=== PATIENT | male | born 1960 | race Caucasian/White ===

== ENCOUNTER 2020-03-07 15:59 | Emergency (ER) | payer OTHER, SELFPAY ==
[2020-03-07 16:46] VITALS: BP 170/96; PULSE 84; RESP 16; TEMP 36.6; O2SAT 98; BMI 32.1
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
== END 2020-03-07 17:55 | disposition home or self-care (01) ==
PROVIDERS: Emergency Provider Internal Medicine
DX: M54.2 Cervicalgia (principal); M25.512 Pain in left shoulder; M62.830 Muscle spasm of back; Z79.899 Other long term (current) drug therapy; F17.200 Nicotine dependence, unspecified, uncomplicated; Z71.6 Tobacco abuse counseling
CPT/HCPCS: 73030; 99283

== ENCOUNTER 2020-10-01 09:24 | Outpatient (REF) | payer OTHER, SELFPAY ==
--- NOTE | ~2020-10-01 | FL_ITS ---
EXAMINATION: FL BARIUM SWALLOW CLINICAL INFORMATION: Difficulty eating with question esophageal obstruction. COMPARISON: None TECHNIQUE: Barium swallow examination is performed using fluoroscopic evaluation in addition to multiple fluoroscopic spot views. The patient is imaged both upright and prone and using both thick and thin sulfate along with effervescent granules. Fluoroscopy time: 1.8 minutes DAP: 13.46 Gycm2 Images: 41 FINDINGS: Patient swallowed thin and thick barium as well as half-inch diameter barium tablet. There is no evidence of nasopharyngeal reflux or tracheal aspiration. No Zenker's diverticulum identified. There is diffuse esophageal hypomotility and dysmotility with tertiary contractions. The esophagus is distended with a weblike narrowing in its distal aspect at the gastroesophageal junction. There appears be a small hiatal hernia present. There is distention of the esophagus due to slow drainage across the narrowing. Half-inch diameter barium tablet would not pass through this region. FL/FL barium swallow IMPRESSION: Distal esophageal weblike stenosis through which a half-inch diameter barium tablet would not pass. Hypomotility with tertiary contractions.
--- NOTE | ~2020-10-01 | XR_ITS ---
EXAMINATION: XR CHEST CLINICAL INFORMATION: Tobacco use COMPARISON: None TECHNIQUE: 2 views of the chest were obtained. FINDINGS: No significant abnormality is noted involving the heart, lungs, mediastinum, bony thorax or soft tissues. XR/XR chest 2V IMPRESSION: Unremarkable examination.
--- NOTE | ~2020-10-01 | XR_ITS ---
EXAMINATION: XR SHOULDER, LEFT CLINICAL INFORMATION: Left shoulder pain. COMPARISON: 03/07/2020 left shoulder radiographs. TECHNIQUE: AP external rotation, Grashey, scapular Y, and axillary views of the left shoulder. FINDINGS: The bones and soft tissues are normal. No fracture. Glenohumeral and acromioclavicular alignment is anatomic with normal joint space. No abnormal soft tissue calcifications. XR/XR shoulder LT min 2V IMPRESSION: Unremarkable left shoulder.
--- NOTE | ~2020-10-01 | XR_ITS ---
EXAMINATION: XR LUMBOSACRAL SPINE CLINICAL INFORMATION: Low back pain. COMPARISON: None TECHNIQUE: Three views of the lumbosacral spine. FINDINGS: Mild multilevel marginal osteophyte formation is seen. There is normal lumbar lordosis and spinal alignment. Mild disc space narrowing is seen at L5-S1. The vertebral bodies are intact. There is minimal lumbar levoscoliosis with apex at L3-4. XR/XR lumbar spine 2-3V IMPRESSION: Mild multilevel degenerative changes and minimal lumbar levoscoliosis without acute abnormality.
[2020-10-01 11:33] LABS: MANUAL DIFF FLAG NO
[2020-10-01 11:50] LABS: Basophils Absolute Auto 0.1 X10*3/uL (0.0-0.2); Basophils Percent Auto 0.5 % (0-2); Eosinophils Absolute Auto 0.2 X10*3/uL (0.0-0.4); Eosinophils Percent Auto 1.8 % (0-4); Hematocrit 48.5 % (42-52); Hemoglobin 16.5 g/dl (14.0-18.0); Imm Gran Abs Auto 0.08 X10*3/uL (0.00-0.03); Imm Gran Pct Auto 0.8 % (0.0-0.4); Lymphocytes Absolute Auto 2.4 X10*3/uL (1.2-4.9); Lymphocytes Percent Auto 25.6 % (20-40); Mean Corpuscular Hemoglobin 29.9 pg (27.0-33.0); Mean Corpuscular Volume 87.9 fL (80-98); Mean Platelet Volume 9.9 fL (9.4-12.4); Monocytes Absolute Auto 0.7 X10*3/uL (0.1-1.2); Monocytes Percent Auto 7.3 % (2-11); Platelet Count 238 X10*3/uL (160-400); Red Blood Count 5.52 X10*6/uL (4.60-5.80); Red Cell Distribution Width 12.7 % (11.0-16.0); White Blood Count 9.4 X10*3/uL (4.8-10.8)
[2020-10-01 12:01] LABS: Estimated Average Glucose 103 mg/dL; Hemoglobin A1c % 5.2 %
[2020-10-01 12:23] LABS: Free T4 (Free Thyroxine) 0.84 ng/dL (0.71-1.85); Prostate Specific Antigen Scr 3.79 ng/mL (<0.05-4.0)
[2020-10-01 12:28] LABS: Folate 14.7 ng/mL (> or = 4.0); Vitamin B12 827 pg/mL (200-900)
[2020-10-01 12:35] LABS: Alanine Aminotransferase 49 U/L (0-40); Albumin Level 4.7 g/dL (3.5-5.0); Alkaline Phosphatase 92 U/L (39-117); Anion Gap 15 (12-20); Aspartate Amino Transferase 28 U/L (5-37); Bilirubin Total 0.6 mg/dL (0.0-1.0); Blood Urea Nitrogen 19 mg/dL (9-16); Calcium 9.6 mg/dL (8.4-10.2); Carbon Dioxide 28 mmol/L (22-29); Chloride 103 mmol/L (96-108); Cholesterol 315 mg/dL; Estimated Glomerular Filt Rate 57; Glucose Random 98 mg/dL (60-115); HDL Cholesterol 42 mg/dL; Potassium 4.7 mmol/L (3.3-5.1); Sodium 141 mmol/L (135-145); Total Protein 8.4 g/dL (6.5-8.0); Triglycerides 439 mg/dL
[2020-10-02 04:35] LABS: SARS COV2 IgG Positive (Negative)
== END 2020-10-01 09:25 | disposition home or self-care (01) ==
LOC: HO.XRAY 09:24
PROVIDERS: PCP Internal Medicine; Visit Provider Internal Medicine
DX: R13.10 Dysphagia, unspecified (principal); M54.5 Low back pain; R53.83 Other fatigue; M25.512 Pain in left shoulder; E78.00 Pure hypercholesterolemia, unspecified; Z72.0 Tobacco use; Z01.84 Encounter for antibody response examination; Z12.5 Encounter for screening for malignant neoplasm of prostate
CPT/HCPCS: 36415; 71046; 72100; 73030; 74220; 80053; 80061; 82607; 82746; 83036; 84153; 84439; 84443; 85025; 86769

== ENCOUNTER → 2020-10-03 10:27 | Outpatient (BNVA) | payer OTHER, SELFPAY | PROVIDERS: PCP Internal Medicine; Visit Provider Physician Assistant | DX: M75.42 Impingement syndrome of left shoulder (principal); M89.9 Disorder of bone, unspecified | CPT/HCPCS: 20610; 99202; J1040 ==

== ENCOUNTER 2020-10-16 07:45 | Outpatient (REF) | payer OTHER, SELFPAY ==
--- NOTE | ~2020-10-16 | US_ITS ---
EXAMINATION: US ABDOMEN LIMITED CLINICAL INFORMATION: Other specified abnormal findings of blood chemistry. COMPARISON: None TECHNIQUE: Real-time imaging of the right upper quadrant abdominal viscera. FINDINGS: PANCREAS: The head and the body the pancreas is homogeneous in echotexture. The tail of the pancreas is obscured by overlying gas. LIVER: The liver is normal in size. The liver contour is normal. There is diffuse increased liver echogenicity. No focal hepatic lesion. There is no intrahepatic biliary duct dilatation seen. GALLBLADDER: Normal. The gallbladder is physiologically distended without evidence of stones, sludge, polyps, wall thickening or pericholecystic fluid. COMMON BILE DUCT: Normal in caliber measuring 0.4 cm in diameter. RIGHT KIDNEY: Normal. No hydronephrosis. No renal calculi or focal parenchymal lesions. The kidney measures 11.9 cm in maximum dimension. FREE FLUID: None. US/US abdomen limited IMPRESSION: Diffuse hepatic echogenicity. No focal lesion seen. Visualized right kidney, CBD, gallbladder and the pancreas is unremarkable.
== END 2020-10-16 07:46 | disposition home or self-care (01) ==
LOC: HO.US 07:45
PROVIDERS: PCP Internal Medicine; Visit Provider Internal Medicine
DX: R79.89 Other specified abnormal findings of blood chemistry (principal)
CPT/HCPCS: 76705

== ENCOUNTER 2020-10-20 09:10 | Day surgery (SDC) | payer OTHER, SELFPAY ==
--- NOTE | 2020-10-16 09:56 | HO.ANESPROP2 ---
HPI - Anesthesia Eval Consult details Narrative: 60yo M for Upper Endoscopy with balloon dialation and Colonoscopy [facility] Active Problems Active Problems: All Active Problems (Updated 10/03/20 @ 10:57 by Sofía Cabrera PA-C) Impingement syndrome, shoulder, left (Acute) Scapular dysfunction (Acute) Shoulder pain (Acute) LFT elevation (Acute) Colon cancer screening (Acute) Peyronie disease (Acute) Dysphagia (Acute) Vision changes (Acute) Blood pressure elevated without history of HTN (Acute) Low back pain (Acute) Neuropathy of left foot (Acute) Tobacco abuse (Acute) Alcohol abuse (Acute) Obesity (BMI 30-39.9) (Acute) Easy fatigability (Acute) Shoulder pain, left (Acute) Past Medical History Medical History (Updated 10/16/20 @ 09:57 by Rosie Hernandes) Alcohol abuse Dysphagia Neuropathy of left foot No known health problems Obesity (BMI 30-39.9) Tobacco abuse Family History Family History Mother Myocardial infarct CVA (cerebral vascular accident) Social History Social History (Updated 10/03/20 @ 10:32 by TEETEE William) Alcohol intake: current Alcohol intake frequency: a few times a month Alcohol type: beer Patient Tobacco Use Status: Current someday Tobacco user Tobacco use type: Cigarette Years Smoked: while drinking - 10 -15 cigarettess e-Cigarette/Vaping Use: Never Used Second Hand Smoke Exposure: Yes Use of substances other than those prescribed or required for medical reasons: No Have you been hit, kicked, punched, or otherwise hurt by someone within the past year? If so, by whom?: No Are you DNR?: No Advance Directives: No Advance Directives Information Provided: Yes Current occupational status: employed Current occupation: [employer] Meds Allergies Allergy/AdvReac Type Severity Reaction Status Date / Time No Known Allergies Allergy Verified 10/03/20 10:30 Home Medications Medication Instructions Recorded Confirmed Last Taken Type No Known Home Meds 09/25/20 09/25/20 Unknown History Exam Exam Date and Time: October 16, 2020 0956 Pertinent Lab Results Pertinent Lab Results: Laboratory Tests 10/01/20 10/01/20 11:10 11:10 WBC 9.4 Hgb 16.5 Hct 48.5 Plt Count 238 Sodium 141 Potassium 4.7 Chloride 103 Carbon Dioxide 28 BUN 19 H Creatinine 1.30 Assessment and Plan Assessment Anesthesia Assessment: Chart Reviewed
[2020-10-20 11:06] VITALS: BMI 32.8
[2020-10-20 11:07] VITALS: BP 161/91; PULSE 73; RESP 18; TEMP 36.3; O2SAT 98
[2020-10-20] MEDS: Lactated Ringers 1,000 ML 100 ML IVCONT (11:26)
--- NOTE | 2020-10-20 11:35 | P.CONAN_ITS ---
[facility] Active Problems Active Problems: All Active Problems (Updated 10/16/20 @ 09:57 by Rosie ramos) Dysphagia (Acute) Impingement syndrome, shoulder, left (Acute) Scapular dysfunction (Acute) Shoulder pain (Acute) LFT elevation (Acute) Colon cancer screening (Acute) Peyronie disease (Acute) Vision changes (Acute) Low back pain (Acute) Easy fatigability (Acute) Shoulder pain, left (Acute) Past Medical History Medical History (Updated 10/16/20 @ 09:57 by Rosie Hernandes) Alcohol abuse Dysphagia Neuropathy of left foot No known health problems Obesity (BMI 30-39.9) Tobacco abuse Family History Family History Mother Myocardial infarct CVA (cerebral vascular accident) Family history of problems with anesthesia: No Surgical History History of Problems with Anesthesia: No Social History Social History (Updated 10/03/20 @ 10:32 by TEETEE William) Alcohol intake: current Alcohol intake frequency: a few times a month Alcohol type: beer Patient Tobacco Use Status: Current someday Tobacco user Tobacco use type: Cigarette Years Smoked: while drinking - 10 -15 cigarettess e-Cigarette/Vaping Use: Never Used Second Hand Smoke Exposure: Yes Use of substances other than those prescribed or required for medical reasons: No Have you been hit, kicked, punched, or otherwise hurt by someone within the past year? If so, by whom?: No Are you DNR?: No Advance Directives: No Advance Directives Information Provided: Yes Current occupational status: employed Current occupation: [employer] Meds Allergies Allergy/AdvReac Type Severity Reaction Status Date / Time No Known Allergies Allergy Verified 10/03/20 10:30 Active Medications: Current Medications Generic Name Dose Route Start Last Admin Trade Name Freq PRN Reason Stop Dose Admin Albuterol Sulfate 2.5 mg 10/20/20 10:17 Albuterol Sulfate (0.083%) 2.5 Mg/3 Ml Vial.Neb INHALE ONCE PRN Shortness of Breath/Wheezing Lactated Ringer's 1,000 mls @ 100 mls/hr 10/20/20 10:30 10/20/20 11:26 Lr IVCONT 100 mls/hr .Q10H COCO Administration Sodium Biphosphate/Sodium Phosphate 133 ml 10/20/20 10:18 Sodium Phosphate,[place]-Dibasic 133 Ml Enema AR ONCE PRN Poor Colonoscopy Prep Results Home Medications Medication Instructions Recorded Confirmed Last Taken Type No Known Home Meds 09/25/20 09/25/20 Unknown History Exam Exam Date and Time: October 20, 2020 1135 Height,Weight and Vital Signs: Height 5 ft 7 in Weight 95.254 kg Last Vital Signs Temp 97.3 F 10/20/20 11:07 Pulse 73 10/20/20 11:07 Resp 18 10/20/20 11:07 BP 161/91 H 10/20/20 11:07 Pulse Ox 98 10/20/20 11:07 Airway Mallampati Class: III TM Dist: >3cm Neck ROM: Full Loose/Missing/Broken Teeth: No Assessment and Plan Assessment Anesthesia Assessment: Anesthesia Plan Discussed and Chart Reviewed Final Anesthetic Review NPO: Yes ASA Class: II Final Preanesthetic Review: No Changes in Pt Med Stat, Meds/Allgs Chart Reviewed, Consent Obtained/Reviewed and Anes Risks/Benef Reviewed Patient Risk: Low Procedure Risk: Intermediate Anesthetic Plan Anesthetic Plan: MAC: and Agree w/ Assess. and Plan Disposition: Standard PACU
--- NOTE | 2020-10-20 13:31 | P.BOP_ITS ---
Brief Operative Note Date of Service: 10/20/20 Pre-op diagnosis: Dysphagia, Screening Post-op diagnosis: other (Esophageal stricture, Esophagitis, Hiatal hernia, Colon polyps) Procedure: EGD with biopsies and Balloon dilation; Colonoscopy to cecum with snare polypectomy, placement of Resolution clips on polypectomy sites near the ICV, distal transverse colon, and between 25-30cm x 2, and marking with Ink with the sclerotherapy needle by the distal TC polyp and between 25-30cm. Surgeon: Constantine Cervantes Anesthesia: MAC Was an [employer] Customer Experience Specialist used for this Procedure?: No Estimated blood loss (mL): 5.0 Pathology: other (A. EG Junction at 37cm B. Polyp near ICV C. Mid-transverse colon polyp D. Distal transverse colon polyp E. Polyps between 25-30cm) Condition: stable Disposition: PACU
[2020-10-20 13:36] VITALS: BP 142/95; PULSE 68; RESP 20; TEMP 36.3; O2SAT 97
[2020-10-20 13:51] VITALS: BP 131/64; PULSE 75; RESP 16; TEMP 36.3; O2SAT 98
--- NOTE | 2020-10-21 00:08 | OP_ITS ---
SURGEON: Constantine Cervantes MD PREOPERATIVE DIAGNOSIS: POSTOPERATIVE DIAGNOSIS: PROCEDURE PERFORMED: Esophagogastroduodenoscopy with balloon dilation of distal esophageal stricture and biopsies, and colonoscopy to the cecum with snare polypectomy, placement of resolution clips, and marking with submucosal ink.. Full consent has been obtained from him for both procedures, including risks of bleeding and perforation. ESTIMATED BLOOD LOSS: COMPLICATIONS: ANESTHESIA: Monitored anesthesia care. ASSISTANTS: SPECIMENS: PREOPERATIVE DIAGNOSES: Dysphagia, abnormal barium swallow, colorectal cancer screening, and occasional hematochezia. POSTOPERATIVE DIAGNOSES: Dysphagia, abnormal barium swallow, colorectal cancer screening, occasional hematochezia, erosive esophagitis, esophageal stricture, hiatal hernia, colon polyps, mild sigmoid diverticulosis, and internal hemorrhoids. DESCRIPTION OF PROCEDURE: The patient was placed in the left lateral decubitus position. The Olympus video gastroscope was passed in the posterior oropharynx and upper esophagus under direct vision. The scope was passed slowly to the distal esophagus. The gastroesophageal junction appeared at 37 cm. This area was notable for a mild stricture, some friability, edema, and changes consistent with erosive esophagitis. There was no definitive Ferrell's esophagus. There was no mass. I was able to easily pass this with the scope into the stomach. There was a small to moderate-sized hiatal hernia with normal mucosa. The scope was advanced to the pylorus and duodenum was cannulated to the descending portion. The duodenum including the bulb appeared normal without mass or ulceration. The scope was withdrawn back to the stomach. The gastric antrum and body appeared normal with good peristalsis. Scope was retroflexed visualizing the proximal stomach carefully, which appeared normal, without any sign of mass or ulceration. Scope was straightened and withdrawn back to the esophagus. Given the symptomatology, I did use a [employer] incremental balloon to dilate the area of the esophageal stricture from a 12 mm to a 15 mm balloon at the recommended pressure for between 30 and 60 seconds each. There was some heme noted post-dilation. Given the associated inflammation, I opted not use any larger balloon at that point.. I did obtain biopsies from the area of esophagitis at the EG Junction as well. Proximal to the EG junction, the esophageal mucosa appeared normal. The scope was withdrawn from the patient. He was turned around for the colonoscopy. The digital rectal exam revealed no abnormalities. The Olympus video pediatric colonoscope was entered into the rectum and advanced easily to the cecum. Once in the cecum, I did identify normal-appearing cecal pouch, appendiceal orifice, and a normal-appearing ileocecal valve. The entire cecum and ileocecal valve appeared normal. The scope was slowly withdrawn assessing all mucosal surfaces carefully. Preparation was excellent. There were a total of 5 polyps that were removed by hot snare polypectomy and recovered with a retrieval net and withdrawn from the patient, with subsequent advancement of the scope back to each of the polypectomy sites. There was an approximately 12 mm polyp in the very proximal ascending colon adjacent to the ileocecal valve. There was a 12 mm polyp in the mid-transverse colon. There was an approximately 1.5 cm polyp in the distal transverse colon. There were 2 larger polyps between 2 and 2.5 cm in size on approximately 2cm long stalks between 25 and 30 cm. These 2 latter polyps were quite friable and with some small erosions. After the polyp at the ileocecal valve was removed, I did place a single resolution clip on the polypectomy site with deployment and hemostasis. On the larger distal transverse colon polyp, I placed 2 resolution clips on the polypectomy site with good deployment and good hemostasis. I also inked submucosally the area adjacent to the polypectomy site as well. The 2 large polyps between 25 and 30 cm on the long stalks were initially treated with 2 resolution clips at the base of the stalks before doing the polypectomies.. Once the polypectomies were done, I then placed another clip on the polypectomy site of the more proximal polyp and 2 clips on the more distal polypectomy site with good hemostasis and good deployment. I also placed submucosal ink just proximal and just distal to the 2 polypectomy sites I did not visualize any other polyps, colitis, nor angiodysplasia. There were occasional diverticula noted in the sigmoid colon. In the rectum, scope was retroflexed visualizing small internal hemorrhoids, but no other pathology. The rectal mucosa appeared normal. The scope was straightened and withdrawn from the patient. He tolerated the procedures well and was returned to the recovery area in stable condition. IMPRESSION: 1. Erosive esophagitis and esophageal stricture, status post balloon dilation and biopsies. 2. Hiatal hernia. 3. Colon polyps. 4. Mild diverticulosis. 5. Small internal hemorrhoids. PLAN: The results of the pathology will be checked. Obviously with the larger colon polyps we will need to make sure there is no sign of any carcinoma and need for any type of surgical intervention. If there is no need for surgery, I would then recommend a repeat colonoscopy within 1 year. He was advised to stay off all aspirin and NSAIDs for least 2 weeks, preferably long-term given the upper endoscopy findings. He will start omeprazole 40 mg daily as well. I will plan to see him in the office in 1 month and then at that point, decide whether we need to repeat the upper endoscopy with further balloon dilation. This has all been discussed with the patient in detail. This has also been discussed with his daughter. MD CHRISTINA Ford/VELIA / [id number] MTDD
== END 2020-10-20 14:22 | disposition home or self-care (01) ==
PROVIDERS: PCP Internal Medicine; Visit Provider Internal Medicine
PROC: (CPT 45385; principal; 2020-10-20 10:40)
DX: Z12.11 Encounter for screening for malignant neoplasm of colon (principal); R93.3 Abnormal findings on diagnostic imaging of other parts of digestive tract; D12.0 Benign neoplasm of cecum; D12.3 Benign neoplasm of transverse colon; D12.5 Benign neoplasm of sigmoid colon; K57.30 Diverticulosis of large intestine without perforation or abscess without bleeding; K64.8 Other hemorrhoids; K22.2 Esophageal obstruction; K20.80 Other esophagitis without bleeding; K44.9 Diaphragmatic hernia without obstruction or gangrene; F17.210 Nicotine dependence, cigarettes, uncomplicated
CPT/HCPCS: 45385; 45381; 43249; 43239; 88305; C1726; J3010

== ENCOUNTER → 2020-11-13 09:30 | Outpatient (BNVA) | payer OTHER, SELFPAY | PROVIDERS: Visit Provider Physician Assistant | DX: M75.42 Impingement syndrome of left shoulder (principal) | CPT/HCPCS: 99212 ==

== ENCOUNTER 2020-11-26 09:27 | Day surgery (SDC) | payer OTHER, SELFPAY ==
[2020-11-19 13:12] VITALS: BMI 32.8
--- NOTE | 2020-11-25 09:45 | P.CONAN_ITS ---
Documented by User: Rosie Hernandes 11/25/20 09:47 HPI - Anesthesia Eval Consult details Narrative: 60yo M for Upper Endoscopy with Balloon Dilitation s/p EGD and [place] with TIVA 10/20/2020 +ETOH PMFSH Active Problems Active Problems: All Active Problems (Updated 10/16/20 @ 09:57 by Rosie Hernandes) Dysphagia (Acute) Impingement syndrome, shoulder, left (Acute) Scapular dysfunction (Acute) Shoulder pain (Acute) LFT elevation (Acute) Colon cancer screening (Acute) Peyronie disease (Acute) Vision changes (Acute) Low back pain (Acute) Easy fatigability (Acute) Shoulder pain, left (Acute) Past Medical History Medical History Alcohol abuse Colonoscopy planned Dysphagia Neuropathy of left foot No known health problems Obesity (BMI 30-39.9) Tobacco abuse Family History Family History Mother Myocardial infarct CVA (cerebral vascular accident) Family history of problems with anesthesia: No Surgical History History of Problems with Anesthesia: No Social History Social History Alcohol intake: current Alcohol intake frequency: a few times a month Alcohol type: beer Patient Tobacco Use Status: Current someday Tobacco user Tobacco use type: Cigarette Years Smoked: while drinking - 10 -15 cigarettess Smoked in Last 30 Days: Yes e-Cigarette/Vaping Use: Never Used Second Hand Smoke Exposure: Yes Use of substances other than those prescribed or required for medical reasons: No Are you DNR?: No Advance Directives: No Advance Directives Information Provided: Yes Current occupational status: employed Current occupation: [employer] Meds Allergies Allergy/AdvReac Type Severity Reaction Status Date / Time No Known Allergies Allergy Verified 11/26/20 10:15 Home Medications Medication Instructions Recorded Confirmed Last Taken Type No Known Home Meds 09/25/20 11/26/20 Unknown History Exam Exam Date and Time: November 25, 2020 0945 Height,Weight and Vital Signs: Height 5 ft 7 in Weight 95.25 kg Pertinent Lab Results Pertinent Lab Results: Laboratory Tests 10/01/20 10/01/20 11:10 11:10 WBC 9.4 Hgb 16.5 Hct 48.5 Plt Count 238 Sodium 141 Potassium 4.7 Chloride 103 Carbon Dioxide 28 BUN 19 H Creatinine 1.30 Assessment and Plan Assessment Anesthesia Assessment: Chart Reviewed Documented by User: Yue Nunez 11/26/20 12:28 HPI - Anesthesia Eval Consult details Narrative: 60 yo male patient for EGD with balloon dilatation PMFSH Past Medical History Medical History Alcohol abuse Colonoscopy planned Dysphagia Neuropathy of left foot No known health problems Obesity (BMI 30-39.9) Tobacco abuse Family History Family History Mother Myocardial infarct CVA (cerebral vascular accident) Family history of problems with anesthesia: No Surgical History History of Problems with Anesthesia: No Social History Social History Alcohol intake: current Alcohol intake frequency: a few times a month Alcohol type: beer Patient Tobacco Use Status: Current someday Tobacco user Tobacco use type: Cigarette Years Smoked: while drinking - 10 -15 cigarettess Smoked in Last 30 Days: Yes e-Cigarette/Vaping Use: Never Used Second Hand Smoke Exposure: Yes Use of substances other than those prescribed or required for medical reasons: No Are you DNR?: No Advance Directives: No Advance Directives Information Provided: Yes Current occupational status: employed Current occupation: [employer] Meds Allergies Allergy/AdvReac Type Severity Reaction Status Date / Time No Known Allergies Allergy Verified 11/26/20 10:15 Home Medications Medication Instructions Recorded Confirmed Last Taken Type No Known Home Meds 09/25/20 11/26/20 Unknown History Exam Height,Weight and Vital Signs: Vital Signs Temp Pulse Resp BP Pulse Ox 11/26/20 10:22 98.4 F 79 16 139/74 97 Airway Mallampati Class: III TM Dist: >3cm Neck ROM: Full Loose/Missing/Broken Teeth: No Heart: RRR Lungs: CTAB Assessment and Plan Final Anesthetic Review NPO: Yes Final Preanesthetic Review: No Changes in Pt Med Stat, Meds/Allgs Chart Reviewed, Consent Obtained/Reviewed and Anes Risks/Benef Reviewed Patient Risk: Low Procedure Risk: Low Assessment/Block/Sedation in SS: Assess/Block/Sedation-SS Anesthetic Plan Anesthetic Plan: MAC: Disposition: Standard PACU
[2020-11-26 10:21] VITALS: BMI 32.1
[2020-11-26 10:22] VITALS: BP 139/74; PULSE 79; RESP 16; TEMP 36.9; O2SAT 97
[2020-11-26] MEDS: Lactated Ringers 1,000 ML 100 ML IVCONT (10:41)
[2020-11-26 12:25] VITALS: BP 104/62; PULSE 84; RESP 14; TEMP 37.1; O2SAT 96
--- NOTE | 2020-11-26 12:26 | PM.OP ---
Brief Operative Note Date of Service: 11/26/20 Pre-op diagnosis: Dysphagia, Esophageal stricture Post-op diagnosis: other (Esophageal stricture, Hiatal hernia, Reflux esophagitis) Procedure: EGD with Balloon Dilation of EG Junction Surgeon: Constantine Cervantes Was an Manufacturing Engineer Paint used for this Procedure?: No Estimated blood loss (mL): 4.0 Pathology: none sent Condition: stable Disposition: PACU
[2020-11-26 12:40] VITALS: BP 110/71; PULSE 82; RESP 18; TEMP 37.1; O2SAT 98
--- NOTE | 2020-11-26 13:58 | OP_ITS ---
SURGEON: Constantine Cervantes MD INDICATIONS: The patient presents for evaluation of dysphagia and history of esophageal stricture. Full consent has been obtained from him for this, including risks of bleeding and perforation. PREOPERATIVE DIAGNOSIS: POSTOPERATIVE DIAGNOSIS: PROCEDURE PERFORMED: Esophagogastroduodenoscopy with balloon dilation of esophageal stricture. ESTIMATED BLOOD LOSS: COMPLICATIONS: ANESTHESIA: Monitored anesthesia care. ASSISTANTS: SPECIMENS: PREOPERATIVE DIAGNOSES: Dysphagia and history of esophageal stricture. POSTOPERATIVE DIAGNOSES: Dysphagia and history of esophageal stricture, hiatal hernia, reflux esophagitis. DESCRIPTION OF PROCEDURE: The patient was placed in the left lateral decubitus position. The Olympus video gastroscope was passed in the posterior oropharynx and upper esophagus under direct vision. The scope was passed slowly into the distal esophagus. The gastroesophageal junction appeared at 37 cm. This area was notable for some edema and spasm, as well as some mild evidence of a fibrotic stricture. The scope did pass this without much difficulty. There was a small to moderate-sized hiatal hernia with the diaphragmatic indentation seen at about 40 cm. The hiatal hernia mucosa appeared normal. The scope was advanced to the pylorus and duodenum was cannulated to the descending portion. The duodenum including the bulb appeared normal without mass or ulceration. The scope was withdrawn back into the stomach. The gastric antrum and body appeared normal with good peristalsis. The scope was retroflexed visualizing the proximal stomach carefully which appeared normal, without any sign of mass or ulceration. Scope was straightened out and withdrawn back into the esophagus. I used a [employer] incremental balloon to dilate the esophageal stricture from 15 mm to 16.5 mm to 18 mm at the recommended pressure for between 30 and 60 seconds each. Post dilation, there was some heme noted. I then used another [employer] incremental balloon to dilate the stricture from 19 mm to 20 mm at the recommended pressures for between 30 and 60 seconds each. Post dilation, the gastroesophageal junction definitely appeared more patent. Again, there was some heme and I do think the stricture appeared to be disrupted and the gastroesophageal junction appeared definitely more patent. There was no mass nor ulceration. The scope was withdrawn through the esophagus, which otherwise appeared normal. Scope was withdrawn from the patient. He tolerated the procedure well and was returned to the recovery area in stable condition. IMPRESSION: 1. Distal esophageal stricture, status post balloon dilation. 2. Hiatal hernia. 3. Reflux esophagitis. PLAN: The patient has been using omeprazole 40 mg daily. I shall increase this to 40 mg b.i.d. and then see him in January for a followup visit. He has been advised to call sooner if his dysphagia worsens. He was advised not to use any aspirin or NSAIDs long-term and I did advise him to try to stop smoking. If he has recurrent dysphagia in the near future, I would then want to obtain a barium swallow with a barium tablet for further assessment and consider esophageal motility studies. MD CHRISTINA Ford/VELIA / [id number]
== END 2020-11-26 13:00 | disposition home or self-care (01) ==
PROVIDERS: PCP Internal Medicine; Visit Provider Internal Medicine
PROC: (CPT 43249; principal; 2020-11-26 11:00)
DX: K22.2 Esophageal obstruction (principal); K44.9 Diaphragmatic hernia without obstruction or gangrene; K21.00 Gastro-esophageal reflux disease with esophagitis, without bleeding; Z79.899 Other long term (current) drug therapy; F17.210 Nicotine dependence, cigarettes, uncomplicated
CPT/HCPCS: 43249; C1726; J3010

== ENCOUNTER → 2021-01-02 08:47 | Outpatient (BNVA) | payer SELFPAY | PROVIDERS: PCP Internal Medicine; Visit Provider Physician Assistant Medical | DX: Z02.79 Encounter for issue of other medical certificate (principal) ==

== ENCOUNTER → 2021-02-17 15:12 | Outpatient (BNVA) | payer OTHER, SELFPAY | PROVIDERS: PCP Internal Medicine; Visit Provider Urology | DX: N48.6 Induration penis plastica (principal) | CPT/HCPCS: 99202 ==

== ENCOUNTER 2021-03-16 08:23 | Outpatient (REF) | payer OTHER, SELFPAY ==
[2021-03-16 09:39] LABS: Alanine Aminotransferase 34 U/L (0-40); Albumin Level 4.4 g/dL (3.5-5.0); Alkaline Phosphatase 91 U/L (39-117); Anion Gap 13 (12-20); Aspartate Amino Transferase 23 U/L (5-37); Bilirubin Direct 0.2 mg/dL (0.0-0.5); Bilirubin Total 0.8 mg/dL (0.0-1.0); Blood Urea Nitrogen 13 mg/dL (9-16); Carbon Dioxide 24 mmol/L (22-29); Chloride 105 mmol/L (96-108); Cholesterol 286 mg/dL; Estimated Glomerular Filt Rate > 60; Glucose Random 93 mg/dL (60-115); HDL Cholesterol 41 mg/dL; LDL Cholesterol Calculated 169 mg/dl; Potassium 4.2 mmol/L (3.3-5.1); Sodium 138 mmol/L (135-145); Total Protein 7.8 g/dL (6.5-8.0); Triglycerides 382 mg/dL
[2021-03-16 09:55] LABS: HBS Num1 1.36 mIU/mL (0-7.99); HBsAGNum1 0.19 S/CO (0.00-0.99); Hepatitis B Surface Antigen Negative (Negative); ~HepC Num1 0.18 S/CO (0.00-0.79); ~Hepatitis B Surface Antibody NONREACTIVE (Nonreactive); ~Hepatitis C Antibody Nonreactive (Nonreactive)
[2021-03-16 10:59] LABS: HBc Num1 0.09 S/CO (0.00-0.79); Hepatitis B Core Antibody Nonreactive (Nonreactive)
== END 2021-03-16 08:24 | disposition home or self-care (01) ==
LOC: HO.LAB 08:23
PROVIDERS: PCP Internal Medicine; Visit Provider Internal Medicine
DX: E78.00 Pure hypercholesterolemia, unspecified (principal); R79.89 Other specified abnormal findings of blood chemistry; R94.5 Abnormal results of liver function studies
CPT/HCPCS: 36415; 80053; 80061; 82248; 86704; 86706; 86803; 87340

== ENCOUNTER → 2021-08-25 08:19 | Outpatient (BNVA) | payer OTHER, SELFPAY | PROVIDERS: PCP Internal Medicine; Visit Provider Urology | DX: N40.1 Benign prostatic hyperplasia with lower urinary tract symptoms (principal); N13.8 Other obstructive and reflux uropathy; N48.6 Induration penis plastica; N48.89 Other specified disorders of penis; G89.29 Other chronic pain | CPT/HCPCS: 99212 ==

== ENCOUNTER 2021-12-02 10:28 | Emergency (ER) | payer OTHER, SELFPAY ==
--- NOTE | ~2021-12-02 | XR_ITS ---
EXAMINATION: XR FOOT, LEFT CLINICAL INFORMATION: Pain and swelling for 3 days. Redness. COMPARISON: None TECHNIQUE: AP, lateral, and oblique views of the left foot. FINDINGS: Normal bony mineralization. No acute or healing fracture, dislocation, destructive process, or periostitis. No arthropathy. No visible gas tracking in the soft tissues. No visible ankle capsular effusion. The retrocalcaneal recess is preserved. There are posterior and plantar calcaneal spurs. XR/XR foot LT min 3V IMPRESSION: -Posterior and plantar calcaneal spurs. -No fracture, dislocation, arthropathy, or destructive process.
[2021-12-02 11:26] VITALS: BMI 31.0
[2021-12-02 11:28] VITALS: BP 151/98; PULSE 102; RESP 14; TEMP 36.8; O2SAT 98
[2021-12-02 11:40] LABS: MANUAL DIFF FLAG NO
[2021-12-02 11:45] LABS: Basophils Percent Auto 0.4 % (0-2); Eosinophils Absolute Auto 0.3 X10*3/uL (0.0-0.4); Eosinophils Percent Auto 2.6 % (0-4); Hematocrit 48.5 % (42.0-52.0); Hemoglobin 16.7 g/dl (14.0-18.0); Imm Gran Abs Auto 0.11 X10*3/uL (0.00-0.03); Imm Gran Pct Auto 1.1 % (0.0-0.4); Lymphocytes Absolute Auto 2.1 X10*3/uL (1.2-4.9); Lymphocytes Percent Auto 19.9 % (20-40); Mean Corpuscular HGB Conc 34.4 g/dl (31.0-36.0); Mean Corpuscular Volume 87.2 fL (80.0-98.0); Mean Platelet Volume 9.5 fL (9.4-12.4); Monocytes Absolute Auto 0.6 X10*3/uL (0.1-1.2); Monocytes Percent Auto 5.7 % (2-11); Neutrophils Absolute Auto 7.3 x10*3/uL (2.0-8.3); Neutrophils Percent Auto 70.3 % (45-73); Platelet Count 206 X10*3/uL (160-400); Red Blood Count 5.56 X10*6/uL (4.60-5.80); Red Cell Distribution Width 12.5 % (11.0-16.0); White Blood Count 10.4 X10*3/uL (4.8-10.8)
--- NOTE | 2021-12-02 12:49 | ED_ITS ---
HPI - Extremity Injury (Lower) General Chief Complaint: Extremity Injury, Lower Stated Complaint: L foot swollen Time Seen by Provider: 12/02/21 12:13 Source: patient Mode of arrival: ambulatory History of Present Illness HPI Narrative: 61-year-old male with a past medical history of ETOH abuse, neuropathy, obesity, tobacco abuse, presenting to the ED complaining of left foot pain, swelling, and erythema since Tuesday. Admits spent the day at the beach on Tuesday and stepped on a rock in the water, denies puncture wound, bleeding, twisting/crush injury, fever, chills, drainage MD complaint: foot injury Related Data Previous Rx's Medication Instructions Recorded pentoxifylline 400 mg 400 mg PO BID 90 days #180 tabs 02/17/21 tablet,extended release vitamin E (dl, acetate) 450 mg 450 mg PO DAILY 90 days #90 caps 02/17/21 (1,000 unit) capsule clotrimazole 1 % topical cream 1 appl topical BID 4 weeks #45 03/04/21 grams naproxen 500 mg tablet (Naprosyn) 500 mg PO Q12H PRN pain #30 tabs 08/25/21 tadalafil 5 mg tablet 5 mg PO DAILY sexual activity 90 08/25/21 days #90 tabs cephalexin 500 mg capsule 500 mg PO QID 7 days #28 caps 12/02/21 doxycycline hyclate 100 mg tablet 100 mg PO BID 7 days #14 tabs 12/02/21 ketorolac 10 mg tablet 10 mg PO TID PRN pain 5 days #15 12/02/21 tabs Allergies Allergy/AdvReac Type Severity Reaction Status Date / Time No Known Allergies Allergy Verified 12/02/21 11:26 Review of Systems Review of Systems: Constitutional: No Fever, No Chills ENT/Mouth: No Ear Pain, No Nasal Congestion, No Sinus Pain, No Hoarseness, No sore throat, No Rhinorrhea, No Swallowing Difficulty Cardiovascular: No Chest Pain, No SOB Respiratory: No Cough, No Sputum, No Wheezing Gastrointestinal: No Nausea, No Vomiting, No Diarrhea, No Constipation, No Abdominal pain Genitourinary: No Dysuria, No Urinary Frequency, No Hematuria, No Flank Pain Musculoskeletal: + joint pain, No Myalgias, + Joint Swelling Skin: No Skin Lesions, No rash Neuro: No Weakness, No Numbness, No Paresthesias Yes all other systems are reviewed and are negative Constitutional: Constitutional: Reports as per [facility] Past Medical History Attestation statement: The following information was validated with the patient. Medical History Alcohol abuse Colonoscopy planned Dysphagia Neuropathy of left foot No known health problems Obesity (BMI 30-39.9) Tobacco abuse Family History Family History Mother Myocardial infarct CVA (cerebral vascular accident) Social History Social History Housing: Apartment Alcohol intake: current Alcohol intake frequency: a few times a month Alcohol type: beer Patient Tobacco Use Status: Former Tobacco user Tobacco use type: Cigarette Years Smoked: while drinking - 10 -15 cigarettess e-Cigarette/Vaping Use: Never Used Second Hand Smoke Exposure: Yes Advance Directives: No Advance Directives Information Provided: Yes service: No Current occupational status: unemployed Current occupation: [employer] Physical Exam Vital Signs: Vital Signs: Last Vital Signs Temp 98.2 F 12/02/21 11:28 Pulse 102 H 12/02/21 11:28 Resp 14 12/02/21 11:28 BP 151/98 H 12/02/21 11:28 Pulse Ox 98 12/02/21 11:28 O2 Del Method 12/02/21 11:28 BMI result Body Mass Index 31.0 Const: General: cooperative, healthy appearing and no acute distress Orientation/consciousness: patient oriented x3 Limitations: no limitations HEENT: Head: Yes normal to inspection and Yes atraumatic Ears: hearing grossly normal bilaterally General nose exam: Normal external nose present Face and sinus: Yes normal facial exam Eyes: General: appearance normal, both eyes and all related structures EOM: EOMs intact bilaterally Neck: Neck: Yes normal visual inspection and Yes no meningeal signs Resp: Effort & Inspection: normal respiratory effort and no respiratory distress Cardio: Rate: regular rate Heart sounds: S1 normal heart sound present and S2 normal heart sound present Peripheral pulses: dorsalis pedis present Skin: Other: Please refer to images above. Left foot with noted swelling, erythema, and warmth greatest to lateral aspect, slight streaking noted up ankle. Tender to palpation. Neurovascular intact. Full range of motion intact ankle and toes. No fluctuance/induration Neuro: General: patient oriented x3, tone normal and no meningeal signs Gait exam (Neuro): Normal gait present Extrem: General: Yes normal to inspection Course Course Course Narrative: XR foot LT min 3V IMPRESSION: -Posterior and plantar calcaneal spurs. -No fracture, dislocation, arthropathy, or destructive process. -1258--no leukocytosis. Labs otherwise reassuring -lactic acid negative Results discussed with patient including worrisome signs and symptoms and strict return precautions, and when to return to the emergency department. They verbalized understanding and feel safe for discharge at this time. MDM - Extremity Injury (Lower) MDM Narrative Medical decision making narrative: 61-year-old male with a past medical history of ETOH abuse, neuropathy, obesity, tobacco abuse, presenting to the ED complaining of left foot pain, swelling, and erythema since Tuesday. On exam initially mildly tachycardic likely from pain, physical exam as above please refer to images. Concern for cellulitis. No evidence of puncture wound, no fluctuance/induration or evidence of abscess. Low suspicion for septic joint/arthritis Plan: X-rays ordered in triage, labs, lactic/blood cultures, few antibiotics. Low suspicion for severe sepsis Medical Records Attestation: I reviewed the patient's medical records. Lab Data Attestation: I reviewed the patient's lab results. Result diagrams: 12/02/21 11:36 12/02/21 11:36 Labs: Lab Results 12/02/21 12/02/21 12/02/21 Range/Units 11:36 11:36 13:00 WBC 10.4 (4.8-10.8) X10*3/uL RBC 5.56 (4.60-5.80) X10*6/uL Hgb 16.7 (14.0-18.0) g/dl Hct 48.5 (42.0-52.0) % MCV 87.2 (80.0-98.0) fL MCH 30.0 (27.0-33.0) pg MCHC 34.4 (31.0-36.0) g/dl RDW 12.5 (11.0-16.0) % Plt Count 206 (160-400) X10*3/uL MPV 9.5 (9.4-12.4) fL Immature Gran % (Auto) 1.1 H (0.0-0.4) % Neut % (Auto) 70.3 (45-73) % Lymph % (Auto) 19.9 L (20-40) % [place] % (Auto) 5.7 (2-11) % Eos % (Auto) 2.6 (0-4) % Baso % (Auto) 0.4 (0-2) % Lymph # (Auto) 2.1 (1.2-4.9) X10*3/uL [place] # (Auto) 0.6 (0.1-1.2) X10*3/uL Eos # (Auto) 0.3 (0.0-0.4) X10*3/uL Baso # (Auto) 0.0 (0.0-0.2) X10*3/uL Abs Immat Gran (auto) 0.11 H (0.00-0.03) X10*3/uL Absolute Neuts (auto) 7.3 (2.0-8.3) x10*3/uL Absolute Nucleated RBC 0.000 (0.0-0.012) X10*3/uL Nucleated RBC % (auto) 0.0 (0.0-0.2) /100WBC Sodium 141 (135-145) mmol/L Potassium 4.1 (3.3-5.1) mmol/L Chloride 102 (96-108) mmol/L Carbon Dioxide 29 (22-29) mmol/L Anion Gap 14 (12-20) BUN 17 H (9-16) mg/dL Creatinine 1.33 (0.5-1.4) mg/dL Estim Creat Clear Calc 68.1 Estimated GFR 55 Random Glucose 128 H D (60-115) mg/dL Lactic Acid 1.4 (0.5-2.0) mmol/L Calcium 9.8 D (8.4-10.2) mg/dL Discharge Plan Discharge Clinical Impression: Cellulitis Patient Disposition: Home, Self-Care Instructions: Cellulitis (ED) Additional Instructions: Your blood work was reassuring. Her x-rays unremarkable. You have an infection of her skin, doxycycline and Keflex for antibiotics be take as prescribed. Elevate her foot. Take Tylenol and Toradol for pain, Toradol as an anti-inflammatory/pain medication, take with food. Please have close follow-up with her doctor. If symptoms persist or worsen, redness is passing line created in the emergency department or you have fever return to the ED Prescriptions: New ketorolac 10 mg tablet 10 mg PO TID PRN (Reason: pain) 5 Days Qty: 15 0RF cephalexin 500 mg capsule 500 mg PO QID 7 Days Qty: 28 0RF doxycycline hyclate 100 mg tablet 100 mg PO BID 7 Days Qty: 14 0RF No Action clotrimazole 1 % cream 1 appl topical BID 28 Days Qty: 45 0RF vitamin E (dl, acetate) 450 mg (1,000 unit) capsule 450 mg PO DAILY 90 Days Qty: 90 1RF pentoxifylline 400 mg tablet extended release 400 mg PO BID 90 Days Qty: 180 1RF Rx Instructions: administer with meals tadalafil 5 mg tablet 5 mg PO DAILY 90 Days Qty: 90 1RF naproxen [Naprosyn] 500 mg tablet 500 mg PO Q12H PRN (Reason: pain) Qty: 30 0RF Referrals: Po,Kaci Gordillo MD [Primary Care Provider] - 3 days
[2021-12-02 13:28] LABS: Lactic Acid 1.4 mmol/L (0.5-2.0)
[2021-12-02 13:47] LABS: Anion Gap 14 (12-20); Blood Urea Nitrogen 17 mg/dL (9-16); Calcium 9.8 mg/dL (8.4-10.2); Carbon Dioxide 29 mmol/L (22-29); Chloride 102 mmol/L (96-108); Creatinine Clr Calc Pharmacy 68.1; Estimated Glomerular Filt Rate 55; Glucose Random 128 mg/dL (60-115); Potassium 4.1 mmol/L (3.3-5.1); Sodium 141 mmol/L (135-145)
[2021-12-02] MEDS: Ketorolac Tromethamine 30 MG/ML VIAL IM (15:02)
== END 2021-12-02 15:11 | disposition home or self-care (01) ==
PROVIDERS: Physician Assistant; Emergency Provider Emergency Medicine Emergency Medical Services; PCP Internal Medicine
DX: L03.116 Cellulitis of left lower limb (principal); R60.0 Localized edema; Z79.899 Other long term (current) drug therapy; Z87.891 Personal history of nicotine dependence
CPT/HCPCS: 36415; 73630; 80048; 83605; 85025; 87040; 96372; 99284; J1885

== ENCOUNTER 2021-12-17 07:29 | Outpatient (REF) | payer OTHER, SELFPAY ==
[2021-12-17 07:43] LABS: MANUAL DIFF FLAG NO
[2021-12-17 07:53] LABS: Basophils Absolute Auto 0.1 X10*3/uL (0.0-0.2); Basophils Percent Auto 0.5 % (0-2); Eosinophils Absolute Auto 0.4 X10*3/uL (0.0-0.4); Eosinophils Percent Auto 4.1 % (0-4); Hemoglobin 17.1 g/dl (14.0-18.0); Imm Gran Abs Auto 0.12 X10*3/uL (0.00-0.03); Imm Gran Pct Auto 1.3 % (0.0-0.4); Lymphocytes Percent Auto 32.3 % (20-40); Mean Corpuscular HGB Conc 34.2 g/dl (31.0-36.0); Mean Corpuscular Hemoglobin 29.7 pg (27.0-33.0); Mean Corpuscular Volume 86.8 fL (80.0-98.0); Mean Platelet Volume 9.6 fL (9.4-12.4); Monocytes Absolute Auto 0.6 X10*3/uL (0.1-1.2); Monocytes Percent Auto 6.8 % (2-11); Neutrophils Absolute Auto 5.1 x10*3/uL (2.0-8.3); Platelet Count 229 X10*3/uL (160-400); Red Blood Count 5.76 X10*6/uL (4.60-5.80); Red Cell Distribution Width 12.8 % (11.0-16.0); White Blood Count 9.3 X10*3/uL (4.8-10.8)
[2021-12-17 08:01] LABS: Estimated Average Glucose 105 mg/dL; Hemoglobin A1c % 5.3 %
[2021-12-17 08:28] LABS: Alanine Aminotransferase 55 U/L (0-40); Albumin Level 4.5 g/dL (3.5-5.0); Alkaline Phosphatase 102 U/L (39-117); Anion Gap 15 (12-20); Aspartate Amino Transferase 36 U/L (5-37); Bilirubin Total 0.5 mg/dL (0.0-1.0); Blood Urea Nitrogen 19 mg/dL (9-16); C Reactive Protein 0.37 mg/dL (< or = 0.50); Calcium 9.6 mg/dL (8.4-10.2); Carbon Dioxide 28 mmol/L (22-29); Chloride 104 mmol/L (96-108); Cholesterol 337 mg/dL; Estimated Glomerular Filt Rate 59; Glucose Random 106 mg/dL (60-115); HDL Cholesterol 39 mg/dL; Potassium 4.9 mmol/L (3.3-5.1); Sodium 142 mmol/L (135-145); Total Protein 8.1 g/dL (6.5-8.0); Triglycerides 577 mg/dL; Uric Acid 8.3 mg/dL (3.4-7.0)
[2021-12-17 08:31] LABS: Erythrocyte Sedimentation Rate 7 MM/HR (0-15)
[2021-12-17 08:50] LABS: Free T4 (Free Thyroxine) 0.83 ng/dL (0.71-1.85); Thyroid Stimulating Hormone 3.19 uIU/mL (0.32-4.0)
[2021-12-17 09:11] LABS: Folate 13.1 ng/mL (> or = 4.0); Vitamin B12 783 pg/mL (200-900)
== END 2021-12-17 07:30 | disposition home or self-care (01) ==
LOC: HO.LAB 07:29
PROVIDERS: PCP Internal Medicine; Visit Provider Internal Medicine
DX: E78.00 Pure hypercholesterolemia, unspecified (principal); M79.89 Other specified soft tissue disorders; L03.116 Cellulitis of left lower limb
CPT/HCPCS: 36415; 80053; 80061; 82607; 82746; 83036; 84439; 84443; 84550; 85025; 85652; 86140

== ENCOUNTER 2022-01-27 07:54 | Emergency (ER) | payer OTHER, SELFPAY ==
[2022-01-27 08:03] VITALS: BP 171/96; PULSE 82; RESP 16; TEMP 36.3; O2SAT 98; BMI 32.8
--- NOTE | 2022-01-27 10:34 | ED.EXTPRO ---
HPI - Extremity Problem General Chief complaint: Extremity Problem Stated complaint: L foot swollen Time Seen by Provider: 01/27/22 10:19 Source: patient Mode of arrival: ambulatory History of Present Illness HPI Narrative: 61-year-old male with a past medical history of ETOH abuse, neuropathy, obesity, tobacco abuse, presenting to the ED complaining of left foot pain, swelling, and erythema x5 days. Admits to similar symptoms in the past. Denies any injury, trauma, fall, crush injury, numbness/tingling, fever, history of gout MD Complaint: extremity pain and extremity swelling Onset (ago): day(s) Related Data Previous Rx's Medication Instructions Recorded vitamin E (dl, acetate) 450 mg 450 mg PO DAILY 90 days #90 caps 02/17/21 (1,000 unit) capsule clotrimazole 1 % topical cream 1 appl topical BID 4 weeks #45 03/04/21 grams tadalafil 5 mg tablet 5 mg PO DAILY sexual activity 90 08/25/21 days #90 tabs cephalexin 500 mg capsule 500 mg PO QID 7 days #28 caps 01/27/22 doxycycline hyclate 100 mg tablet 100 mg PO BID 7 days #14 tabs 01/27/22 ketorolac 10 mg tablet 10 mg PO TID PRN pain 5 days #15 01/27/22 tabs prednisone 20 mg tablet 40 mg PO DAILY 5 days #10 tabs 01/27/22 Allergies Allergy/AdvReac Type Severity Reaction Status Date / Time No Known Allergies Allergy Verified 12/11/21 10:08 Review of Systems Review of Systems: Constitutional: No Fever, No Chills ENT/Mouth: No Ear Pain, No Nasal Congestion, No sore throat, No Rhinorrhea, No Swallowing Difficulty Cardiovascular: No Chest Pain, No SOB Respiratory: No Cough, No Sputum Gastrointestinal: No Nausea, No Vomiting, No Diarrhea, No Constipation, No Abdominal pain Genitourinary: No Dysuria, No Urinary Frequency, No Hematuria, No Flank Pain Musculoskeletal: + joint pain, No Myalgias, + Joint Swelling Skin: No Skin Lesions, No rash Neuro: No Weakness, No Numbness, No Paresthesias Yes all other systems are reviewed and are negative Constitutional: Constitutional: Reports as per [facility] Past Medical History Attestation statement: The following information was validated with the patient. Medical History Alcohol abuse Colonoscopy planned Dysphagia Neuropathy of left foot No known health problems Obesity (BMI 30-39.9) Tobacco abuse Surgical History History of colonoscopy History of endoscopy History of shoulder surgery Family History Family History Mother Myocardial infarct CVA (cerebral vascular accident) Social History Social History Housing: Apartment Alcohol intake: current Alcohol intake frequency: does not drink Alcohol type: beer Patient Tobacco Use Status: Former Tobacco user Tobacco use type: Cigarette Years Smoked: while drinking - 10 -15 cigarettess e-Cigarette/Vaping Use: Never Used Second Hand Smoke Exposure: Yes Advance Directives: No Advance Directives Information Provided: Yes service: No Current occupational status: unemployed Cognitive needs: No Hearing needs: No Vision needs: No Physical Exam Vital Signs: Vital Signs: Last Vital Signs Temp 97.4 F 01/27/22 08:03 Pulse 82 01/27/22 08:03 Resp 16 01/27/22 08:03 BP 171/96 H 01/27/22 08:03 Pulse Ox 98 01/27/22 08:03 O2 Del Method 01/27/22 08:03 BMI result Body Mass Index 32.8 Const: General: cooperative, healthy appearing and no acute distress Orientation/consciousness: patient oriented x3 Limitations: no limitations HEENT: Head: Yes normal to inspection and Yes atraumatic Ears: hearing grossly normal bilaterally General nose exam: Normal external nose present Face and sinus: Yes normal facial exam Eyes: General: appearance normal, both eyes and all related structures EOM: EOMs intact bilaterally Neck: Neck: Yes normal visual inspection and Yes no meningeal signs Resp: Effort & Inspection: normal respiratory effort and no respiratory distress Cardio: Rate: regular rate Heart sounds: S1 normal heart sound present and S2 normal heart sound present Peripheral pulses: dorsalis pedis present Skin: Rashes: no rashes Wounds: no wounds Neuro: General: patient oriented x3, tone normal and no meningeal signs Gait exam (Neuro): Normal gait present Extrem: Other: Left foot with noted swelling, erythema, and warmth > lateral aspect. Tender to palpation. Pulses intact. No fluctuance/induration or streaking. Neurovascularly intact. Arm and ankle slightly limited secondary to pain. MDM - Extremity (Nontraumatic) MDM Narrative Medical decision making narrative: 61-year-old male with a past medical history of ETOH abuse, neuropathy, obesity, tobacco abuse, presenting to the ED complaining of left foot pain, swelling, and erythema x5 days. On exam vital signs stable, NAD, nontoxic appearing, physical exam as above. Concern for cellulitis vs ? Gout. Low suspicion for septic joint/arthritis Plan: P.o. antibiotics, p.o. prednisone Medical Records Attestation: I reviewed the patient's medical records. Lab Data Attestation: I reviewed the patient's lab results. Discharge Plan Discharge Clinical Impression: Cellulitis Patient Disposition: Home, Self-Care Instructions: Cellulitis (ED), Gout (ED) Additional Instructions: Keflex and doxycycline are antibiotics please take as prescribed. Avoid the sun while on doxycycline as makes you sensitive. Ketorolac as an anti-inflammatory/pain medication, take with food Prednisone is a steroid which will help if this is gout. Please have close follow-up with her doctor, and orthopedics as needed. If symptoms persist or worsen, redness spreads, area becomes more swollen, you have fever, you are unable to move her ankle/foot please return to the emergency department Prescriptions: New prednisone 20 mg tablet 40 mg PO DAILY 5 Days Qty: 10 0RF ketorolac 10 mg tablet 10 mg PO TID PRN (Reason: pain) 5 Days Qty: 15 0RF cephalexin 500 mg capsule 500 mg PO QID 7 Days Qty: 28 0RF doxycycline hyclate 100 mg tablet 100 mg PO BID 7 Days Qty: 14 0RF No Action clotrimazole 1 % cream 1 appl topical BID 28 Days Qty: 45 0RF vitamin E (dl, acetate) 450 mg (1,000 unit) capsule 450 mg PO DAILY 90 Days Qty: 90 1RF tadalafil 5 mg tablet 5 mg PO DAILY 90 Days Qty: 90 1RF Referrals: Po,Kaci Gordillo MD [Primary Care Provider] -
[2022-01-27] MEDS: Ketorolac Tromethamine 30 MG/ML VIAL IM (11:07)
== END 2022-01-27 11:23 | disposition home or self-care (01) ==
PROVIDERS: Emergency Provider Emergency Medicine; PCP Internal Medicine
DX: L03.116 Cellulitis of left lower limb (principal); M79.672 Pain in left foot; G62.9 Polyneuropathy, unspecified; E78.00 Pure hypercholesterolemia, unspecified; E66.9 Obesity, unspecified; Z68.32 Body mass index [BMI] 32.0-32.9, adult; Z87.891 Personal history of nicotine dependence
CPT/HCPCS: 96372; 99283; 99284; J1885

== ENCOUNTER 2022-02-19 08:42 | Outpatient (REF) | payer OTHER, SELFPAY | END 2022-02-19 08:43 | disposition home or self-care (01) | LOC: HO.LAB 08:42 | PROVIDERS: PCP Internal Medicine; Visit Provider Urology | DX: N40.1 Benign prostatic hyperplasia with lower urinary tract symptoms (principal); N13.8 Other obstructive and reflux uropathy; Z12.5 Encounter for screening for malignant neoplasm of prostate | CPT/HCPCS: 36415; 84153 ==

== ENCOUNTER 2022-02-26 08:42 | Outpatient (REF) | payer OTHER, SELFPAY ==
[2022-02-26 16:55] LABS: Urine Cytology See Pathology rpt
== END 2022-02-26 08:43 | disposition home or self-care (01) ==
LOC: HO.LAB 08:42
PROVIDERS: Visit Provider Urology
DX: R31.29 Other microscopic hematuria (principal); N52.9 Male erectile dysfunction, unspecified; N40.1 Benign prostatic hyperplasia with lower urinary tract symptoms; N13.8 Other obstructive and reflux uropathy
CPT/HCPCS: 51798; 88112; 99212

== ENCOUNTER 2022-06-02 08:43 | Outpatient (REF) | payer OTHER, SELFPAY ==
[2022-06-03 09:48] LABS: Free Prostate Spec Ag 1.1 ng/mL; Percent Free Prostate Spec Ag 31 % (calc) (>25); Prostate Specific Ag Total 3.6 ng/mL (< OR = 4.0)
== END 2022-06-02 08:44 | disposition home or self-care (01) ==
LOC: HO.LAB 08:43
PROVIDERS: PCP Internal Medicine; Visit Provider Urology
DX: Z12.5 Encounter for screening for malignant neoplasm of prostate (principal); N13.8 Other obstructive and reflux uropathy; N40.1 Benign prostatic hyperplasia with lower urinary tract symptoms
CPT/HCPCS: 36415; 84153; 84154

== ENCOUNTER → 2022-06-25 11:41 | Outpatient (BNVA) | payer OTHER, SELFPAY | PROVIDERS: PCP Internal Medicine; Visit Provider Urology | DX: Z13.89 Encounter for screening for other disorder (principal) ==

== ENCOUNTER 2022-06-28 06:08 | Day surgery (SDC) | payer OTHER, SELFPAY ==
[2022-06-28 06:48] VITALS: BMI 33.6
[2022-06-28 06:50] VITALS: BP 130/79; PULSE 92; RESP 18; TEMP 36.6; O2SAT 96
[2022-06-28] MEDS: Lactated Ringers 1,000 ML 50 ML IVCONT (06:51)
[2022-06-28 08:42] VITALS: BP 107/64; PULSE 80; RESP 16; TEMP 36.8; O2SAT 95
--- NOTE | 2022-06-28 08:48 | PM.OP ---
Brief Operative Note Date of Service: 06/28/22 Pre-op diagnosis: Dysphagia, Screening Post-op diagnosis: other (Erosive esophagitis/Stricture, Colon polyps) Procedure: EGD with biopsies and Balloon dilation with a 15 to 16.5 mm balloon, and Colonoscopy to the cecum and TI with hot snare polypectomy x 3, and biopsies Surgeon: Constantine Cervantes Anesthesia: MAC Was an Strategic Sourcing Manager used for this Procedure?: No Estimated blood loss (mL): 2.0 Pathology: other (A. EG Junction at 36cm B. Cecal polyp C. Ascending colon polyp D. Transverse colon site of previous polypectomy E. Polyp at 40cm F. Site of previous polypectomy at 20cm) Condition: stable Disposition: PACU
[2022-06-28 08:57] VITALS: BP 121/82; PULSE 86; RESP 16; TEMP 36.8; O2SAT 98
--- NOTE | 2022-06-28 13:47 | HO.ANESPROP2 ---
HPI - Anesthesia Eval Consult details Narrative: screening [facility] Active Problems Active Problems: All Active Problems (Updated 06/24/22 @ 13:46 by Yokasta Gonzalez RN) Shoulder pain, left (Acute) Easy fatigability (Acute) Low back pain (Acute) Vision changes (Acute) Peyronie disease (Acute) Colon cancer screening (Acute) LFT elevation (Acute) Shoulder pain (Acute) Scapular dysfunction (Acute) Impingement syndrome, shoulder, left (Acute) S/P dilatation of esophageal stricture (Acute) Hypercholesterolemia (Acute) Fatty liver (Acute) Obesity (BMI 30.0-34.9) (Acute) Tinea corporis (Acute) BPH w urinary obs/LUTS (Acute) Penile pain, chronic (Acute) Cellulitis of left foot (Acute) Tubular adenoma of colon (Acute) Swelling of left foot (Acute) Erectile dysfunction (Acute) Dysphagia (Acute) Past Medical History Medical History Alcohol abuse Colonoscopy planned Dysphagia GERD (gastroesophageal reflux disease) Hx of hiatal hernia Neuropathy of left foot No known health problems Obesity (BMI 30-39.9) Tobacco abuse Family History Family History Mother Myocardial infarct CVA (cerebral vascular accident) Family history of problems with anesthesia: No Surgical History Surgical History History of colonoscopy History of endoscopy History of shoulder surgery History of Problems with Anesthesia: No Social History Social History Housing: Apartment Alcohol intake: current Alcohol intake frequency: does not drink Alcohol type: beer Patient Tobacco Use Status: Former Tobacco user Tobacco use type: Cigarette Years Smoked: while drinking - 10 -15 cigarettess e-Cigarette/Vaping Use: Never Used Second Hand Smoke Exposure: Yes Are you DNR?: No Advance Directives: No Advance Directives Information Provided: Yes Nutrition Risks: No Nutritional Risk service: No Current occupational status: unemployed Cognitive needs: No Hearing needs: No Vision needs: No Meds Allergies Allergy/AdvReac Type Severity Reaction Status Date / Time No Known Allergies Allergy Verified 06/28/22 07:03 Home Medications Medication Instructions Recorded Confirmed Last Taken Type gabapentin 300 mg capsule 300 mg PO TID 06/25/22 06/28/22 Unknown History Exam Exam Date and Time: June 28, 2022 1347 Height,Weight and Vital Signs: Height 5 ft 7 in Weight 97.522 kg Last Vital Signs Temp 98.2 F 06/28/22 08:57 Pulse 86 06/28/22 08:57 Resp 16 06/28/22 08:57 BP 121/82 06/28/22 08:57 Pulse Ox 98 06/28/22 08:57 O2 Del Method 06/28/22 08:57 Airway Mallampati Class: II TM Dist: >3cm Neck ROM: Full Heart: rr Lungs: cta Assessment and Plan Final Anesthetic Review Family History of Problems with Anesthesia: No History of Problems with Anesthesia: No NPO: Yes ASA Class: II Final Preanesthetic Review: No Changes in Pt Med Stat Patient Risk: Low Procedure Risk: Low Anesthetic Plan Anesthetic Plan: MAC: Disposition: Standard PACU
--- NOTE | 2022-06-29 20:45 | OP_ITS ---
SURGEON: Constantine Cervantes MD INDICATIONS: The patient presents for evaluation of a history of a previous esophageal stricture, erosive esophagitis, dysphagia, personal history of colon polyps, and colorectal cancer screening. Full consent has been obtained from him for this, including risks of bleeding and perforation. PREOPERATIVE DIAGNOSIS: POSTOPERATIVE DIAGNOSIS: PROCEDURE PERFORMED: Esophagogastroduodenoscopy with balloon dilation and biopsies, and colonoscopy to the cecum and terminal ileum with hot snare polypectomy and biopsies. ESTIMATED BLOOD LOSS: COMPLICATIONS: ANESTHESIA: Monitored anesthesia care. ASSISTANTS: SPECIMENS: POSTOPERATIVE DIAGNOSES: History of esophageal stricture and esophagitis, dysphagia, history of colon polyps, colorectal cancer screening, erosive esophagitis and mild esophageal stricture, hiatal hernia, colon polyps, diverticulosis, and internal hemorrhoids. DESCRIPTION OF PROCEDURE: The patient was placed in the left lateral decubitus position. The Olympus video gastroscope was passed in the posterior oropharynx and upper esophagus under direct vision. The scope was passed slowly to the distal esophagus. The gastroesophageal junction appeared at 36 cm. This area was notable for erosive esophagitis with some overlying exudate, but no mass nor any gross evidence of Ferrell's mucosa. There did appear to be a mild stricture, but the scope did easily pass this into a small to moderate-sized hiatal hernia. The scope was advanced to the pylorus, and the duodenum was cannulated to the descending portion. The duodenum including the bulb appeared normal with mass or ulceration. The scope was withdrawn back in the stomach. The gastric antrum and body appeared normal with good peristalsis. The scope was retroflexed visualizing the proximal stomach carefully, which appeared normal, without any sign of mass or ulceration. The scope was straightened and withdrawn back in the esophagus. Given his symptomatology, I did use a [employer] incremental balloon to dilate the gastroesophageal junction from 15 mm to 16.5 mm at the recommended pressures for between 30 and 60 seconds each. The area was somewhat friable with some heme noted post dilation. No further dilation was performed. I did obtain biopsies at the EG junction at 36 cm. Proximal to this, the esophageal mucosa appeared normal. The scope was withdrawn from the patient. He was turned around for the colonoscopy. The digital rectal exam revealed no abnormalities. The Olympus video pediatric colonoscope was entered into the rectum and advanced easily into the cecum. Once in the cecum, I did identify cecal pouch with appendiceal orifice and a normal-appearing ileocecal valve. The terminal ileum was cannulated and appeared normal. The scope was withdrawn back in the colon. The entire cecum and ileocecal valve were well visualized. In the cecum was an approximately 8 mm polyp which was removed by hot snare polypectomy and recovered by suction. The polypectomy site appeared clean, without any sign of residual polyp nor any bleeding. The scope was then slowly withdrawn assessing all mucosal surfaces carefully. Preparation was excellent. In the ascending colon an approximately 8 mm polyp was removed by hot snare polypectomy and recovered by suction. The polypectomy site appeared clean, without any sign of residual polyp nor any bleeding. In the transverse colon, between areas of previously placed submucosal ink, there was an area of some scarring and probably just some hyperplastic tissue. Biopsies were obtained. A 40 cm was an approximately 8 to 10 mm polyp, was removed by hot snare polypectomy and recovered by suction. The polypectomy site appeared clean, without any sign of residual polyp nor bleeding. At 20 cm, there was evidence of previously placed submucosal ink cortez again and some scarring with some hyperplastic-appearing tissue. Biopsies were obtained. There was no sign of any definitive residual polyp tissue. I did not visualize any other polyps, colitis, nor angiodysplasias. There was mild amount of sigmoid diverticulosis. In the rectum, the scope was retroflexed, visualizing small internal hemorrhoids but no other pathology. The rectal mucosa appeared normal. The scope was straightened and withdrawn from the patient. He tolerated the procedures well and was returned to the recovery area in stable condition. IMPRESSION: 1. Colon polyps. 2. Diverticulosis. 3. Internal hemorrhoids. 4. Erosive esophagitis. 5. Esophageal stricture. 6. Hiatal hernia. PLAN: The results of the pathology will be checked. I would recommend a repeat colonoscopy in 3 years for further surveillance. He was advised to avoid aspirin and NSAIDs for at least 1 week. He reports he has been using his omeprazole 40 mg daily, but I wii increase this to b.i.d. given today's findings and will plan for a repeat upper endoscopy in the next 2 to 3 months for further assessment to be sure there has been healing of the esophagitis and that no further dilation is required. MD CHRISTINA Ford/VELIA / [id number] [facility]
== END 2022-06-28 09:36 | disposition home or self-care (01) ==
PROVIDERS: PCP Internal Medicine; Visit Provider Internal Medicine
PROC: (CPT 45385; principal; 2022-06-28 07:30)
PROC: 0DJD8ZZ Inspection of Lower Intestinal Tract, Via Natural or Artificial Opening Endoscopic (ICD-10-PCS; CPT 45378; 2022-06-28 07:30)
DX: Z12.11 Encounter for screening for malignant neoplasm of colon (principal); Z86.010 Personal history of colon polyps; D12.0 Benign neoplasm of cecum; D12.2 Benign neoplasm of ascending colon; D12.5 Benign neoplasm of sigmoid colon; R13.10 Dysphagia, unspecified; K57.30 Diverticulosis of large intestine without perforation or abscess without bleeding; K64.8 Other hemorrhoids; K22.10 Ulcer of esophagus without bleeding; K22.2 Esophageal obstruction; K44.9 Diaphragmatic hernia without obstruction or gangrene; K76.0 Fatty (change of) liver, not elsewhere classified; E78.00 Pure hypercholesterolemia, unspecified; F10.10 Alcohol abuse, uncomplicated; Z79.899 Other long term (current) drug therapy; Z87.891 Personal history of nicotine dependence
CPT/HCPCS: 45385; 45380; 43249; 43239; 88305; C1726

== ENCOUNTER 2022-08-18 13:56 | Emergency (ER) | payer OTHER, SELFPAY ==
[2022-08-18 14:05] VITALS: BP 138/104; PULSE 115; RESP 18; TEMP 37.3; O2SAT 97; BMI 31.9
--- NOTE | 2022-08-18 14:06 | ED.SKABFB ---
HPI - Skin/Abscess/Foreign Bdy General Chief complaint: General Medical <Francisca Hackett NP - Last Filed: 08/18/22 14:17> Stated complaint: L foot pain <Francisca Hackett NP - Last Filed: 08/18/22 14:17> Time Seen by Provider: 08/18/22 14:28 <Francisca Hackett NP - Last Filed: 08/18/22 14:17> Source: patient <Carl Sierra MD - Last Filed: 08/18/22 15:09> Mode of arrival: ambulatory <Carl Sierra MD - Last Filed: 08/18/22 15:09> Limitations: no limitations <Carl Sierra MD - Last Filed: 08/18/22 15:09> History of Present Illness HPI narrative: 8-year-old male who presents emergency department for evaluation of redness, swelling and pain of his left foot. Patient states that his left 5th toe became numb and tingly 3 days prior. He states that yesterday his foot then became red and swollen and the symptoms got worse today. He states that the left foot is painful, he describes the pain is a sharp, burning pain which is 10/10. He states that he is also having pain on the bottom of his foot. The pain does radiate up his left medial aspect of his calf. The patient states this is his 5th episode of this type of pain, redness swelling. Patient was last seen in December of 2021 and diagnosed with cellulitis. At that time he was treated with Toradol, doxycycline and Keflex. The patient denied fever, chills, fatigue, weakness. <Carl Sierra MD - Last Filed: 08/18/22 15:09> Related Data Home medications: Home Medications Medication Instructions Recorded Confirmed gabapentin 300 mg capsule 300 mg PO TID 06/25/22 06/28/22 Previous Rx's Medication Instructions Recorded vitamin E (dl, acetate) 450 mg 450 mg PO DAILY 90 days #90 caps 02/17/21 (1,000 unit) capsule cephalexin 500 mg capsule 500 mg PO QID 7 days #28 caps 08/18/22 doxycycline hyclate 100 mg tablet 100 mg PO Q12H 7 days #14 tabs 08/18/22 ketorolac 10 mg tablet 10 mg PO Q6H PRN pain 5 days #20 08/18/22 tabs <Francisca Hackett NP - Last Filed: 08/18/22 14:17> Allergies/Adverse reactions: Allergies Allergy/AdvReac Type Severity Reaction Status Date / Time No Known Allergies Allergy Verified 08/18/22 14:10 <Francisca Hackett NP - Last Filed: 08/18/22 14:17> Review of Systems Review of Systems: Yes all other systems are reviewed and are negative <Carl Sierra MD - Last Filed: 08/18/22 15:09> [facility] Past Medical History PMFSH Narrative: Social history: He states that does smoke cigarettes, he occasionally drinks alcohol, denies drug use. <Carl Sierra MD - Last Filed: 08/18/22 15:09> Medical History: Medical History Alcohol abuse Colonoscopy planned Dysphagia GERD (gastroesophageal reflux disease) Hx of hiatal hernia Neuropathy of left foot No known health problems Obesity (BMI 30-39.9) Tobacco abuse <Francisca Hackett NP - Last Filed: 08/18/22 14:17> Surgical History: Surgical History History of colonoscopy History of endoscopy History of shoulder surgery <Francisca Hackett NP - Last Filed: 08/18/22 14:17> Family History Family History: Family History Mother Myocardial infarct CVA (cerebral vascular accident) <Francisca Hackett NP - Last Filed: 08/18/22 14:17> Social History Social History: Social History Housing: Apartment Alcohol intake: current Alcohol intake frequency: does not drink Alcohol type: beer Patient Tobacco Use Status: Former Tobacco user Tobacco use type: Cigarette Years Smoked: while drinking - 10 -15 cigarettess e-Cigarette/Vaping Use: Never Used Second Hand Smoke Exposure: Yes Advance Directives: No service: No Current occupational status: unemployed Cognitive needs: No Hearing needs: No Vision needs: No <Francisca Hackett NP - Last Filed: 08/18/22 14:17> Physical Exam Vital Signs: Vital Signs: Last Vital Signs Temp 99.2 F 08/18/22 14:05 Pulse 115 H 08/18/22 14:05 Resp 18 08/18/22 14:05 BP 138/104 H 08/18/22 14:05 Pulse Ox 97 08/18/22 14:05 O2 Del Method Room Air 08/18/22 14:05 BMI result Body Mass Index 31.9 <Francisca Hackett NP - Last Filed: 08/18/22 14:17> Vital Signs: Last Vital Signs Temp 99.2 F 08/18/22 14:05 Pulse 115 H 08/18/22 14:05 Resp 18 08/18/22 14:05 BP 138/104 H 08/18/22 14:05 Pulse Ox 97 08/18/22 14:05 O2 Del Method Room Air 08/18/22 14:05 BMI result Body Mass Index 31.9 Vital signs reviewed, the patient is hypertensive with a blood pressure of 130/104 but this is most likely secondary to his pain. <Carl Sierra MD - Last Filed: 08/18/22 15:09> General: Awake, alert, male patient, very pleasant cooperative, no distress. Extremities: The patient's right foot has an area of erythema over the forefoot which is very warm to the touch, does elenita with pressure. The area is tender to palpation. He has no tenderness palpation over the MTP joints. The patient has no lymphangitis but he does have tenderness palpation over the area of lymphatic drainage of the left medial calf area. Patient's extremities neurovascular intact. <Carl Sierra MD - Last Filed: 08/18/22 15:09> Course Course Course Narrative: This is a rapid medical exam. Deferred additional HPI, ROS, PE to primary provider. 61-year-old male with a past medical history of ETOH abuse, neuropathy, obesity, tobacco abuse here with left foot redness/swelling since Tuesday. No injury. NO fever. Has had this before-treated with antibiotics in the past with improvement. Will obtain labs. VSS Charge nurse notified by triage nurse <Francisca Hackett NP - Last Filed: 08/18/22 14:17> Medical Decision Making Medical Decision Making MDM Narrative: 62-year-old male who presents emergency department for evaluation of erythema and pain to his left forefoot x3 days. Patient has had similar presentations in the past and has been treated for cellulitis. The patient is having significant pain in the area of erythema as well as pain along the medial aspect of the left calf along the area lymphatic drainage but there is no lymphangitis noted at this time. The patient was treated with Toradol 60 mg IM for his pain . He was given doxycycline 100 mg orally and Keflex 500 mg orally. Patient was discharged home with prescriptions for doxycycline 100 mg every 12 hours times 7 days and Keflex 500 mg 4 times a day for 7 days. Is also given prescription for Toradol 10 mg every 6 hours as needed. He was given printed and verbal instructions and discharged home. <Carl Sierra MD - Last Filed: 08/18/22 15:09> Differential Diagnosis Differential diagnosis includes was not limited to staff cellulitis, strep cellulitis, gout, pseudogout <Carl Sierra MD - Last Filed: 08/18/22 15:09> Tests considered The following testing was considered but not selected: I did consider doing laboratory evaluation on this patient however given the fact that this is his 5th episode with this presentation and the fact that his blood work has been normal over the past 2 episodes I did not think that repeating blood work would change the diagnosis or treatment at this point. <Carl Sierra MD - Last Filed: 08/18/22 15:09> Discharge Plan Discharge Clinical Impression: Cellulitis of foot, left <Francisca Hackett NP - Last Filed: 08/18/22 14:17> Patient Disposition: Home, Self-Care <Francisca Hackett NP - Last Filed: 08/18/22 14:17> Instructions: Cellulitis (ED) <Francisca Hackett NP - Last Filed: 08/18/22 14:17> Additional Instructions: Take doxycycline 100 mg, 1 pill every 12 hours for 7 days Take Keflex (cephalexin) 500 mg pills, 1 pill 3 times a day for 7 days. Take Toradol (Ketoralac) 10 mg pills, 1 pill every 6 hours as needed for pain. Keep your foot elevated to help reduce the swelling. Use a heating pad on low for 10-15 minute to increase the blood flow to the area of your skin and help the healing process Follow-up with your doctor in 2 days. Please return to the emergency department if your symptoms get worse or if you develop any symptoms that are concerning to you. Please see the work note <Francisca Hackett NP - Last Filed: 08/18/22 14:17> Prescriptions: New ketorolac 10 mg tablet 10 mg PO Q6H PRN (Reason: pain) 5 Days Qty: 20 0RF cephalexin 500 mg capsule 500 mg PO QID 7 Days Qty: 28 0RF doxycycline hyclate 100 mg tablet 100 mg PO Q12H 7 Days Qty: 14 0RF No Action vitamin E (dl, acetate) 450 mg (1,000 unit) capsule 450 mg PO DAILY 90 Days Qty: 90 1RF gabapentin 300 mg capsule 300 mg PO TID <Francisca Hackett NP - Last Filed: 08/18/22 14:17> Stand Alone Forms: Work/School Release <Francisca Hackett NP - Last Filed: 08/18/22 14:17>
--- OUTSIDE RECORDS SUMMARY | 2022-08-18 14:43 | XMS_ITS ---
Author Name Constantine Cervantes Address [address] [place] [address] Organization [facility] Address [address] [place] [address] Care Team Providers Care Special Agent Name Role Phone Constantine Cervantes Unavailable [phone] PROBLEMS Type Condition ICD9-CM Code [id number] Code Onset Dates Condition Status SNOMED Code Problem Esophageal dysphagia R13.10 Active 20623414 Problem Esophageal stricture K22.2 Active 43097635 Problem Dysphagia R13.10 Active Problem Esophageal ring K22.2 Active Problem Abnormal barium swallow R93.3 Active 751822076 Problem Diverticulosis of colon K57.30 Active Problem Encounter for screening for malignant neoplasm of colon Z12.11 Active 026646004 Problem Esophageal obstruction K22.2 Active Problem Diverticulosis of sigmoid colon K57.30 Active 366129047 Problem History of adenomatous polyp of colon Z86.010 Active 921956384 Problem Erosive esophagitis K22.10 Active 4071 9004 ALLERGIES No Known Allergies ENCOUNTERS Encounter Location Date Diagnosis [facility] [address] [place] [phone] Jun, [facility] [address] [place] [phone] Jun, Esophageal stricture K22.2 and Erosive esophagitis K22.10 [facility] Outpatient [address], [place] [phone] Jun, Colon polyp K63.5 ; Diverticulosis of colon K57.30 ; Internal hemorrhoids K64.8 ; Colonic mass K63.89 ; Esophageal ring K22.2 ; Other esophagitis without bleeding K20.80 and Hiatal hernia K44.9 [facility] [address] [place] [phone] 08 Apr, 2022 Esophageal dysphagia R13.10 ; Encounter for screening for malignant neoplasm of colon Z12.11 ; History of adenomatous polyp of colon Z86.010 ; Esophageal stricture K22.2 and Erosive esophagitis K22.10 [facility] [address] [place] [phone] Mar, [facility] [address] [place] [address] Nov, [facility] [address] [place] [id number] Oct, [facility] Outpatient [address] [place] [phone] Oct, Esophageal stricture K22.2 ; Hiatal hernia K44.9 and Gastro-esophageal reflux disease with esophagitis, without bleeding K21.00 [facility] [address] [place] [phone] Oct, Esophageal stricture K22.2 ; History of adenomatous polyp of colon Z86.010 and Dysphagia R13.10 [facility] Outpatient [address] [place] [id number] Sep, Colon polyps K63.5 ; Diverticulosis of sigmoid colon K57.30 ; Internal hemorrhoid K64.8 ; Hematochezia K92.1 ; Esophageal stricture K22.2 ; Gastro-esophageal reflux disease with esophagitis, without bleeding K21.00 ; Hiatal hernia K44.9 ; Dysphagia R13.10 and Abnormal barium swallow R93.3 [facility] [address] [place] [phone] 15 Sep, 2020 Esophageal dysphagia R13.10 ; Abnormal barium swallow R93.3 and Encounter for screening for malignant neoplasm of colon Z12.11 IMMUNIZATIONS No Known Immunizations SOCIAL HISTORY Qualifiers Date Former Smoker REASON FOR REFERRAL FUNCTIONAL STATUS PLAN OF CARE Activity Details VITAL SIGNS Weight 210 lbs 2022-04-08 Weight 205 lbs 2020-11-11 Weight 206 lbs 2020-10-14 Height 67 in 2022-04-08 Height 67 in 2020-11-11 Height 67 in 2020-10-14 BMI 32.89 kg/m2 2022-04-08 BMI 32.10 kg/m2 2020-11-11 BMI 32.26 kg/m2 2020-10-14 Temperature 96.9 degrees Fahrenheit Temperature 97.1 degrees Fahrenheit Temperature 97.5 degrees Fahrenheit Blood pressure systolic 000 mm Hg Blood pressure diastolic 000 mm Hg 2022-04 MEDICATIONS Medication Instructions Dosage Frequency Start Date End Date Du ration Status Omeprazole 40 MG Orally Twice a day 1 12h 15 Jun, 2022 30 day(s) Active Omeprazole 20 MG Orally Every morning and every evening 2 01 Jun, 2022 30 day(s) Active PROCEDURES Procedure Date Ordered Result Body Site ESOPH ENDOSCOPY, DILATION October 20, 2020 PATIENT NOT ELIG D/T ACTIVE DX HTN November 11, 2020 COLORECTAL CA SCREEN DOC REV Apr 08, 2022 COLONOSCOPY AND BIOPSY Jun 28, 2022 BP SCR PRFRM RCMDD DEFIND SCR INTVL October 14, 2020 COLORECTAL CA SCREEN DOC REV October 14, 2020 Pt scrn tbco and id as user November 11, 2020 COLORECTAL CA SCREEN DOC REV November 11, 2020 LESION REMOVAL COLONOSCOPY October 20, 2020 DOC MEDS VERIFIED W/PT OR RE October 14, 2020 LESION REMOVAL COLONOSCOPY Jun 28, 2022 UPPER GI ENDOSCOPY, BIOPSY October 20, 2020 ESOPH ENDOSCOPY, DILATION November 26, 2020 DOC MEDS VERIFIED W/PT OR RE November 11, 2020 ESOPH ENDOSCOPY, DILATION Jun 28, 2022 BP SCR NOT PRFRM REC REASON NOS Apr 08, 2022 PT TOBACCO SCREEN RCVD TLK October 14, 2020 TOBACCO NON-USER Apr 08, 2022 UPPER GI ENDOSCOPY, BIOPSY Jun 28, 2022 DOC MEDS VERIFIED W/PT OR RE Apr 08, 2022 RESULTS Name Result Date Reference Range Pathology 2020-10-20 REASON FOR VISIT with dialation/esophageal stricture/erosive esophagitis, UPDATE/ update need documentation efrain please/waiting on appeals. Rx for 40mg BID sent to [facility], esophageal stricture, esophageal dysphagia, screening,hx polyps, Patient presents today for a esophagus stricture, Pt no show, Patient presents today for esophageal stricture, PLEASE SCHEDULE OFFICE VISIT, omeprazole not covered twice a day , dysphagia, esophageal dysphagia, patient presents today for esophagieal stricture,, colon polyps, dysphagia,screening, abn barium swallow, Patient presents today for DYSPHAGIA/COLON SCREENING Insurance Providers Health Insurance Type Health Plan Insurance Address Health Plan Insurance Phone Health Plan Insurance Name Health Plan Coverage Dates Member ID Patient Relationship to Subscriber Patient Address Patient Phone Patient Name Patient Date of Subscriber ID Subscriber Name Subscriber Date of Group No [place] OF [place] [employer] [address] [facility] [id number] [place] [employer] self BIENVEN[employer] DO LEATHA SHEIKH [id number] [facility] [address] [address] [facility] [id number] [facility] self [employer] DO LEATHA SHEIKH [id number]
[2022-08-18 15:43] VITALS: BP 164/74; PULSE 107; RESP 16; TEMP 37.7; O2SAT 98
[2022-08-18] MEDS: Doxycycline Monohydrate 100 MG CAPSULE PO (15:48)
[2022-08-18] MEDS: Ketorolac Tromethamine 60 MG/2 ML VIAL IM (15:48)
[2022-08-18] MEDS: cephALEXin 500 MG CAPSULE PO (15:48)
== END 2022-08-18 15:59 | disposition home or self-care (01) ==
PROVIDERS: Emergency Provider Emergency Medicine Emergency Medical Services; PCP Internal Medicine
DX: L03.116 Cellulitis of left lower limb (principal); Z87.891 Personal history of nicotine dependence; Z79.899 Other long term (current) drug therapy
CPT/HCPCS: 96372; 99284; J1885

== ENCOUNTER 2022-09-13 06:03 | Day surgery (SDC) | payer OTHER, SELFPAY ==
[2022-09-13 06:58] VITALS: BMI 32.9
[2022-09-13 07:00] VITALS: BP 170/88; PULSE 65; RESP 16; TEMP 36.4; O2SAT 98
[2022-09-13] MEDS: Lactated Ringers 1,000 ML 50 ML IVCONT (07:14)
--- NOTE | 2022-09-13 07:52 | HO.ANESPROP2 ---
[facility] Active Problems Active Problems: All Active Problems (Updated 08/19/22 @ 00:14 by Background Daemon) Shoulder pain, left (Acute) Easy fatigability (Acute) Low back pain (Acute) Vision changes (Acute) Peyronie disease (Acute) Colon cancer screening (Acute) LFT elevation (Acute) Shoulder pain (Acute) Scapular dysfunction (Acute) Impingement syndrome, shoulder, left (Acute) S/P dilatation of esophageal stricture (Acute) Hypercholesterolemia (Acute) Fatty liver (Acute) Obesity (BMI 30.0-34.9) (Acute) Tinea corporis (Acute) BPH w urinary obs/LUTS (Acute) Penile pain, chronic (Acute) Cellulitis of left foot (Acute) Tubular adenoma of colon (Acute) Swelling of left foot (Acute) Erectile dysfunction (Acute) Dysphagia (Acute) Past Medical History Medical History (Updated 08/19/22 @ 00:14 by Background Daemon) Alcohol abuse Colonoscopy planned Dysphagia GERD (gastroesophageal reflux disease) Hx of hiatal hernia Neuropathy of left foot No known health problems Obesity (BMI 30-39.9) Tobacco abuse Family History Family History Mother Myocardial infarct CVA (cerebral vascular accident) Family history of problems with anesthesia: No Surgical History Surgical History (Updated 09/10/22 @ 07:18 by Yokasta Gonzalez RN) History of colonoscopy History of endoscopy History of shoulder surgery History of Problems with Anesthesia: No Social History Social History Housing: Apartment Alcohol intake: current Alcohol intake frequency: a few times a week Alcohol type: beer Patient Tobacco Use Status: Former Tobacco user Tobacco use type: Cigarette Years Smoked: while drinking - 10 -15 cigarettess e-Cigarette/Vaping Use: Never Used Second Hand Smoke Exposure: Yes Use of substances other than those prescribed or required for medical reasons: No Are you DNR?: No Advance Directives: No Advance Directives Information Provided: No Recently lost weight without trying: No Nutrition Risks: No Nutritional Risk service: No Current occupational status: unemployed Cognitive needs: No Hearing needs: No Vision needs: No Meds Allergies Allergy/AdvReac Type Severity Reaction Status Date / Time No Known Allergies Allergy Verified 08/18/22 14:10 Active Medications: Current Medications Lactated Ringer's (Lr) 1,000 mls @ 50 mls/hr IVCONT .Q20H COCO Last Admin: 09/13/22 07:14 Dose: 50 mls/hr Home Medications Medication Instructions Recorded Confirmed Last Taken Type omeprazole 40 mg capsule,delayed 40 mg PO BID 09/10/22 09/10/22 Unknown History release Exam Exam Date and Time: September 13, 2022 0752 Height,Weight and Vital Signs: Height 5 ft 7 in Weight 95.254 kg Last Vital Signs Temp 97.5 F 09/13/22 07:00 Pulse 65 09/13/22 07:00 Resp 16 09/13/22 07:00 BP 170/88 H 09/13/22 07:00 Pulse Ox 98 09/13/22 07:00 O2 Del Method Room Air 09/13/22 07:00 Airway Mallampati Class: II TM Dist: >3cm Neck ROM: Full Loose/Missing/Broken Teeth: No Heart: rr Lungs: cta Assessment and Plan Assessment Anesthesia Assessment: Anesthesia Plan Discussed and Chart Reviewed Final Anesthetic Review Family History of Problems with Anesthesia: No History of Problems with Anesthesia: No NPO: Yes ASA Class: II Final Preanesthetic Review: No Changes in Pt Med Stat, Meds/Allgs Chart Reviewed, Consent Obtained/Reviewed and Anes Risks/Benef Reviewed Patient Risk: Low Procedure Risk: Low Anesthetic Plan Anesthetic Plan: MAC: Disposition: Standard PACU
[2022-09-13 08:05] VITALS: BP 106/70; PULSE 75; RESP 16; TEMP 36.6; O2SAT 97
--- NOTE | 2022-09-13 08:11 | P.BOP_ITS ---
Brief Operative Note Date of Service: 09/13/22 Pre-op diagnosis: Dysphagia Post-op diagnosis: other (Esophageal stricture) Procedure: EGD with Balloon Dilation 16.5mm to 18mm, and biopsies Surgeon: Constantine Cervantes Anesthesia: MAC Was an Carton Machine Operator used for this Procedure?: No Estimated blood loss (mL): 2.0 Pathology: other (A. EG Junction at 38cm) Condition: stable Disposition: PACU
[2022-09-13 08:20] VITALS: BP 122/77; PULSE 67; RESP 16; O2SAT 95
[2022-09-13 08:35] VITALS: BP 129/87; PULSE 81; RESP 18; TEMP 36.6; O2SAT 97
--- NOTE | 2022-09-13 08:45 | OP_ITS ---
DATE OF SERVICE: 09/13/2022 SURGEON: Constantine Cervantes MD INDICATIONS: The patient presents for evaluation of known history of esophageal stricture, gastroesophageal reflux, and dysphagia. Full consent has been obtained from him for this, including risks of bleeding and perforation. PREOPERATIVE DIAGNOSIS: POSTOPERATIVE DIAGNOSIS: PROCEDURE PERFORMED: Esophagogastroduodenoscopy with balloon dilation and biopsies. ESTIMATED BLOOD LOSS: COMPLICATIONS: ANESTHESIA: Monitored anesthesia care. ASSISTANTS: SPECIMENS: PREOPERATIVE DIAGNOSES: Dysphagia, gastroesophageal reflux, and history of esophageal stricture. POSTOPERATIVE DIAGNOSES: Dysphagia, gastroesophageal reflux, history of esophageal stricture, mild esophageal stricture, hiatal hernia. DESCRIPTION OF PROCEDURE: The patient was placed in the left lateral decubitus position. The Olympus video gastroscope was passed in the posterior oropharynx and upper esophagus under direct vision. The scope was passed slowly to the distal esophagus. The gastroesophageal junction appeared at 38 cm. There was evidence of some mild erythema, but no erosions or ulceration. There was no gross evidence of Ferrell's esophagus. There was evidence of what appeared to be a mild fibrotic stricture, but this was not obstructing and allowed easy passage of the scope into the stomach. There was a small hiatal hernia. The scope was advanced to the pylorus and the duodenum was cannulated to the descending portion. The duodenum including the bulb appeared normal without mass or ulceration. The scope was withdrawn back into the stomach. The gastric antrum and body appeared normal with good peristalsis. The scope was retroflexed visualizing the proximal stomach carefully, which appeared normal, without any sign of mass or ulceration. The scope was straightened and withdrawn back into the esophagus. I did use a [employer] incremental balloon to dilate the gastroesophageal junction from 16.5 mm to 18 mm at the recommended pressure for between 30 and 60 seconds each. Post dilation, there was clear disruption and some heme at the EG junction. I did obtain biopsies at the EG junction as well. Proximal to 38 cm, the esophageal mucosa appeared normal. The scope was withdrawn from the patient. He tolerated the procedure well and was returned to the recovery area in stable condition. IMPRESSION: 1. Esophageal stricture, status post balloon dilation. 2. Hiatal hernia with gastroesophageal reflux. PLAN: The patient has been advised to continue his omeprazole b.i.d. on a long-term basis. He was advised not to use any aspirin or NSAIDs. If he is doing well, he could see me in 2025 for his next colonoscopy, but was advised to call sooner if he has any worsening dysphagia. MD CHRISTINA Ford/VELIA / [phone] MTDMerlene
== END 2022-09-13 09:15 | disposition home or self-care (01) ==
PROVIDERS: PCP Internal Medicine; Visit Provider Internal Medicine
PROC: (CPT 43249; principal; 2022-09-13 07:30)
DX: K22.2 Esophageal obstruction (principal); K22.10 Ulcer of esophagus without bleeding; K21.9 Gastro-esophageal reflux disease without esophagitis; R13.10 Dysphagia, unspecified; K44.9 Diaphragmatic hernia without obstruction or gangrene; Z79.899 Other long term (current) drug therapy; Z87.891 Personal history of nicotine dependence
CPT/HCPCS: 43249; 43239; 88305; C1726

== ENCOUNTER 2022-10-02 22:12 | Emergency (ER) | payer OTHER, SELFPAY ==
--- NOTE | ~2022-10-02 | XR_ITS ---
EXAMINATION: XR FOOT, LEFT CLINICAL INFORMATION: Foot pain. COMPARISON: Radiograph of the left foot 12/02/2021. TECHNIQUE: AP, lateral, and oblique views of the left foot. FINDINGS: No acute fractures or malalignment. Mild hallux valgus deformity with subtle joint space narrowing of the first metatarsal phalangeal joint. Redemonstration of dorsal calcaneal spurs. No significant soft tissue abnormality. XR/XR foot LT min 3V IMPRESSION: 1. No acute fractures or malalignment. 2. 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 3. Small dorsal calcaneal spur.
[2022-10-02 22:20] VITALS: BP 164/94; PULSE 90; RESP 16; TEMP 36.4; O2SAT 98; BMI 32.6
--- NOTE | 2022-10-02 23:02 | PC.NURSE ---
xray at bedside
--- OUTSIDE RECORDS SUMMARY | 2022-10-02 23:11 | XMS_ITS ---
Author Name Constantine Cervantes Address [address] [place] [address] Organization [facility] Address [address] [place] [address] Care Team Providers Care Parachute Line Tier Name Role Phone Constantine Cervantes Unavailable [phone] PROBLEMS Type Condition ICD9-CM Code YDR43-FQ Code Onset Dates Condition Status SNOMED Code Problem Esophageal stricture K22.2 Active 80441284 Problem Dysphagia R13.10 Active Problem Esophageal obstruction K22.2 Active Problem Encounter for screening for malignant neoplasm of colon Z12.11 Active 212209407 Problem Diverticulosis of colon K57.30 Active Problem Esophageal dysphagia R13.10 Active 88127615 Problem Esophageal reflux K21.9 Active 541698 004 Problem Abnormal barium swallow R93.3 Active 142395586 Problem Diverticulosis of sigmoid colon K57.30 Active 827959459 Problem History of adenomatous polyp of colon Z86.010 Active 987278577 Problem Erosive esophagitis K22.10 Active 4071 9004 Problem Esophageal ring K22.2 Active ALLERGIES No Known Allergies ENCOUNTERS Encounter Location Date Diagnosis [facility] Outpatient [address], [place] [id number] August, Esophageal stricture K22.2 ; Esophageal reflux K21.9 and Hiatal hernia K44.9 [facility] [address] [place] [phone] Jun, [facility] [address] [place] [address] Jun, Esophageal stricture K22.2 and Erosive esophagitis K22.10 [facility] Outpatient [address] [place] [id number] Jun, Colon polyp K63.5 ; Diverticulosis of colon K57.30 ; Internal hemorrhoids K64.8 ; Colonic mass K63.89 ; Esophageal ring K22.2 ; Other esophagitis without bleeding K20.80 and Hiatal hernia K44.9 [facility] [address] [place] [phone] 08 Apr, 2022 Esophageal dysphagia R13.10 ; Encounter for screening for malignant neoplasm of colon Z12.11 ; History of adenomatous polyp of colon Z86.010 ; Esophageal stricture K22.2 and Erosive esophagitis K22.10 [facility] [address] [place] [phone] Mar, [facility] [address] [place] [phone] Nov, [facility] [address] [place] [phone] Oct, [facility] Outpatient [address] [place] [id number] Oct, Esophageal stricture K22.2 ; Hiatal hernia K44.9 and Gastro-esophageal reflux disease with esophagitis, without bleeding K21.00 [facility] [address] [place] [phone] Oct, Esophageal stricture K22.2 ; History of adenomatous polyp of colon Z86.010 and Dysphagia R13.10 [facility] Outpatient [address] [place] [id number] Sep, Colon polyps K63.5 ; Diverticulosis of sigmoid colon K57.30 ; Internal hemorrhoid K64.8 ; Hematochezia K92.1 ; Esophageal stricture K22.2 ; Gastro-esophageal reflux disease with esophagitis, without bleeding K21.00 ; Hiatal hernia K44.9 ; Dysphagia R13.10 and Abnormal barium swallow R93.3 [facility] [address] [place] [id number] 15 Sep, 2020 Esophageal dysphagia R13.10 ; [...] MG Orally Twice a day 1 12h Jun, 30 day(s) Active Omeprazole 20 MG Orally Every morning and every evening 2 Jun, 30 day(s) Active PROCEDURES Procedure Date Ordered Result Body Site ESOPH ENDOSCOPY, DILATION November 26, 2020 LESION REMOVAL COLONOSCOPY Jun 28, 2022 UPPER GI ENDOSCOPY, BIOPSY September 13, 2022 TOBACCO NON-USER Apr 08, 2022 COLONOSCOPY AND BIOPSY Jun 28, 2022 ESOPH ENDOSCOPY, DILATION October 20, 2020 UPPER GI ENDOSCOPY, BIOPSY Jun 28, 2022 COLORECTAL CA SCREEN DOC REV Apr 08, 2022 Pt scrn tbco and id as user November 11, 2020 ESOPH ENDOSCOPY, DILATION September 13, 2022 UPPER GI ENDOSCOPY, BIOPSY October 20, 2020 DOC MEDS VERIFIED W/PT OR RE November 11, 2020 BP SCR PRFRM RCMDD DEFIND SCR INTVL October 14, 2020 COLORECTAL CA SCREEN DOC REV October 14, 2020 BP SCR NOT PRFRM REC REASON NOS Apr 08, 2022 LESION REMOVAL COLONOSCOPY October 20, 2020 COLORECTAL CA SCREEN DOC REV November 11, 2020 PATIENT NOT ELIG D/T ACTIVE DX HTN November 11, 2020 PT TOBACCO SCREEN RCVD TLK October 14, 2020 ESOPH ENDOSCOPY, DILATION Jun 28, 2022 DOC MEDS VERIFIED W/PT OR RE Apr 08, 2022 DOC MEDS VERIFIED W/PT OR RE October 14, 2020 RESULTS Name Result Date Reference Range Pathology 2022-06-28 Pathology 2020-10-20 REASON FOR VISIT with dialation/esophageal [...] Subscriber Name Subscriber Date of Group No [facility] [address] [address] [facility] [id number] [employer] self BIENVENI DO LEATHA A KORI [id number] [employer] OF [employer] [address] [facility] [phone] [employer] self BIENVENI DO SEPLUANNEVED A KORI [id number]
[2022-10-02 23:38] VITALS: BP 144/82; PULSE 80; RESP 16; TEMP 36.9; O2SAT 98
--- NOTE | 2022-10-02 23:53 | ED.LOWEXIN ---
HPI - Extremity Injury (Lower) General Chief Complaint: Extremity Injury, Lower Stated Complaint: L foot pain, no injury Time Seen by Provider: 10/02/22 23:01 Source: patient Mode of arrival: ambulatory Limitations: no limitations History of Present Illness HPI Narrative: 62-year-old male presents with left foot pain. Is nontraumatic. Symptoms are moderate. The pain does not radiate. Worse with ambulation. He has had this 3-4 times previously. At 1 point was cellulitis. He has seen Podiatry in other providers as well. Unfortunately etiology is not been clearly loose stated. He notes soft tissue swelling. Prior treatment included Tylenol without assistance. Related Data Home Medications Medication Instructions Recorded Confirmed omeprazole 40 mg capsule,delayed 40 mg PO BID 09/10/22 09/16/22 release Previous Rx's Medication Instructions Recorded vitamin E (dl, acetate) 450 mg 450 mg PO DAILY 90 days #90 caps 02/17/21 (1,000 unit) capsule meloxicam 15 mg tablet 15 mg PO DAILY #14 tabs 10/02/22 Allergies Allergy/AdvReac Type Severity Reaction Status Date / Time No Known Allergies Allergy Verified 10/02/22 22:20 Review of Systems Review of Systems: CONSTITUTIONAL: Denies weight loss, fever and chills. HEENT: Denies changes in vision and hearing. RESPIRATORY: Denies SOB and cough. CV: Denies palpitations no CP. GI: Denies abdominal pain, nausea, vomiting and diarrhea. : Denies dysuria and urinary frequency. MSK: Foot pain and swelling. SKIN: Denies rash and pruritus. NEUROLOGICAL: Denies headache and syncope. PSYCHIATRIC: Denies recent changes in mood. Denies anxiety and depression. All other ROS are negative unless in HPI PMFSH Past Medical History Medical History Alcohol abuse Colonoscopy planned Dysphagia GERD (gastroesophageal reflux disease) Hx of hiatal hernia Neuropathy of left foot No known health problems Obesity (BMI 30-39.9) Tobacco abuse Surgical History History of colonoscopy History of endoscopy History of shoulder surgery Family History Family History Mother Myocardial infarct CVA (cerebral vascular accident) Social History Social History Housing: Apartment Alcohol intake: current Alcohol intake frequency: a few times a week Alcohol type: beer Patient Tobacco Use Status: Former Tobacco user Tobacco use type: Cigarette Years Smoked: while drinking - 10 -15 cigarettess e-Cigarette/Vaping Use: Never Used Second Hand Smoke Exposure: Yes Advance Directives: No Advance Directives Information Provided: No service: No Current occupational status: unemployed Cognitive needs: No Hearing needs: No Vision needs: No Physical Exam Vital Signs: Vital Signs: Last Vital Signs Temp 98.4 F 10/02/22 23:38 Pulse 80 10/02/22 23:38 Resp 16 10/02/22 23:38 BP 144/82 H 10/02/22 23:38 Pulse Ox 98 10/02/22 23:38 O2 Del Method Room Air 10/02/22 23:38 BMI result Body Mass Index 32.6 GEN: Well developed, no acute distress, alert, oriented HEENT: Normocephalic, atraumatic, normal external ears, nose appears normal Eyes: Normal to appearance Neck: Supple, no lymphadenopathy Respiratory: Talks in complete sentences, no respiratory distress Extremities: No clubbing cyanosis, left dorsal foot swelling, neurovascular intact, 2+ dorsal pedis, posterior tibialis, no deformity Neurologic: No focal neurologic deficits, cranial nerves 2-12 intact, gait normal Skin: No rash Course Course Course Narrative: 62-year-old male presents with nontraumatic left foot pain. X-ray was negative for fracture. I doubt cellulitis. Patient most likely has some sort of inflammatory process such as gout, pseudogout or some other underlying condition. Patient will be started on anti-inflammatory pain medications and Tylenol. I recommended follow-up with primary care provider. He has had this in the past and it turned out to be cellulitis. However, there are no cellulitic changes at this time. Medical Decision Making Medical Decision Making MDM Narrative: Patient presents with nontraumatic left foot pain. X-ray was ordered prior to my evaluation was negative for fracture. Appears to be inflammatory in nature. Will start the patient on meloxicam on a daily basis and Tylenol as needed. 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 Differential Diagnosis Differential Diagnoses: The differential diagnosis associated with the presentation includes (Foot pain, sprain, strain, gout, pseudogout, inflammatory arthritis) Independent Interpretation I performed an independent interpretation of an: Plain X-Ray (No acute fracture left foot) Prescription Management I considered prescription management with: Pain Medication and Antibiotic Discharge Plan Discharge Clinical Impression: Swelling of left foot Patient Disposition: Home, Self-Care Instructions: Arthralgia (ED), Swollen Joint (ED) Additional Instructions: Take Meloxicam for the swelling daily for 10-14 days Take tylenol 1000 mg every 6 hours for additional pain relief. Prescriptions: New meloxicam 15 mg tablet 15 mg PO DAILY Qty: 14 0RF No Action omeprazole 40 mg capsule,delayed release(DR/EC) 40 mg PO BID vitamin E (dl, acetate) 450 mg (1,000 unit) capsule 450 mg PO DAILY 90 Days Qty: 90 1RF Referrals: Po,Kaci Gordillo MD [Primary Care Provider] - 5 days
[2022-10-02] MEDS: Acetaminophen 325 MG TABLET 975 MG PO (23:55)
[2022-10-02] MEDS: Ketorolac Tromethamine 30 MG/ML VIAL IM (23:56)
== END 2022-10-03 00:15 | disposition home or self-care (01) ==
PROVIDERS: Emergency Provider Emergency Medicine; PCP Internal Medicine
DX: M79.672 Pain in left foot (principal); Z87.891 Personal history of nicotine dependence; Z79.899 Other long term (current) drug therapy
CPT/HCPCS: 73630; 96372; 99284; J1885

== ENCOUNTER 2022-11-01 08:35 | Emergency (ER) | payer OTHER, SELFPAY ==
[2022-11-01 08:45] VITALS: BP 151/81; PULSE 86; RESP 18; TEMP 36.9; O2SAT 97; BMI 31.9
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
--- NOTE | 2022-11-01 11:54 | PC.NURSE ---
Visual acuity test completed as ordered. See worklist for results.
== END 2022-11-01 14:38 | disposition home or self-care (01) ==
PROVIDERS: Emergency Provider Emergency Medicine Emergency Medical Services; PCP Internal Medicine
DX: T53.5X1A Toxic effect of chlorofluorocarbons, accidental (unintentional), initial encounter (principal); T26.62XA Corrosion of cornea and conjunctival sac, left eye, initial encounter; T26.61XA Corrosion of cornea and conjunctival sac, right eye, initial encounter; Y93.89 Activity, other specified; Y92.9 Unspecified place or not applicable; Y99.9 Unspecified external cause status; Z20.822 Contact with and (suspected) exposure to COVID-19; Z20.828 Contact with and (suspected) exposure to other viral communicable diseases
CPT/HCPCS: 0241U; 71046; 87651; 99282; 99283

== ENCOUNTER 2022-11-06 07:17 | Emergency (ER) | payer OTHER, SELFPAY ==
[2022-11-06 07:29] VITALS: BP 164/88; PULSE 95; RESP 18; TEMP 36.1; O2SAT 98; BMI 32.9
--- NOTE | 2022-11-06 07:40 | ED_ITS ---
HPI - Skin/Abscess/Foreign Bdy General Chief complaint: Skin/Abscess/Foreign Body Stated complaint: l foot pain Time Seen by Provider: 11/06/22 07:38 Source: patient and RN notes reviewed Mode of arrival: ambulatory Limitations: no limitations History of Present Illness HPI narrative: This is a 62-year-old male, with no known past medical history, presenting to the emergency department for evaluation of left foot pain since 3:00 a.m. this morning. Patient reports that the pain woke him up out of sleep. Reports pain is sharp, and very tender to palpation, pain worsens with weight bearing. Patient has been seen here for in the past for pain in his left foot, and was diagnosed with cellulitis. Patient reports that he is concerned that this is an early cellulitis. Denies any trauma, injury. 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 Denies known history of gout. No other complaints or concerns at this time. Onset (ago): hour(s) Tetanus up to date: unsure Severity: moderate Quality: burning Pain Consistency: constant Relieving factors: none Exacerbating factors: palpation and movement Context: none Associated symptoms: denies other symptoms Treatments prior to arrival: none Related Data Home Medications Medication Instructions Recorded Confirmed omeprazole 40 mg capsule,delayed 40 mg PO BID 09/10/22 09/16/22 release Previous Rx's Medication Instructions Recorded vitamin E (dl, acetate) 450 mg 450 mg PO DAILY 90 days #90 caps 02/17/21 (1,000 unit) capsule meloxicam 15 mg tablet 15 mg PO DAILY #14 tabs 10/02/22 erythromycin 5 mg/gram (0.5 %) eye 0.5 inch ophthalmic (eye) TID 7 11/01/22 ointment days #3.5 grams naproxen 500 mg tablet 500 mg PO BID 7 days #14 tabs 11/06/22 prednisone 20 mg tablet See Rx Instructions .Route 11/06/22 .COMPLEX #22 tabs Allergies Allergy/AdvReac Type Severity Reaction Status Date / Time No Known Allergies Allergy Verified 10/02/22 22:20 Review of Systems Review of Systems: Constitutional: No Weight loss, No Fever, No Chills, No Night Sweats, No Fatigue, No Malaise ENT/Mouth: No Hearing loss, No Ear Pain, No Nasal Congestion, No Sinus Pain, No Hoarseness, No sore throat, No Rhinorrhea, No Swallowing Difficulty Eyes: No Eye Pain, No Swelling, No Redness, No Foreign Body, No Discharge, No Vision Changes Cardiovascular: No Chest Pain, No SOB, No Dyspnea on Exertion, No Orthopnea, No Edema, No Palpitations Respiratory: No Cough, No Sputum, No Wheezing, No Smoke Exposure, No Dyspnea Gastrointestinal: No Nausea, No Vomiting, No Diarrhea, No Constipation, No Abdominal pain, No Hematochezia, No Melena Genitourinary: No irregular bleeding, No Dysuria, No Urinary Frequency, No Hematuria, No Urinary Incontinence/retention, No Urgency, No Flank Pain, No Urinary Flow Changes, No Hesitancy Musculoskeletal: No joint pain, No Myalgias, No Joint Swelling Skin: No Skin Lesions, No rash Neuro: No Weakness, No Numbness, No Paresthesias, No Loss of Consciousness, No Dizziness, No Headache Psych: No Anxiety/Panic, No Depression, No SI/HI/AH/VH, No Social Issues, Heme/Lymph: No Bruising, No Bleeding,No Lymphadenopathy Endocrine: No Polyuria, No Polydipsia, No Temperature Intolerance Yes all other systems are reviewed and are negative Constitutional: Constitutional: Reports as per [facility] Past Medical History Medical History Alcohol abuse Colonoscopy planned Dysphagia GERD (gastroesophageal reflux disease) Hx of hiatal hernia Neuropathy of left foot No known health problems Obesity (BMI 30-39.9) Tobacco abuse Surgical History History of colonoscopy History of endoscopy History of shoulder surgery Family History Family History Mother Myocardial infarct CVA (cerebral vascular accident) Social History Social History Housing: Apartment Alcohol intake: current Alcohol intake frequency: does not drink Alcohol type: beer Patient Tobacco Use Status: Former Tobacco user Tobacco use type: Cigarette Years Smoked: while drinking - 10 -15 cigarettess Smoked in Last 30 Days: No e-Cigarette/Vaping Use: Never Used Second Hand Smoke Exposure: Yes Use of substances other than those prescribed or required for medical reasons: No Advance Directives: No Advance Directives Information Provided: Yes service: No Current occupational status: unemployed Cognitive needs: No Hearing needs: No Vision needs: No Physical Exam Vital Signs: Vital Signs: Last Vital Signs Temp 97 F 11/06/22 07:29 Pulse 95 11/06/22 07:29 Resp 18 11/06/22 07:29 BP 164/88 H 11/06/22 07:29 Pulse Ox 98 11/06/22 07:29 O2 Del Method Room Air 11/06/22 07:29 BMI result Body Mass Index 32.9 Const: General: cooperative, comfortable and no acute distress Orientation/consciousness: patient oriented x3 Limitations: no limitations HEENT: Head: Yes normal to inspection, Yes normocephalic and Yes atraumatic Ears: hearing grossly normal bilaterally General nose exam: Normal external nose present Face and sinus: Yes normal facial exam Mouth: Normal oral and palatal mucosa present, oropharynx normal and moist mucous membranes Throat: Yes posterior oropharynx normal Eyes: General: appearance normal, both eyes and all related structures Eyelids: Yes eyelids normal Conjunctivae: conjunctivae normal Sclerae: sclerae normal Pupils: Equal, round and reactive pupils present EOM: EOMs intact bilaterally Neck: Neck: Yes normal visual inspection, Yes full ROM and Yes no lymphadenopathy Lymphatic: no lymphadenopathy noted Chest: Chest palpation & inspection: normal inspection of the chest Resp: Effort & Inspection: normal respiratory effort and able to speak in complete sentences Auscultation: clear to auscultation bilaterally, no crackles, no rales, no rhonchi and no wheezes Cardio: Rate: regular rate Rhythm: regular rhythm Heart sounds: S1 normal heart sound present and S2 normal heart sound present GI: Inspection: Yes normal to inspection Skin: General skin exam: no rashes or lesions noted Trauma: no lacerations or abrasions Wounds: no wounds Neuro: General: patient oriented x3 and moves all extremities Cranial nerves: Yes Equal, round and reactive pupils present Extrem: Other: Left dorsum of the foot overlying the 3rd 4th and 5th metatarsals, there is exquisite tenderness to palpation, even with light palpation, and edema noted. No overlying skin changes, no erythema. DP pulses 2+. Pain with dorsi and plantar flexion. No malleoli tenderness. Full range of motion of the ankle. General: Yes normal to inspection Right upper extremity: normal to inspection Left upper extremity: normal to inspection Right lower extremity: normal to inspection Left lower extremity: normal to inspection Course Reevaluation(s) Reevaluation #1: X-ray with retrocalcaneal and calcaneal heel heel enthesophyte and mild hallux valgus deformity with degenerative changes. Labs with no leukocytosis, ESR 17, uric acid 8.5, CRP 1.03. Patient's symptoms and workup consistent with gout. Will treat with course of steroids with taper and anti-inflammatories. Educated on low purine diet, advised your physician.Advised to watch for any increasing redness, swelling, fevers, etc. With any new or worsening symptoms occur occurs to follow-up emergency department for re-evaluation. Patient understands agrees with plan. Patient stable for discharge. Time: 08:58 Medical Decision Making Medical Decision Making [facility] Narrative: 62-year-old male presenting to the emergency department for evaluation of atraumatic left foot pain since 3:00 a.m. this morning. Patient states that he has a history of similar symptoms in the past and was told that it was cellulitis. On examination, left foot is non erythematous but has exquisite tenderness overlying the 3rd 4th and 5th metatarsals, no erythema. Mild edema noted. Given past medical history of cellulitis, and a known history of gout, will obtain basic labs, inflammatory markers and uric acid levels for further evaluation. Vital signs stable, range of motion of the ankle and foot is intact however pain with plantar flexion and dorsiflexion. Differential Diagnosis Differential Diagnoses: The differential diagnosis associated with the presentation includes Gouty arthritis, cellulitis, fracture, strain, sprain Lab Data [facility] Lab Attestation statement: I reviewed the patient's lab results. See above for comments. 11/06/22 07:57 11/06/22 07:57 Labs: Lab Results 11/06/22 11/06/22 11/06/22 Range/Units 07:57 07:57 07:57 WBC 8.8 (4.8-10.8) X10*3/uL RBC 5.27 (4.60-5.80) X10*6/uL Hgb 15.9 (14.0-18.0) g/dl Hct 46.4 (42.0-52.0) % MCV 88.0 (80.0-98.0) fL MCH 30.2 (27.0-33.0) pg MCHC 34.3 (31.0-36.0) g/dl RDW 12.4 (11.0-16.0) % Plt Count 245 (160-400) X10*3/uL MPV 9.3 L (9.4-12.4) fL Immature Gran % (Auto) 1.7 H (0.0-0.4) % Neut % (Auto) 66.7 (45-73) % Lymph % (Auto) 20.7 (20-40) % Mathews % (Auto) 6.4 (2-11) % Eos % (Auto) 4.0 (0-4) % Baso % (Auto) 0.5 (0-2) % Lymph # (Auto) 1.8 (1.2-4.9) X10*3/uL Mathews # (Auto) 0.6 (0.1-1.2) X10*3/uL Eos # (Auto) 0.4 (0.0-0.4) X10*3/uL Baso # (Auto) 0.0 (0.0-0.2) X10*3/uL Abs Immat Gran (auto) 0.15 H (0.00-0.03) X10*3/uL Absolute Neuts (auto) 5.9 (2.0-8.3) x10*3/uL Absolute Nucleated RBC 0.000 (0.0-0.012) X10*3/uL Nucleated RBC % (auto) 0.0 (0.0-0.2) /100WBC ESR 17 H (0-15) MM/HR Sodium 140 (135-145) mmol/L Potassium 4.2 (3.3-5.1) mmol/L Chloride 107 (96-108) mmol/L Carbon Dioxide 22 (22-29) mmol/L Anion Gap 15 (12-20) BUN 15 (9-16) mg/dL Creatinine 1.06 (0.5-1.4) mg/dL Estim Creat Clear Calc 81.5 Estimated GFR > 60 Random Glucose 105 (60-115) mg/dL Uric Acid 8.5 H (3.4-7.0) mg/dL Calcium 10.4 H D (8.4-10.2) mg/dL C-Reactive Protein 1.03 H (< or = 0.50) mg/dL Independent Interpretation I performed an independent interpretation of an: Plain X-Ray Interpretation: Reviewed the x-ray seeing degenerative changes, agree with radiology report. Radiology Impression Discussion of test interpretation with radiology: I have reviewed the radiologist's reading. Radiologist Impression: EXAMINATION: XR FOOT, LEFT CLINICAL INFORMATION: Foot pain and swelling.? COMPARISON: Left foot 10/02/2022? TECHNIQUE: AP, lateral, and oblique views of the left foot. FINDINGS: There is a small calcaneal heel and retrocalcaneal enthesophytes. Mild hallux valgus deformity first MTP joint? XR/XR foot LT min 3V IMPRESSION: Retrocalcaneal and calcaneal heel enthesophyte. ? Mild hallux valgus deformity, DJD. ? No major change since 10/02/2022 exam Dictated By: Jorge Garcia MD External Record Review External record reviewed: Inpatient record, Office record, Outpatient record, Prior outpatient labs, Prior outpatient radiology, Primary care record and Outside ED record Review of previous ER visits Prescription Management I considered prescription management with: Pain Medication Discharge Plan Discharge Clinical Impression: Gout attack Patient Disposition: Home, Self-Care Instructions: Low Purine Diet (ED), Gout (ED) Additional Instructions: Please take prescribed medication as directed. Finish the full course. Watch for any new or worsening symptoms including but not limited to fevers, chills, worsening redness, pain to return to the emergency department for re- evaluation. Follow-up with your primary care physician regarding this visit. See attached dietary suggestions to reduce recurrent symptoms. Prednisone tapering schedule is as follows: 40mg x 5 days (Days 1-5), then 30mg x 2 days (days 6-8), then 20mg x 2 days (days 9-11), then 10mg x 2 days (days 12-14) Prescriptions: New prednisone 20 mg tablet See Rx Instructions .ROUTE .COMPLEX Qty: 22 0RF Rx Instructions: 40mg x 5 days (Days 1-5), then 30mg x 2 days (days 6-8), then 20mg x 2 days (days 9-11), then 10mg x 2 days (days 12-14) naproxen 500 mg tablet 500 mg PO BID 7 Days Qty: 14 0RF No Action omeprazole 40 mg capsule,delayed release(DR/EC) 40 mg PO BID erythromycin 5 mg/gram (0.5 %) ointment 0.5 inch ophthalmic (eye) TID 7 Days Qty: 3.5 0RF meloxicam 15 mg tablet 15 mg PO DAILY Qty: 14 0RF vitamin E (dl, acetate) 450 mg (1,000 unit) capsule 450 mg PO DAILY 90 Days Qty: 90 1RF
[2022-11-06 08:25] LABS: Anion Gap 15 (12-20); Blood Urea Nitrogen 15 mg/dL (9-16); C Reactive Protein 1.03 mg/dL (< or = 0.50); Calcium 10.4 mg/dL (8.4-10.2); Carbon Dioxide 22 mmol/L (22-29); Chloride 107 mmol/L (96-108); Creatinine Clr Calc Pharmacy 81.5; Estimated Glomerular Filt Rate > 60; Glucose Random 105 mg/dL (60-115); Potassium 4.2 mmol/L (3.3-5.1); Sodium 140 mmol/L (135-145); Uric Acid 8.5 mg/dL (3.4-7.0)
[2022-11-06 09:29] VITALS: BP 144/83; PULSE 80; RESP 16; TEMP 36.8; O2SAT 96
== END 2022-11-06 09:31 | disposition home or self-care (01) ==
PROVIDERS: Physician Assistant Medical; Emergency Provider Emergency Medicine; PCP Internal Medicine
DX: M10.9 Gout, unspecified (principal); M79.672 Pain in left foot; E78.00 Pure hypercholesterolemia, unspecified; F17.200 Nicotine dependence, unspecified, uncomplicated; Z79.899 Other long term (current) drug therapy
CPT/HCPCS: 36415; 73630; 80048; 84550; 85025; 85652; 86140; 99283; 99284

== ENCOUNTER → 2022-12-08 11:14 | Outpatient (BNVA) | payer SELFPAY | PROVIDERS: PCP Internal Medicine; Visit Provider Physician Assistant | DX: Z02.79 Encounter for issue of other medical certificate (principal) ==

== ENCOUNTER 2022-12-22 06:46 | Outpatient (REF) | payer OTHER, SELFPAY ==
[2022-12-22 08:10] LABS: Prostate Specific Antigen 5.09 ng/mL (<0.05-4.0)
== END 2022-12-22 06:47 | disposition home or self-care (01) ==
LOC: HO.LAB 06:46
PROVIDERS: PCP Internal Medicine; Visit Provider Urology
DX: Z12.5 Encounter for screening for malignant neoplasm of prostate (principal); N13.8 Other obstructive and reflux uropathy; N40.1 Benign prostatic hyperplasia with lower urinary tract symptoms
CPT/HCPCS: 36415; 84153

== ENCOUNTER 2022-12-24 11:38 | Outpatient (AMB) | payer OTHER, SELFPAY ==
--- NOTE | 2022-12-24 11:44 | A.OFFVIS_ITS ---
Intake Intake Visit Reasons: 6M/PSA(set) Intake Note: Patient presents today for a follow-up on PSA Results: Meds- Finasteride Allergies to Antibiotic- No Known Allergies Blood Thinner- None PVR- 5.09 ng/mL 12/22/2022 [place] to void, PVR- 0ml. Technician Assistant Required: No Accompanied by: Self / Same As Patient Allergies No Known Allergies Allergy (Verified 12/24/22 11:47) Medication List - Last Reconciled 12/24/22 by Stevo Gloria MD finasteride 5 mg PO DAILY levofloxacin 500 mg PO daily 3 days meloxicam 15 mg PO DAILY naproxen 500 mg PO BID 7 days omeprazole 40 mg PO BID prednisone 40mg x 5 days (Days 1-5), then 30mg x 2 days (days 6-8), then 20mg x 2 days (days 9-11), then 10mg x 2 days (days 12-14) vitamin E (dl, acetate) 450 mg PO DAILY 90 days HPI HPI Comments History of Present Illness Details Hank is a pleasant male. He is a patient of Dr. Null. He seen for the following urologic conditions - Peyronie's disease - lower urinary tract symptoms Urination continues to be improved Nocturia x1 PSA has risen in past 6 months despite finasteride Plan a prostate biopsy Lower urinary tract symptoms Progressive weak strength Current therapy finasteride PSA 02/20 5.2, 06/24 4.2/3.6 F31%, 12/22 5.1 JUMA 3+ prostate Peyronie's disease Primary complaint is - penile curvature - right-sided The problem has been present - since 2019 after subclinical penile fracture On exam he has palpable area right distal portion At this time he experiences - partial erections which are not adequate for penetrative intercourse, [place] has - is possible but painful Associated symptoms include penile pain No penile discharge No Prior management includes - continue with oral medications [facility] Medical History Alcohol abuse Colonoscopy planned Dysphagia GERD (gastroesophageal reflux disease) Hx of hiatal hernia Neuropathy of left foot No known health problems Obesity (BMI 30-39.9) Tobacco abuse Surgical History History of colonoscopy History of endoscopy History of shoulder surgery Family History Mother Myocardial infarct CVA (cerebral vascular accident) Social History Housing: Apartment Alcohol intake: current Alcohol intake frequency: does not drink Alcohol type: beer Patient Tobacco Use Status: Former Tobacco user Tobacco use type: Cigarette Years Smoked: while drinking - 10 -15 cigarettess e-Cigarette/Vaping Use: Never Used Second Hand Smoke Exposure: Yes service: No Current occupational status: unemployed Cognitive needs: No Hearing needs: No Vision needs: No Review of Systems Const Denies chills and Denies fever(s) Card Reports no additional complaints and Denies syncope Resp Denies cough GI Denies abdominal pain and Denies heartburn Reports as per HPI and Denies change in libido Neuro Denies syncope Psych Denies change in libido Endo Denies change in libido Physical Exam Const General: cooperative, healthy appearing, comfortable and no acute distress Orientation/consciousness: patient oriented x3 HEENT Face and sinus: Yes normal facial exam Mouth: moist mucous membranes Neck Neck: Yes normal visual inspection, Yes full ROM and Yes trachea midline Chest Chest palpation & inspection: normal inspection of the chest Resp Effort & Inspection: normal respiratory effort, able to speak in complete sentences and no respiratory distress GI Inspection: Yes normal to inspection Back/Spine/Pelvis Cervical Spine: normal cervical lordosis Thoracic/Lumbar Spine: thoracic and lumbar spine normal to inspection Skin General skin exam: no rashes or lesions noted Neuro General: patient oriented x3, gait normal, tone normal and moves all extremities Extrem General: Yes normal to inspection and Yes capillary refill normal Office Procedures Post Void Residual Post Residual Void Post Void Residual (PVR): 0 [id number]-[id number] Void Residual by ultrasound Assessment & Plan Assessment & Plan (1) BPH w urinary obs/LUTS: Code(s): N40.1 - Benign prostatic hyperplasia with lower urinary tract symptoms; N13.8 - Other obstructive and reflux uropathy (2) Erectile dysfunction: Code(s): N52.9 - Male erectile dysfunction, unspecified (3) Elevated PSA: Code(s): R97.20 - Elevated prostate specific antigen [PSA] Plan Risks and benefits regarding trans rectal ultrasound with prostate biopsy were discussed. Options of continued surveillance, no treatment and biopsy were off ered. The risks include but are not limited to, urinary tract infection, sepsis, difficulty urinating, bleeding into the rectum or bladder that requires intervention and transfusion,and failure to diagnose prostate cancer. The patient understands the options and the risks involved. They wish to proceed. Printed information was provided to ensure he remains off anticoagulation for the appropriate length of time. He may require cardiology or PCP clearance. An antibiotic will be administered prior to, and following the procedure Orders: Orders AMB Post Void Residual by ultrasound Today N39.8 - Other specified disorders of urinary system Medications: New levofloxacin take 1 tablet day before procedure, 1 tablet day of procedure and 1 tablet day after procedure 500 mg PO daily 3 tabs 0RF 3 days R97.20 - Elevated prostate specific antigen [PSA] Patient Instructions: Imaging studies, laboratory and physical exam results were discussed and reviewed in detail. No major barriers to patient understanding were identified. An opportunity to ask questions regarding the treatment plan was provided. All questions were answered. The patient expressed understanding and agreement with the above treatment plan. The patient is aware they should contact our office by phone for worsening of their current condition or the appearance of new urologic symptoms. Compliance is encouraged with any medications and followup testing that is ordered. It is a privilege to participate in the urologic care of your patient. If you have any questions or concerns regarding treatment for the above conditions, or other urologic issues, please do not hesitate to contact me. The office telephone contact is [phone]. This note is constructed using voice recognition software. While every effort has been made to ensure accuracy global compensation manager errors may have been included. Yours sincerely, Dr Stevo Gloria MD, NAT[facility] - Urology Providers of Expert, Compassionate Care for the Genitourinary System Coding Level of Care Code Est Pt Level 4 (74281) Diagnoses BPH w urinary obs/LUTS N40.1; N13.8 Erectile dysfunction N52.9 Elevated PSA R97.20 CPT Codes Post Residual Void - PVR CPT Code: 96802-Qmip Void Residual by ultrasound ([id number])
== END 2022-12-24 12:03 | disposition home or self-care (01) ==
PROVIDERS: PCP Internal Medicine; Visit Provider Urology
DX: N40.1 Benign prostatic hyperplasia with lower urinary tract symptoms (principal); N13.8 Other obstructive and reflux uropathy; N52.9 Male erectile dysfunction, unspecified; R97.20 Elevated prostate specific antigen [PSA]
CPT/HCPCS: 99214

== ENCOUNTER → 2022-12-24 11:38 | Outpatient (BNVA) | payer OTHER, SELFPAY | PROVIDERS: Visit Provider Urology | DX: N48.6 Induration penis plastica (principal); N40.1 Benign prostatic hyperplasia with lower urinary tract symptoms; N13.8 Other obstructive and reflux uropathy; N52.9 Male erectile dysfunction, unspecified; R97.20 Elevated prostate specific antigen [PSA] | CPT/HCPCS: 51798; 99212 ==

== ENCOUNTER 2023-01-04 09:35 | Outpatient (AMB) | payer OTHER, SELFPAY ==
[2023-01-04 09:50] VITALS: BP 130/68; PULSE 80; O2SAT 98; BMI 33.7
--- NOTE | 2023-01-04 09:50 | A.OFFPC_ITS ---
Vital Signs 01/04/23 09:50 Height 5 ft 7 in Weight 215 lb BMI 33.7 BP 130/68 Blood Pressure Location Lt brachial Position Sitting Pulse 80 Pulse Source Pulse Oximeter Pulse Oximetry (%) 98 Oxygen Delivery Method Room Air Intake Visit Reasons: low back pain Allergies No Known Allergies Allergy (Verified 01/04/23 09:51) Medication List - Last Reconciled 01/04/23 by Kaci Null MD diclofenac sodium 1% (Voltaren Arthritis Pain) 4 grams topical QID levofloxacin 500 mg PO daily 3 days omeprazole 40 mg PO BID vitamin E (dl, acetate) 450 mg PO DAILY 90 days Tobacco use date assessed: 09/16/22 Dental Screening Dental Screen Date: 01/04/23 Did you have a dental visit in the last 12 months?: Yes Did you have a dental problem in the last 6 months where you did not have access to dental care?: No Was dental information given to patient?: Patient has dentist HPI low back pain HPI Details 62-year-old obese male with a history of hypercholesterolemia BPH last seen in November 2021 for cellulitis of the left foot. Patient is here for follow-up patient is up-to-date with colonoscopy patient was also found to have peptic ulcer disease.. Review of the notes November 2022 seen by urology having a history of Peyronie disease and lower urinary tract symptoms PSA noted to be elevated planned transrectal ultrasound with prostate biopsy. October 2022 treated in the hospital for gout attack. Patient also follows up with [facility] September 2022 for lumbar spondylosis patient has been recommended to have and lumbar intralaminar injection L5-S1. August 2022 had EGD with dilatation also. TURP to be done- no schedule. Patient was told he has gout problem but pain on the foot is on all the metatarsals as well as underneath the foot this is plantar fasciitis and is brought about by the weight. There has been some x- rays done showing degenerative joint disease and so anti-inflammatory prescription sent in patient declined seeing wet process assistant head miller. Patient also complains of the left shoulder pain x-ray was done negative results patient declined physical therapy as well as orthopedics. Discussed about the work that he is doing that is causing the pain and advised to get exercise that for that shoulder. As for the lower back patient follows up with the [facility] spine [facility] ports had me fill up handicap placard. PFSH Medical History Alcohol abuse Colonoscopy planned Dysphagia GERD (gastroesophageal reflux disease) Hx of hiatal hernia Neuropathy of left foot No known health problems Obesity (BMI 30-39.9) Tobacco abuse Surgical History History of colonoscopy History of endoscopy History of shoulder surgery Family History (Updated 01/04/23 @ 09:52 by Anaya Naqvi CMA) Mother Myocardial infarct CVA (cerebral vascular accident) Social History Housing: Apartment Alcohol intake: current Alcohol intake frequency: does not drink Alcohol type: beer Patient Tobacco Use Status: Former Tobacco user Tobacco use type: Cigarette Years Smoked: while drinking - 10 -15 cigarettess e-Cigarette/Vaping Use: Never Used Second Hand Smoke Exposure: Yes service: No Current occupational status: unemployed Cognitive needs: No Hearing needs: No Vision needs: No Questionnaire PHQ-9 Over the last 2 weeks, how often have you been bothered by any of the following problems? 1. Little interest or pleasure in doing things: not at all 2. Feeling down, depressed, or hopeless: not at all 3. Trouble falling or staying asleep, or sleeping too much: not at all 4. Feeling tired or having little energy: not at all 5. Poor appetite or overeating: not at all 6. Feeling bad about yourself - or that you are a failure or have let yourself or your family down: not at all 7. Trouble concentrating on things, such as reading the newspaper or watching television: not at all 8. Moving or speaking so slowly that other people could have noticed. Or the opposite - being so fidgety or restless that you have been moving around a lot more than usual: not at all 9. Thoughts that you would be better off or of hurting yourself in some way: not at all Total score: 0 Depression Screening Interpretation: Negative 94022 - PHQ-9 Billing: Yes Source: Developed by Drs. Constantine Mello, Meredith Sheikh, Goyo Mendes and colleagues, with an educational pedro from [employer]. Thrive Questionnaire Date Thrive assessed: 01/04/23 I am a: Patient What is your living situation today?: I have a steady place to live Within the past 12 months, did the food you bought not last and you didn't have the money to get more?: Never true Within the past 12 months, did you worry whether your food would run out before you got money to buy more?: Never true Do you have trouble paying for medicines?: No Do you have trouble getting transportation to medical appointments?: No Do you have trouble paying your heating and electricity bill?: No Do you have trouble taking care of your child, family member or friend?: No Do you have trouble with day-to-day activities such as bathing, preparing meals, shopping, managing finances, etc.?: No Are you currently unemployed and looking for a job?: No Are you interested in more education?: No Currently or been in a relationship where the following occur: no concerns reported AUDIT C Alcohol Use Questionnaire (AUDIT-C) 1. How often do you have a drink containing alcohol?: Never 3. How often do you have six or more drinks on one occasion?: Never Total Score: 0 Score Reviewed/Action Taken: No BARRINGTON-7 AMB Questionnaire BARRINGTON-7 Date BARRINGTON - 7 assessed: 09/16/22 Source: Developed by Drs. Constantine Mello, Meredith Sheikh, Goyo Mendes and colleagues, with an educational pedro from [employer]. Physical exam (Primary Care) Vital Signs: Last Vital Signs Pulse 80 01/04/23 09:50 BP 130/68 01/04/23 09:50 Pulse Ox 98 01/04/23 09:50 Oxygen Delivery Method Room Air 01/04/23 09:50 BMI result Body Mass Index 33.7 Tobacco/Smoking Status: Tobacco use Status Tobacco use date assessed 09/16/22 01/04/23 09:55 Patient Tobacco Use Status Former Tobacco user 01/04/23 09:55 Tobacco use type Cigarette 01/04/23 09:55 e-Cigarette/Vaping Use Never Used 01/04/23 09:55 PHQ-9: PHQ-9 Score PHQ-9: Total score 0 01/04/23 09:55 Depression Screening Interpretation: Negative Thrive Assessment: Date of Thrive Assessment Date Thrive assessed 01/04/23 01/04/23 09:55 Currently or been in a relationship where the following occur: no concerns reported Const General: alert; No acute distress Eyes Conjunctivae: conjunctivae normal Resp Auscultation: clear to auscultation bilaterally Cardio Rate: regular rate Rhythm: regular rhythm GI Inspection: Yes normal to inspection Extrem General: Yes normal to inspection and No edema Assessment and Plan Assessment & Plan (1) Elevated PSA: Code(s): R97.20 - Elevated prostate specific antigen [PSA] Plan: Patient is being followed up by Urology planned on TURP (2) Tubular adenoma of colon: Comment: June 2022 Code(s): D12.6 - Benign neoplasm of colon, unspecified Plan: Patient is being followed up by Gastroenterology repeat in 3 years (3) S/P dilatation of esophageal stricture: Comment: August 2022 Dr. Cervantes Code(s): Z98.890 - Other specified postprocedural states; Z87.19 - Personal history of other diseases of the digestive system Plan: Patient is being followed up by Gastroenterology. On omeprazole 40 mg twice a day (4) Hypercholesterolemia: Code(s): E78.00 - Pure hypercholesterolemia, unspecified Plan: Avoid fried foods, chicken skin, eggs, butter margarine, pastries and meat. Be it pork or beef they have a lot of cholesterol LDL goal of less than 130 and triglyceride of less than 150 patient is advised to get blood work done again (5) Obesity (BMI 30.0-34.9): Code(s): E66.9 - Obesity, unspecified Plan: Diet and exercise (6) Plantar fasciitis of left foot: Code(s): M72.2 - Plantar fascial fibromatosis Plan: voltaren gel sent decline wet process assistant head miller (7) Shoulder pain, left: Code(s): M25.512 - Pain in left shoulder Plan: decline PT and referral to ortho Orders: Orders Comprehensive Met. Panel Today E78.00 - Pure hypercholesterolemia, unspecified Complete Blood Count Auto Diff Today E78.00 - Pure hypercholesterolemia, unspecified Free T4 (Free Thyroxine) Today E78.00 - Pure hypercholesterolemia, unspecified Thyroid Stimulating Hormone Today E78.00 - Pure hypercholesterolemia, unspecifie d Lipid Panel Today E78.00 - Pure hypercholesterolemia, unspecified Vitamin B12 and Folate Today E78.00 - Pure hypercholesterolemia, unspecified Prostate Specific Antigen Scr Today E78.00 - Pure hypercholesterolemia, unspecified Hemoglobin A1c Today E78.00 - Pure hypercholesterolemia, unspecified Medications: New diclofenac sodium 1% (Voltaren Arthritis Pain) apply to single knee, ankle, foot; for foot includes sole/toes/top of foot 4 grams topical QID 100 grams 3RF M72.2 - Plantar fascial fibromatosis Discontinued meloxicam Discontinued Reason: Doctor's Order 15 mg PO DAILY 14 tabs 0RF naproxen Discontinued Reason: Doctor's Order 500 mg PO BID 7 days 14 tabs 0RF Coding Level of Care Code Est Pt Level 4 (12551) Diagnoses Elevated PSA R97.20 Tubular adenoma of colon D12.6 S/P dilatation of esophageal stricture Z98.890; Z87.19 Hypercholesterolemia E78.00 Obesity (BMI 30.0-34.9) E66.9 Plantar fasciitis of left foot M72.2 Shoulder pain, left M25.512
== END 2023-01-04 10:54 | disposition home or self-care (01) ==
PROVIDERS: PCP Internal Medicine; Visit Provider Internal Medicine
DX: R97.20 Elevated prostate specific antigen [PSA] (principal); Z98.890 Other specified postprocedural states; Z87.19 Personal history of other diseases of the digestive system; D12.6 Benign neoplasm of colon, unspecified; E78.00 Pure hypercholesterolemia, unspecified; E66.9 Obesity, unspecified; M72.2 Plantar fascial fibromatosis; M25.512 Pain in left shoulder
CPT/HCPCS: 99214

== ENCOUNTER 2023-02-03 06:04 | Outpatient (REF) | payer OTHER, SELFPAY ==
[2023-02-03 07:45] VITALS: BMI 37.9
[2023-02-03 07:47] VITALS: BP 166/93; PULSE 74; RESP 16; TEMP 36.1; O2SAT 99
--- NOTE | 2023-02-03 08:31 | P.OP_ITS ---
Operative Note Operative Note Date of Service: 02/03/23 Narrative: Preoperative diagnosis: Elevated PSA Postoperative diagnosis: Elevated PSA Procedure: 1. transrectal ultrasound measurement of prostate 2. transrectal ultrasound-guided pudendal nerve block 3. transrectal ultrasound-guided prostate biopsy 12 core Surgeon: Dr. Stevo Gloria Anesthetic: Local Indications for procedure: Elevated PSA 5.1 Procedure: After informed consent was verified, the patient was brought into the procedure area and lay left-hand side down on the table. Patient identity confirmed. Perioperative antibiotics confirmed. Safety pause time out performed. JUMA performed to dilate rectal sphincter Iodine 10cc with Gel was placed per rectum Ultrasound probe was placed per rectum The prostate was measured in 3 dimensions Total volume equals 90 gm No cystic structures were noted yes calcifications were noted at the surgical margin The prostate was otherwise heterogenous in nature An ultrasound-guided pudendal nerve block was performed using 10 cc of 1% lidocaine. 8 cc was placed at the base and 2 cc of the apex. A 12 core biopsy was performed with 6 cores each side. Two cores were taken at the apex, mid and base. Cores were spaced between lateral and medial. He tolerated the procedure well. Was able to ambulate to bathroom after 5 m inutes. Printed instructions regarding antibiotic use and common side effects such as low-grade temperature, potential infection and bleeding were given Pathology: 12 core prostate biopsy.
[2023-02-03 08:47] VITALS: BP 173/93; PULSE 79; RESP 16; O2SAT 98
== END 2023-02-03 06:05 | disposition home or self-care (01) ==
LOC: HO.MS 06:04
PROVIDERS: PCP Internal Medicine; Visit Provider Urology
PROC: (CPT 55700; principal; 2023-02-03 08:00)
DX: C61 Malignant neoplasm of prostate (principal); R97.20 Elevated prostate specific antigen [PSA]
CPT/HCPCS: 55700; 76942; 88305; 88344

== ENCOUNTER → 2023-02-03 06:04 | Outpatient (BNV) | payer OTHER, SELFPAY | PROVIDERS: PCP Internal Medicine; Visit Provider Urology | DX: R97.20 Elevated prostate specific antigen [PSA] (principal) | CPT/HCPCS: 55700; 76942 ==

== ENCOUNTER 2023-02-18 12:06 | Outpatient (AMB) | payer OTHER, SELFPAY ==
--- NOTE | 2023-02-18 12:11 | A.OFFVIS_ITS ---
Intake Intake Visit Reasons: Biopsy results Intake Note: Patient is Present for Telephone Follow Up For Biopsy results Urology Med: None Antibiotic Allergy: None Blood Thinner: None Pharamcy: [facility] Allergies No Known Allergies Allergy (Verified 01/04/23 09:51) Medication List - Last Reconciled 02/18/23 by Stevo Gloria MD diclofenac sodium 1% (Voltaren Arthritis Pain) 4 grams topical QID levofloxacin 500 mg PO daily 3 days omeprazole 40 mg PO BID vitamin E (dl, acetate) 450 mg PO DAILY 90 days HPI HPI Comments History of Present Illness Details Hank is a pleasant male. He is a patient of Dr. Null. He seen for the following urologic conditions - Peyronie's disease - lower urinary tract symptoms - Prostate Cancer Telemedicine Evaluation 15 min Consultation [employer] Sujata Video attempted Prostate Cancer - Grade Group 1, Low Volume PSA 5.1 on finasteride 90gm at TRUS Single core 5% left base Initial therapy surveillance - plan repeat PSA 4m with prostate MRI Lower urinary tract symptoms Progressive weak strength Current therapy finasteride PSA 02/20 5.2, 06/24 4.2/3.6 F31%, 12/22 5.1 JUMA 3+ prostate Peyronie's disease Primary complaint is - penile curvature - right-sided The problem has been present - since 2019 after subclinical penile fracture On exam he has palpable area right distal portion At this time he experiences - partial erections which are not adequate for penetrative intercourse, [place] has - is possible but painful Associated symptoms include penile pain No penile discharge No Prior management includes - continue with oral medications PFSH Medical History Hx of hiatal hernia GERD (gastroesophageal reflux disease) Colonoscopy planned Dysphagia Neuropathy of left foot Tobacco abuse Alcohol abuse Obesity (BMI 30-39.9) No known health problems Surgical History History of endoscopy History of colonoscopy History of shoulder surgery Family History Mother Myocardial infarct CVA (cerebral vascular accident) Social History Housing: Apartment Alcohol intake: current Alcohol intake frequency: does not drink Alcohol type: beer Patient Tobacco Use Status: Former Tobacco user Tobacco use type: Cigarette Years Smoked: while drinking - 10 -15 cigarettess e-Cigarette/Vaping Use: Never Used Second Hand Smoke Exposure: Yes service: No Current occupational status: unemployed Cognitive needs: No Hearing needs: No Vision needs: No Review of Systems Const Denies chills and Denies fever(s) Card Reports no additional complaints and Denies syncope Resp Denies cough GI Denies abdominal pain and Denies heartburn Reports as per HPI and Denies change in libido Neuro Denies syncope Psych Denies change in libido Endo Denies change in libido Physical Exam Const General: cooperative, healthy appearing, comfortable and no acute distress Orientation/consciousness: patient oriented x3 HEENT Face and sinus: Yes normal facial exam Mouth: moist mucous membranes Neck Neck: Yes normal visual inspection, Yes full ROM and Yes trachea midline Chest Chest palpation & inspection: normal inspection of the chest Resp Effort & Inspection: normal respiratory effort, able to speak in complete sentences and no respiratory distress GI Inspection: Yes normal to inspection Back/Spine/Pelvis Cervical Spine: normal cervical lordosis Thoracic/Lumbar Spine: thoracic and lumbar spine normal to inspection Skin General skin exam: no rashes or lesions noted Neuro General: patient oriented x3, gait normal, tone normal and moves all extremities Extrem General: Yes normal to inspection and Yes capillary refill normal Assessment & Plan Assessment & Plan (1) Prostate cancer: Comment: 01/[address] Gloria Code(s): C61 - Malignant neoplasm of prostate Plan Four month follow-up prostate MRI with PSA Orders: Orders PSA,Total (Free>4and<10) 4 Months C61 - Malignant neoplasm of prostate Creatinine 4 Months C61 - Malignant neoplasm of prostate MR pelvis wo/w con 4 Months C61 - Malignant neoplasm of prostate Blood Urea Nitrogen 4 Months C61 - Malignant neoplasm of prostate Medications: New finasteride 5 mg PO DAILY 90 days 90 tabs 1RF C61 - Malignant neoplasm of prostate, N13.8 - Other obstructive and reflux uropathy, N40.1 - Benign prostatic hyperplasia with lower urinary tract symptoms, R33.9 - Retention of urine, unspecified Patient Instructions: Imaging studies, laboratory and physical exam results were discussed and reviewed in detail. No major barriers to patient understanding were identified. An opportunity to ask questions regarding the treatment plan was provided. All questions were answered. The patient expressed understanding and agreement with the above treatment plan. The patient is aware they should contact our office by phone for worsening of their current condition or the appearance of new urologic symptoms. Compliance is encouraged with any medications and followup testing that is ordered. It is a privilege to participate in the urologic care of your patient. If you have any questions or concerns regarding treatment for the above conditions, or other urologic issues, please do not hesitate to contact me. The office telephone contact is [phone]. This note is constructed using voice recognition software. While every effort has been made to ensure accuracy water pumping station engineer errors may have been included. Yours sincerely, Dr Stevo Gloria MD, NATALIIA [facility] - Urology Providers of Expert, Compassionate Care for the Genitourinary System Telehealth Telehealth Location of provider rendering services: practice address Location of patient: address on file Patient Identification confirmed using: Name, : Yes Telehealth method: voice only Patient verbally consented to treatment: Yes Patient verbally consented to billing insurance company: Yes Patient informed of any privacy concerns related to visit: Yes Coding Level of Care Code Tele Est Pt Level 4 (16196) Diagnoses Prostate cancer C61
--- OUTSIDE RECORDS SUMMARY | 2023-02-18 12:11 | XMS_ITS | Patient Health Record ---
Author Name Unknown Organization [facility] Address [address] [place] [address] Care Team Providers Care Nicu Rn Name Role Phone Kaci Null MD Primary Care Provider Constantine Torres [phone] ALLERGIES No Known Allergies RESULTS Component Value Reference Range Notes Pathology Reviewed date:09/12/2022 12:19:41 AM Interpretation: Performing Lab:[facility], [address] [place] [phone] Notes/Report: Pathology (Not yet reviewed by provider) Interpretation: Performing Lab:[facility], [address] [place] [phone] Notes/Report: REASON FOR REFERRAL No Information MEDICATIONS Medication SIG (Take, Route, Fr equency, Duration) Notes Start Date End Date Status Omeprazole 40 MG TAKE 1 CAPSULE BY [facility] TWICE A DAY for 90 Active Omeprazole 20 MG 2 Orally Every morni ng and every evening for 30 day(s) 06/30/2022 Active IMMUNIZATIONS Vaccine Route Administration Date Status Comme nts Influenza Unknown 10/14/2020 Refused SOCIAL HISTORY Tobacco Use: Social History Observation Description Date Details (start date - stop date) Former Smoker NA - NA Sex Assigned At : Social History Observation Description Sex Assigned At Unknown Tobacco Use/Smoking Question Answer Notes Patient is a former smoker How long has it been since you last smoked? 1-5 years Alcohol Screen Question Answer Notes Did you have a drink contain ing alcohol in the past year? Yes How often did you have a dri nk containing alcohol in the past year? 2 to 3 times a week (3 points) How many drinks did you have on a typical day when you were drinking in the past year? 3 or 4 drinks (1 point) How often did you have 6 or more drinks on one occasion in the past year? Monthly (2 points) Points 6 Interpretation Positive PROBLEMS Problem Type ICD Code Onset Dates Problem Status W/U Status Risk SNOMED Code Notes Problem Esophageal dysphagia (R13.10) Active confirmed 82732053 Problem Abnormal barium swallow (R93.3) Active confirmed 833216872 Problem Encounter for screening for malignant neoplasm of colon (Z12.11) Active confirmed 639053815 Problem Diverticulosis of sigmoid colon (K57.30) Active confirmed Diverticulosis of sigmoid colon (773923381) Problem Esophageal obstruction (K22.2) Active confirmed Stricture of esophagus (72655000) Problem Dysphagia (R13.10) Active confirmed Dysphagia (00543483) Problem Esophageal stricture (K22.2) Active confirmed Esophageal stricture (70662766) Problem History of adenomatous polyp of colon (Z86.010) Active confirmed 499480409 Problem Erosive esophagitis (K22.10) Active confirmed Erosive esophagitis (98333834) Problem Diverticulosis of colon (K57.30) Active confirmed Diverticulosi s of colon (280860526) Problem Esophageal ring (K22.2) Active confirmed Esophageal ring (46150492) Problem Esophageal reflux (K21.9) Active confirmed Esophageal refl ux (126658861) Encounters Encounter Location Date Provider Diagnosis [facility] Outpatient [address] [place] [id number] 09/13/2022 Constantine Cervantes Esophageal stricture K22.2 ; Esophageal reflux K21.9 and Hiatal hernia K44.9 [facility] Outpatient [address] [place] [id number] 06/28/2022 Constantine Cervantes Colon polyp K63.5 ; Diverticulosis of colon K57.30 ; Internal hemorrhoids K64.8 ; Colonic mass K63.89 ; Esophageal ring K22.2 ; Other esophagitis without bleeding K20.80 and Hiatal hernia K44.9 [facility] [address] [place] [address] 04/08/2022 Constantine Cervantes Esophageal dysphagia R13.10 ; Encounter for screening for malignant neoplasm of colon Z12.11 ; History of adenomatous polyp of colon Z86.010 ; Esophageal stricture K22.2 and Erosive esophagitis K22.10 [facility] [address] [place] [address] 06/30/2022 Constantine Cervantes Esophageal stricture K22.2 and Erosive esophagitis K22.10 [facility] [address] [place] [address] 07/14/2022 Constantine Cervantes ASSESSMENTS Encounter Date Diagnosis Assessment Notes Treatment Notes Treatment Clinical Notes 09/13/2022 Esophageal reflux (ICD-10 - K21.9) 09/13/2022 Esophageal stricture (ICD-10 - K22.2) 06/28/2022 Colon polyp (ICD-10 - K63.5) 06/28/2022 Diverticulosis of colon (ICD-10 - K57.30) 04/08/2022 Encounter for screening for malignant neoplasm of colon (ICD-10 - Z12.11) 04/08/2022 Esophageal dysphagia (ICD-10 - R13.10) 06/30/2022 Esophageal stricture (ICD-10 - K22.2) 06/30/2022 Erosive esophagitis (ICD-10 - K22.10) 09/13/2022 Hiatal hernia (ICD-1 0 - K44.9) 06/28/2022 Internal hemorrhoids (ICD-10 - K64.8) 04/08/2022 History of adenomatous polyp of colon (ICD-10 - Z86.010) 06/28/2022 Colonic mass (ICD-10 - K63.89) 04/08/2022 Esophageal stricture (ICD-10 - K22.2) Start taking the 40mg omeprazole every day. Call me if you need refills. 06/28/2022 Esophageal ring (ICD-10 - K22.2) 04/08/2022 Erosive esophagitis (ICD-10 - K22.10) 06/28/2022 Other esophagitis without bleeding (ICD-10 - K20.80) 06/28/2022 Hiatal hernia (ICD-1 0 - K44.9) PLAN OF TREATMENT Pending Test Test Name Order Date Pathology 09/13/2022 Future Test Test Name Order Date UPPER GI ENDOSCOPY BALLOOON DILATION OF ESOPH 10/14/2020 COLONOSCOPY 10/14/2020 UPPER GI ENDOSCOPY BALLOOON DILATION OF ESOPH 11/11/2020 UPPER GI ENDOSCOPY BALLOOON DILATION OF ESOPH 04/08/2022 COLONOSCOPY 04/08/2022 UPPER GI ENDOSCOPY BALLOOON DILATION OF ESOPH 07/04/2022 Insurance Providers Payer Name Payer Address Payer Phone Subscriber Number Group Number Insured Name Patient Relationship to Insured Coverage Start Date Coverage End Date [facility] [employer] [facility] [address] [address] [place], [place] [id number] [phone] [id number] ABIDA VELAZCO Self - patient is the insured [place] [address] [place] [address] [phone] [id number] ABIDA VELAZCO Self - patient is the insured MEDICAL (GENERAL) HISTORY Medical History History ICD Code Denies [place],DM,CVA,Lung disease,renal dise ase Cortisone injection in the left shoulder 09/2020 GERD and esophageal strictur e-upper endoscopy in September of 2020 revealed erosive esophagitis, mild esophageal stricture, and a small to moderate-sized hiatal hernia--biopsies were negative for Ferrell's esophagus--the stricture was dilated up to a 15 mm balloon at that time Screening colonoscopy in Sep--5 polyps removed, including 2 > 2cm tubulovillous adenomas from the sigmoid colon Repeat EGD in 10/2020 reveale d his small to moderate size hiatal hernia, improved esophagitis, and mild nonobstructing distal esophageal stricture which was dilated up to a 20 mm balloon Surgical History Surgery Date(Month/Year) left shoulder
== END 2023-02-18 12:31 | disposition home or self-care (01) ==
LOC: HO.HUSH 12:06
PROVIDERS: PCP Internal Medicine; Visit Provider Urology
DX: C61 Malignant neoplasm of prostate (principal)
CPT/HCPCS: 99214

== ENCOUNTER → 2023-02-18 12:06 | Outpatient (BNVA) | payer OTHER, SELFPAY | PROVIDERS: PCP Internal Medicine; Visit Provider Urology ==

== ENCOUNTER 2023-05-04 09:30 | Day surgery (SDC) | payer OTHER, SELFPAY ==
--- OUTSIDE RECORDS SUMMARY | 2023-05-04 09:34 | XMS_ITS | Patient Health Record ---
Author Name Unknown Organization [facility] Address [address] [place] [address] Care Team Providers Care Flatwork Assembler Name Role Phone Kaci Null MD Primary Care Provider Constantine Torres [phone] ALLERGIES No Known Allergies RESULTS Component Value Reference Range Notes Pathology Reviewed date:09/12/2022 12:19:41 AM Interpretation: Performing Lab:[facility], [address] [place] [phone] Notes/Report: Pathology Reviewed date:05/03/2023 05:59:53 PM Interpretation: Performing Lab:[facility], [address] [place] [phone] Notes/Report: REASON FOR REFERRAL No Information MEDICATIONS Medication SIG (Take, Route, Fr equency, Duration) Notes Start Date End Date Status Omeprazole 20 MG 2 Orally Every morni [...] Answer Notes Did you have a drink containing alcohol in the p ast year? No Points 0 Interpretation Negative PROBLEMS Problem Type ICD Code Onset Dates Problem Status W/U Status Risk SNOMED Code Notes Problem Esophageal dysphagia (R13.10) Active confirmed 22116017 Problem Abnormal barium swallow (R93.3) Active confirmed 959487174 Problem Encounter for screening for malignant neoplasm of colon (Z12.11) Active confirmed 813820933 Problem Diverticulosis of sigmoid colon (K57.30) Active confirmed Diverticulosis of sigmoid colon (776988717) Problem Esophageal obstruction (K22.2) Active confirmed Stricture of esophagus (14205169) Problem Dysphagia (R13.10) Active confirmed Dysphagia (47846714) Problem Esophageal stricture (K22.2) Active confirmed Esophageal stricture (25932687) Problem History of adenomatous polyp of colon (Z86.010) Active confirmed 928008299 Problem Erosive esophagitis (K22.10) Active confirmed Erosive esophagitis (40916055) Problem Diverticulosis of colon (K57.30) Active confirmed Diverticulosi s of colon (511059271) Problem Esophageal ring (K22.2) Active confirmed Esophageal ring (37607380) Problem Esophageal reflux (K21.9) Active confirmed Esophageal refl ux (660057808) Encounters Encounter Location Date Provider Diagnosis [facility] [address] [place] [id number] 09/13/2022 Constantine Cervantes Esophageal stricture K22.2 ; Esophageal reflux K21.9 and Hiatal hernia K44.9 [facility] [address] [place] [id number] 05/04/2023 Constantine Cervantes [facility] [address] [place] [id number] 06/28/2022 Constantine Cervantes Colon polyp K63.5 ; Diverticulosis of colon K57.30 ; Internal hemorrhoids K64.8 ; Colonic mass K63.89 ; Esophageal ring K22.2 ; Other esophagitis without bleeding K20.80 and Hiatal hernia K44.9 [facility] [address] [place] [phone] 05/03/2023 Constantine Cervantes Esophageal dysphagia R13.10 and Esophageal stricture K22.2 [facility] [address] [place] [phone] 06/30/2022 Constantine Cervantes Esophageal stricture K22.2 and Erosive esophagitis K22.10 [facility] [address] [place] [phone] 07/14/2022 Constantine Cervantes [facility] [address] [place] [address] 05/03/2023 Constantine Cervantes ASSESSMENTS Encounter Date Diagnosis Assessment Notes Treatment Notes Treatment Clinical Notes 09/13/2022 Esophageal reflux (ICD-10 - K21.9) 09/13/2022 Esophageal stricture (ICD-10 - K22.2) 06/28/2022 Colon polyp (ICD-10 - K63.5) 06/28/2022 Diverticulosis of colon (ICD-10 - K57.30) 05/03/2023 Esophageal stricture (ICD-10 - K22.2) 05/03/2023 Esophageal dysphagia (ICD-10 - R13.10) 06/30/2022 Esophageal stricture (ICD-10 - K22.2) 06/30/2022 Erosive esophagitis (ICD-10 - K22.10) 09/13/2022 Hiatal hernia (ICD-1 0 - K44.9) 06/28/2022 Internal hemorrhoids (ICD-10 - K64.8) 06/28/2022 Colonic mass (ICD-10 - K63.89) 06/28/2022 Esophageal ring (ICD-10 - K22.2) 06/28/2022 Other esophagitis without bleeding (ICD-10 - K20.80) 06/28/2022 Hiatal hernia (ICD-1 0 - K44.9) PLAN OF TREATMENT Future Test Test Name Order Date UPPER GI ENDOSCOPY BALLOOON DILATION OF ESOPH 10/14/2020 COLONOSCOPY 10/14/2020 UPPER GI ENDOSCOPY BALLOOON DILATION OF ESOPH 11/11/2020 UPPER GI ENDOSCOPY BALLOOON DILATION OF ESOPH 04/08/2022 COLONOSCOPY 04/08/2022 UPPER GI ENDOSCOPY BALLOOON DILATION OF ESOPH 07/04/2022 UPPER GI ENDOSCOPY BALLOOON DILATION OF ESOPH 05/03/2023 Next Appt Details Provider Name:Constantine Cervantes , 05/04/2023 10:30:00 AM, [address] [facility] , [place], [place], [phone], Insurance Providers Payer Name Payer Address Payer Phone Subscriber Number Group Number Insured Name Patient Relationship to Insured Coverage Start Date Coverage End Date [employer] [facility] [address] [address] [place], [place] [id number] [phone] [id number] ABIDA VELAZCO Self - patient is the insured [employer] [address] [place] [phone] [id number] ABIDA VELAZCO Self - patient is the insured MEDICAL (GENERAL) HISTORY Medical History History ICD Code Denies [place],DM,CVA,Lung disease,renal dise ase Cortisone injection in the [...] dilated up to a 20 mm balloon EGD in June of 2022 reve aled erosive esophagitis and a recurrent mild stricture which was dilated from a 15mm to a 16.5mm balloon. Biopsies from the esophagus in the area of inflammation revealed some atypical changes but no carcinoma nor definitive Ferrell's esophagus. At that time he was on 40 mg of omeprazole daily and I increased it to twice a day. Repeat EGD in 08/2022 revealed healing of the esophagitis and a nonobstructing mild fibrotic stricture-biopsies were negative for any atypia and negative for Ferrell's esophagus-dilated up to an 18mm balloon with good effect Colonoscopy in June and removal of 3 tubular adenomas. The areas of the submucosal ink markings where the large polyps had been removed previously were free of any adenomatous tissue. Surgical History Surgery Date(Month/Year) Left shoulder
[2023-05-04 09:49] VITALS: BMI 34.0
[2023-05-04 09:53] VITALS: BP 149/86; PULSE 80; RESP 16; TEMP 36.7; O2SAT 95
--- NOTE | 2023-05-04 10:36 | HO.ANESPROP2 ---
HPI - Anesthesia Eval Consult details Narrative: 62 yo male patient for EGD and balloon dilatation PMFSH Active Problems Active Problems: All Active Problems (Updated 05/04/23 @ 10:30 by Yue Nunez MD) Prostate cancer (Acute) Plantar fasciitis of left foot (Acute) Elevated PSA (Acute) Erectile dysfunction (Acute) Swelling of left foot (Acute) Tubular adenoma of colon (Acute) Cellulitis of left foot (Acute) Penile pain, chronic (Acute) BPH w urinary obs/LUTS (Acute) Tinea corporis (Acute) Obesity (BMI 30.0-34.9) (Acute). Denies KEELY Fatty liver (Acute) Hypercholesterolemia (Acute) S/P dilatation of esophageal stricture (Acute) Impingement syndrome, shoulder, left (Acute) Scapular dysfunction (Acute) Shoulder pain (Acute) LFT elevation (Acute) Colon cancer screening (Acute) Peyronie disease (Acute) Vision changes (Acute) Low back pain (Acute) Easy fatigability (Acute) Shoulder pain, left (Acute) Dysphagia (Acute) Past Medical History Medical History Hx of hiatal hernia GERD (gastroesophageal reflux disease) Colonoscopy planned Dysphagia Neuropathy of left foot Tobacco abuse Alcohol abuse Obesity (BMI 30-39.9) No known health problems Family History Family History Mother Myocardial infarct CVA (cerebral vascular accident) Family history of problems with anesthesia: No Surgical History Surgical History History of prostate surgery History of endoscopy History of colonoscopy History of shoulder surgery History of Problems with Anesthesia: No Social History Social History Housing: Apartment Alcohol intake: current Alcohol intake frequency: former alcohol drinker Alcohol type: beer Comment: improving with flatus passing Patient Tobacco Use Status: Former Tobacco user Quit Date: 2021 Tobacco use type: Cigarette Years Smoked: 20 e-Cigarette/Vaping Use: Never Used Second Hand Smoke Exposure: Yes service: No Current occupational status: unemployed Cognitive needs: No Hearing needs: No Vision needs: No Meds Allergies Allergy/AdvReac Type Severity Reaction Status Date / Time No Known Allergies Allergy Verified 05/04/23 09:49 Home Medications Medication Instructions Recorded Confirmed Last Taken Type omeprazole 40 mg capsule,delayed 40 mg PO BID 09/10/22 05/04/23 05/04/23 History release Exam Height,Weight and Vital Signs: Height 5 ft 7 in Weight 98.52 kg Last Vital Signs Temp 98.1 F 05/04/23 09:53 Pulse 80 05/04/23 09:53 Resp 16 05/04/23 09:53 BP 149/86 H 05/04/23 09:53 Pulse Ox 95 05/04/23 09:53 O2 Del Method Room Air 05/04/23 09:53 Airway Mallampati Class: III TM Dist: >3cm Neck ROM: Full Loose/Missing/Broken Teeth: No (Denies broken, loose, missing teeth) Heart: RRR Lungs: CTAB Assessment and Plan Assessment Anesthesia Assessment: Anesthesia Plan Discussed and Chart Reviewed Final Anesthetic Review Family History of Problems with Anesthesia: No History of Problems with Anesthesia: No NPO: Yes ASA Class: II Final Preanesthetic Review: No Changes in Pt Med Stat, Meds/Allgs Chart Reviewed, Consent Obtained/Reviewed and Anes Risks/Benef Reviewed Patient Risk: Intermediate Procedure Risk: Low Assessment/Block/Sedation in SS: Assess/Block/Sedation-SS Anesthetic Plan Anesthetic Plan: TIVA Disposition: Standard PACU
[2023-05-04 11:25] VITALS: BP 101/59; PULSE 90; RESP 13; TEMP 36.8; O2SAT 99
--- NOTE | 2023-05-04 11:29 | PM.OP ---
Brief Operative Note Date of Service: 05/04/23 Pre-op diagnosis: Dysphagia Post-op diagnosis: other (Esophageal stricture, GERD, hiatal hernia) Procedure: EGD with a Balloon dilation from 18 to 19mm Surgeon: Constantine Cervantes MD Anesthesia: MAC Was an Inspector Screen Printing used for this Procedure?: No Estimated blood loss (mL): 2.0 Pathology: none sent Condition: stable Disposition: PACU
[2023-05-04 11:40] VITALS: BP 112/71; PULSE 95; RESP 16; O2SAT 94
[2023-05-04 11:55] VITALS: BP 118/84; PULSE 92; RESP 16; TEMP 37.2; O2SAT 97
--- NOTE | 2023-05-04 12:01 | OP_ITS ---
DATE OF SERVICE: 05/04/2023 SURGEON: Constantine Cervantes MD INDICATIONS: The patient presents for evaluation of dysphagia and a known esophageal stricture. Full consent has been obtained from him for this, including risks of bleeding and perforation. PREOPERATIVE DIAGNOSIS: POSTOPERATIVE DIAGNOSIS: PROCEDURE PERFORMED: ESTIMATED BLOOD LOSS: COMPLICATIONS: ANESTHESIA: Monitored anesthesia care. ASSISTANTS: SPECIMENS: PREOPERATIVE DIAGNOSES: Dysphagia and history of esophageal stricture. POSTOPERATIVE DIAGNOSES: 1. Dysphagia and history of esophageal stricture. 2. Hiatal hernia. 3. Gastroesophageal reflux. PROCEDURES PERFORMED: Esophagogastroduodenoscopy with balloon dilation of gastroesophageal junction. DESCRIPTION OF PROCEDURE: Patient was placed in left lateral decubitus position. The Olympus video gastroscope was passed in the posterior oropharynx and upper esophagus under direct vision. The scope was passed slowly to the distal esophagus. The gastroesophageal junction appeared at 40 cm with insufflation of air. This did open and allowed easy passage of the scope into the stomach. There was a small to moderate-sized hiatal hernia with normal mucosa. The scope was advanced to pylorus and the duodenum was cannulated to the descending portion. The duodenum including the bulb appeared normal without mass or ulceration. The scope was withdrawn back in the stomach. The gastric antrum and body appeared normal with good peristalsis. The scope was retroflexed visualizing the proximal stomach carefully which appeared normal without any sign of mass or ulceration. The scope was straightened and withdrawn back to the esophagus. With insufflation of air, the gastroesophageal junction did open without any definitive significant stricture noted, but there was evidence of some fibrosis and scarring with some minimal evidence of residual stricture. There was no active esophagitis nor any mass. The tissue was somewhat friable. I did use a [employer] incremental balloon to dilate the gastroesophageal junction from 18 mm to 19 mm at the recommended pressure for between 30 and 60 seconds each. There was heme noted postdilation. Postdilation it was easy to move the scope into and out of the stomach. Proximal to the EG junction, the esophageal mucosa appeared normal. The esophagus itself did appear somewhat tortuous. The scope was withdrawn from the patient. He tolerated the procedure well and was returned to recovery area in stable condition. IMPRESSION: 1. History of esophageal stricture, status post balloon dilation. 2. Hiatal hernia. PLAN: The patient has been on omeprazole 40 mg b.i.d., which he reports that he has been using regularly. Given the findings and his continued intermittent dysphagia, I am going to also add famotidine 40 mg b.i.d. to hopefully maximally shut down any acid reflux and esophageal spasm. I will plan to see him in several months for a followup visit. He was advised to avoid all aspirin and NSAIDs long-term. If the symptoms of dysphagia recur fairly soon and become problematic, I would then recommend esophageal motility studies and a followup barium swallow with a barium tablet for further evaluation. He will be seen in several months, but I did advise him to call sooner as needed. This has been discussed with his daughter. MD CHRISTINA Ford/VELIA / [phone] MTDMerlene
== END 2023-05-04 12:17 | disposition home or self-care (01) ==
PROVIDERS: PCP Internal Medicine; Visit Provider Internal Medicine
PROC: (CPT 43249; principal; 2023-05-04 10:30)
DX: K22.2 Esophageal obstruction (principal); R13.10 Dysphagia, unspecified; K21.9 Gastro-esophageal reflux disease without esophagitis; K44.9 Diaphragmatic hernia without obstruction or gangrene; Z79.899 Other long term (current) drug therapy; Z87.891 Personal history of nicotine dependence
CPT/HCPCS: 43249; C1726; J1596; J2704; J3010

== ENCOUNTER 2023-05-17 11:51 | Outpatient (AMB) | payer OTHER, SELFPAY ==
[2023-05-17 11:55] VITALS: BP 148/90; PULSE 83; O2SAT 97; BMI 33.5
--- NOTE | 2023-05-17 11:55 | MHC.PC.OV ---
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 Allergies No Known Allergies Allergy (Verified 05/17/23 12:30) Medication List - Last Reconciled 05/17/23 by Kaci Null MD diclofenac sodium 1% (Voltaren Arthritis Pain) 4 grams topical QID finasteride 5 mg PO DAILY 90 days omeprazole 40 mg PO BID Tobacco use date assessed: 05/17/23 Dental Screening Dental Screen Date: 05/17/23 Did you have a dental visit in the last 12 months?: Yes Did you have a dental problem in the last 6 months where you did not have access to dental care?: No Was dental information given to patient?: Patient has dentist HPI pe HPI Details 62-year-old obese male with a history of hypercholesterolemia elevated PSA followed by Urology tubular adenoma of the colon followed by Gastroenterology last seen in December 2022. Patient is here for physical exam. Colonoscopy last done in June 2022. Review of the notes had MR of the prostate 05/10/2023 no MRI evidence of clinically significant prostate cancer no adenopathy or seminal vesicle invasion prostate volume of 70 cc.. Patient did have a transrectal ultrasound measurement of the prostate with biopsy 12 core showing 2 spots of atypical small acinar proliferation but otherwise all BPH Patient also had dysphagia seen by gastro and May 2023 advised upper endoscopy with balloon dilatation. This was done in 05/04/2023 patient also had hiatal hernia and was given omeprazole 40 mg twice a day.. complains of bilateral shoulder and low back pain - seen ortho before had surgery but still with pain and for the low back did have injection from [facility] about back pain as well as shoulder pain. X-ray of the shoulder left was good as for the back though minimal degenerative disc and osteoarthritis of the foot also. Muscle relaxants sent in. [facility] Medical History (Updated 05/17/23 @ 12:44 by Kaci Null MD) Swelling of left foot Cellulitis of left foot Penile pain, chronic Shoulder pain LFT elevation Colon cancer screening Vision changes Shoulder pain, left Hx of hiatal hernia GERD (gastroesophageal reflux disease) Colonoscopy planned Dysphagia Neuropathy of left foot Tobacco abuse Alcohol abuse Obesity (BMI 30-39.9) No known health problems Surgical History History of prostate surgery History of endoscopy History of colonoscopy History of shoulder surgery Family History Mother Myocardial infarct CVA (cerebral vascular accident) Social History (Updated 05/17/23 @ 12:46 by Kaci Null MD) Housing: Apartment Alcohol intake: current Alcohol intake frequency: former alcohol drinker Alcohol type: beer Comment: improving with flatus passing stopped 2022 Patient Tobacco Use Status: Former Tobacco user Quit Date: 2021 Tobacco use type: Cigarette Years Smoked: 20stopped 2022 e-Cigarette/Vaping Use: Never Used Second Hand Smoke Exposure: Yes service: No Current occupational status: unemployed Cognitive needs: No Hearing needs: No Vision needs: No Questionnaire PHQ-9 Over the last 2 weeks, how often have you been bothered by any of the following problems? 1. Little interest or pleasure in doing things: not at all 2. Feeling down, depressed, or hopeless: not at all 3. Trouble falling or staying asleep, or sleeping too much: not at all 4. Feeling tired or having little energy: not at all 5. Poor appetite or overeating: not at all 6. Feeling bad about yourself - or that you are a failure or have let yourself or your family down: not at all 7. Trouble concentrating on things, such as reading the newspaper or watching television: not at all 8. Moving or speaking so slowly that other people could have noticed. Or the opposite - being so fidgety or restless that you have been moving around a lot more than usual: not at all 9. Thoughts that you would be better off or of hurting yourself in some way: not at all Total score: 0 Depression Screening Interpretation: Negative Depression Screening Done: Yes [id number] - PHQ-9 Billing: Yes Source: Developed by Drs. Constantine Mello, Meredith Sheikh, Goyo Mendes and colleagues, with an educational pedro from [employer]. Thrive Questionnaire Date Thrive assessed: 05/17/23 AUDIT C Alcohol Use Questionnaire (AUDIT-C) 1. How often do you have a drink containing alcohol?: Never 3. How often do you have six or more drinks on one occasion?: Never Total Score: 0 Score Reviewed/Action Taken: No BARRINGTON-7 AMB Questionnaire BARRINGTON-7 Date BARRINGTON - 7 assessed: 05/17/23 Feeling nervous, anxious, or on edge: 0 = Not at all Not being able to stop or control worryin = Not at all Worrying too much about different things: 0 = Not at all Trouble relaxin = Not at all Being so restless that it is hard to sit still: 0 = Not at all Becoming easily annoyed or irritable: 0 = Not at all Feeling afraid as if something awful might happen: 0 = Not at all Total BARRINGTON-7 score (0-4 normal; 5-9 mild; 10-14 moderate; 15-21 severe): 0 Source: Developed by Drs. Constantine Mello, Meredith Sheikh, Goyo Mendes and colleagues, with an educational pedro from [employer]. Review of Systems Const Denies poor appetite and Denies weakness Eyes Denies no additional complaints ENT Reports Normal hearing present, Denies dizziness, Denies nasal congestion, Denies tinnitus and Denies sore throat Card Denies chest pain, Denies syncope, Denies rapid heart rate and Denies dyspnea Resp Denies cough and Denies dyspnea GI Denies change in stool character, Reports constipation, Denies diarrhea, Denies nausea and Denies vomiting Denies dysuria and Denies urinary frequency Neuro Reports Normal hearing present, Denies confusion, Denies dizziness, Denies syncope and Denies weakness Psych Denies confusion Physical exam (Primary Care) Vital Signs: Last Vital Signs Pulse 83 05/17/23 11:55 BP 148/90 H 05/17/23 11:55 Pulse Ox 97 05/17/23 11:55 Oxygen Delivery Method Room Air 05/17/23 11:55 BMI result Body Mass Index 33.5 Tobacco/Smoking Status: Tobacco use Status Tobacco use date assessed 05/17/23 05/17/23 11:57 Patient Tobacco Use Status Former Tobacco user 05/17/23 11:57 Tobacco use type Cigarette 05/17/23 11:57 e-Cigarette/Vaping Use Never Used 05/17/23 11:57 PHQ-9: PHQ-9 Score PHQ-9: Total score 0 05/17/23 12:37 Depression Screening Interpretation: Negative Thrive Assessment: Date of Thrive Assessment Date Thrive assessed 05/17/23 05/17/23 11:57 Const General: No confusion Orientation/consciousness: No confusion HENMT Head: Yes normocephalic Ears: external ears normal and TM's normal bilaterally Face and sinus: Yes normal facial exam Mouth: moist mucous membranes Throat: Yes tonsils normal Eyes Conjunctivae: conjunctivae normal Pupils: Equal, round and reactive pupils present and Pupil accommodation reflex normal Direct Ophthalmoscopy: normal light reflex Neck Neck: No lymphadenopathy Thyroid: Thyroid normal Chest Chest palpation & inspection: normal inspection of the chest Resp Effort & Inspection: normal respiratory effort and no audible wheezes Auscultation: clear to auscultation bilaterally, no crackles, no wheezes and lung sounds not diminished Cardio Rate: regular rate Rhythm: regular rhythm Peripheral pulses: radial pulses present and dorsalis pedis present GI Palpation (GI): no masses Auscultation: normal bowel sounds and normoactive bowel sounds Rectal Exam - Male: Yes deferred Skin General skin exam: no rashes or lesions noted Rashes: no rashes Neuro General: No confusion Cranial nerves: Yes Equal, round and reactive pupils present and Yes Normal hearing present Cognition (Neuro): normal cognition Gait exam (Neuro): Normal gait present Motor exam (neuro): 5/5 motor strength present throughout Deep tendon reflexes (DTR's): Right brachioradialis reflex intensity grade: 2+, Left brachioradialis reflex intensity grade: 2+, Right patellar reflex intensity grade: 2+ and Left patellar reflex intensity grade: 2+ Extrem General: No edema Assessment and Plan Assessment & Plan (1) Annual physical exam: Code(s): Z00.00 - Encounter for general adult medical examination without abnormal findings (2) S/P dilatation of esophageal stricture: Comment: August [address] Dr. Cervantes Code(s): Z98.890 - Other specified postprocedural states; Z87.19 - Personal history of other diseases of the digestive system Plan: Patient continue to follow-up with Gastroenterology (3) BPH w urinary obs/LUTS: Comment: Prostate biopsy January 2023 with MRI done May 2023 Code(s): N40.1 - Benign prostatic hyperplasia with lower urinary tract symptoms; N13.8 - Other obstructive and reflux uropathy Plan: Patient followed up by Urology (4) Obesity (BMI 30.0-34.9): Code(s): E66.9 - Obesity, unspecified Plan: Diet and exercise (5) Hypercholesterolemia: Code(s): E78.00 - Pure hypercholesterolemia, unspecified Plan: Avoid fried foods, chicken skin, eggs, butter margarine, pastries and meat. Be it pork or beef they have a lot of cholesterol LDL goal of less than 130 and triglyceride of less than 150. Request for repeat blood work (6) Blood pressure elevated without history of HTN: Code(s): R03.0 - Elevated blood-pressure reading, without diagnosis of hypertension Plan: monitor BP and record and ff up Medications: New cyclobenzaprine 10 mg PO TID PRN 60 tabs 1RF muscle spasm M54.5 - Low back pain Coding Level of Care Code Est Pt Prev Care 40-64y(84568) Diagnoses Annual physical exam Z00.00 S/P dilatation of esophageal stricture Z98.890; Z87.19 BPH w urinary obs/LUTS N40.1; N13.8 Obesity (BMI 30.0-34.9) E66.9 Hypercholesterolemia E78.00 Blood pressure elevated without history of HTN R03.0
== END 2023-05-17 13:21 | disposition home or self-care (01) ==
PROVIDERS: PCP Internal Medicine; Visit Provider Internal Medicine
DX: Z00.00 Encounter for general adult medical examination without abnormal findings (principal); E66.9 Obesity, unspecified; Z68.33 Body mass index [BMI] 33.0-33.9, adult; Z23 Encounter for immunization; N13.8 Other obstructive and reflux uropathy; Z98.890 Other specified postprocedural states; Z87.19 Personal history of other diseases of the digestive system; N40.1 Benign prostatic hyperplasia with lower urinary tract symptoms; E78.00 Pure hypercholesterolemia, unspecified; R03.0 Elevated blood-pressure reading, without diagnosis of hypertension
CPT/HCPCS: 90471; 90715; 99396

== ENCOUNTER 2023-05-26 06:30 | Outpatient (REF) | payer OTHER, SELFPAY ==
[2023-05-26 06:41] LABS: MANUAL DIFF FLAG NO
[2023-05-26 08:00] LABS: Estimated Average Glucose 103 mg/dL; Hemoglobin A1c % 5.2 % (<6.0)
[2023-05-26 08:02] LABS: Basophils Absolute Auto 0.1 X10*3/uL (0.0-0.2); Basophils Percent Auto 0.5 % (0-2); Eosinophils Absolute Auto 0.3 X10*3/uL (0.0-0.4); Eosinophils Percent Auto 3.5 % (0-4); Hematocrit 49.5 % (42.0-52.0); Hemoglobin 16.5 g/dl (14.0-18.0); Imm Gran Abs Auto 0.11 X10*3/uL (0.00-0.03); Imm Gran Pct Auto 1.2 % (0.0-0.4); Lymphocytes Absolute Auto 2.6 X10*3/uL (1.2-4.9); Lymphocytes Percent Auto 28.6 % (20-40); Mean Corpuscular HGB Conc 33.3 g/dl (31.0-36.0); Mean Corpuscular Hemoglobin 29.7 pg (27.0-33.0); Mean Platelet Volume 10.1 fL (9.4-12.4); Monocytes Absolute Auto 0.8 X10*3/uL (0.1-1.2); Monocytes Percent Auto 8.9 % (2-11); Neutrophils Absolute Auto 5.3 x10*3/uL (2.0-8.3); Neutrophils Percent Auto 57.3 % (45-73); Platelet Count 222 X10*3/uL (160-400); Red Blood Count 5.56 X10*6/uL (4.60-5.80); Red Cell Distribution Width 12.6 % (11.0-16.0); White Blood Count 9.2 X10*3/uL (4.8-10.8)
[2023-05-26 08:29] LABS: Alanine Aminotransferase 74 U/L (0-40); Albumin Level 4.1 g/dL (3.5-5.0); Alkaline Phosphatase 108 U/L (39-117); Anion Gap 13 (12-20); Aspartate Amino Transferase 57 U/L (5-37); Bilirubin Total 0.4 mg/dL (0.0-1.0); Blood Urea Nitrogen 20 mg/dL (9-16); Calcium 9.5 mg/dL (8.4-10.2); Carbon Dioxide 26 mmol/L (22-29); Chloride 105 mmol/L (96-108); Cholesterol 304 mg/dL (<200); Estimated Glomerular Filt Rate 58; Glucose Random 122 mg/dL (60-115); HDL Cholesterol 34 mg/dL (>40); Sodium 140 mmol/L (135-145); Triglycerides 710 mg/dL (<150)
[2023-05-26 08:47] LABS: Free T4 (Free Thyroxine) 0.77 ng/dL (0.71-1.85)
[2023-05-26 08:59] LABS: Folate 8.9 ng/mL (> or = 4.0); Prostate Specific Antigen Scr 2.83 ng/mL (<0.05-4.0); Vitamin B12 741 pg/mL (200-900)
== END 2023-05-26 06:31 | disposition home or self-care (01) ==
LOC: HO.LAB 06:30
PROVIDERS: PCP Internal Medicine; Visit Provider Internal Medicine
DX: E78.00 Pure hypercholesterolemia, unspecified (principal)
CPT/HCPCS: 36415; 80053; 80061; 82607; 82746; 83036; 84153; 84439; 84443; 85025

== ENCOUNTER 2023-05-30 14:03 | Outpatient (AMB) | payer OTHER, SELFPAY ==
--- NOTE | 2023-05-30 14:11 | A.OFFPC_ITS ---
Vital Signs 05/30/23 14:12 Height 5 ft 7 in Weight 216 lb BMI 33.8 BP 142/88 H Blood Pressure Location Lt brachial Position Sitting Pulse 84 Pulse Source Pulse Oximeter Pulse Oximetry (%) 96 Oxygen Delivery Method Room Air Intake Visit Reasons: Discuss Lab Results Dehairer Required: No Allergies No Known Allergies Allergy (Verified 05/30/23 14:12) Tobacco use date assessed: 05/30/23 Dental Screening Dental Screen Date: 05/30/23 HPI Discuss Lab Results HPI Details 62-year-old obese male with BPH hypercho lesterolemia and an elevated blood pressure seen last May 17 for physical exam. Patient is here for follow-up. complains of having low back pain with numbness and pins and needles on the L feet patient had this problem for long period of time and has seen [facility] already before. With this problem patient complains. REPLACED BY [facility] Medical History (Updated 05/30/23 @ 14:36 by Kaci Null MD) Swelling of left foot Cellulitis of left foot Penile pain, chronic Shoulder pain LFT elevation Colon cancer screening Vision changes Shoulder pain, left Hx of hiatal hernia GERD (gastroesophageal reflux disease) Colonoscopy planned Dysphagia Neuropathy of left foot Tobacco abuse Alcohol abuse Obesity (BMI 30-39.9) No known health problems Surgical History History of prostate surgery History of endoscopy History of colonoscopy History of shoulder surgery Family History Mother Myocardial infarct CVA (cerebral vascular accident) Social History (Updated 05/17/23 @ 12:46 by Kaci Null MD) Housing: Apartment Alcohol intake: current Alcohol intake frequency: former alcohol drinker Alcohol type: beer Comment: improving with flatus passing stopped 2022 Patient Tobacco Use Status: Former Tobacco user Quit Date: 2021 Tobacco use type: Cigarette Years Smoked: 20stopped 2022 e-Cigarette/Vaping Use: Never Used Second Hand Smoke Exposure: Yes service: No Current occupational status: unemployed Cognitive needs: No Hearing needs: No Vision needs: No Questionnaire Thrive Questionnaire Date Thrive assessed: 05/30/23 AUDIT C Alcohol Use Questionnaire (AUDIT-C) 1. How often do you have a drink containing alcohol?: Never 3. How often do you have six or more drinks on one occasion?: Never Total Score: 0 Score Reviewed/Action Taken: No BARRINGTON-7 AMB Questionnaire BARRINGTON-7 Date BARRINGTON - 7 assessed: 05/17/23 Source: Developed by Drs. Constantine Mello, Meredith Sheikh, Goyo Mendes and colleagues, with an educational pedro from [employer]. Physical exam (Primary Care) Vital Signs: Last Vital Signs Pulse 84 05/30/23 14:12 BP 142/88 H 05/30/23 14:12 Pulse Ox 96 05/30/23 14:12 Oxygen Delivery Method Room Air 05/30/23 14:12 BMI result Body Mass Index 33.8 Tobacco/Smoking Status: Tobacco use Status Tobacco use date assessed 05/30/23 05/30/23 14:16 Patient Tobacco Use Status Former Tobacco user 05/30/23 14:16 Tobacco use type Cigarette 05/30/23 14:16 e-Cigarette/Vaping Use Never Used 05/30/23 14:16 Thrive Assessment: Date of Thrive Assessment Date Thrive assessed 05/30/23 05/30/23 14:16 Const General: alert; No acute distress Eyes Conjunctivae: conjunctivae normal Resp Auscultation: clear to auscultation bilaterally Cardio Rate: regular rate Rhythm: regular rhythm GI Inspection: Yes normal to inspection Extrem General: Yes normal to inspection and No edema Assessment and Plan Assessment & Plan (1) Hypercholesterolemia: Code(s): E78.00 - Pure hypercholesterolemia, unspecified Plan: Avoid fried foods, chicken skin, eggs, butter margarine, pastries and meat. Be it pork or beef they have a lot of cholesterol LDL goal of less than 130 and triglyceride of less than 150. Concern about the elevated triglyceride that pancreatitis is a risk. (2) Obesity (BMI 30.0-34.9): Code(s): E66.9 - Obesity, unspecified Plan: Diet and exercise (3) Blood pressure elevated without history of HTN: Code(s): R03.0 - Elevated blood-pressure reading, without diagnosis of hypertension Plan: Discussion about blood pressure being elevated and the risk of complications from this (4) Lumbar radiculopathy: Code(s): M54.16 - Radiculopathy, lumbar region Orders: Orders Lipid Panel 3 Months E78.00 - Pure hypercholesterolemia, unspecified Comprehensive Met. Panel 3 Months E78.00 - Pure hypercholesterolemia, unspecified MR lumbar spine wo con Today M54.16 - Radiculopathy, lumbar region Medications: New fenofibrate 160 mg PO DAILY 30 tabs 3RF E78.00 - Pure hypercholesterolemia, unspecified Coding Level of Care Code Est Pt Level 4 (04453) Diagnoses Hypercholesterolemia E78.00 Obesity (BMI 30.0-34.9) E66.9 Blood pressure elevated without history of HTN R03.0 Lumbar radiculopathy M54.16
[2023-05-30 14:12] VITALS: BP 142/88; PULSE 84; O2SAT 96; BMI 33.8
== END 2023-05-30 15:04 | disposition home or self-care (01) ==
PROVIDERS: PCP Internal Medicine; Visit Provider Internal Medicine
DX: E78.00 Pure hypercholesterolemia, unspecified (principal); E66.9 Obesity, unspecified; Z68.33 Body mass index [BMI] 33.0-33.9, adult; R03.0 Elevated blood-pressure reading, without diagnosis of hypertension; M54.16 Radiculopathy, lumbar region
CPT/HCPCS: 99214

== ENCOUNTER 2023-06-23 09:38 | Outpatient (AMB) | payer OTHER, SELFPAY ==
--- NOTE | 2023-06-23 10:31 | A.OFFVIS_ITS ---
Intake Intake Visit Reasons: 4m/PSA/MRI(set) Intake Note: Patient presents today for a follow-up Meds- Finasteride Allergies to Antibiotic- No Known Allergies Blood Thinner- None Tank Carpenter Required: No Accompanied by: Self / Same As Patient Allergies No Known Allergies Allergy (Verified 06/23/23 10:35) HPI HPI Comments History of Present Illness Details Hank is a pleasant male. He is a patient of Dr. Null. He seen for the following urologic conditions - Peyronie's disease - lower urinary tract symptoms - Prostate Cancer PSA continued to fall Imaging no suspicious areas 05/25 2.8 on finasteride 4 month follow-up PSA Continue finasteride Long discussion regarding weight management. Has extremely high triglycerides and cholesterol. Diet related. Prostate Cancer - Grade Group 1, Low Volume PSA 5.1 on finasteride 90gm at TRUS Single core 5% left base Imaging 05/25 prostate MRI, 70 g, no suspicious area Lower urinary tract symptoms Progressive weak strength Current therapy finasteride PSA 02/20 5.2, 06/24 4.2/3.6 F31%, 12/22 5.1 JUMA 3+ prostate Peyronie's disease Primary complaint is - penile curvature - right-sided The problem has been present - since 2019 after subclinical penile fracture On exam he has palpable area right distal portion At this time he experiences - partial erections which are not adequate for penetrative intercourse, [place] has - is possible but painful Associated symptoms include penile pain No penile discharge No Prior management includes - continue with oral medications PFSH Medical History Swelling of left foot Cellulitis of left foot Penile pain, chronic Shoulder pain LFT elevation Colon cancer screening Vision changes Shoulder pain, left Hx of hiatal hernia GERD (gastroesophageal reflux disease) Colonoscopy planned Dysphagia Neuropathy of left foot Tobacco abuse Alcohol abuse Obesity (BMI 30-39.9) No known health problems Surgical History History of prostate surgery History of endoscopy History of colonoscopy History of shoulder surgery Family History Mother Myocardial infarct CVA (cerebral vascular accident) Social History Housing: Apartment Alcohol intake: current Alcohol intake frequency: former alcohol drinker Alcohol type: beer Comment: improving with flatus passing stopped 2022 Patient Tobacco Use Status: Former Tobacco user Quit Date: 2021 Tobacco use type: Cigarette Years Smoked: 20stopped 2022 e-Cigarette/Vaping Use: Never Used Second Hand Smoke Exposure: Yes service: No Current occupational status: unemployed Cognitive needs: No Hearing needs: No Vision needs: No Review of Systems Const Denies chills and Denies fever(s) Card Reports no additional complaints and Denies syncope Resp Denies cough GI Denies abdominal pain and Denies heartburn Reports as per HPI and Denies change in libido Neuro Denies syncope Psych Denies change in libido Endo Denies change in libido Physical Exam Const General: cooperative, healthy appearing, comfortable and no acute distress Orientation/consciousness: patient oriented x3 HEENT Face and sinus: Yes normal facial exam Mouth: moist mucous membranes Neck Neck: Yes normal visual inspection, Yes full ROM and Yes trachea midline Chest Chest palpation & inspection: normal inspection of the chest Resp Effort & Inspection: normal respiratory effort, able to speak in complete sentences and no respiratory distress GI Inspection: Yes normal to inspection Back/Spine/Pelvis Cervical Spine: normal cervical lordosis Thoracic/Lumbar Spine: thoracic and lumbar spine normal to inspection Skin General skin exam: no rashes or lesions noted Neuro General: patient oriented x3, gait normal, tone normal and moves all extremities Extrem General: Yes normal to inspection and Yes capillary refill normal Assessment & Plan Assessment & Plan (1) Prostate cancer: Comment: 01/[address] Gloria Code(s): C61 - Malignant neoplasm of prostate Plan Four month follow-up PSA Orders: Orders Prostate Specific Antigen 4 Months C61 - Malignant neoplasm of prostate Medications: Refilled finasteride 5 mg PO DAILY 90 tabs 1RF 90 days C61 - Malignant neoplasm of prostate, N13.8 - Other obstructive and reflux uropathy, N40.1 - Benign prostatic hyperplasia with lower urinary tract symptoms, R33.9 - Retention of urine, unspecified Patient Instructions: Imaging studies, laboratory and physical exam results were discussed and reviewed in detail. No major barriers to patient understanding were identified. An opportunity to ask questions regarding the treatment plan was provided. All questions were answered. The patient expressed understanding and agreement with the above treatment plan. The patient is aware they should contact our office by phone for worsening of their current condition or the appearance of new urologic symptoms. Compliance is encouraged with any medications and followup testing that is ordered. It is a privilege to participate in the urologic care of your patient. If you have any questions or concerns regarding treatment for the above conditions, or other urologic issues, please do not hesitate to contact me. The office telephone contact is [phone]. This note is constructed using voice recognition software. While every effort has been made to ensure accuracy reptile keeper errors may have been included. Yours sincerely, Dr Stevo Gloria MD, [facility] - Urology Providers of Expert, Compassionate Care for the Genitourinary System Coding Level of Care Code Est Pt Level 4 (32854) Diagnoses Prostate cancer C61
== END 2023-06-23 11:01 | disposition home or self-care (01) ==
PROVIDERS: PCP Internal Medicine; Visit Provider Urology
DX: C61 Malignant neoplasm of prostate (principal)
CPT/HCPCS: 99213

== ENCOUNTER → 2023-06-23 09:38 | Outpatient (BNVA) | payer OTHER, SELFPAY | PROVIDERS: PCP Internal Medicine; Visit Provider Urology | DX: C61 Malignant neoplasm of prostate (principal) | CPT/HCPCS: 99212 ==

== ENCOUNTER 2023-09-20 07:26 | Outpatient (REF) | payer OTHER, SELFPAY ==
--- NOTE | ~2023-09-20 | FL_ITS ---
EXAMINATION: XR FLUOROSCOPY UPPER GI WITH AIR CLINICAL INFORMATION: Dysphagia COMPARISON: None TECHNIQUE: Fluoroscopic air contrast upper GI examination was performed utilizing standard techniques with thin and thick barium and effervescent granules. Numerous spot images were obtained. FINDINGS: Lateral cine images of the oropharynx and hypopharynx demonstrate normal swallow mechanism with normal epiglottic inversion and soft palate elevation. No tracheal penetration, glottic or subglottic aspiration identified. No nasopharyngeal reflux present. Hypopharyngeal structures appear normal without evidence of mass or diverticulum. Mild cricopharyngeal achalasia present. Dual and single contrast images of the esophagus demonstrate normal caliber, contour, and mucosal pattern. No evidence of stricture, mass, or ulcerations identified. Esophageal peristalsis is mildly disorganized. There is mild narrowing of the GE junction above the hiatal hernia. The patient swallowed the barium pill without any difficulty. There was temporary stasis of the tablet at level of the GE junction, however, the tablet passed freely into the stomach without difficulty. A small type I hiatal hernia is present. No significant gastroesophageal reflux was seen during the course of the examination and on reflux views. Dual contrast and single contrast images of the stomach demonstrated a normal contour. There are a few small foci of contrast pooling in the fundus and body the stomach. No masses are seen. Contrast freely passed into the gastric antrum and duodenal bulb without delay. Single and air-contrast images of the duodenal bulb demonstrate no abnormality. The duodenal sweep has a normal appearance, course, and mucosal fold appearance. The imaged proximal jejunum has a normal fold pattern and caliber. FLUOROSCOPY TIME: 4 minutes 4 seconds Number of Spot Images: 4 Number of Cine: 15 DOSE AREA PRODUCT: 3315 uGy-m2 (microgray-meter squared) FL/FL barium swallow IMPRESSION: 1. Mild cricopharyngeal achalasia. 2. Mildly disorganized esophageal peristalsis. 3. Mild narrowing of the GE junction above the hiatal hernia. There was temporary stasis of the barium tablet at the level of the GE junction, however, tablet passed freely into the stomach. 4. Small type I hiatal hernia. 5. Multiple small foci of contrast pooling in the fundus and body the stomach that may represent small superficial aphthous ulcers, and erosive gastritis. Recommend correlation with EGD. This procedure was performed by Luis Carlos Lindsey PA-C, and supervised by Dr. Johnson
== END 2023-09-20 07:27 | disposition home or self-care (01) ==
LOC: HO.XRAY 07:26
PROVIDERS: PCP Internal Medicine; Visit Provider Internal Medicine
DX: K22.2 Esophageal obstruction (principal); R13.10 Dysphagia, unspecified; K21.9 Gastro-esophageal reflux disease without esophagitis
CPT/HCPCS: 74220

== ENCOUNTER → 2023-09-20 07:35 | Outpatient (BNV) | payer OTHER, SELFPAY | PROVIDERS: PCP Internal Medicine; Visit Provider Physician Assistant Surgical | DX: R13.10 Dysphagia, unspecified (principal) | CPT/HCPCS: 74246 ==

== ENCOUNTER 2023-10-15 06:48 | Outpatient (REF) | payer OTHER, SELFPAY ==
[2023-10-15 08:38] LABS: Prostate Specific Antigen 2.58 ng/mL (<0.05-4.0)
== END 2023-10-15 06:49 | disposition home or self-care (01) ==
LOC: HO.LAB 06:48
PROVIDERS: PCP Internal Medicine; Visit Provider Urology
DX: C61 Malignant neoplasm of prostate (principal)
CPT/HCPCS: 36415; 84153

== ENCOUNTER 2023-10-21 08:55 | Outpatient (AMB) | payer OTHER, SELFPAY ==
--- NOTE | 2023-10-21 08:56 | MHC.OFFVIS ---
Intake Visit Reasons: 4M PSA(set) Intake Note: Pt presents to the office today as a telehealth appt for a 4 month PSA. Blood thinners-none Urology meds- Finasteride Allergies No Known Allergies Allergy (Verified 10/21/23 08:56) HPI Comments Details: Hank is a pleasant male. He is a patient of Dr. Null. He seen for the following urologic conditions - Peyronie's disease - lower urinary tract symptoms - Prostate Cancer Telemedicine Evaluation 15 min Consultation Doximity Sujata Video attempted PSA continued to fall Imaging no suspicious areas 05/25 2.8 on finasteride, 10/23 2.6 Cut finasteride back to Tuesday, Tuesday, Tuesday Push out to six-month follow-up Long discussion regarding weight management. Has extremely high triglycerides and cholesterol. Diet related. Prostate Cancer - Grade Group 1, Low Volume PSA 5.1 on finasteride 90gm at TRUS Single core 5% left base Imaging 05/25 prostate MRI, 70 g, no suspicious area Lower urinary tract symptoms Progressive weak strength Current therapy finasteride PSA 02/20 5.2, 06/24 4.2/3.6 F31%, 12/22 5.1 JUMA 3+ prostate Peyronie's disease Primary complaint is - penile curvature - right-sided The problem has been present - since 2019 after subclinical penile fracture On exam he has palpable area right distal portion At this time he experiences - partial erections which are not adequate for penetrative intercourse, Piffard has - is possible but painful Associated symptoms include penile pain No penile discharge No Prior management includes - continue with oral medications PFSH Medical History Swelling of left foot Cellulitis of left foot Penile pain, chronic Shoulder pain LFT elevation Colon cancer screening Vision changes Shoulder pain, left Hx of hiatal hernia GERD (gastroesophageal reflux disease) Colonoscopy planned Dysphagia Neuropathy of left foot Tobacco abuse Alcohol abuse Obesity (BMI 30-39.9) No known health problems Surgical History History of prostate surgery History of endoscopy History of colonoscopy History of shoulder surgery Family History Mother Myocardial infarct CVA (cerebral vascular accident) Social History (Reviewed 10/21/23 @ 08:56 by HARMONY Burgos Housing: Apartment Alcohol intake: current Alcohol intake frequency: former alcohol drinker Alcohol type: beer Comment: improving with flatus passing stopped 2022 Patient Tobacco Use Status: Former Tobacco user Tobacco use type: Cigarette Years Smoked: 20stopped 2022 e-Cigarette/Vaping Use: Never Used Second Hand Smoke Exposure: Yes service: No Current occupational status: unemployed Cognitive needs: No Hearing needs: No Vision needs: No Review of Systems Const All systems reviewed & are unremarkable except as noted in HPI and below Reports no additional complaints Resp Reports no additional complaints GI Reports no additional complaints Reports as per HPI Musc Reports no additional complaints Physical Exam Telemedicine evaluation Appropriate responses Regular breathing rate and rhythm HEENT Head: Yes normal to inspection Ears: hearing grossly normal bilaterally Eyes General: appearance normal, both eyes and all related structures Neck Neck: Yes normal visual inspection Chest Chest palpation & inspection: normal inspection of the chest Resp Effort & Inspection: normal respiratory effort and able to speak in complete sentences Telehealth Telehealth Telehealth Platform: DoYouRemember Location of provider rendering services: practice address Location of patient: address on file Patient Identification confirmed using: Name, : Yes Telehealth method: video Patient verbally consented to treatment: Yes Patient verbally consented to billing insurance company: Yes Patient informed of any privacy concerns related to visit: Yes Minutes spent on Phone/Video with Pt.: 15 Assessment & Plan Assessment & Plan (1) Prostate cancer: Comment: 01/[address] Gloria Code(s): C61 - Malignant neoplasm of prostate Category: Medical Plan Six-month follow-up PSA office Orders: Orders Prostate Specific Antigen 6 Months C61 - Malignant neoplasm of prostate Medications: Refilled finasteride 5 mg PO DAILY 90 days 90 tabs 1RF C61 - Malignant neoplasm of prostate, N13.8 - Other obstructive and reflux uropathy, N40.1 - Benign prostatic hyperplasia with lower urinary tract symptoms, R33.9 - Retention of urine, unspecified Patient Instructions: Imaging studies, laboratory and physical exam results were discussed and reviewed in detail. No major barriers to patient understanding were identified. An opportunity to ask questions regarding the treatment plan was provided. All questions were answered. The patient expressed understanding and agreement with the above treatment plan. The patient is aware they should contact our office by phone for worsening of their current condition or the appearance of new urologic symptoms. Compliance is encouraged with any medications and followup testing that is ordered. It is a privilege to participate in the urologic care of your patient. If you have any questions or concerns regarding treatment for the above conditions, or other urologic issues, please do not hesitate to contact me. The office telephone contact is [phone]. This note is constructed using voice recognition software. While every effort has been made to ensure accuracy candy separator enrobing errors may have been included. Yours sincerely, Dr Stevo Gloria MD, [facility] - Urology Providers of Expert, Compassionate Care for the Genitourinary System Coding Level of Care Code Tele Est Pt Level 3 (26622) Diagnoses Prostate cancer C61
--- OUTSIDE RECORDS SUMMARY | 2023-10-27 06:31 | XMS_ITS | Patient Health Record ---
Author Organization [facility] Address [address] [place] [address] Care Team Providers Care Track Patrol Name Role Phone Kaci Null MD Primary Care Provider Constantine Torres Unavailable [phone] ALLERGIES No Known Allergies RESULTS Component Value Reference Range Notes FL barium swallow (Not yet r eviewed by provider) Interpretation: Performing Lab: Notes/Report: [address] [address] Fluoroscopy Report Signed Patient: Hank Jacobs MR#: [id number] : 1960 Acct:[id number] Age/Sex: 63 / M ADM Date: 09/20/23 Loc: [facility] Attending Dr: Constantine Cervantes MD Ordering Physician: Constantine Cervantes Date of Service: 09/20/23 Procedure(s): FL barium swallow Accession Number(s): [id number] cc: Kaci Null MD; Constantine Cervantes EXAMINATION: XR FLUOROSCOPY UPPER GI WITH AIR CLINICAL INFORMATION: Dysphagia COMPARISON: None TECHNIQUE: Fluoroscopic air contrast upper GI examination was performed utilizing standard techniques with thin and thick barium and effervescent granules. Numerous spot images were obtained. FINDINGS: Lateral cine images of the oropharynx and hypopharynx demonstrate normal swallow mechanism with normal epiglottic inversion and soft palate elevation. No tracheal penetration, glottic or subglottic aspiration identified. No nasopharyngeal reflux present. Hypopharyngeal structures appear normal without evidence of mass or diverticulum. Mild cricopharyngeal achalasia present. Dual and single contrast images of the esophagus demonstrate normal caliber, contour, and mucosal pattern. No evidence of stricture, mass, or ulcerations identified. Esophageal peristalsis is mildly disorganized. There is mild narrowing of the GE junction above the hiatal hernia. The patient swallowed the barium pill without any difficulty. There was temporary stasis of the tablet at level of the GE junction, however, the tablet passed freely into the stomach without difficulty. A small type I hiatal hernia is present. No significant gastroesophageal reflux was seen during the course of the examination and on reflux views. Dual contrast and single contrast images of the stomach demonstrated a normal contour. There are a few small foci of contrast pooling in the fundus and body the stomach. No masses are seen. Contrast freely passed into the gastric antrum and duodenal bulb without delay. Single and air-contrast images of the duodenal bulb demonstrate no abnormality. The duodenal sweep has a normal appearance, course, and mucosal fold appearance. The imaged proximal jejunum has a normal fold pattern and caliber. FLUOROSCOPY TIME: 4 minutes 4 seconds Number of Spot Images: 4 Number of Cine: 15 DOSE AREA PRODUCT: 3315 uGy-m2 (microgray-meter squared) FL/FL barium swallow IMPRESSION: 1. Mild cricopharyngeal achalasia. 2. Mildly disorganized esophageal peristalsis. 3. Mild narrowing of the GE junction above the hiatal hernia. There was temporary stasis of the barium tablet at the level of the GE junction, however, tablet passed freely into the stomach. 4. Small type I hiatal hernia. 5. Multiple small foci of contrast pooling in the fundus and body the stomach that may represent small superficial aphthous ulcers, and erosive gastritis. Recommend correlation with EGD. This procedure was performed by Luis Carlos Lindsey PA-C, and supervised by Dr. Johnson Dictated By: Luis Carlos Lindsey Signed By: <Electronically signed by Luis Carlos Lindsey in OV> 10/03/23 9176 <Electronically signed by Chidi Johnson MD in OV> 10/03/23 175 DD/ 0822 TD/TT: Podiatry Assistant: REASON FOR REFERRAL No Information MEDICATIONS Medication SIG (Take, Route, Frequency, Duration) Notes Start Date End Date Status Omeprazole 20 MG 2 Orally Every morni ng and every evening for 30 day(s) 06/30/2022 Active Fenofibrate 160 MG Oral for 90 Active Cyclobenzaprine HCl 10 MG Oral for 20 Active Famotidine 40 MG 1 Orally Twice a day with your Omeprazole twice a day for 30 day(s) 05/04/2023 Active IMMUNIZATIONS Vaccine Route Administration Date Status [...] Notes Problem Esophageal dysphagia (R13.10) Active confirmed 93332005 Problem Abnormal barium swallow (R93.3) Active confirmed 544261814 Problem Encounter for screening for malignant neoplasm of colon (Z12.11) Active confirmed 121313909 Problem Diverticulosis of sigmoid colon (K57.30) Active confirmed Diverticulosis of sigmoid colon (413467845) Problem Esophageal obstruction (K22.2) Active confirmed Stricture of esophagus (46631521) Problem Dysphagia (R13.10) Active confirmed Dysphagia (08434088) Problem Esophageal stricture (K22.2) Active confirmed Esophageal stricture (93570415) Problem History of adenomatous polyp of colon (Z86.010) Active confirmed 525411337 Problem Erosive esophagitis (K22.10) Active confirmed Erosive esophagitis (80293765) Problem Diverticulosis of colon (K57.30) Active confirmed Diverticulosi s of colon (947826865) Problem Esophageal ring (K22.2) Active confirmed Esophageal ring (29090567) Problem Esophageal reflux (K21.9) Active confirmed Esophageal refl ux (558972018) Problem Chronic GERD (K21.9) Active confirmed Gastroesophagea l reflux disease (263799760) VITAL SIGNS Temperature 97.1 degrees Fahrenheit 05/03/2023 Blood pressure diastolic 00 mm Hg 09/15/2023 Height 67 in 09/15/2023 Blood pressure systolic 00 mm Hg 09/15/2023 Weight 202 lbs 09/15/2023 BMI 31.63 kg/m2 09/15/2023 Encounters Encounter Location Date Provider Diagnosis [facility] [place] Outpatient [address] [place] [id number] 05/04/2023 Constantine Cervantes Esophageal stricture K22.2 ; Dysphagia R13.10 and Hiatal hernia K44.9 [facility] [address] [place] [phone] 05/03/2023 Constantine Cervantes Esophageal dysphagia R13.10 and Esophageal stricture K22.2 [facility] [address] [place] [phone] 09/15/2023 Constantine Cervantes Esophageal stricture K22.2 ; Dysphagia R13.10 and Chronic GERD K21.9 [facility] [address] [place] [phone] 05/03/2023 Constantine Cervantes [facility] [address] [place] [phone] 05/04/2023 Constantine Cervantes [facility] [address] [place] [phone] 05/09/2023 Constantine Cervantes [facility] [address] [place] [phone] 09/26/2023 Constantine Cervantes ASSESSMENTS Encounter Date Diagnosis Assessment Notes Treatment Notes Treatment Clinical Notes 05/04/2023 Dysphagia (ICD-10 - R13.10) 05/04/2023 Esophageal stricture (ICD-10 - K22.2) 05/03/2023 Esophageal stricture (ICD-10 - K22.2) 05/03/2023 Esophageal dysphagia (ICD-10 - R13.10) 09/15/2023 Dysphagia (ICD-10 - R13.10) 09/15/2023 Esophageal stricture (ICD-10 - K22.2) 05/04/2023 Hiatal hernia (ICD-10 - K44.9) 09/15/2023 Chronic GERD (ICD-10 - K21.9) PLAN OF TREATMENT Pending Test Test Name Order Date XR BARIUM SWALLOW-ESOPHAGUS 09/15/2023 FL barium swallow 09/20/2023 Future Test Test Name Order Date UPPER GI ENDOSCOPY BALLOOON DILATION OF ESOPH 10/14/2020 COLONOSCOPY 10/14/2020 UPPER GI ENDOSCOPY BALLOOON DILATION OF ESOPH 11/11/2020 UPPER GI ENDOSCOPY BALL[place]ON DILATION OF ESOPH 04/08/2022 COLONOSCOPY 04/08/2022 UPPER GI ENDOSCOPY BALLOOON DILATION OF ESOPH 07/04/2022 UPPER GI ENDOSCOPY BALLOOON DILATION OF ESOPH 05/03/2023 Next Appt Details Provider Name:Constantine Cervantes , 01/19/2024 10:00:00 AM, [address], [address], [place], [address], Insurance Providers Payer Name Payer Address Payer Phone Subscriber Number Group Number Insured Name Patient Relationship to Insured Coverage Start Date Coverage End Date [employer] [facility] [address] [address] [place], [place] [phone] [id number] HANK JACOBS Self - patient is the insured [place] [address] [place] [address] [phone] [id number] HANK JACOBS Self - patient is the insured MEDICAL (GENERAL) HISTORY Medical History History ICD Code Denies NM,DM,CVA,Lung disease,renal dise ase Cortisone injection in the [...] previously were free of any adenomatous tissue. EGD in May of 2023 revea led a patent gastroesophageal junction and his known hiatal hernia, but without any definitive juncture noted. The lower esophagus was somewhat fibrotic and scarred consistent with his previous history of significant esophagitis and stricture. I did use a 19 mm balloon to dilate the gastroesophageal junction at that time. I added famotidine 40 g b.i.d. to his regimen of omeprazole 40 mg b.i.d. at that time Surgical History Surgery Date(Month/Year) Left shoulder
== END 2023-10-21 10:17 | disposition home or self-care (01) ==
LOC: HO.HUSH 08:55
PROVIDERS: PCP Internal Medicine; Visit Provider Urology
DX: C61 Malignant neoplasm of prostate (principal)
CPT/HCPCS: 99213

== ENCOUNTER → 2023-10-21 08:55 | Outpatient (BNVA) | payer OTHER, SELFPAY | PROVIDERS: PCP Internal Medicine; Visit Provider Urology ==

== ENCOUNTER 2023-12-19 16:36 | Outpatient (AMB) | payer OTHER, SELFPAY ==
[2023-12-19 17:22] VITALS: BP 130/80; PULSE 65; O2SAT 97; BMI 31.7
--- NOTE | 2023-12-19 17:22 | A.OFFPC_ITS ---
Vital Signs 12/19/23 17:22 Height 5 ft 7 in Weight 202 lb 8 oz BMI 31.7 BP 130/80 Blood Pressure Location Lt brachial Position Sitting Pulse 65 Pulse Source Pulse Oximeter Pulse Oximetry (%) 97 Oxygen Delivery Method Room Air Intake Visit Reasons: low back pain, cholesterol Technical Support Technician Required: No Accompanied by: Self / Same As Patient Allergies No Known Allergies Allergy (Verified 12/19/23 17:23) Tobacco use date assessed: 12/19/23 Dental Screening Dental Screen Date: 12/19/23 Did you have a dental visit in the last 12 months?: Yes Did you have a dental problem in the last 6 months where you did not have access to dental care?: No Was dental information given to patient?: Patient has dentist HPI low back pain, cholesterol HPI Details 63-year-old obese male with hypercholest erolemia lumbar radiculopathy last seen in May having blood pressure elevation. Patient's colonoscopy is up-to-date June 2022. Review of the notes has been follow-up with urology having prostate cancer(TRUS) placed on finasteride and has advised recently to take 3 times a week. Patient also has pain on is disease.. Patient also had barium swallow done 09/19/2023 showing mild cricopharyngeal achalasia disorganized esophageal peristalsis. Narrowing of the GE junction above hiatal hernia with temporary stasis of the barium tablet small type 1 hiatal hernia contrast before pooling in the fundus and body with superficial ulcers and erosive gastritis. 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 radiofrequency procedure not approved by insurance. [facility] Medical History Swelling of left foot Cellulitis of left foot Penile pain, chronic Shoulder pain LFT elevation Colon cancer screening Vision changes Shoulder pain, left Hx of hiatal hernia GERD (gastroesophageal reflux disease) Colonoscopy planned Dysphagia Neuropathy of left foot Tobacco abuse Alcohol abuse Obesity (BMI 30-39.9) No known health problems Surgical History History of prostate surgery History of endoscopy History of colonoscopy History of shoulder surgery Family History Mother Myocardial infarct CVA (cerebral vascular accident) Social History Housing: Apartment Alcohol intake: current Alcohol intake frequency: former alcohol drinker Alcohol type: beer Comment: improving with flatus passing stopped 2022 Patient Tobacco Use Status: Former Tobacco user Tobacco use type: Cigarette Years Smoked: 20stopped 2022 e-Cigarette/Vaping Use: Never Used Second Hand Smoke Exposure: Yes service: No Current occupational status: unemployed Cognitive needs: No Hearing needs: No Vision needs: No Questionnaire PHQ-9 Over the last 2 weeks, how often have you been bothered by any of the following problems? 1. Little interest or pleasure in doing things: not at all 2. Feeling down, depressed, or hopeless: not at all 3. Trouble falling or staying asleep, or sleeping too much: not at all 4. Feeling tired or having little energy: not at all 5. Poor appetite or overeating: not at all 6. Feeling bad about yourself - or that you are a failure or have let yourself or your family down: not at all 7. Trouble concentrating on things, such as reading the newspaper or watching television: not at all 8. Moving or speaking so slowly that other people could have noticed. Or the opposite - being so fidgety or restless that you have been moving around a lot more than usual: not at all 9. Thoughts that you would be better off or of hurting yourself in some way: not at all Total score: 0 Depression Screening Interpretation: Negative Depression Screening Done: Yes 86295 - PHQ-9 Billing: Yes Source: Developed by Drs. Constantine Mello, Meredith Sheikh, Goyo Mendes and colleagues, with an educational pedro from [employer]. Thrive Questionnaire Date Thrive assessed: 12/19/23 I am a: Patient What is your living situation today?: I have a steady place to live Within the past 12 months, did the food you bought not last and you didn't have the money to get more?: Never true Within the past 12 months, did you worry whether your food would run out before you got money to buy more?: Never true Do you have trouble paying for medicines?: No Do you have trouble getting transportation to medical appointments?: No Do you have trouble paying your heating and electricity bill?: No Do you have trouble taking care of your child, family member or friend?: No Do you have trouble with day-to-day activities such as bathing, preparing meals, shopping, managing finances, etc.?: No Are you currently unemployed and looking for a job?: No Are you interested in more education?: No Please select the resources that you would like help with: None Currently or been in a relationship where the following occur: No concerns reported THRIVE Score: 0 AUDIT C Alcohol Use Questionnaire (AUDIT-C) 1. How often do you have a drink containing alcohol?: Never 3. How often do you have six or more drinks on one occasion?: Never Total Score: 0 Score Reviewed/Action Taken: No BARRINGTON-7 AMB Questionnaire BARRINGTON-7 Date BARRINGTON - 7 assessed: 12/19/23 Feeling nervous, anxious, or on edge: 0 = Not at all Not being able to stop or control worryin = Not at all Worrying too much about different things: 0 = Not at all Trouble relaxin = Not at all Being so restless that it is hard to sit still: 0 = Not at all Becoming easily annoyed or irritable: 0 = Not at all Feeling afraid as if something awful might happen: 0 = Not at all Total BARRINGTON-7 score (0-4 normal; 5-9 mild; 10-14 moderate; 15-21 severe): 0 Source: Developed by Drs. Constantine Mello, Meredith Sheikh, Goyo Mendes and colleagues, with an educational pedro from [employer]. Physical exam (Primary Care) Vital Signs: Last Vital Signs Pulse 65 12/19/23 17:22 BP 130/80 12/19/23 17:22 Pulse Ox 97 12/19/23 17:22 Oxygen Delivery Method Room Air 12/19/23 17:22 BMI result Body Mass Index 31.7 Tobacco/Smoking Status: Tobacco use Status Tobacco use date assessed 12/19/23 12/19/23 17:27 Patient Tobacco Use Status Former Tobacco user 12/19/23 17:27 Tobacco use type Cigarette 12/19/23 17:27 e-Cigarette/Vaping Use Never Used 12/19/23 17:27 PHQ-9: PHQ-9 Score PHQ-9: Total score 0 12/19/23 18:11 Depression Screening Interpretation: Negative Thrive Assessment: Date of Thrive Assessment Date Thrive assessed 12/19/23 12/19/23 17:27 Currently or been in a relationship where the following occur: No concerns reported Const General: alert; No acute distress Eyes Conjunctivae: conjunctivae normal Resp Auscultation: clear to auscultation bilaterally Cardio Rate: regular rate Rhythm: regular rhythm GI Inspection: Yes normal to inspection Extrem General: Yes normal to inspection and No edema Assessment and Plan Assessment & Plan (1) Prostate cancer: Comment: 01/[address] Gloria Code(s): C61 - Malignant neoplasm of prostate Plan: Patient being followed up by Urology continuing to monitor PSA (2) Lumbar radiculopathy: Code(s): M54.16 - Radiculopathy, lumbar region Plan: Patient has seen [facility] and planned radiofrequency on the back lumbar (3) S/P dilatation of esophageal stricture: Comment: August [address]22 Dr. Cervantes Code(s): Z98.890 - Other specified postprocedural states; Z87.19 - Personal history of other diseases of the digestive system Plan: Continue to follow-up with Gastroenterology (4) Fatty liver: Code(s): K76.0 - Fatty (change of) liver, not elsewhere classified Plan: Low-fat diet and exercise (5) Hypercholesterolemia: Code(s): E78.00 - Pure hypercholesterolemia, unspecified Plan: Avoid fried foods, chicken skin, eggs, butter margarine, pastries and meat. Be it pork or beef they have a lot of cholesterol (6) Impaired fasting blood sugar: Code(s): R73.01 - Impaired fasting glucose Plan: Decrease the amount of carbohydrate intake, pasta, bread, rice and potatoes are all sugar and that is aside from all the sweet stuff, remember that fruits are good but they are Sweet also. Orders: Orders Hemoglobin A1c Today R73.01 - Impaired fasting glucose Coding Level of Care Code Est Pt Level 4 (26408) Diagnoses Prostate cancer C61 Lumbar radiculopathy M54.16 S/P dilatation of esophageal stricture Z98.890; Z87.19 Fatty liver K76.0 Hypercholesterolemia E78.00 Impaired fasting blood sugar R73.01
--- OUTSIDE RECORDS SUMMARY | 2023-12-21 07:53 | XMS_ITS ---
Author Organization [facility] Address [address] [place] [address] Care Team Providers Care Dairy Nutrition Consultant Name Role Phone Kaci Null MD Primary Care Provider Constantine Torres [phone] REASON FOR VISIT Please schedule f/u in 3-4 months Encounters Encounter Location Date Provider Diagnosis [facility] [address] [place] [address] 05/09/2023 Constantine Cervantes PLAN OF TREATMENT Next Appt Details Provider Name:Constantine Cervantes , 01/19/2024 10:00:00 AM, [address], [address], [place], [address],
--- OUTSIDE RECORDS SUMMARY | 2023-12-21 07:53 | XMS_ITS ---
Author Organization [facility] Address [address] [place] [address] Care Team Providers Care Lpn Name Role Phone Kaci Null MD Primary Care Provider Constantine Torres [phone] REASON FOR VISIT Need Barium swallow report Encounters Encounter Location Date Provider Diagnosis [facility] [address] [place] [address] 09/26/2023 Constantine Cervantes PLAN OF TREATMENT Next Appt Details Provider Name:Constantine Cervantes , 01/19/2024 10:00:00 AM, [address], [address], [place], [address],
--- OUTSIDE RECORDS SUMMARY | 2023-12-21 07:53 | XMS_ITS ---
Author Organization [facility] Address [address] [place] [address] Care Team Providers Care C T Tech Name Role Phone Kaci Null MD Primary Care Provider Constantine Torres [phone] ALLERGIES No Known Allergies REASON FOR VISIT Patient presents today for dysphagia, esophageal stricture MEDICATIONS Medication SIG (Take, Route, Frequency, Duration) Notes Start Date End Date Status Omeprazole 20 MG 2 Orally Every morni ng and every evening for 30 day(s) 06/30/2022 Active Fenofibrate 160 MG Oral for 90 Active Cyclobenzaprine HCl 10 MG Oral for 20 Active Famotidine 40 MG 1 Orally Twice a day with your Omeprazole twice a day for 30 day(s) 05/04/2023 Active SOCIAL HISTORY Tobacco Use: Social History Observation [...] W/U Status Risk SNOMED Code Notes Problem Chronic GERD (K21.9) Active confirmed Gastroesophagea l reflux disease (093728479) VITAL SIGNS BMI 31.63 kg/m2 09/15/2023 Blood pressure systolic 00 mm Hg 09/15/19 24 Blood pressure diastolic 00 mm Hg 024 Height 67 in 09/15/2023 Weight 202 lbs 09/15/2023 Encounters Encounter Location Date Provider Diagnosis [facility] [address] [place] [address] 09/15/2023 Constantine Cervantes Esophageal stricture K22.2 ; Dysphagia R13.10 and Chronic GERD K21.9 ASSESSMENTS Encounter Date Diagnosis Assessment Notes Treatment Notes Treatment Clinical Notes 09/15/2023 Esophageal stricture (ICD-10 - K22.2) 09/15/2023 Dysphagia (ICD-10 - R13.10) 09/15/2023 Chronic GERD (ICD-10 - K21.9) PLAN OF TREATMENT Pending Test Test Name Order Date XR BARIUM SWALLOW-ESOPHAGUS 09/15/2023 Next Appt Details Follow Up: Fall 2023, Reason : Provider Name:Constantine Cervantes , 01/19/2024 10:00:00 AM, [address], [address], [place], [address], Progress Notes * Examination Category Sub-Category Detail Notes General Examination GENERAL APPEARANCE: pleasant , well nourished, well developed, in no acute distress HEAD: EYES: sclera non-icteric EARS: NOSE: THROAT: NECK/THYROID: no cervical lymphade nopathy, neck supple HEART: S1, S2 normal CHEST: LUNGS: clear to auscultatio n bilaterally ABDOMEN: normal bowel sounds, no guarding or rigidity, no guarding or rigidity, no masses palpable, soft, nontender, nondistended NEUROLOGIC: alert and oriented SKIN: nonjaundiced, no spi rita angiomata EXTREMITIES: no edema PERIPHERAL PULSES: BACK: BREASTS: MUSCULOSKELETAL: MALE GENITOURINARY: LYMPH NODES: RECTAL EXAM: FEMALE GENITOURINARY: ORAL CAVITY: mucosa moist
--- OUTSIDE RECORDS SUMMARY | 2023-12-21 07:53 | XMS_ITS | Patient Health Record ---
Author Organization [facility] Address [address] [place] [address] Care Team Providers Care Grade Teacher Name Role Phone Kaci Null MD Primary Care Provider Constantine Torres Unavailable [phone] ALLERGIES No Known Allergies RESULTS Component Value Reference Range Notes FL barium swallow (Not yet r eviewed by provider) Interpretation: Performing Lab: Notes/Report: [address] [address] Fluoroscopy Report Signed Patient: Hank Jacobs MR#: [id number] : 1960 Acct:[id number] Age/Sex: 63 / M ADM Date: 09/20/23 Loc: [facility] Attending Dr: Constantine Cervantes MD Ordering Physician: Constantine Cervantes Date of Service: 09/20/23 Procedure(s): FL barium swallow Accession Number(s): [id number] cc: Kaci Null MD; Constantine Cervantes EXAMINATION: [...] by Luis Carlos Lindsey in OV> 10/03/23 0878 <Electronically signed by Chidi Johnson MD in OV> 10/03/23 175 DD/ 0822 TD/TT: Bias Binding Folder: REASON FOR REFERRAL No Information MEDICATIONS Medication [...] Notes Problem Esophageal dysphagia (R13.10) Active confirmed 92301850 Problem Abnormal barium swallow (R93.3) Active confirmed 167578875 Problem Encounter for screening for malignant neoplasm of colon (Z12.11) Active confirmed 641555593 Problem Diverticulosis of sigmoid colon (K57.30) Active confirmed Diverticulosis of sigmoid colon (536976109) Problem Esophageal obstruction (K22.2) Active confirmed Stricture of esophagus (17627929) Problem Dysphagia (R13.10) Active confirmed Dysphagia (13279328) Problem Esophageal stricture (K22.2) Active confirmed Esophageal stricture (14312616) Problem History of adenomatous polyp of colon (Z86.010) Active confirmed 293933680 Problem Erosive esophagitis (K22.10) Active confirmed Erosive esophagitis (67352687) Problem Diverticulosis of colon (K57.30) Active confirmed Diverticulosi s of colon (449864527) Problem Esophageal ring (K22.2) Active confirmed Esophageal ring (32626037) Problem Esophageal reflux (K21.9) Active confirmed Esophageal refl ux (286519089) Problem Chronic GERD (K21.9) Active confirmed Gastroesophagea l reflux disease (449315259) VITAL SIGNS Temperature 97.1 degrees Fahrenheit 05/03/2023 Blood pressure diastolic 00 mm Hg 09/15/2023 Height 67 in 09/15/2023 Blood pressure systolic 00 mm Hg 09/15/2023 Weight 202 lbs 09/15/2023 BMI 31.63 kg/m2 09/15/2023 Encounters Encounter Location Date Provider Diagnosis [facility] Outpatient [address] [place] [id number] 05/04/2023 Constantine Cervantes Esophageal stricture K22.2 ; Dysphagia R13.10 and Hiatal hernia K44.9 [facility] [address] [place] [address] 05/03/2023 Constantine Cervantes Esophageal dysphagia R13.10 and Esophageal stricture K22.2 [facility] [address] [place] [address] 09/15/2023 Constantine Cervantes Esophageal stricture K22.2 ; Dysphagia R13.10 and Chronic GERD K21.9 [facility] [address] [place] [address] 05/03/2023 Constantine Cervantes [facility] [address] [place] [address] 05/04/2023 Constantine Cervantes [facility] [address] [place] [address] 05/09/2023 Constantine Cervantes [facility] [address] [place] [address] 09/26/2023 Constantine Cervantes ASSESSMENTS Encounter Date Diagnosis [...] Name:Constantine Cervantes , 01/19/2024 10:00:00 AM, [address], [address], [place], [address], Insurance Providers Payer Name Payer Address Payer Phone Subscriber Number Group Number Insured Name Patient Relationship to Insured Coverage Start Date Coverage End Date [employer] [facility] [address] [address] [place], [place] [id number] [phone] [id number] HANK JACOBS Self - patient is the insured [place] [address] [place] [address] [phone] [id number] HANK JACOBS Self - patient is the insured MEDICAL (GENERAL) HISTORY Medical History History ICD Code Denies AR,DM,CVA,Lung disease,renal dise ase Cortisone injection in the [...]
== END 2023-12-19 18:20 | disposition home or self-care (01) ==
LOC: HO.HMGH 16:36
PROVIDERS: PCP Internal Medicine; Visit Provider Internal Medicine
DX: C61 Malignant neoplasm of prostate (principal); M54.16 Radiculopathy, lumbar region; Z98.890 Other specified postprocedural states; Z87.19 Personal history of other diseases of the digestive system; K76.0 Fatty (change of) liver, not elsewhere classified; E78.00 Pure hypercholesterolemia, unspecified; R73.01 Impaired fasting glucose
CPT/HCPCS: 99214

== ENCOUNTER 2023-12-20 06:47 | Outpatient (REF) | payer OTHER, SELFPAY ==
[2023-12-20 07:38] LABS: Alanine Aminotransferase 30 U/L (0-40); Albumin Level 4.1 g/dL (3.5-5.0); Alkaline Phosphatase 93 U/L (39-117); Anion Gap 13 (12-20); Aspartate Amino Transferase 24 U/L (5-37); Bilirubin Total 0.6 mg/dL (0.0-1.0); Blood Urea Nitrogen 15 mg/dL (9-16); Calcium 9.2 mg/dL (8.4-10.2); Carbon Dioxide 27 mmol/L (22-29); Chloride 105 mmol/L (96-108); Cholesterol 267 mg/dL (<200); Estimated Glomerular Filt Rate > 60; Glucose Random 106 mg/dL (60-115); HDL Cholesterol 37 mg/dL (>40); Sodium 141 mmol/L (135-145); Total Protein 7.6 g/dL (6.5-8.0); Triglycerides 424 mg/dL (<150)
[2023-12-20 07:39] LABS: Estimated Average Glucose 97 mg/dL
[2023-12-20 08:02] LABS: PSA,Total (Free>4and<10) 4.75 ng/mL (0.00-4.00)
[2023-12-22 11:03] LABS: Free Prostate Spec Ag 0.7 ng/mL; Percent Free Prostate Spec Ag 15 % (calc) (>25); Prostate Specific Ag Total 4.6 ng/mL (< OR = 4.0)
== END 2023-12-20 06:48 | disposition home or self-care (01) ==
LOC: HO.LAB 06:47
PROVIDERS: Urology; PCP Internal Medicine; Visit Provider Internal Medicine
DX: Z12.5 Encounter for screening for malignant neoplasm of prostate (principal); E78.00 Pure hypercholesterolemia, unspecified; R73.01 Impaired fasting glucose; C61 Malignant neoplasm of prostate
CPT/HCPCS: 36415; 80053; 80061; 83036; 84153; 84154

== ENCOUNTER 2024-04-18 06:06 | Outpatient (REF) | payer OTHER, SELFPAY ==
[2024-04-18 07:39] LABS: Blood Urea Nitrogen 21 mg/dL (9-16); Estimated Glomerular Filt Rate > 60
[2024-04-18 07:51] LABS: Prostate Specific Antigen 4.27 ng/mL (<0.05-4.0)
== END 2024-04-18 06:07 | disposition home or self-care (01) ==
LOC: HO.LAB 06:06
PROVIDERS: PCP Internal Medicine; Visit Provider Urology
DX: C61 Malignant neoplasm of prostate (principal)
CPT/HCPCS: 36415; 82565; 84153; 84520

== ENCOUNTER → 2024-04-20 13:18 | Outpatient (BNVA) | payer OTHER, SELFPAY | PROVIDERS: PCP Internal Medicine; Visit Provider Urology | DX: N40.1 Benign prostatic hyperplasia with lower urinary tract symptoms (principal); N13.8 Other obstructive and reflux uropathy | CPT/HCPCS: 81003; 99212 ==

== ENCOUNTER 2024-04-20 13:19 | Outpatient (AMB) | payer OTHER, SELFPAY ==
--- NOTE | 2024-04-20 13:22 | A.OFFVIS_ITS ---
Intake Visit Reasons: 6m follow up Intake Note: Patient is present for 6M F/U Urology Medication:FINASTERIDE Antibiotic Allergy:NONE Blood Thinner:NONE Brim Pouncer Required: No Allergies No Known Allergies Allergy (Verified 04/20/24 13:23) HPI Comments Details: Hank is a pleasant male. He is a patient of Dr. Null. He seen for the following urologic conditions - Peyronie's disease - lower urinary tract symptoms - Prostate Cancer Slight PSA rise after cutting back Imaging no suspicious areas 05/25 2.8 on finasteride, 10/23 2.6, 12/23 4.3 15% Finasteride slight PSA rise after cutting back to Tuesday, Tuesday, Tuesday Continue Q six-month surveillance Prostate Cancer - Grade Group 1, Low Volume PSA 5.1 on finasteride 90gm at TRUS Single core 5% left base Imaging 05/25 prostate MRI, 70 g, no suspicious area Lower urinary tract symptoms Progressive weak strength Current therapy finasteride PSA 02/20 5.2, 06/24 4.2/3.6 F31%, 12/22 5.1 JUMA 3+ prostate Peyronie's disease Primary complaint is - penile curvature - right-sided The problem has been present - since 2019 after subclinical penile fracture On exam he has palpable area right distal portion At this time he experiences - partial erections which are not adequate for penetrative intercourse, [place] has - is possible but painful Associated symptoms include penile pain No penile discharge No Prior management includes - continue with oral medications PFSH Medical History Swelling of left foot Cellulitis of left foot Penile pain, chronic Shoulder pain LFT elevation Colon cancer screening Vision changes Shoulder pain, left Hx of hiatal hernia GERD (gastroesophageal reflux disease) Colonoscopy planned Dysphagia Neuropathy of left foot Tobacco abuse Alcohol abuse Obesity (BMI 30-39.9) No known health problems Surgical History History of prostate surgery History of endoscopy History of colonoscopy History of shoulder surgery Family History Mother Myocardial infarct CVA (cerebral vascular accident) Social History Housing: Apartment Alcohol intake: current Alcohol intake frequency: former alcohol drinker Alcohol type: beer Comment: improving with flatus passing stopped 2022 Patient Tobacco Use Status: Former Tobacco user Tobacco use type: Cigarette Years Smoked: 20stopped 2022 e-Cigarette/Vaping Use: Never Used Second Hand Smoke Exposure: Yes service: No Current occupational status: unemployed Cognitive needs: No Hearing needs: No Vision needs: No Review of Systems Const Denies chills and Denies fever(s) Card Reports no additional complaints and Denies syncope Resp Denies cough GI Denies abdominal pain and Denies heartburn Reports as per HPI and Denies change in libido Neuro Denies syncope Psych Denies change in libido Endo Denies change in libido Physical Exam Const General: cooperative, healthy appearing, comfortable and no acute distress Orientation/consciousness: patient oriented x3 HEENT Face and sinus: Yes normal facial exam Mouth: moist mucous membranes Neck Neck: Yes normal visual inspection, Yes full ROM and Yes trachea midline Chest Chest palpation & inspection: normal inspection of the chest Resp Effort & Inspection: normal respiratory effort, able to speak in complete sentences and no respiratory distress GI Inspection: Yes normal to inspection Back/Spine/Pelvis Cervical Spine: normal cervical lordosis Thoracic/Lumbar Spine: thoracic and lumbar spine normal to inspection Skin General skin exam: no rashes or lesions noted Neuro General: patient oriented x3, gait normal, tone normal and moves all extremities Extrem General: Yes normal to inspection and Yes capillary refill normal Results AMB Urinalysis, Automated UA Leukoctes 0 Mikhail/uL Last Edit by JEEVAN Eubanks on 04/20/24 13:34 UA Nitrite Negative Last Edit by JEEVAN Eubanks on 04/20/24 13:34 UA Urobilinogen 1 mg/dL Last Edit by JEEVAN Eubanks on 04/20/24 13:34 UA Protein 30 mg/dL Last Edit by JEEVAN Eubanks on 04/20/24 13:34 UA pH 6.0 Last Edit by JEEVAN Eubanks on 04/20/24 13:34 UA Blood 80 Marino/uL Last Edit by JEEVAN Eubanks on 04/20/24 13:34 UA Specific [place] 1.025 Last Edit by JEEVAN Eubanks on 04/20/24 13: 34 UA Ketone Negative Last Edit by JEEVAN Eubanks on 04/20/24 13:34 UA Bilirubin 0 mg/dL Last Edit by JEEVAN Eubanks on 04/20/24 13:34 UA Glucose 0 mg/dL Last Edit by JEEVAN Eubanks on 04/20/24 13:34 Results Reviewed Results Reviewed: Laboratory Last Values Urine pH (Auto) 6.0 04/20/24 13:34 Specific [place] (Auto) 1.025 04/20/24 13:34 Urine Protein (Auto) 30 mg/dL 04/20/24 13:34 Glucose (UA)(Auto) 0 mg/dL 04/20/24 13:34 Urine Ketones (Auto) Negative 04/20/24 13:34 Urine Blood (Auto) 80 Marino/uL 04/20/24 13:34 Urine Nitrite (Auto) Negative 04/20/24 13:34 Urine Bilirubin (Auto) 0 mg/dL 04/20/24 13:34 Urine Urobilinogen (Auto) 1 mg/dL 04/20/24 13:34 Leukocyte Esterase (Auto) 0 Mikhail/uL 04/20/24 13:34 Assessment & Plan Assessment & Plan (1) BPH w urinary obs/LUTS: Comment: Prostate biopsy January 2023 with MRI done May 2023 Code(s): N40.1 - Benign prostatic hyperplasia with lower urinary tract symptoms; N13.8 - Other obstructive and reflux uropathy Category: Medical Plan Six-month follow-up PSA tele Orders: Orders AMB Urinalysis Automated Today Z13.9 - Encounter for screening, unspecified Prostate Specific Antigen 6 Months C61 - Malignant neoplasm of prostate Patient Instructions: Imaging studies, laboratory and physical exam results were discussed and reviewed in detail. No major barriers to patient understanding were identified. An opportunity to ask questions regarding the treatment plan was provided. All questions were answered. The patient expressed understanding and agreement with the above treatment plan. The patient is aware they should contact our office by phone for worsening of their current condition or the appearance of new urologic symptoms. Compliance is encouraged with any medications and followup testing that is ordered. It is a privilege to participate in the urologic care of your patient. If you have any questions or concerns regarding treatment for the above conditions, or other urologic issues, please do not hesitate to contact me. The office telephone contact is [phone]. This note is constructed using voice recognition software. While every effort has been made to ensure accuracy radiation control specialist errors may have been included. Yours sincerely, Dr Stevo Gloria MD, [facility]rology Providers of Expert, Compassionate Care for the Genitourinary System Coding Level of Care Code Est Pt Level 3 (25902) Diagnoses BPH w urinary obs/LUTS N40.1; N13.8
== END 2024-04-20 14:01 | disposition home or self-care (01) ==
PROVIDERS: PCP Internal Medicine; Visit Provider Urology
DX: N40.1 Benign prostatic hyperplasia with lower urinary tract symptoms (principal); N13.8 Other obstructive and reflux uropathy; Z13.9 Encounter for screening, unspecified
CPT/HCPCS: 99213

== ENCOUNTER 2024-04-23 10:37 | Outpatient (AMB) | payer OTHER, SELFPAY ==
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
[2024-04-23 10:41] VITALS: BP 132/72; PULSE 82; O2SAT 98; BMI 32.6
== END 2024-04-23 11:21 | disposition home or self-care (01) ==
PROVIDERS: PCP Internal Medicine; Visit Provider Internal Medicine
DX: Z00.00 Encounter for general adult medical examination without abnormal findings (principal); C61 Malignant neoplasm of prostate; E66.811 Obesity, class 1; Z68.32 Body mass index [BMI] 32.0-32.9, adult; R73.01 Impaired fasting glucose; D12.6 Benign neoplasm of colon, unspecified; E78.00 Pure hypercholesterolemia, unspecified; M25.512 Pain in left shoulder; G47.10 Hypersomnia, unspecified; R06.02 Shortness of breath

== ENCOUNTER → 2024-04-23 10:37 | Outpatient (BNVA) | payer OTHER, SELFPAY | PROVIDERS: PCP Internal Medicine; Visit Provider Internal Medicine | DX: Z00.00 Encounter for general adult medical examination without abnormal findings (principal); C61 Malignant neoplasm of prostate; R73.01 Impaired fasting glucose; D12.6 Benign neoplasm of colon, unspecified; E66.9 Obesity, unspecified; E78.00 Pure hypercholesterolemia, unspecified; M25.512 Pain in left shoulder; G47.10 Hypersomnia, unspecified; R06.02 Shortness of breath | CPT/HCPCS: 96127; 99396 ==

== ENCOUNTER 2024-04-27 10:26 | Emergency (ER) | payer OTHER, SELFPAY ==
[2024-04-27 10:45] VITALS: BP 171/99; PULSE 86; RESP 18; TEMP 36.1; O2SAT 97; BMI 36.9
--- NOTE | 2024-04-27 12:08 | ED.GENADULT ---
HPI - General Adult General Chief complaint: General Medical Stated complaint: Gen med Source: patient Mode of arrival: ambulatory Limitations: no limitations History of Present Illness ED Provider: Alfreda Guadarrama PA-C HPI narrative: Patient is a 63 year old assigned male at with a history of BPH and prostate cancer presenting to the emergency department today with something hanging out of his anus. Patient states after he got a prostate exam by his PCP he began to feel a ball out of his anus that is painful. Patient denies any dizziness, lightheadedness, abdominal pain, nausea, vomiting, fever, chills, blurry vision, double vision, loss of vision, chest pain, difficulty breathing, shortness of breath, back pain, night sweats, pain with urination, increased urinary frequency, increased urinary urgency, blood in his urine or stool, syncope or a near syncopal episode, recent trauma or falls, bowel incontinence, bladder incontinence, or any other complaints at this time. Relieving factors: none Exacerbating factors: none Associated symptoms: denies other symptoms Treatments prior to arrival: none Related Data Home Medications ?Medication ?Instructions ?Recorded ?Confirmed omeprazole 40 mg capsule,delayed 40 mg PO BID 09/10/22 04/23/24 release Previous Rx's ?Medication ?Instructions ?Recorded diclofenac sodium 1 % topical gel 4 g topical QID #100 grams 01/04/23 (Voltaren Arthritis Pain) fenofibrate 160 mg tablet 160 mg PO DAILY #90 tabs 08/26/23 finasteride 5 mg tablet 5 mg PO DAILY 90 days #90 tabs 10/21/23 cyclobenzaprine 10 mg tablet 10 mg PO TID PRN muscle spasm #60 03/19/24 tabs Allergies Allergy/AdvReac Type Severity Reaction Status Date / Time No Known Allergies Allergy Verified 04/27/24 10:48 Review of Systems Constitutional: Constitutional: Reports no additional constitutional complaints, Denies chills, Denies fever(s) and Denies night sweats Eyes: Eyes: Reports no additional eye complaints, Denies blurry vision, Denies change in vision, Denies diplopia, Denies eye discharge, Denies loss of vision and Denies eye pain ENT: Denies dizziness Cardiovascular: Cardiovascular: Reports no additional cardiovascular complaints, Denies chest pain, Denies lightheadedness, Denies Loss of Consciousness and Denies dyspnea Respiratory: Respiratory: Reports no additional respiratory complaints and Denies dyspnea Gastrointestinal: Gastrointestinal: Reports no additional gastrointestinal complaints, Denies abdominal pain, Denies melena, Denies hematochezia, Denies change in bowel habits and Denies change in stool character Comments: lump felt in anus Genitourinary: Genitourinary: Reports no additional male genitourinary complaints, Denies hematuria, Denies oliguria, Denies difficulty urinating, Denies dysuria, Denies urinary frequency, Denies urinary hesitancy, Denies urinary incontinence and Denies urinary urgency Musculoskeletal: Musculoskeletal: Reports no additional musculoskeletal complaints, Denies numbness and Denies tingling Neurologic: Denies dizziness, Denies loss of vision, Denies numbness and Denies tingling Psychiatric: Psychiatric: Reports no additional psychiatric complaints Endocrine: Endocrine: Reports no additional endocrine complaints Hematologic/Lymphatic: Hematologic/Lymphatic: Reports no additional hematologic/lymphatic complaints Allergic/Immunologic: Allergic/Immunologic: Reports no additional allergic/immunologic complaints PMFSH Past Medical History Attestation statement: The following information was validated with the patient. Source: old records reviewed and nursing notes reviewed Medical History Shoulder pain, left Swelling of left foot Cellulitis of left foot Penile pain, chronic Shoulder pain LFT elevation Colon cancer screening Vision changes Hx of hiatal hernia GERD (gastroesophageal reflux disease) Colonoscopy planned Dysphagia Neuropathy of left foot Tobacco abuse Alcohol abuse Obesity (BMI 30-39.9) No known health problems Surgical History History of prostate surgery History of endoscopy History of colonoscopy History of shoulder surgery Family History Family History Mother Myocardial infarct CVA (cerebral vascular accident) Social History Social History Housing: Apartment Alcohol intake: current Alcohol intake frequency: former alcohol drinker Alcohol type: beer Comment: improving with flatus passing stopped 2022 Patient Tobacco Use Status: Former Tobacco user Tobacco use type: Cigarette Years Smoked: 20stopped 2022 e-Cigarette/Vaping Use: Never Used Second Hand Smoke Exposure: Yes Advance Directives: No Advance Directives Information Provided: No service: No Current occupational status: unemployed Cognitive needs: No Hearing needs: No Vision needs: No Physical Exam ED Vital Signs: Vital Signs - 24 hr 04/27/24 10:45 Temperature 97.0 F Pulse Rate 86 Respiratory Rate 18 Blood Pressure 171/99 H Pulse Oximetry 97 Oxygen Delivery Method Room Air BMI result Body Mass Index 36.9 Const General: cooperative, no acute distress, alert and awake Nutritional Appearance: well nourished Orientation/consciousness: patient oriented x3 Limitations: no limitations HENMT Head: Yes normal to inspection and Yes atraumatic Ears: hearing grossly normal bilaterally and external ears normal General nose exam: Normal external nose present, no nasal discharge noted and no epistaxis Face and sinus: Yes normal facial exam, No abrasion and No laceration Mouth: Normal oral and palatal mucosa present, no drooling and no muffled voice Eyes General: appearance normal, both eyes and all related structures Periorbital: periorbital findings normal Eyelids: Yes eyelids normal Conjunctivae: conjunctivae normal Pupils: Equal, round and reactive pupils present EOM: EOMs intact bilaterally Neck Neck: Yes normal visual inspection, Yes full ROM and Yes no lymphadenopathy Chest Chest palpation & inspection: normal inspection of the chest Resp Effort & Inspection: normal respiratory effort and able to speak in complete sentences GI Inspection: Yes normal to inspection Neuro General: patient oriented x3 and moves all extremities Cranial nerves: Yes Equal, round and reactive pupils present Cognition (Neuro): normal cognition Extrem General: Yes normal to inspection, Yes full ROM and Yes capillary refill normal Psych Appearance: grossly normal Mental Status: mental status grossly normal Affect: normal affect Attitude: cooperative Thought process: Normal thought process present Thought content: Normal thought content present Insight: Good insight present (Psych) Course Course Course Narrative: RME performed by Alfreda Guadarrama PA-C. Patient is a 63 year old assigned male at presenting to the emergency department with something hanging out of his anus. Patient states after he got a prostate exam by his PCP he began to feel a ball out of his anus that is painful. Patient denies any history of hemorrhoids. Detailed physical exam and review of systems are deferred to the principal research economist. Patient placed back in the waiting room pending room availability. Medical Decision Making Medical Decision Making MDM Narrative: Patient is a 63 year old assigned male at with a history of BPH and prostate cancer presenting to the emergency department today with something hanging out of his anus. Patient's limited physical exam performed in triage was unremarkable. I was unable to perform a rectal examination in triage. Patient left the department without completing treatment. Patient left the department before myself or any of the other emergency department clinicians could explain to or review with the patient; physical exam findings, test results, need or lack there of for additional testing, need or lack there of for a procedure to be performed, need or lack there of for hospital admission / transfer, need or lack there of for prescription medication, treatment options, or a treatment plan. Differential Diagnosis Differential Diagnoses: The differential diagnosis associated with the presentation includes Hemorrhoids Rectal prolpase Admission/Observation Consideration of admission/observation: Escalation of care including admission/observation considered Patient would have been admitted to the hospital had he completed his work up and it had any findings where hospital admission was appropriate, his clinical presentation warranted hospital admission, had myself or any other emergency department store door greeter had the ability to discuss need or lack there of for hospital admission, and the patient hadn't left the department without completing treatment. Discharge Plan Discharge Clinical Impression: Pain, anal Patient Disposition: Left W/O Completing Treatment Prescriptions: No Action fenofibrate 160 mg tablet 160 mg PO DAILY Qty: 90 1RF cyclobenzaprine 10 mg tablet 10 mg PO TID PRN (Reason: muscle spasm) Qty: 60 1RF omeprazole 40 mg capsule,delayed release(DR/EC) 40 mg PO BID diclofenac sodium [Voltaren Arthritis Pain] 1 % gel 4 g topical QID Qty: 100 3RF Rx Instructions: apply to single knee, ankle, foot; for foot includes sole/toes/top of foot finasteride 5 mg tablet 5 mg PO DAILY 90 Days Qty: 90 1RF Discharge Date/Time: 04/27/24 16:42
== END 2024-04-27 16:42 | disposition left against medical advice (07) ==
PROVIDERS: Emergency Provider Emergency Medicine; PCP Internal Medicine
DX: K62.89 Other specified diseases of anus and rectum (principal)
CPT/HCPCS: 99281

== ENCOUNTER → 2024-05-10 10:17 | Outpatient (REF) | payer OTHER, SELFPAY ==
--- NOTE | 2024-05-10 10:22 | CA_ITS ---
Acquisition Time: 2024-05-10 10:42:35 Total Exercise Time: 00:05:13 Test Indications: Medications: Protocol: RAFFI Max HR: 150 BPM 94% of Pred: 159 BPM Max BP: 152/86 mmHG Max Work Load: 7.0 METS Exercise Stress Test with exercise 5 mins 13 of Raffi Protocol, achieving 91% MPHR, with reports of 4/10 left sided chest pain that started in recovery and slowly improving, and also reports moderate SOB, with isolated PVC, with normotensive response to exercise. With T wave inversions in V5 and V6 with exercise (T wave inversions inferiorly at baseline). In recovery, breathing returned to baseline. Recommend further testing with Exercise Nuclear Stress Test. Test reviewed with Dr. Aleman. Referred By: Kaci Null Electronically Signed By: Robert Spencer
== END ==
LOC: HO.CARD 10:17
PROVIDERS: PCP Internal Medicine; Visit Provider Internal Medicine
DX: R06.02 Shortness of breath (principal)
CPT/HCPCS: 93017

== ENCOUNTER → 2024-05-10 10:22 | Outpatient (BNV) | payer OTHER, SELFPAY | PROVIDERS: PCP Internal Medicine | DX: R07.2 Precordial pain (principal); R06.02 Shortness of breath; I49.3 Ventricular premature depolarization | CPT/HCPCS: 93016; 93018 ==

== ENCOUNTER 2024-05-30 06:57 | Outpatient (REF) | payer OTHER, SELFPAY ==
--- NOTE | ~2024-05-30 | XR_ITS ---
CLINICAL HISTORY: M25.512 - Pain in left shoulder Left shoulder four views Comparison: 10/01/2020 Findings: No acute fracture or dislocation identified. No acute focal bony abnormality. No radiopaque foreign body noted. Impression: No acute bony abnormality This document has been electronically signed by: Sandoval Weir MD on 05/30/2024 19:16:05
--- NOTE | ~2024-05-30 | XR_ITS ---
CLINICAL HISTORY: R06.02 - Shortness of breath 2 view chest x-ray Comparison: 11/01/2022 Findings: Lungs are clear without acute infiltrates. No pneumothorax. Heart size normal. No acute bony abnormalities. Impression: No acute processes This document has been electronically signed by: Sandoval Weir MD on 05/30/2024 19:16:41
[2024-05-30 08:08] LABS: Estimated Average Glucose 103 mg/dL; Hemoglobin A1C 143.2777 umol/L; Hemoglobin A1c % 5.2 % (<6.0); Total Hemoglobin (HGBA1C) 4341.2156 umol/L
[2024-05-30 08:24] LABS: Alanine Aminotransferase 52 U/L (0-40); Albumin Level 4.4 g/dL (3.5-5.0); Anion Gap 12 (12-20); Aspartate Amino Transferase 40 U/L (5-37); Bilirubin Total 0.5 mg/dL (0.0-1.0); Blood Urea Nitrogen 19 mg/dL (9-16); Calcium 9.3 mg/dL (8.4-10.2); Carbon Dioxide 27 mmol/L (22-29); Chloride 106 mmol/L (96-108); Cholesterol 302 mg/dL (<200); Estimated Glomerular Filt Rate > 60; Glucose Random 101 mg/dL (60-115); HDL Cholesterol 39 mg/dL (>40); Sodium 141 mmol/L (135-145); Total Protein 8.7 g/dL (6.5-8.0); Triglycerides 427 mg/dL (<150)
[2024-05-30 11:06] LABS: Alkaline Phosphatase 88 U/L (39-117)
== END 2024-05-30 06:58 | disposition home or self-care (01) ==
LOC: HO.XRAY 06:57
PROVIDERS: PCP Internal Medicine; Visit Provider Internal Medicine
DX: M25.512 Pain in left shoulder (principal); R06.02 Shortness of breath; R73.01 Impaired fasting glucose; E78.00 Pure hypercholesterolemia, unspecified
CPT/HCPCS: 36415; 71046; 73030; 80053; 80061; 83036

== ENCOUNTER → 2024-05-30 07:10 | Outpatient (BNV) | payer OTHER, SELFPAY | PROVIDERS: PCP Internal Medicine; Visit Provider Radiology Diagnostic Radiology | DX: R06.02 Shortness of breath (principal); M25.512 Pain in left shoulder | CPT/HCPCS: 71046; 73030 ==

== ENCOUNTER → 2024-05-31 08:47 | Outpatient (REF) | payer OTHER, SELFPAY ==
--- OUTSIDE RECORDS SUMMARY | 2024-05-31 11:36 | XMS_ITS | Patient Health Record ---
Author Organization [facility] Address [address] [place] [address] Care Team Providers Care Wheat Buyer Name Role Phone Kaci Null MD Primary Care Provider Constantine Torres [facility] [phone] ALLERGIES No Known Allergies RESULTS Component Value Reference Range Notes [place] barium swallow Reviewed date:01/08/2024 09:06:05 PM Interpretation: Performing Lab: Notes/Report: [address] [address] Fluoroscopy Report Signed Patient: Hank Jacobs MR#: [id number] : 1960 Acct:[id number] Age/Sex: 63 / M ADM Date: 09/20/23 Loc: [facility] Attending Dr: Constantine Cervantes MD Ordering Physician: Constantine Cervantes Date of Service: 09/20/23 Procedure(s): FL barium swallow Accession Number(s): [id number] cc: Kaci Null MD; Constantine Cervantes EXAMINATION: [...] by Luis Carlos Lindsey in OV> 10/03/23 1060 <Electronically signed by Chidi Johnson MD in OV> 10/03/23 776 DD/ 1 TD/TT: Pump Installation And Servicer: REASON FOR REFERRAL No Information MEDICATIONS Medication SIG (Take, Route, Frequency, Duration) Notes Start Date End Date Status Omeprazole 20 MG 2 Orally Every morni ng and every evening for 30 day(s) 06/30/2022 Unknown Omeprazole 40 MG TAKE 1 CAPSULE BY [facility] TWICE A DAY for 90 Unknown Cyclobenzaprine HCl 10 MG Oral for 20 Unknown Fenofibrate 160 MG Oral for 90 Unknown Famotidine 40 MG 1 Orally Twice a day with your Omeprazole twice a day for 30 days Unknown IMMUNIZATIONS Vaccine Route Administration Date Status Comme [...] Notes Problem Esophageal dysphagia (R13.10) Active confirmed 17779590 Problem Abnormal barium swallow (R93.3) Active confirmed 391641632 Problem Encounter for screening for malignant neoplasm of colon (Z12.11) Active confirmed 049947254 Problem Diverticulosis of sigmoid colon (K57.30) Active confirmed Diverticulosis of sigmoid colon (929438508) Problem Esophageal obstruction (K22.2) Active confirmed Stricture of esophagus (14809661) Problem Dysphagia (R13.10) Active confirmed Dysphagia (90276921) Problem Esophageal stricture (K22.2) Active confirmed Esophageal stricture (26655763) Problem History of adenomatous polyp of colon (Z86.010) Active confirmed 910743335 Problem Erosive esophagitis (K22.10) Active confirmed Erosive esophagitis (64882727) Problem Diverticulosis of colon (K57.30) Active confirmed Diverticulosi s of colon (380979257) Problem Esophageal ring (K22.2) Active confirmed Esophageal ring (29409117) Problem Esophageal reflux (K21.9) Active confirmed Esophageal refl ux (517025788) Problem Chronic GERD (K21.9) Active confirmed Gastroesophagea l reflux disease (461752549) VITAL SIGNS Blood pressure diastolic 00 mm Hg 01/19/2024 Height 67 in 01/19/2024 Blood pressure systolic 00 mm Hg 01/19/2024 Weight 201 lbs 01/19/2024 BMI 31.48 kg/m2 01/19/2024 Encounters Encounter Location Date Provider Diagnosis [facility] [place] [address] [place], [place] [phone] 05/23/2024 Constantine Helen [facility] [address] [place] [address] 09/15/2023 Constantine Cervantes Esophageal stricture K22.2 ; Dysphagia R13.10 and Chronic GERD K21.9 [facility] [address] [place] [address] 01/19/2024 Constantine Cervantes Esophageal dysphagia R13.10 ; Esophageal stricture K22.2 ; Abnormal barium swallow R93.3 ; Encounter for screening for malignant neoplasm of colon Z12.11 and History of adenomatous polyp of colon Z86.010 [facility] [address] [place] [address] 09/26/2023 Constantine Cervantes [facility] [address] [place] [address] 04/09/2024 Constantine Cervantes [facility] [address] [place] [address] 05/22/2024 Constantine Cervantes ASSESSMENTS Encounter Date Diagnosis Assessment Notes Treatment Notes Treatment Clinical Notes 09/15/2023 Dysphagia (ICD-10 - R13.10) 09/15/2023 Esophageal stricture (ICD-10 - K22.2) 01/19/2024 Esophageal stricture (ICD-10 - K22.2) 01/19/2024 Esophageal dysphagia (ICD-10 - R13.10) 09/15/2023 Chronic GERD (ICD-10 - K21.9) 01/19/2024 Abnormal barium swallow (ICD-10 - R93.3) 01/19/2024 Encounter for screening for malignant neoplasm of colon (ICD-10 - Z12.11) Repeat colonoscopy in 202501/19/2024 History of adenomatous polyp of colon (ICD-10 - Z86.010) PLAN OF TREATMENT Pending Test Test Name Order Date XR BARIUM SWALLOW-ESOPHAGUS 09/15/2023 Future Test Test Name Order Date UPPER GI ENDOSCOPY BALLOOON DILATION OF ESOPH 10/14/2020 COLONOSCOPY 10/14/2020 UPPER GI ENDOSCOPY [place] DILATION OF ESOPH 11/11/2020 UPPER GI ENDOSCOPY [place] DILATION OF ESOPH 04/08/2022 COLONOSCOPY 04/08/2022 UPPER GI ENDOSCOPY [place] DILATION OF ESOPH 07/04/2022 UPPER GI ENDOSCOPY [place] DILATION OF ESOPH 05/03/2023 UPPER GI ENDOSCOPY [place] DILATION OF ESOPH 01/19/2024 Insurance Providers Payer Name Payer Address Payer Phone Subscriber Number Group Number Insured Name Patient Relationship to Insured Coverage Start Date Coverage End Date [employer] [facility] [address] [address] [place], [place] [id number] [phone] [id number] SAILAJA SHEIKH HANK Self - patient is the insured [place] [address] [place] [address] [phone] [id number] HANK JACOBS Self - patient is the insured MEDICAL (GENERAL) HISTORY Medical History History ICD Code Denies ME,DM,CVA,Lung disease,renal dise ase Cortisone injection in the [...] 18mm balloon with good effect Colonoscopy in February of 2 023 and removal of 3 tubular adenomas. The [...]
--- OUTSIDE RECORDS SUMMARY | 2024-05-31 11:36 | XMS_ITS ---
Author Organization [facility] Address [address] [place] [address] Care Team Providers Care Pie Filler Name Role Phone Kaci Null MD Primary Care Provider Constantine Torres [phone] REASON FOR VISIT cancelled patient's procedure Encounters Encounter Location Date Provider Diagnosis [facility] [address] [place] [address] 05/22/2024 Constantine Cervantes PLAN OF TREATMENT No Information
--- OUTSIDE RECORDS SUMMARY | 2024-05-31 11:36 | XMS_ITS ---
Author Organization [facility] Address [address] [place] [address] Care Team Providers Care Clin Tech Name Role Phone Kaci Null MD Primary Care Provider Constantine Torres [phone] MEDICATIONS Medication SIG (Take, Route, Frequency, Duration) Notes Start Date End Date Status Omeprazole 20 MG 2 Orally Every morni ng and every evening for 30 day(s) 06/30/2022 Unknown Omeprazole 40 MG TAKE 1 CAPSULE BY [facility] TWICE A DAY for 90 Unknown Cyclobenzaprine HCl 10 MG Oral for 20 Unknown Fenofibrate 160 MG Oral for 90 Unknown Famotidine 40 MG 1 Orally Twice a day with your Omeprazole twice a day for 30 days Unknown Encounters Encounter Location Date Provider Diagnosis [facility] [address] [place] [address] 04/09/2024 Constantine Cervantes PLAN OF TREATMENT No Information
--- OUTSIDE RECORDS SUMMARY | 2024-05-31 11:36 | XMS_ITS ---
Author Organization [facility] Address [address] [place] [address] Care Team Providers Care Sugar Controller Name Role Phone Kaci Null MD Primary Care Provider Constantine Torres [phone] REASON FOR VISIT esophageal stricture, dysphagia, abn barium swallow Encounters Encounter Location Date Provider Diagnosis [facility] [place] [address] [place], [place] [phone] 05/23/2024 Constantine Cervantes PLAN OF TREATMENT No Information
== END ==
LOC: HO.SL 08:47
PROVIDERS: PCP Internal Medicine; Visit Provider Internal Medicine
DX: G47.10 Hypersomnia, unspecified (principal)
CPT/HCPCS: 95806

== ENCOUNTER 2024-06-21 08:49 | Outpatient (RCR) | payer OTHER, SELFPAY ==
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
--- NOTE | 2024-06-21 10:57 | MHC.PT.DC ---
[facility] [place] Office [place] Office [place] Office [address] Falguni Mujica [address] [phone] F: [phone] F: [phone] F: [phone] F: [phone] Physical Therapy Discharge Report Diagnosis: LBP with lumbar radiculopathy Date of Surgery: Date of Evaluation: 05/30/24 Date of Discharge: Treatments to Date: 8 Cancellations to Date: 0 No Shows to Date: 0 Discharge Status: Discharge Summary: Hank has been an active participant in his therapy in the clinic although he is I with a basic program and has completed his course he unfortunately he persists with decreased tolerance for standing and walking as well as performing heavier HH chores. He is encouraged to continue his program at home to his tolerance and recommended to f/u with his providers for next steps. Of note: He is motivated for a denied lumbar procedure d/t lack of therapy which may have affected his outcome. Electronically signed by: Please sign and return to therapist. Thank you for your referral.
--- NOTE | 2024-06-21 11:00 | MHC.PT.DC ---
[facility] [place] Office [place] Office [place] Office [address] Falguni Mujica 140 [facility] [phone] F: [phone] F: [phone] F: [phone] F: [phone] Physical Therapy Discharge Report Diagnosis: LBP with lumbar radiculopathy Date of Surgery: Date of Evaluation: 05/30/24 Date of Discharge: 06/21/24 Treatments to Date: 8 Cancellations to Date: 0 No Shows to Date: 0 Discharge Status: Independent with HEP Recommend MD Follow-up Discharge Summary: Hank has been an active participant in his therapy in the clinic although he is I with a basic program and has completed his course he unfortunately he persists with decreased tolerance for standing and walking as well as performing heavier HH chores. He is encouraged to continue his program at home to his tolerance and recommended to f/u with his providers for next steps. Of note: He is motivated for a denied lumbar procedure d/t lack of therapy which may have affected his outcome. Electronically signed by: Yovany Moreno PT. Please sign and return to therapist. Thank you for your referral.
== END 2024-06-21 10:58 | disposition home or self-care (01) ==
LOC: HO.PT 08:49
PROVIDERS: PCP Internal Medicine; Visit Provider Internal Medicine
DX: M54.16 Radiculopathy, lumbar region (principal)
CPT/HCPCS: 97110; 97161

== ENCOUNTER 2024-08-02 09:43 | Outpatient (AMB) | payer OTHER, SELFPAY ==
[2024-08-02 09:47] VITALS: BP 136/70; PULSE 71; O2SAT 98; BMI 32.3
--- NOTE | 2024-08-02 09:47 | MHC.PC.OV ---
Vital Signs 08/02/24 09:47 Height 5 ft 7 in Weight 206 lb BMI 32.3 BP 136/70 Blood Pressure Location Lt brachial Position Sitting Pulse 71 Pulse Source Pulse Oximeter Pulse Oximetry (%) 98 Oxygen Delivery Method Room Air Intake Visit Reasons: sob on Exertion Allergies No Known Allergies Allergy (Verified 08/02/24 09:47) Medication List - Last Reconciled 08/02/24 by Kaci Null MD [AUTO PAP 6-20 cm H20 humidified AIR Sleep study done 05/31/2024 results showing obstructive sleep apnea moderately severe AHI of 16 borderline total hypoxemia consider starting CPAP auto PAP mode pressure setting 6-20 cm] cyclobenzaprine 10 mg PO TID PRN famotidine 40 mg PO BID fenofibrate 160 mg PO DAILY omeprazole 40 mg PO BID Tobacco use date assessed: 08/02/24 Dental Screening Dental Screen Date: 08/02/24 Did you have a dental visit in the last 12 months?: Yes Did you have a dental problem in the last 6 months where you did not have access to dental care?: No Was dental information given to patient?: Patient has dentist [facility] Medical History Shoulder pain, left Swelling of left foot Cellulitis of left foot Penile pain, chronic Shoulder pain LFT elevation Colon cancer screening Vision changes Hx of hiatal hernia GERD (gastroesophageal reflux disease) Colonoscopy planned Dysphagia Neuropathy of left foot Tobacco abuse Alcohol abuse Obesity (BMI 30-39.9) No known health problems Surgical History History of prostate surgery History of endoscopy History of colonoscopy History of shoulder surgery Family History Mother Myocardial infarct CVA (cerebral vascular accident) Social History Housing: Apartment Alcohol intake: current Alcohol intake frequency: former alcohol drinker Alcohol type: beer Comment: improving with flatus passing stopped 2022 Patient Tobacco Use Status: Former Tobacco user Tobacco use type: Cigarette Years Smoked: 20stopped 2022 e-Cigarette/Vaping Use: Never Used Second Hand Smoke Exposure: Yes service: No Current occupational status: unemployed Cognitive needs: No Hearing needs: No Vision needs: No Questionnaire PHQ-9 Over the last 2 weeks, how often have you been bothered by any of the following problems? 1. Little interest or pleasure in doing things: not at all 2. Feeling down, depressed, or hopeless: not at all 3. Trouble falling or staying asleep, or sleeping too much: not at all 4. Feeling tired or having little energy: not at all 5. Poor appetite or overeating: not at all 6. Feeling bad about yourself - or that you are a failure or have let yourself or your family down: not at all 7. Trouble concentrating on things, such as reading the newspaper or watching television: not at all 8. Moving or speaking so slowly that other people could have noticed. Or the opposite - being so fidgety or restless that you have been moving around a lot more than usual: not at all 9. Thoughts that you would be better off or of hurting yourself in some way: not at all Total score: 0 Depression Screening Interpretation: Negative Depression Screening Done: Yes 97773 - PHQ-9 Billing: Yes Source: Developed by Drs. Constantine Mello, Meredith Sheikh, Goyo Mendes and colleagues, with an educational pedro from [employer]. Thrive Questionnaire Date Thrive assessed: 08/02/24 I am a: Patient What is your living situation today?: I have a steady place to live Within the past 12 months, did the food you bought not last and you didn't have the money to get more?: Never true Within the past 12 months, did you worry whether your food would run out before you got money to buy more?: Never true Do you have trouble paying for medicines?: No Do you have trouble getting transportation to medical appointments?: No Do you have trouble paying your heating and electricity bill?: No Do you have trouble taking care of your child, family member or friend?: No Do you have trouble with day-to-day activities such as bathing, preparing meals, shopping, managing finances, etc.?: No Are you currently unemployed and looking for a job?: No Are you interested in more education?: No Please select the resources that you would like help with: None Currently or been in a relationship where the following occur: No concerns reported THRIVE Score: 0 AUDIT C Alcohol Use Questionnaire (AUDIT-C) 1. How often do you have a drink containing alcohol?: Never 3. How often do you have six or more drinks on one occasion?: Never Total Score: 0 Score Reviewed/Action Taken: No BARRINGTON-7 AMB Questionnaire BARRINGTON-7 Date BARRINGTON - 7 assessed: 08/02/24 Feeling nervous, anxious, or on edge: 0 = Not at all Not being able to stop or control worryin = Not at all Worrying too much about different things: 0 = Not at all Trouble relaxin = Not at all Being so restless that it is hard to sit still: 0 = Not at all Becoming easily annoyed or irritable: 0 = Not at all Feeling afraid as if something awful might happen: 0 = Not at all Total BARRINGTON-7 score (0-4 normal; 5-9 mild; 10-14 moderate; 15-21 severe): 0 Source: Developed by Drs. Constantine Mello, Meredith Sheikh, Goyo Mendes and colleagues, with an educational pedro from [employer]. Physical exam (Primary Care) Vital Signs: Last Vital Signs Pulse 71 08/02/24 09:47 BP 136/70 08/02/24 09:47 Pulse Ox 98 08/02/24 09:47 Oxygen Delivery Method Room Air 08/02/24 09:47 BMI result Body Mass Index 32.3 Tobacco/Smoking Status: Tobacco use Status Tobacco use date assessed 08/02/24 08/02/24 09:48 Patient Tobacco Use Status Former Tobacco user 08/02/24 09:48 Tobacco use type Cigarette 08/02/24 09:48 e-Cigarette/Vaping Use Never Used 08/02/24 09:48 PHQ-9: PHQ-9 Score PHQ-9: Total score 0 08/02/24 10:29 Depression Screening Interpretation: Negative Thrive Assessment: Date of Thrive Assessment Date Thrive assessed 08/02/24 08/02/24 09:48 Currently or been in a relationship where the following occur: No concerns reported Const General: alert; No acute distress Eyes Conjunctivae: conjunctivae normal Resp Auscultation: clear to auscultation bilaterally Cardio Rate: regular rate Rhythm: regular rhythm GI Inspection: Yes normal to inspection Extrem General: Yes normal to inspection and No edema Coding Level of Care Code Est Pt Level 4 (41260) Complex EM visit Add On G2211 Diagnoses KEELY (obstructive sleep apnea) G47.33 SOB (shortness of breath) on exertion R06.02 Impaired fasting blood sugar R73.01 Prostate cancer C61 BPH w urinary obs/LUTS N40.1; N13.8 Obesity (BMI 30.0-34.9) E66.9 Hypercholesterolemia E78.00 Fatty liver K76.0 Shoulder pain, left M25.512 Additional Codes PHQ-9 - 05095 - PHQ-9 Billing: Yes ([id number]) Assessment & Plan Assessment & Plan (1) KEELY (obstructive sleep apnea): Comment: Sleep study done 05/31/2024 results showing obstructive sleep apnea moderately severe AHI of 16 borderline total hypoxemia consider starting CPAP auto PAP mode pressure setting 6-20 cm Code(s): G47.33 - Obstructive sleep apnea (adult) (pediatric) Category: Medical Plan: Discussed about treatment of sleep apnea with CPAP (2) SOB (shortness of breath) on exertion: Code(s): R06.02 - Shortness of breath Category: Medical Plan: Patient was advised to get nuclear stress test (3) Impaired fasting blood sugar: Code(s): R73.01 - Impaired fasting glucose Category: Medical Plan: Decrease the amount of carbohydrate intake, pasta, bread, rice and potatoes are all sugar and that is aside from all the sweet stuff, remember that fruits are good but they are Sweet also. (4) Prostate cancer: Comment: 01/[address] Gloria Code(s): C61 - Malignant neoplasm of prostate Category: Medical Plan: Patient follows up with urology (5) BPH w urinary obs/LUTS: Comment: Prostate biopsy January 2023 with MRI done May 2023 Code(s): N40.1 - Benign prostatic hyperplasia with lower urinary tract symptoms; N13.8 - Other obstructive and reflux uropathy Category: Medical Plan: Patient follows up with urology (6) Obesity (BMI 30.0-34.9): Code(s): E66.9 - Obesity, unspecified Category: Medical Plan: Diet and exercise (7) Hypercholesterolemia: Code(s): E78.00 - Pure hypercholesterolemia, unspecified Category: Medical Plan: Avoid fried foods, chicken skin, eggs, butter margarine, pastries and meat. Be it pork or beef they have a lot of cholesterol LDL goal of less than 130 and triglyceride of less than 150 patient on fenofibrate (8) Fatty liver: Code(s): K76.0 - Fatty (change of) liver, not elsewhere classified Category: Medical Plan: Low-fat diet and exercise (9) Shoulder pain, left: Code(s): M25.512 - Pain in left shoulder Category: Medical Plan History of Present Illness The patient is a 64-year-old male presenting with concerns regarding sleep apnea and hyperlipidemia management. He underwent a sleep study revealing obstructive sleep apnea with 16 apneic episodes per hour related to obesity due to airway obstruction. Compliance with CPAP therapy has not commenced due to device non-receipt. He has hyperlipidemia with past triglyceride levels recorded at 710 mg/dL in May 2023, currently lowered to 427 mg/dL with fenofibrate. The patient is on a no-fat diet and is monitoring LDL and triglyceride levels. Impaired glucose tolerance is evident with fasting glucose at 101 mg/dL, managed through dietary guidance focusing on reduced carbohydrate intake. Additionally, a diagnosis of fatty liver is present, attributed to unhealthy lifestyle choices. There is a history of prostate cancer, with recent PSA levels at 4.27 ng/mL, maintaining a follow-up schedule with urology. Musculoskeletal complaints are centered on shoulder pain, extending to upper extremities, and exhibiting symptoms during rest, and a burning sensation associated with restless legs suspected to exacerbate during apneic episodes. Health Maintenance - Evaluation and management of obstructive sleep apnea requiring CPAP therapy. - Monitoring for hyperlipidemia with focus on non-fat dietary intake. - Impaired glucose tolerance managed through dietary modifications, emphasizing carbohydrate reduction. - Fatty liver addressed through lifestyle modifications and increased plant-based dietary intake. - Regular PSA monitoring and continued urology follow-up for prostate health. - Recommendations for weight reduction to alleviate sleep apnea and improve overall health. Social History - The patient struggles with maintaining a healthy diet, specifically reducing carbohydrate and fat intake. - There is documented weight gain, impacting overall health management. - The patient shows intermittent adherence to prescribed therapies and lifestyle modifications. Review of Systems - Musculoskeletal: Reports shoulder pain with numbness and burning sensation in the upper extremities, exacerbated in certain positions (specifically on lying sideways or during sleep). - Neurological: Reports symptoms suggestive of restless leg syndrome. - Respiratory: Denies daytime somnolence but experiences disturbed sleep due to apneic episodes. Physical Exam - Cardiovascular- Heart rate regular during visit. - Musculoskeletal- Restricted shoulder mobility with numbness reported during certain activities. Results - Labs: Triglycerides at 710 mg/dL in May 2023, improved to 427 mg/dL with fenofibrate. - Test: Sleep study indicating 16 apneic events per hour. - Diagnostics: PSA level recorded at 4.27 ng/mL in April. Plan The patient will begin CPAP therapy for sleep apnea management. Hyperlipidemia requires continued fenofibrate therapy and dietary modifications to lower triglycerides and achieve target LDL levels. Impaired glucose tolerance shall be managed through carbohydrate monitoring with emphasis on lifestyle counseling. Prostate health remains under vigilant monitoring with continued urology follow-up. The patient is referred to orthopedics for a detailed evaluation of persistent shoulder pain. Weight management is essential, necessitating a concerted focus on diet and exercise to reduce obesity's impact on sleep apnea and cardiovascular risk. Patient was informed and verbally consented to the use of an ambient scribe for clinic note documentation during this visit. Discussion Notes I discussed with the patient the critical need for CPAP initiation to manage sleep apnea and its implications for heart health, emphasizing weight loss as a contributing factor. The discussion informed that hyperlipidemia control would progress with diet modifications and ongoing fenofibrate therapy. The benefit of lifestyle shifts for managing impaired glucose tolerance and fatty liver was underscored. Additionally, I advised that the current state of prostate cancer requires continued urology oversight. The patient was counseled on orthopedic follow-up for unresolved shoulder pain and informed about the potential correlation with sleep apnea-related musculoskeletal discomfort. Vigilant adherence to dietary strategies for weight and metabolic syndrome management was highlighted as central to patient outcomes, advocating sustained patient engagement. Patient Instructions - Begin CPAP therapy as soon as you receive the device and use it consistently during sleep. - Continue taking fenofibrate as prescribed for cholesterol management. - Follow dietary recommendations, minimize fat and carbohydrate intake, and strive for a healthy, balanced diet. - Engage in regular physical activity aimed at promoting weight reduction. - Continue follow-up with urology for prostate health. - Follow up with the orthopedics referral to evaluate your persistent shoulder pain. - Report any worsening of your symptoms or new issues. - Be proactive in following up if you do not hear from us regarding the CPAP by the provided timeframe. Orders: Orders Hemoglobin A1c Today R73.01 - Impaired fasting glucose Free T4 (Free Thyroxine) Today R73.01 - Impaired fasting glucose Thyroid Stimulating Hormone Today R73.01 - Impaired fasting glucose Lipid Panel Today E78.00 - Pure hypercholesterolemia, unspecified, R73.01 - Impaired fasting glucose PSA,Total (Free>4and<10) Today R73.01 - Impaired fasting glucose Comprehensive Met. Panel Today R73.01 - Impaired fasting glucose Complete Blood Count Auto Diff Today R73.01 - Impaired fasting glucose Referrals Orthopedics Referral M25.512 - Pain in left shoulder
--- OUTSIDE RECORDS SUMMARY | 2024-08-02 10:12 | XMS_ITS ---
Author Organization [facility] Address [address] [place] [address] Care Team Providers Care Hand Lacer Name Role Phone Kaci Null MD Primary Care Provider Constantine Torres [phone] REASON FOR VISIT esophageal stricture, dysphagia, abn barium swallow Encounters Encounter Location Date Provider Diagnosis [facility] Outpatient [address] [place], [place] [id number] 05/23/2024 Constantine Cervantes Plan Of Treatment No Information Progress Notes * SANDY VELAZCO DODOB:1960 (64 yo M)Acc No.[id number]:05/23/2024 EGD/MAC Patient:?ABIDA VELAZCO Provider:?Constantine Cervantes MD :1960???Age:63 Y???Sex:Male Maxim e:05/23/2024 Address:[address] [place], [place] [id number] Pcp:Kaci Null MD Subjective: * Chief Complaints: * ???1. Esophageal stricture, dysphagia, abn barium swallow. * Medical History:? Objective: * Vitals:? Assessment: Plan: * Treatment: * * The named appointment provid er may or may not be the originator of this progress note, and it is not deemed complete until electronically signed by the appointment provider. Sign off status: Pending * Provider:?Constantine Cervantes MD Date:? 025 Generated for Ortega fletcher/Laura/Kiana on:?08/02/2024 10:12 AM EDT
--- OUTSIDE RECORDS SUMMARY | 2024-08-02 10:13 | XMS_ITS ---
Author Organization [facility] Address [address] [place] [id number] Care Team Providers Care Welder Experimental Name Role Phone Kaci Null MD Primary Care Provider Constantine Torres [phone] Medications Medication SIG (Take, Route, Frequency, Duration) Notes Start Date End Date Status Omeprazole 20 MG 2 Orally Every morni ng and every evening for 30 day(s) 06/30/2022 Unknown Omeprazole 40 MG TAKE 1 CAPSULE BY [facility] TWICE A DAY for 90 Unknown Cyclobenzaprine HCl 10 MG Oral for 20 Unknown Fenofibrate 160 MG Oral for 90 Unknown Famotidine 40 MG 1 Orally Twice a day with your Omeprazole twice a day for 30 days Unknown Encounters Encounter Location Date Provider Diagnosis [facility] [address] [place] [id number] 04/09/2024 Constantine Cervantes Plan Of Treatment No Information Progress Notes * SANDY VELAZCO DODOB:1960 (63 yo M)Acc No.[id number]:04/09/2024 Patient:?MENARDABIDA REYNOSO :1960???Age:63 Y???Sex:Male Address:[address] [place] [address], [address] Subjective: * Chief Complaints: * ??? * Medical History:? * Surgical History:? * Hospitalization/Major Diagno stic Procedure:? * Medications:?UnknownOmeprazo le 20 MG Capsule Delayed Release 2 Orally Every morning and every eveningCyclobenzaprine HCl 10 MG Tablet Oral Fenofibrate 160 MG Tablet Oral Famotidine 40 MG Tablet 1 Orally Twice a day with your Omeprazole twice a dayOmeprazole 40 MG Capsule Delayed Release TAKE 1 CAPSULE BY MOUTH TWICE A DAY Medication List reviewed and reconciled with the patientUnknown Omeprazole 20 MG Capsule Delayed Release 2 Orally Every morning and every eveningUnknown Cyclobenzaprine HCl 10 MG Tablet Oral Unknown Fenofibrate 160 MG Tablet Oral Unknown Famotidine 40 MG Tablet 1 Orally Twice a day with your Omeprazole twice a dayUnknown Omeprazole 40 MG Capsule Delayed Release TAKE 1 CAPSULE BY MOUTH TWICE A DAY Medication List reviewed and reconciled with the patient Objective: Assessment: Plan: * Treatment: * Procedure Codes:? * true * Date:? Generated for Ortega fletcher/Laura/Kiana on:?08/02/2024 10:13 AM EDT
--- OUTSIDE RECORDS SUMMARY | 2024-08-02 10:13 | XMS_ITS | Patient Health Record ---
Author Organization [facility] Address [address] [place] [phone] Care Team Providers Care Tool Designer Apprentice Name Role Phone Kaci Null MD Primary Care Provider Constantine Torres [facility] [phone] Allergies No Known Allergies Results Component Value Reference Range Notes FL barium swallow Reviewed date:01/08/2024 09:06:05 PM Interpretation: Performing Lab: Notes/Report: [address] [address] Fluoroscopy Report Signed Patient: Hank Jacobs MR#: [id number] : 1960 Acct:[id number] Age/Sex: 63 / M ADM Date: 09/20/23 Loc: [facility] Attending Dr: Constantine Cervantes MD Ordering Physician: Constantine Cervantes Date of Service: 09/20/23 Procedure(s): FL barium swallow Accession Number(s): [id number] cc: Kaci Null MD; Constantine Cervantes EXAMINATION: [...] by Dr. Johnson Dictated By: Luis Carlos Lindsye Signed By: <Electronically signed by Luis Carlos Lindsey in OV> 10/03/23 5944 <Electronically signed by Chidi Johnson MD in OV> 10/03/23 1828 DD/ 1 TD/TT: Insights Analyst: [address] [address] Fluoroscopy Report Signed Patient: Hank Jacobs MR#: [id number] : 1960 Acct:[id number] Age/Sex: 63 / M ADM Date: 09/20/23 Loc: [facility] Attending Dr: Constantine Cervantes MD Ordering Physician: Constantine Cervantes Date of Service: 09/20/23 Procedure(s): FL barium swallow Accession Number(s): [id number] cc: Kaci Null MD ; Constantine Cervantes EXAMINATION: XR FLUOROSCOPY UPPER GI WITH AIR CLINICAL INFORMATION: Dysphagia COMPARISON: None TECHNIQUE: Fluoroscopic air con trast upper GI examination was performed utilizing standard techniques with thin and thick barium and effervescent granules. Numerous s pot images were obtained. FINDINGS: Lateral cine images of the oropharynx and hypopharynx demonstrate normal swallow mecha nism with normal epiglottic inversion and soft palate elevation. No tracheal penetration, glottic or subglottic aspiration identifie d. No nasopharyngeal reflux present. Hypopharyngeal structures appear no rmal without evidence of mass or diverticulum. Mild cricopharyngeal lorraine lasia present. Dual and single cont rast images of the esophagus demonstrate normal caliber, contour, an d mucosal pattern. No evidence of stricture, mass, or ulcerations ident ified. Esophageal peristalsis is mildly disorganized. There is mild narrowing of the GE junction above the hiatal hernia. The p atient swallowed the barium pill without any difficulty. There wa s temporary stasis of the tablet at level of the GE junction, however, t he tablet passed freely into the stomach without difficulty. A small type I hiata l hernia is present. No significant gastroesophageal ref lux was seen during the course of the examination and on reflux views. Dual contrast and si ngle contrast images of the stomach demonstrated a normal contour. Ther e are a few small foci of contrast pooling in the fundus and body the stomach. No masses are seen. Contrast freely passed into the gastric ant rum and duodenal bulb without delay. Single and air-contr ast images of the duodenal bulb demonstrate no abnormality. The duo denal sweep has a normal appearance, course, and mucosal fold appeara nce. The imaged proximal jejunum has a normal fold pattern and caliber. FLUOROSCOPY TIME: 4 minutes 4 seconds Number of Spot Images: 4 Number of Cine: 15 DOSE AREA PRODUCT: 3315 uGy-m2 (microgr ay-meter squared) F L/FL barium swallow IMPRESSION: 1. Mild cricopharyng eal achalasia. 2. Mildly disorganiz ed esophageal peristalsis. 3. Mild narrowing of the GE junction above the hiatal hernia. There was temporary stasis of the barium tablet at the level of the GE junction, however, tablet pass ed freely into the stomach. 4. Small type I hiatal hernia. 5. Multiple small fo ci of contrast pooling in the fundus and body the stomach that may rep resent small superficial aphthous ulcers, and erosive gastritis. R ecommend correlation with EGD. This procedure was p erformed by Luis Carlos Lindsey PA-C, and supervised by Dr. Johnson Dictated By: Luis Carlos Lindsey Signed By: <Electron ically signed by Luis Carlos Lindsey in OV> 10/03/23 1749 <Electronically sign ed by Chidi Johnson MD in OV> 10/03/23 1753 DD/ 0822 TD/TT: Insights Analyst: Reason For Referral No Information Medications Medication SIG (Take, Route, Frequency, Duration) Notes Start Date End Date Status Omeprazole 20 MG 2 Orally Every morni ng and every evening for 30 day(s) 06/30/2022 Unknown Omeprazole 40 MG TAKE 1 CAPSULE BY [facility] TWICE A DAY for 90 Unknown Cyclobenzaprine HCl 10 MG Oral for 20 Unknown Fenofibrate 160 MG Oral for 90 Unknown Famotidine 40 MG 1 Orally Twice a day with your Omeprazole twice a day for 30 days Unknown Immunizations Vaccine Route Administration Date Status Comme nts Influenza Unknown 10/14/2020 Refused Social History Tobacco Use: Social History Observation Description Date Details (start date - stop date) Former Smoker NA - NA Tobacco Use/Smoking Question Answer Notes Patient is a former smoker How long has it been since you last smoked? 1-5 years Alcohol Screen Question Answer Notes Did you have a drink containing alcohol in the p ast year? No Points 0 Interpretation Negative Section Notes: Occasional smoker; occasiona l alcohol Occasional smoker; occasiona l alcohol Nonsmoker since 2020; occasi onal alcohol Nonsmoker since 2020; occasi onal alcohol Nonsmoker since 2020; occasi onal alcohol Nonsmoker since 2020; Problems Problem Type SNOMED Code ICD Code Onset Dates Problem Status W/U Status Risk Notes Problem Esophageal reflux (407863305) Esophageal reflux (K21.9) Active confirmed Problem 257617413 Encounter for screening for malignant neoplasm of colon (Z12.11) Active confirmed Problem 170305589 History of adenomatous polyp of colon (Z86.010) Active confirmed Problem Stricture of esophagus (25715279) Esophageal obstruction (K22.2) Active confirmed Problem Dysphagia (00393341) Dysphagia (R13.10) Active confirmed Problem Esophageal stricture (37973864) Esophageal stricture (K22.2) Active confirmed Problem Erosive esophagitis (83015873) Erosive esophagitis (K22.10) Active confirmed Problem Esophageal ring (86226295) Esophageal ring (K22.2) Active confirmed Problem 913074307 Abnormal barium swallow (R93.3) Active confirmed Problem Diverticulosis of sigmoid colon (653186441) Diverticulosis of sigmoid colon (K57.30) Active confirmed Problem 75945361 Esophageal dysphagia (R13.10) Active confirmed Problem Diverticulosis of colon (489843926) Diverticulosis of colon (K57.30) Active confirmed Problem Gastroesophageal reflux disease (533433436) Chronic GERD (K21.9) Active confirmed Vital Signs Blood pressure diastolic 00 mm Hg 01/19/2024 Height 67 in 01/19/2024 Blood pressure systolic 00 mm Hg 01/19/2024 Weight 201 lbs 01/19/2024 BMI 31.48 kg/m2 01/19/2024 Encounters Encounter Location Date Provider Diagnosis [facility] [address] [place] [phone] 09/15/2023 Constantine Cervantes Esophageal stricture K22.2 ; Dysphagia R13.10 and Chronic GERD K21.9 [facility] [address] [place] [phone] 01/19/2024 Constantine Cervantes Esophageal dysphagia R13.10 ; Esophageal stricture K22.2 ; Abnormal barium swallow R93.3 ; Encounter for screening for malignant neoplasm of colon Z12.11 and History of adenomatous polyp of colon Z86.010 [facility] [address] [place] [phone] 09/26/2023 Constantine Cervantes [facility] [address] [place] [phone] 04/09/2024 Constantine Cervantes [facility] [address] [place] [phone] 05/22/2024 Constantine Helen Assessments Encounter Date Diagnosis (ICD Code) Assessment Notes Treatment Notes Treatment Clinical Notes Section Notes 09/15/2023 Dysphagia (ICD-10 - R13.10) Overall, Hank appears quite well. We did review the findings of his endoscopy from May. Both the endoscopy and his clinical history remain clinically improved compared to his original presentation back in 2020. I recommended that he continue his current medical regimen of both the omeprazole and famotidine at 40 mg b.i.d.. I am going to repeat a barium swallow with a barium tablet just to be sure there is no sign of obstruction at this point, as compared to his original barium swallow in 2020. Assuming that appears without any sign of obstruction or narrowing of the esophagus, I would plan to see him in the fall for followup visit. We also reviewed and he will be due for a followup colonoscopy in 2025 given his previous history of significant colon polyps and his last colonoscopy being in 2022. I did advise him to call me prior to the fall appointment if any problems or questions I can be of assistance with. He was comfortable with this plan. Thank you again for allowing me to participate in Hank's care. I shall continue to keep you advised of his progress. 09/15/2023 Esophageal stricture (ICD-10 - K22.2) Overall, Hank appears quite well. We did review the findings of his endoscopy from May. Both the endoscopy and his clinical history remain clinically improved compared to his original presentation back in 2020. I recommended that he continue his current medical regimen of both the omeprazole and famotidine at 40 mg b.i.d.. I am going to repeat a barium swallow with a barium tablet just to be sure there is no sign of obstruction at this point, as compared to his original barium swallow in 2020. Assuming that appears without any sign of obstruction or narrowing of the esophagus, I would plan to see him in the fall for followup visit. We also reviewed and he will be due for a followup colonoscopy in 2025 given his previous history of significant colon polyps and his last colonoscopy being in 2022. I did advise him to call me prior to the fall appointment if any problems or questions I can be of assistance with. He was comfortable with this plan. Thank you again for allowing me to participate in Hank's care. I shall continue to keep you advised of his progress. 01/19/2024 Esophageal stricture (ICD-10 - K22.2) Overall, Hank appears quite well. He seems to be eating comfortably but still has the sensation of food sticking in the lower esophagus requiring water to wash it down. His symptoms of heartburn and reflux seem to be stable on his current medical regimen. The barium swallow he had in August is certainly reassuring although the barium tablet did hang up transiently at the gastroesophageal junction. At this point I advised him to continue his current medical regimen. He will undergo a followup endoscopy to reassess the gastroesophageal junction and make sure no further dilation is required. He does describe that the previous dilation in May did help his swallowing at the time. I did advise him to continue to be careful and thorough with his chewing and swallowing. Full consent was obtained for the procedure, including risks of bleeding and perforation. The procedure will be done with monitored anesthesia care. As in the past, we did review the potential surgical options for repair of the hiatal hernia. Depending upon the endoscopic findings and his clinical course we can always evaluate him for that, although he would require some esophageal motility studies beforehand. We did review that he will be due for a followup colonoscopy in 2025 as well. Hank was comfortable with this plan. Thank you again for allowing me to participate in Hank's care. I shall continue to keep you advised of his progress. 01/19/2024 Esophageal dysphagia (ICD-10 - R13.10) Overall, Hank appears quite well. He seems to be eating comfortably but still has the sensation of food sticking in the lower esophagus requiring water to wash it down. His symptoms of heartburn and reflux seem to be stable on his current medical regimen. The barium swallow he had in August is certainly reassuring although the barium tablet did hang up transiently at the gastroesophageal junction. At this point I advised him to continue his current medical regimen. He will undergo a followup endoscopy to reassess the gastroesophageal junction and make sure no further dilation is required. He does describe that the previous dilation in May did help his swallowing at the time. I did advise him to continue to be careful and thorough with his chewing and swallowing. Full consent was obtained for the procedure, including risks of bleeding and perforation. The procedure will be done with monitored anesthesia care. As in the past, we did review the potential surgical options for repair of the hiatal hernia. Depending upon the endoscopic findings and his clinical course we can always evaluate him for that, although he would require some esophageal motility studies beforehand. We did review that he will be due for a followup colonoscopy in 2025 as well. Hank was comfortable with this plan. Thank you again for allowing me to participate in Hank's care. I shall continue to keep you advised of his progress. 09/15/2023 Chronic GERD (ICD-10 - K21.9) Overall, Hank appears quite well. We did review the findings of his endoscopy from May. Both the endoscopy and his clinical history remain clinically improved compared to his original presentation back in 2020. I recommended that he continue his current medical regimen of both the omeprazole and famotidine at 40 mg b.i.d.. I am going to repeat a barium swallow with a barium tablet just to be sure there is no sign of obstruction at this point, as compared to his original barium swallow in 2020. Assuming that appears without any sign of obstruction or narrowing of the esophagus, I would plan to see him in the fall for followup visit. We also reviewed and he will be due for a followup colonoscopy in 2025 given his previous history of significant colon polyps and his last colonoscopy being in 2022. I did advise him to call me prior to the fall appointment if any problems or questions I can be of assistance with. He was comfortable with this plan. Thank you again for allowing me to participate in Hank's care. I shall continue to keep you advised of his progress. 01/19/2024 Abnormal barium swallow (ICD-10 - R93.3) Overall, Hank appears quite well. He seems to be eating comfortably but still has the sensation of food sticking in the lower esophagus requiring water to wash it down. His symptoms of heartburn and reflux seem to be stable on his current medical regimen. The barium swallow he had in August is certainly reassuring although the barium tablet did hang up transiently at the gastroesophageal junction. At this point I advised him to continue his current medical regimen. He will undergo a followup endoscopy to reassess the gastroesophageal junction and make sure no further dilation is required. He does describe that the previous dilation in May did help his swallowing at the time. I did advise him to continue to be careful and thorough with his chewing and swallowing. Full consent was obtained for the procedure, including risks of bleeding and perforation. The procedure will be done with monitored anesthesia care. As in the past, we did review the potential surgical options for repair of the hiatal hernia. Depending upon the endoscopic findings and his clinical course we can always evaluate him for that, although he would require some esophageal motility studies beforehand. We did review that he will be due for a followup colonoscopy in 2025 as well. Hank was comfortable with this plan. Thank you again for allowing me to participate in Hank's care. I shall continue to keep you advised of his progress. 01/19/2024 Encounter for screening for malignant neoplasm of colon (ICD-10 - Z12.11) Repeat colonoscopy in 2025 Overall, Hank appears quite well. He seems to be eating comfortably but still has the sensation of food sticking in the lower esophagus requiring water to wash it down. His symptoms of heartburn and reflux seem to be stable on his current medical regimen. The barium swallow he had in August is certainly reassuring although the barium tablet did hang up transiently at the gastroesophageal junction. At this point I advised him to continue his current medical regimen. He will undergo a followup endoscopy to reassess the gastroesophageal junction and make sure no further dilation is required. He does describe that the previous dilation in May did help his swallowing at the time. I did advise him to continue to be careful and thorough with his chewing and swallowing. Full consent was obtained for the procedure, including risks of bleeding and perforation. The procedure will be done with monitored anesthesia care. As in the past, we did review the potential surgical options for repair of the hiatal hernia. Depending upon the endoscopic findings and his clinical course we can always evaluate him for that, although he would require some esophageal motility studies beforehand. We did review that he will be due for a followup colonoscopy in 2025 as well. Hank was comfortable with this plan. Thank you again for allowing me to participate in Hank's care. I shall continue to keep you advised of his progress. 01/19/2024 History of adenomatous polyp of colon (ICD-10 - Z86.010) Overall, Hank appears quite well. He seems to be eating comfortably but still has the sensation of food sticking in the lower esophagus requiring water to wash it down. His symptoms of heartburn and reflux seem to be stable on his current medical regimen. The barium swallow he had in August is certainly reassuring although the barium tablet did hang up transiently at the gastroesophageal junction. At this point I advised him to continue his current medical regimen. He will undergo a followup endoscopy to reassess the gastroesophageal junction and make sure no further dilation is required. He does describe that the previous dilation in May did help his swallowing at the time. I did advise him to continue to be careful and thorough with his chewing and swallowing. Full consent was obtained for the procedure, including risks of bleeding and perforation. The procedure will be done with monitored anesthesia care. As in the past, we did review the potential surgical options for repair of the hiatal hernia. Depending upon the endoscopic findings and his clinical course we can always evaluate him for that, although he would require some esophageal motility studies beforehand. We did review that he will be due for a followup colonoscopy in 2025 as well. Hank was comfortable with this plan. Thank you again for allowing me to participate in Hank's care. I shall continue to keep you advised of his progress. Plan Of Treatment Pending Test Test Name Order Date XR [...] Insured Coverage Start Date Coverage End Date [employer] Plan [address] [address] [place], [place] [id number] HANK JACOBS Self - patient is the insured [place] [address] [place] [address] [id number] HANK JACOBS Self - patient is the insured Medical (General) History Medical History History ICD Code Denies OH,DM,CVA,Lung disease,renal dise ase Cortisone injection in the [...]
--- OUTSIDE RECORDS SUMMARY | 2024-08-02 10:13 | XMS_ITS ---
Author Organization [facility] Address [address] [place] [phone] Care Team Providers Care Cook Cashier Food Prep Name Role Phone Kaci Nlul MD Primary Care Provider Constantine Torres [phone] REASON FOR VISIT cancelled patient's procedure Encounters Encounter Location Date Provider Diagnosis [facility] [address] [place] [phone] 05/22/2024 Constantine Cervantes Plan Of Treatment No Information Progress Notes * SANDY VELAZCO DODOB:1960 (63 yo M)Acc No.[id number]:05/22/2024 Patient:?MENARD ABIDA SHEIKH :1960???Age:63 Y???Sex:Male Address:[address] [place] [address], [address] * true * Date:? Generated for Berthai chance/Laura/eTransmitting on:?08/02/2024 10:13 AM EDT
== END 2024-08-02 11:17 | disposition home or self-care (01) ==
LOC: HO.HMCH 09:44
PROVIDERS: PCP Internal Medicine; Visit Provider Internal Medicine
DX: G47.33 Obstructive sleep apnea (adult) (pediatric) (principal); C61 Malignant neoplasm of prostate; E66.9 Obesity, unspecified; Z68.32 Body mass index [BMI] 32.0-32.9, adult; R06.02 Shortness of breath; R73.01 Impaired fasting glucose; N40.1 Benign prostatic hyperplasia with lower urinary tract symptoms; N13.8 Other obstructive and reflux uropathy; E78.00 Pure hypercholesterolemia, unspecified; K76.0 Fatty (change of) liver, not elsewhere classified; M25.512 Pain in left shoulder

== ENCOUNTER → 2024-08-02 09:43 | Outpatient (BNVA) | payer OTHER, SELFPAY | PROVIDERS: PCP Internal Medicine; Visit Provider Internal Medicine | DX: G47.33 Obstructive sleep apnea (adult) (pediatric) (principal); R06.02 Shortness of breath; R73.01 Impaired fasting glucose; C61 Malignant neoplasm of prostate; N40.1 Benign prostatic hyperplasia with lower urinary tract symptoms; N13.8 Other obstructive and reflux uropathy; E66.9 Obesity, unspecified; E78.00 Pure hypercholesterolemia, unspecified; K76.0 Fatty (change of) liver, not elsewhere classified; M25.512 Pain in left shoulder; Z68.32 Body mass index [BMI] 32.0-32.9, adult; Z99.89 Dependence on other enabling machines and devices | CPT/HCPCS: 96127; 99212 ==

== ENCOUNTER 2024-08-13 06:03 | Outpatient (REF) | payer OTHER, SELFPAY ==
--- OUTSIDE RECORDS SUMMARY | 2024-08-13 06:06 | XMS_ITS | Patient Health Record ---
Author Organization [facility] Address [address] [place] [address] Care Team Providers Care Sole Sewer Hand Name Role Phone Kaci Null MD Primary Care Provider Constantine Torres [facility] [phone] Allergies No Known Allergies Results Component Value Reference Range Notes FL barium swallow Reviewed date:01/08/2024 09:06:05 PM Interpretation: Performing Lab: Notes/Report: [address] [address] Fluoroscopy Report Signed Patient: Hank Jacobs MR#: [id number] : 1960 Acct:[id number] Age/Sex: 63 / M ADM Date: 09/20/23 Loc: [facility] Attending Dr: Constantine Cervantes MD Ordering Physician: Constantine Cervantes Date of Service: 09/20/23 Procedure(s): FL barium swallow Accession Number(s): [id number] cc: Kaci Null MD; Constantine Cervantes EXAMINATION: [...] by Luis Carlos Lindsey in OV> 10/03/23 5239 <Electronically signed by Chidi Johnson MD in OV> 10/03/23 8170 DD/ 1 TD/TT: Supervisor Electronics Inspection: [address] [address] Fluoroscopy Report Signed Patient: Hank Jacobs MR#: [id number] : 1960 Acct:[id number] Age/Sex: 63 / M ADM Date: 09/20/23 Loc: HO.XRAY Attending Dr: Constantine Cervantes MD Ordering Physician: Constantine Cervantes Date of Service: 09/20/23 Procedure(s): FL barium swallow Accession Number(s): [id number] cc: Kaci Null MD ; Constantine Cervantes [...] in OV> 10/03/23 1753 DD/ 0822 TD/TT: Supervisor Electronics Inspection: Reason For Referral No Information Medications Medication SIG (Take, Route, Frequency, Duration) Notes Start Date End Date Status Omeprazole 20 MG 2 Orally Every morni ng and every evening for 30 day(s) 06/30/2022 Unknown Omeprazole 40 MG TAKE 1 CAPSULE BY [facility] TWICE A DAY for 90 Unknown Cyclobenzaprine [...] W/U Status Risk Notes Problem Esophageal reflux (407052052) Esophageal reflux (K21.9) Active confirmed Problem 475004399 Encounter for screening for malignant neoplasm of colon (Z12.11) Active confirmed Problem 611625438 History of adenomatous polyp of colon (Z86.010) Active confirmed Problem Stricture of esophagus (63903586) Esophageal obstruction (K22.2) Active confirmed Problem Dysphagia (84381864) Dysphagia (R13.10) Active confirmed Problem Esophageal stricture (15965084) Esophageal stricture (K22.2) Active confirmed Problem Erosive esophagitis (23225004) Erosive esophagitis (K22.10) Active confirmed Problem Esophageal ring (61345839) Esophageal ring (K22.2) Active confirmed Problem 515983770 Abnormal barium swallow (R93.3) Active confirmed Problem Diverticulosis of sigmoid colon (629718212) Diverticulosis of sigmoid colon (K57.30) Active confirmed Problem 44494581 Esophageal dysphagia (R13.10) Active confirmed Problem Diverticulosis of colon (108355612) Diverticulosis of colon (K57.30) Active confirmed Problem Gastroesophageal reflux disease (351734759) Chronic GERD (K21.9) Active confirmed Vital Signs Blood pressure diastolic 00 mm Hg 01/19/2024 Height 67 in 01/19/2024 Blood pressure systolic 00 mm Hg 01/19/2024 Weight 201 lbs 01/19/2024 BMI 31.48 kg/m2 01/19/2024 Encounters Encounter Location Date Provider Diagnosis [facility] [address] [place] [phone] 09/15/2023 Constantine Cervantes Esophageal stricture K22.2 ; Dysphagia R13.10 and Chronic GERD K21.9 [facility] [address] [place] [address] 01/19/2024 Constantine Cervantes Esophageal dysphagia R13.10 ; Esophageal stricture K22.2 ; Abnormal barium swallow R93.3 ; Encounter for screening for malignant neoplasm of colon Z12.11 and History of adenomatous polyp of colon Z86.010 [facility] [address] [place] [address] 09/26/2023 Constantine Cervantes [facility] [address] [place] [address] 04/09/2024 Constantine Cervantes [facility] [address] [place] [address] 05/22/2024 Constantine Helen Assessments Encounter Date Diagnosis [...] Insured Coverage Start Date Coverage End Date [employer] Plan [address] [address] [place], [place] [id number] HANK JACOBS Self - patient is the insured [place] [address] [place] [address] [id number] HANK JACOBS Self - patient is the insured Medical (General) History Medical History History ICD Code Denies VA,DM,CVA,Lung disease,renal dise ase Cortisone injection in the [...]
--- OUTSIDE RECORDS SUMMARY | 2024-08-13 06:06 | XMS_ITS ---
Author Organization [facility] Address [address] [place] [address] Care Team Providers Care Production Quality Manager Name Role Phone Kaci Null MD Primary Care Provider Constantine Torres [phone] Medications Medication SIG (Take, Route, Frequency, Duration) Notes Start Date End Date Status Omeprazole 20 MG 2 Orally Every morni ng and every evening for 30 day(s) 06/30/2022 Unknown Omeprazole 40 MG TAKE 1 CAPSULE BY [facility] TWICE A DAY for 90 Unknown Cyclobenzaprine HCl 10 MG Oral for 20 Unknown Fenofibrate 160 MG Oral for 90 Unknown Famotidine 40 MG 1 Orally Twice a day with your Omeprazole twice a day for 30 days Unknown Encounters Encounter Location Date Provider Diagnosis [facility] [address] [place] [address] 04/09/2024 Constantine Cervantes Plan Of Treatment No Information Progress Notes * SANDY VELAZCO DODOB:1960 (63 yo M)Acc No.[id number]:04/09/2024 Patient:?MENARDABIDA REYNOSO :1960???Age:63 Y???Sex:Male Address:[address] [place] [address], [address] Subjective: * Chief Complaints: * ??? * [...] true * Date:? Generated for Ortega fletcher/Laura/Kiana on:?08/13/2024 06:06 AM EDT
--- OUTSIDE RECORDS SUMMARY | 2024-08-13 06:06 | XMS_ITS ---
Author Organization [facility] Address [address] [place] [address] Care Team Providers Care Insole Tack Puller Hand Name Role Phone Kaci Null MD Primary Care Provider Constantine Torres [phone] REASON FOR VISIT cancelled patient's procedure Encounters Encounter Location Date Provider Diagnosis [facility] [address] [place] [address] 05/22/2024 Constantine Cervantes Plan Of Treatment No Information Progress Notes * SANDY VELAZCO DODOB:1960 (63 yo M)Acc No.[id number]:05/22/2024 Patient:?MENARD ABIDA SHEIKH :1960???Age:63 Y???Sex:Male Address:[address] [place] [address], [address] * true * Date:? Generated for Berthai chance/Laura/eTransmitting on:?08/13/2024 06:06 AM EDT
[2024-08-13 06:17] LABS: MANUAL DIFF FLAG NO
[2024-08-13 07:19] LABS: Basophils Percent Auto 0.5 % (0-2); Eosinophils Absolute Auto 0.4 X10*3/uL (0.0-0.4); Eosinophils Percent Auto 4.4 % (0-4); Hematocrit 47.7 % (42.0-52.0); Hemoglobin 16.4 g/dl (14.0-18.0); Imm Gran Pct Auto 1.2 % (0.0-0.4); Lymphocytes Absolute Auto 2.5 X10*3/uL (1.2-4.9); Lymphocytes Percent Auto 29.5 % (20-40); Mean Corpuscular HGB Conc 34.4 g/dl (31.0-36.0); Mean Corpuscular Hemoglobin 30.9 pg (27.0-33.0); Mean Corpuscular Volume 89.8 fL (80.0-98.0); Mean Platelet Volume 10.2 fL (9.4-12.4); Monocytes Absolute Auto 0.7 X10*3/uL (0.1-1.2); Monocytes Percent Auto 7.8 % (2-11); Neutrophils Absolute Auto 4.8 x10*3/uL (2.0-8.3); Neutrophils Percent Auto 56.6 % (45-73); Platelet Count 224 X10*3/uL (160-400); Red Blood Count 5.31 X10*6/uL (4.60-5.80); Red Cell Distribution Width 12.3 % (11.0-16.0); White Blood Count 8.6 X10*3/uL (4.8-10.8)
[2024-08-13 07:26] LABS: Estimated Average Glucose 103 mg/dL; Hemoglobin A1C 142.1669 umol/L; Hemoglobin A1c % 5.2 % (<6.0); Total Hemoglobin (HGBA1C) 4249.6818 umol/L
[2024-08-13 08:00] LABS: Alanine Aminotransferase 43 U/L (0-40); Albumin Level 4.2 g/dL (3.5-5.0); Alkaline Phosphatase 80 U/L (39-117); Anion Gap 11 (12-20); Aspartate Amino Transferase 32 U/L (5-37); Bilirubin Total 0.5 mg/dL (0.0-1.0); Blood Urea Nitrogen 21 mg/dL (9-16); Calcium 9.3 mg/dL (8.4-10.2); Carbon Dioxide 26 mmol/L (22-29); Chloride 107 mmol/L (96-108); Cholesterol 270 mg/dL (<200); Estimated Glomerular Filt Rate 58; Glucose Random 105 mg/dL (60-115); HDL Cholesterol 40 mg/dL (>40); LDL Cholesterol Calculated 176 mg/dL (<100); Potassium 3.9 mmol/L (3.3-5.1); Sodium 140 mmol/L (135-145); Total Protein 7.7 g/dL (6.5-8.0); Triglycerides 273 mg/dL (<150)
[2024-08-13 08:11] LABS: PSA,Total (Free>4and<10) 3.82 ng/mL (0.00-4.00)
[2024-08-13 08:26] LABS: Free T4 (Free Thyroxine) 0.84 ng/dL (0.71-1.85); Thyroid Stimulating Hormone 3.83 uIU/mL (0.32-4.0)
== END 2024-08-13 06:04 | disposition home or self-care (01) ==
LOC: HO.LAB 06:03
PROVIDERS: PCP Internal Medicine; Visit Provider Internal Medicine
DX: R73.01 Impaired fasting glucose (principal); E78.00 Pure hypercholesterolemia, unspecified; Z12.5 Encounter for screening for malignant neoplasm of prostate
CPT/HCPCS: 36415; 80053; 80061; 83036; 84153; 84439; 84443; 85025

== ENCOUNTER → 2024-08-21 07:37 | Outpatient (REF) | payer OTHER, SELFPAY ==
--- NOTE | 2024-08-21 07:40 | CA_ITS ---
Acquisition Time: 2024-08-21 08:04:03 Total Exercise Time: 00:06:31 Test Indications: SOB Medications: SEE H&P Protocol: RAFFI Max HR: 144 BPM 91% of Pred: 158 BPM Max BP: 166/80 mmHG Max Work Load: 7.7 METS Exercise stress test with exercise 6 mins 31 secs of Raffi Protocol, achieving 89% MPHR, with reports of 5/10 mid sternal sharp chest pain and SOB, with isolated PVCs, 2 ventriculat couplet, and one brief PVC run- 5 beats (asymptomatic with this). With normotensive response to exercise. Without EKG changes meeting criteria for ischemia. In recovery, CP quickly resolved and breathing returned to baseline. Nuclear images pending. Test reviewed with Dr. Aleman. Referred By: Kaci Null Electronically Signed By: Robert Spencer
--- OUTSIDE RECORDS SUMMARY | 2024-08-21 07:40 | XMS_ITS ---
Author Organization [facility] Address [address] [place] [address] Care Team Providers Care Ship Scaler Name Role Phone Kaci Null MD Primary Care Provider Constantine Torres [phone] REASON FOR VISIT esophageal stricture, dysphagia, abn barium swallow Encounters Encounter Location Date Provider Diagnosis [facility] [address] [place], [place] [phone] 05/23/2024 Constantine Cervantes Plan Of Treatment No Information Progress Notes * SANDY VELAZCO DODOB:1960 (64 yo M)Acc No.[id number]:05/23/2024 EGD/MAC Patient:?ABIDA VELAZCO Provider:?Constantine Cervantes MD :1960???Age:63 Y???Sex:Male Maxim e:05/23/2024 Address:[address] [place], [place] [phone] Pcp:Kaci Null MD Subjective: * Chief Complaints: [...] MD Date:? 025 Generated for Ortega fletcher/Laura/Kiana on:?08/21/2024 07:40 AM EDT
--- OUTSIDE RECORDS SUMMARY | 2024-08-21 07:41 | XMS_ITS | Patient Health Record ---
Author Organization [facility] Address [address] [place] [address] Care Team Providers Care Cartridge Loader Name Role Phone Kaci Null MD Primary Care Provider Constantine Torres [facility] [phone] Allergies No Known Allergies Results Component Value Reference Range Notes FL barium swallow Reviewed date:01/08/2024 09:06:05 PM Interpretation: Performing Lab: Notes/Report: [address] [address] Fluoroscopy Report Signed Patient: Hank Jacobs MR#: [id number] : 1960 Acct:[id number] Age/Sex: 63 / M ADM Date: 09/20/23 Loc: [facility] Attending Dr: Constantine Cervantes MD Ordering Physician: Constantine Cervantes Date of Service: 09/20/23 Procedure(s): FL barium swallow Accession Number(s): [id number] cc: Kaci Null MD; Constantine Cervantes EXAMINATION: [...] by Luis Carlos Lindsey in OV> 10/03/23 8727 <Electronically signed by Chidi Johnson MD in OV> 10/03/23 1213 DD/ 1 TD/TT: Specialist Physician: [address] [address] Fluoroscopy Report Signed Patient: Hank Jacobs MR#: [id number] : 1960 Acct:[id number] Age/Sex: 63 / M ADM Date: 09/20/23 Loc: HO.XRAY Attending Dr: Constantine Cervantes MD Ordering Physician: Constantine Cervantes Date of Service: 09/20/23 Procedure(s): FL barium swallow Accession Number(s): [id number] cc: Kaci Null MD ; Constantine Cervantes [...] in OV> 10/03/23 1753 DD/ 0822 TD/TT: Specialist Physician: Reason For Referral No Information Medications Medication SIG (Take, Route, Frequency, Duration) Notes Start Date End Date Status Omeprazole 20 MG 2 Orally Every morni ng and every evening for 30 day(s) 06/30/2022 Unknown Omeprazole 40 MG TAKE 1 CAPSULE BY [facility] TWICE A DAY for 90 Unknown [...] W/U Status Risk Notes Problem Esophageal reflux (476068338) Esophageal reflux (K21.9) Active confirmed Problem 623882788 Encounter for screening for malignant neoplasm of colon (Z12.11) Active confirmed Problem 017596463 History of adenomatous polyp of colon (Z86.010) Active confirmed Problem Stricture of esophagus (54166481) Esophageal obstruction (K22.2) Active confirmed Problem Dysphagia (95281269) Dysphagia (R13.10) Active confirmed Problem Esophageal stricture (56685886) Esophageal stricture (K22.2) Active confirmed Problem Erosive esophagitis (18247612) Erosive esophagitis (K22.10) Active confirmed Problem Esophageal ring (34255102) Esophageal ring (K22.2) Active confirmed Problem 078729280 Abnormal barium swallow (R93.3) Active confirmed Problem Diverticulosis of sigmoid colon (568025651) Diverticulosis of sigmoid colon (K57.30) Active confirmed Problem 33096992 Esophageal dysphagia (R13.10) Active confirmed Problem Diverticulosis of colon (898651423) Diverticulosis of colon (K57.30) Active confirmed Problem Gastroesophageal reflux disease (861280124) Chronic GERD (K21.9) Active confirmed Vital Signs Blood pressure diastolic 00 mm Hg 01/19/2024 Height 67 in 01/19/2024 Blood pressure systolic 00 mm Hg 01/19/2024 Weight 201 lbs 01/19/2024 BMI 31.48 kg/m2 01/19/2024 Encounters Encounter Location Date Provider Diagnosis [facility] [address] [place] [phone] 09/15/2023 Constantine Cervantes Esophageal stricture K22.2 ; Dysphagia R13.10 and Chronic GERD K21.9 [facility] [address] [place] [phone] 01/19/2024 Constantine Cervantes Esophageal dysphagia R13.10 ; Esophageal stricture K22.2 ; Abnormal barium swallow R93.3 ; Encounter for screening for malignant neoplasm of colon Z12.11 and History of adenomatous polyp of colon Z86.010 [facility] [address] [place] [phone] 09/26/2023 Constantine Cervantes [facility] [address] [place] [address] 04/09/2024 Constantine Cervantes [facility] [address] [place] [address] 05/22/2024 Constantine Helen Assessments Encounter Date Diagnosis [...] Insured Coverage Start Date Coverage End Date [employer] Plan [address] [address] [place], [place] [id number] HANK JACOBS Self - patient is the insured [place] [address] [place] [address] [id number] HANK JACOBS Self - patient is the insured Medical (General) History Medical History History ICD Code Denies AL,DM,CVA,Lung disease,renal dise ase Cortisone injection in the [...]
--- OUTSIDE RECORDS SUMMARY | 2024-08-21 07:41 | XMS_ITS ---
Author Organization [facility] Address [address] [place] [address] Care Team Providers Care Shook Splicer Name Role Phone Kaci Null MD Primary Care Provider Constantine Torres [phone] Medications Medication SIG (Take, Route, Frequency, Duration) Notes Start Date End Date Status Omeprazole 20 MG 2 Orally Every morni ng and every evening for 30 day(s) 06/30/2022 Unknown Omeprazole 40 MG TAKE 1 CAPSULE BY [facility] TWICE A DAY for 90 Unknown Cyclobenzaprine HCl 10 MG Oral for 20 Unknown Fenofibrate 160 MG Oral for 90 Unknown Famotidine 40 MG 1 Orally Twice a day with your Omeprazole twice a day for 30 days Unknown Encounters Encounter Location Date Provider Diagnosis [facility] [address] [place] [phone] 04/09/2024 Constantine Cervantes Plan Of Treatment No Information Progress Notes * SANDY VELAZCO DODOB:1960 (63 yo M)Acc No.[id number]:04/09/2024 Patient:?MENARDABIDA REYNOSO :1960???Age:63 Y???Sex:Male Address:[address] [place] [address], [address] Subjective: * Chief Complaints: * ??? * [...] true * Date:? Generated for Ortega fletcher/Laura/Kiana on:?08/21/2024 07:40 AM EDT
--- OUTSIDE RECORDS SUMMARY | 2024-08-21 07:41 | XMS_ITS ---
Author Organization [facility] Address [address] [place] [address] Care Team Providers Care Fluoroscope Operator Name Role Phone Kaci Null MD Primary Care Provider Constantine Torres [phone] REASON FOR VISIT cancelled patient's procedure Encounters Encounter Location Date Provider Diagnosis [facility] [address] [place] [phone] 05/22/2024 Constantine Cervantes Plan Of Treatment No Information Progress Notes * SANDY VELAZCO DODOB:1960 (63 yo M)Acc No.[id number]:05/22/2024 Patient:?MENARD ABIDA SHEIKH :1960???Age:63 Y???Sex:Male Address:[address] [place] [address], [address] * true * Date:? Generated for Berthai chance/Laura/eTransmitting on:?08/21/2024 07:40 AM EDT
== END ==
LOC: HO.CARD 07:37
PROVIDERS: PCP Internal Medicine; Visit Provider Internal Medicine
DX: R06.02 Shortness of breath (principal)
CPT/HCPCS: 78452; 93017; A9500

== ENCOUNTER → 2024-08-21 07:40 | Outpatient (BNV) | payer OTHER, SELFPAY | PROVIDERS: PCP Internal Medicine | DX: I49.3 Ventricular premature depolarization (principal); R07.9 Chest pain, unspecified | CPT/HCPCS: 78452; 93016; 93018 ==

== ENCOUNTER 2024-10-19 08:55 | Outpatient (AMB) | payer OTHER, SELFPAY ==
--- OUTSIDE RECORDS SUMMARY | 2024-05-23 03:30 | XMS_ITS ---
Author Organization [facility] Address [address] [place] [address] Care Team Providers Care Regional Telecommunications Specialist Name Role Phone Kaci Null MD Primary Care Provider Constantine Torres [phone] REASON FOR VISIT esophageal stricture, dysphagia, abn barium swallow Encounters Encounter Location Date Provider Diagnosis [facility] Outpatient [address] [place], [place] [phone] 05/23/2024 Constantine Cervantes Plan Of Treatment No Information Progress Notes * SANDY VELAZCO DODOB:1960 (64 yo M)Acc No.[id number]:05/23/2024 EGD/MAC Patient: S ABIDA DUNHAM Provider: Favian Cervantes MD :1960 A ge:63 Y S ex:Male Date:05/23/2024 Address:[address] [place], [place] [phone] Pcp:Kaci Null MD Subjective: * Chief Complaints: [...] MD Date: 0 05/23/2024 Generated for Ortega fletcher/Laura/Janessaitting on: 0 10/19/2024 09:01 AM EDT
--- NOTE | 2024-10-19 08:55 | A.OFFVIS_ITS ---
Intake Visit Reasons: 6m/PSA Intake Note: Patient is present for 6M/PSA Urology Medication:NONE Antibiotic Allergy:NONE Blood Thinner:NONE New Account Interviewer Required: No Allergies No Known Allergies Allergy (Verified 10/19/24 08:56) HPI Comments Details: Hank is a pleasant male. He is a patient of Dr. Null. He seen for the following urologic conditions - Peyronie's disease - lower urinary tract symptoms - Prostate Cancer Telemedicine Evaluation 15 min Consultation [employer] [facility] MRI 05/25 no suspicious areas 05/25 2.8 on finasteride, 10/23 2.6, 12/23 4.3 15%, 08/24 3.8 Finasteride slight PSA rise after cutting back to Tuesday, Tuesday, Tuesday Continue Q six-month surveillance Prostate Cancer - Grade Group 1, Low Volume PSA 5.1 on finasteride 90gm at TRUS Single core 5% left base Imaging 05/25 prostate MRI, 70 g, no suspicious area Lower urinary tract symptoms Progressive weak strength Current therapy finasteride PSA 02/20 5.2, 06/24 4.2/3.6 F31%, 12/22 5.1 JUMA 3+ prostate Peyronie's disease Primary complaint is - penile curvature - right-sided The problem has been present - since 2019 after subclinical penile fracture On exam he has palpable area right distal portion At this time he experiences - partial erections which are not adequate for penetrative intercourse, [facility] has - is possible but painful Associated symptoms include penile pain No penile discharge No Prior management includes - continue with oral medications PFSH Medical History Shoulder pain, left Swelling of left foot Cellulitis of left foot Penile pain, chronic Shoulder pain LFT elevation Colon cancer screening Vision changes Hx of hiatal hernia GERD (gastroesophageal reflux disease) Colonoscopy planned Dysphagia Neuropathy of left foot Tobacco abuse Alcohol abuse Obesity (BMI 30-39.9) No known health problems Surgical History History of prostate surgery History of endoscopy History of colonoscopy History of shoulder surgery Family History Mother Myocardial infarct CVA (cerebral vascular accident) Social History Housing: Apartment Alcohol intake: current Alcohol intake frequency: former alcohol drinker Alcohol type: beer Comment: improving with flatus passing stopped 2022 Patient Tobacco Use Status: Former Tobacco user Tobacco use type: Cigarette Years Smoked: 20stopped 2022 e-Cigarette/Vaping Use: Never Used Second Hand Smoke Exposure: Yes service: No Current occupational status: unemployed Cognitive needs: No Hearing needs: No Vision needs: No Review of Systems Const All systems reviewed & are unremarkable except as noted in HPI and below Reports no additional complaints Resp Reports no additional complaints GI Reports no additional complaints Reports as per HPI Musc Reports no additional complaints Physical Exam Telemedicine evaluation Appropriate responses Regular breathing rate and rhythm HEENT Head: Yes normal to inspection Ears: hearing grossly normal bilaterally Eyes General: appearance normal, both eyes and all related structures Neck Neck: Yes normal visual inspection Chest Chest palpation & inspection: normal inspection of the chest Resp Effort & Inspection: normal respiratory effort and able to speak in complete sentences Telehealth Telehealth Telehealth Platform: [employer] Location of provider rendering services: practice address Location of patient: address on file Patient Identification confirmed using: Name, : Yes Telehealth method: voice only Patient verbally consented to treatment: Yes Patient verbally consented to billing insurance company: Yes Patient informed of any privacy concerns related to visit: Yes Minutes spent on Phone/Video with Pt.: 15 Assessment & Plan Assessment & Plan (1) BPH w urinary obs/LUTS: Comment: Prostate biopsy January 2023 with MRI done May 2023 Code(s): N40.1 - Benign prostatic hyperplasia with lower urinary tract symptoms; N13.8 - Other obstructive and reflux uropathy Category: Medical (2) Prostate cancer: Comment: 01/[address] Gloria Code(s): C61 - Malignant neoplasm of prostate Category: Medical Plan Six-month follow-up Continue finasteride Orders: Orders Prostate Specific Antigen 6 Months C61 - Malignant neoplasm of prostate Testosterone, Total 6 Months C61 - Malignant neoplasm of prostate Medications: Refilled finasteride 5 mg PO DAILY 90 tabs 1RF 90 days C61 - Malignant neoplasm of prostate, N13.8 - Other obstructive and reflux uropathy, N40.1 - Benign prostatic hyperplasia with lower urinary tract symptoms Patient Instructions: This note is constructed using voice recognition software. While every effort has been made to ensure accuracy telephone station installer errors may have been included. Imaging studies, laboratory and physical exam results were discussed and reviewed in detail. No major barriers to patient understanding were identified. An opportunity to ask questions regarding the treatment plan was provided. All questions were answered. The patient expressed understanding and agreement with the above treatment plan. The patient is aware they should contact our office by phone for worsening of their current condition or the appearance of new urologic symptoms. Compliance is encouraged with any medications and followup testing that is ordered. It is a privilege to participate in the urologic care of your patient. If you have any questions or concerns regarding treatment for the above conditions, or other urologic issues, please do not hesitate to contact me. The office telephone contact is [phone]. Sincerely, Dr Stevo Gloria MD, [facility] - Urology Compassionate Specialist Care for the Genitourinary System Coding Level of Care Code Tele Est Pt Level 3 (64108) Complex EM visit Add On G2211 Diagnoses BPH w urinary obs/LUTS N40.1; N13.8 Prostate cancer C61
== END 2024-10-19 11:02 | disposition home or self-care (01) ==
LOC: HO.HUSH 08:55
PROVIDERS: PCP Internal Medicine; Visit Provider Urology
DX: N40.1 Benign prostatic hyperplasia with lower urinary tract symptoms (principal); N13.8 Other obstructive and reflux uropathy; C61 Malignant neoplasm of prostate
CPT/HCPCS: 99213; G2211

== ENCOUNTER → 2024-12-05 13:40 | Outpatient (BNVA) | payer SELFPAY | PROVIDERS: PCP Internal Medicine; Visit Provider Physician Assistant | DX: Z02.79 Encounter for issue of other medical certificate (principal) ==

== ENCOUNTER 2025-01-02 09:38 | Outpatient (AMB) | payer OTHER, SELFPAY ==
--- OUTSIDE RECORDS SUMMARY | 2024-05-23 03:30 | XMS_ITS ---
Author Organization [facility] Address 10 [facility] [address] [place] [address] Care Team Providers Care Associate Product Integrity Engineer Name Role Phone Kaci Null MD Primary Care Provider Constantine Torres [phone] REASON FOR VISIT esophageal stricture, dysphagia, abn barium swallow Encounters Encounter Location Date Provider Diagnosis [facility] Outpatient [address] [place], [place] [phone] 05/23/2024 Constantine Cervantes Plan Of Treatment Next Appt Details Provider Name:Constantine Cervantes , 05/03/2025 01:00:00 PM, [address] [facility], Suite [facility], [place], [address], Progress Notes * MENARDSANDY REYNOSO DODOB:1960 (64 yo M)Acc No.[id number]:05/23/2024 EGD/MAC Patient: S ORLIN ABIDA SHEIKH Provider: Favian Cervantes MD :1960 A ge:63 Y S ex:Male Date:05/23/2024 Address:[address] [place] [address] Pcp:Kaci Null MD Subjective: * Chief Complaints: [...] 0 05/23/2024 Generated for Ortega fletcher/Laura/Kiana on: 0 01/02/2025 10:36 AM EDT
[2025-01-02 09:52] VITALS: BP 138/80; PULSE 81; O2SAT 95; BMI 32.0
--- NOTE | 2025-01-02 09:52 | MHC.PC.OV ---
Vital Signs 01/02/25 09:52 Height 5 ft 7 in Weight 204 lb 8 oz BMI 32.0 BP 138/80 Blood Pressure Location Lt brachial Position Sitting Pulse 81 Pulse Source Pulse Oximeter Pulse Oximetry (%) 95 Oxygen Delivery Method Room Air Intake Visit Reasons: KEELY, hypertriglyceridemia Raw Material Planner Required: No Accompanied by: Self / Same As Patient Allergies No Known Allergies Allergy (Verified 01/02/25 10:32) Medication List - Last Reconciled 01/02/25 by Annette Alexander PA-C [AUTO PAP 6-20 cm H20 humidified AIR Sleep study done 05/31/2024 results showing obstructive sleep apnea moderately severe AHI of 16 borderline total hypoxemia consider starting CPAP auto PAP mode pressure setting 6-20 cm] cyclobenzaprine 10 mg PO TID PRN famotidine 40 mg PO BID fenofibrate 160 mg PO DAILY finasteride 5 mg PO DAILY 90 days omeprazole 40 mg PO BID Tobacco use date assessed: 08/02/24 Dental Screening Dental Screen Date: 01/02/25 Did you have a dental visit in the last 12 months?: No Did you have a dental problem in the last 6 months where you did not have access to dental care?: No Was dental information given to patient?: No HPI KEELY, hypertriglyceridemia HPI Details 64-year-old male with past medical history of hypercholesterolemia, fatty liver disease, obesity, BPH, ED, prostate cancer, impaired fasting blood sugar, obstructive sleep apnea last seen By Dr. Null 07/2024 coming in for follow up. In review of the notes, patient was seen by Urology 09/2024 recommended blood work continued on finasteride and follow up in 6 months. Completed stress test 08/21/2024 which was normal. Presenting with management of hyperlipidemia, evaluation of a skin lesion, and addressing issues related to sleep apnea and dysphagia. The patient has been advised to undergo cholesterol labs to monitor lipid levels. The patient reports issues with CPAP equipment and has been advised to ensure proper insurance coverage for the device. He has not yet obtained the device. The patient describes a recurring lesion that bleeds when manipulated, with a recommendation for dermatological evaluation. [facility] Medical History Shoulder pain, left Swelling of left foot Cellulitis of left foot Penile pain, chronic Shoulder pain LFT elevation Colon cancer screening Vision changes Hx of hiatal hernia GERD (gastroesophageal reflux disease) Colonoscopy planned Dysphagia Neuropathy of left foot Tobacco abuse Alcohol abuse Obesity (BMI 30-39.9) No known health problems Surgical History History of prostate surgery History of endoscopy History of colonoscopy History of shoulder surgery Family History Mother Myocardial infarct CVA (cerebral vascular accident) Social History Housing: Apartment Alcohol intake: current Alcohol intake frequency: former alcohol drinker Alcohol type: beer Comment: improving with flatus passing stopped 2022 Patient Tobacco Use Status: Former Tobacco user Tobacco use type: Cigarette Years Smoked: 20stopped 2022 e-Cigarette/Vaping Use: Never Used Second Hand Smoke Exposure: Yes service: No Current occupational status: unemployed Cognitive needs: No Hearing needs: No Vision needs: No Questionnaire PHQ-9 Over the last 2 weeks, how often have you been bothered by any of the following problems? 1. Little interest or pleasure in doing things: not at all 2. Feeling down, depressed, or hopeless: not at all 3. Trouble falling or staying asleep, or sleeping too much: not at all 4. Feeling tired or having little energy: not at all 5. Poor appetite or overeating: not at all 6. Feeling bad about yourself - or that you are a failure or have let yourself or your family down: not at all 7. Trouble concentrating on things, such as reading the newspaper or watching television: not at all 8. Moving or speaking so slowly that other people could have noticed. Or the opposite - being so fidgety or restless that you have been moving around a lot more than usual: not at all 9. Thoughts that you would be better off or of hurting yourself in some way: not at all Total score: 0 Depression Screening Interpretation: Negative Depression Screening Done: Yes 64085 - PHQ-9 Billing: Yes Source: Developed by Drs. Constantine Mello, Meredith Sheikh, Goyo Mendes and colleagues, with an educational pedro from [employer]. Thrive Questionnaire Date Thrive assessed: 12/27/24 I am a: Patient What is your living situation today?: I have a steady place to live Within the past 12 months, did the food you bought not last and you didn't have the money to get more?: Never true Within the past 12 months, did you worry whether your food would run out before you got money to buy more?: Never true Do you have trouble paying for medicines?: I choose not to answer this question Do you have trouble getting transportation to medical appointments?: No Do you have trouble paying your heating and electricity bill?: I choose not to answer this question Do you have trouble taking care of your child, family member or friend?: No Do you have trouble with day-to-day activities such as bathing, preparing meals, shopping, managing finances, etc.?: I choose not to answer this question Are you currently unemployed and looking for a job?: I choose not to answer this question Are you interested in more education?: No Please select the resources that you would like help with: Housing/Alf Currently or been in a relationship where the following occur: No concerns reported THRIVE Score: 0 AUDIT C Alcohol Use Questionnaire (AUDIT-C) 1. How often do you have a drink containing alcohol?: Never 3. How often do you have six or more drinks on one occasion?: Never Total Score: 0 BARRINGTON-7 AMB Questionnaire BARRINGTON-7 Date BARRINGTON - 7 assessed: 08/02/24 Feeling nervous, anxious, or on edge: 0 = Not at all Not being able to stop or control worryin = Not at all Worrying too much about different things: 0 = Not at all Trouble relaxin = Not at all Being so restless that it is hard to sit still: 0 = Not at all Becoming easily annoyed or irritable: 0 = Not at all Feeling afraid as if something awful might happen: 0 = Not at all Total BARRINGTON-7 score (0-4 normal; 5-9 mild; 10-14 moderate; 15-21 severe): 0 Source: Developed by Drs. Constantine Mello, Meredith Sheikh, Goyo Mendes and colleagues, with an educational pedro from [employer]. BARRINGTON-7 Assessment Billing BARRINGTON-7 Assessment Tool: BARRINGTON-7 Assessment 36723 Review of Systems Const Denies body aches, Denies chills, Denies fever(s), Denies headache(s) and Denies poor appetite Eyes Reports no additional complaints ENT Denies dizziness and Denies headache(s) Card Denies chest pain, Denies syncope, Denies edema, Denies lightheadedness and Denies dyspnea Resp Denies cough and Denies dyspnea GI Denies abdominal pain, Denies nausea and Denies vomiting Reports no additional complaints Musc Reports no additional complaints and Denies abnormal gait Skin/Breast Reports system reviewed and no additional complaints, except as documented Neuro Denies abnormal gait, Denies dizziness, Denies syncope and Denies headache(s) Psych Reports no additional complaints Physical exam (Primary Care) Vital Signs: Last Vital Signs Pulse 81 01/02/25 09:52 BP 138/80 01/02/25 09:52 Pulse Ox 95 01/02/25 09:52 Oxygen Delivery Method Room Air 01/02/25 09:52 BMI result Body Mass Index 32.0 Tobacco/Smoking Status: Tobacco use Status Tobacco use date assessed 08/02/24 01/02/25 09:58 Patient Tobacco Use Status Former Tobacco user 01/02/25 09:58 Tobacco use type Cigarette 01/02/25 09:58 e-Cigarette/Vaping Use Never Used 01/02/25 09:58 PHQ-9: PHQ-9 Score PHQ-9: Total score 0 01/02/25 10:41 Depression Screening Interpretation: Negative Thrive Assessment: Date of Thrive Assessment Date Thrive assessed 12/27/24 01/02/25 09:58 Currently or been in a relationship where the following occur: No concerns reported Const General: cooperative, healthy appearing, comfortable and no acute distress Orientation/consciousness: patient oriented x3 [facility] Head: Yes normocephalic Ears: hearing grossly normal bilaterally General nose exam: Normal external nose present Eyes General: appearance normal, both eyes and all related structures Conjunctivae: conjunctivae normal Neck Neck: Yes full ROM and Yes no lymphadenopathy Resp Effort & Inspection: normal respiratory effort Auscultation: clear to auscultation bilaterally, no crackles, no rales, no rhonchi and no wheezes Cardio Rate: regular rate Rhythm: regular rhythm Skin General skin exam: no rashes or lesions noted Neuro General: patient oriented x3 Gait exam (Neuro): Normal gait present Extrem General: Yes normal to inspection, Yes full ROM and No edema Psych Affect: normal affect Attitude: cooperative Insight: Good insight present (Psych) Judgement: Good judgement present (Psych) Coding Level of Care Code Est Pt Level 3 (93432) Diagnoses KEELY (obstructive sleep apnea) G47.33 Hypercholesterolemia E78.00 Impaired fasting blood sugar R73.01 Obesity (BMI 30.0-34.9) E66.9 Fatty liver K76.0 BPH w urinary obs/LUTS N40.1; N13.8 Facial lesion L98.9 Additional Codes BARRINGTON-7 Assessment Billing - BARRINGTON-7 Assessment Tool: BARRINGTON-7 Assessment 27652 ([id number]) PHQ-9 - 89478 - PHQ-9 Billing: Yes ([id number]) Assessment & Plan Assessment & Plan (1) KEELY (obstructive sleep apnea): Comment: Sleep study done 05/31/2024 results showing obstructive sleep apnea moderately severe AHI of 16 borderline total hypoxemia consider starting CPAP auto PAP mode pressure setting 6-20 cm Code(s): G47.33 - Obstructive sleep apnea (adult) (pediatric) Category: Medical Plan: Recommended he follow up with the CPAP company to obtain the device. Stressed the importance of having CPAP for heart health. Discussed with patient if he has any issues to reach out to the office so we can resolve it for him. (2) Hypercholesterolemia: Code(s): E78.00 - Pure hypercholesterolemia, unspecified Category: Medical Plan: Avoid foods that are high in cholesterol such as red meat, fried foods, eggs and baked goods. Triglyceride goal of less than 150 and LDL goal of less than 130. Continue on Fenofibrate and ordered for repeat blood work. (3) Impaired fasting blood sugar: Code(s): R73.01 - Impaired fasting glucose Category: Medical Plan: Decrease the amount of carbohydrates such as pasta, bread, rice, and potatoes and limit the amount of sweets. Although fruits are generally healthy they should be eaten in moderation as they are still high in sugar. (4) Obesity (BMI 30.0-34.9): Code(s): E66.9 - Obesity, unspecified Category: Medical Plan: Healthy diet and regular exercise is encouraged. (5) Fatty liver: Code(s): K76.0 - Fatty (change of) liver, not elsewhere classified Category: Medical Plan: Healthy diet and regular exercise is encouraged. Continue to monitor LFT (6) BPH w urinary obs/LUTS: Comment: Prostate biopsy January 2023 with MRI done May 2023 Code(s): N40.1 - Benign prostatic hyperplasia with lower urinary tract symptoms; N13.8 - Other obstructive and reflux uropathy Category: Medical Plan: He will continue to follow up with Dr. Solomon for urology and have repeat blood work at that time. (7) Facial lesion: Code(s): L98.9 - Disorder of the skin and subcutaneous tissue, unspecified Category: Medical Plan: Referral was placed for dermatology today and was advised not to pick at the lesion and to take pictures. Plan This note was constructed using voice recognition software. While every effort has been made to ensure accuracy and mechanic field service, still areas may have been included sometimes these areas may affect the content or meeting of the given symptoms. Total time spent caring for the patient today was 20 minutes. This includes time spent before the visit reviewing the chart, time spent during the visit, and time spent after the visit and documentation. Patient was informed and verbally consented to the use of an ambient scribe for clinic note documentation during this visit. Orders: Orders Lipid Panel Today E78.00 - Pure hypercholesterolemia, unspecified Hemoglobin A1c Today R73.01 - Impaired fasting glucose Uric Acid Today M72.2 - Plantar fascial fibromatosis Referrals Dermatology Referral L98.9 - Disorder of the skin and subcutaneous tissue, unspecified Medications: Refilled [AUTO PAP 6-20 cm H20 humidified AIR] Sleep study done 05/31/2024 results showing obstructive sleep apnea moderately severe AHI of 16 borderline total hypoxemia consider starting CPAP auto PAP mode pressure setting 6-20 cm 1 ea 0RF G47.33 - Obstructive sleep apnea (adult) (pediatric)
--- OUTSIDE RECORDS SUMMARY | 2025-01-02 10:37 | XMS_ITS | Patient Health Record ---
Author Organization [facility] Address [address] [place] [address] Care Team Providers Care Quill Reamer Name Role Phone Kaci Null MD Primary Care Provider Constantine Torres [phone] Allergies No Known Allergies Reason For Referral No Information Medications Medication SIG (Take, Route, Frequency, Duration) Notes Start Date End Date Status Omeprazole 20 MG 2 Orally Every morni ng and every evening for 30 day(s) 06/30/2022 Unknown Omeprazole 40 MG TAKE 1 CAPSULE BY [facility] TWICE A DAY for 90 Unknown [...] W/U Status Risk Notes Problem Esophageal reflux (899736973) Esophageal reflux (K21.9) Active confirmed Problem 313836679 Encounter for screening for malignant neoplasm of colon (Z12.11) Active confirmed Problem 097385668 History of adenomatous polyp of colon (Z86.010) Active confirmed Problem Stricture of esophagus (98683646) Esophageal obstruction (K22.2) Active confirmed Problem Dysphagia (03291383) Dysphagia (R13.10) Active confirmed Problem Esophageal stricture (13669804) Esophageal stricture (K22.2) Active confirmed Problem Erosive esophagitis (38482250) Erosive esophagitis (K22.10) Active confirmed Problem Esophageal ring (05925441) Esophageal ring (K22.2) Active confirmed Problem 214160931 Abnormal barium swallow (R93.3) Active confirmed Problem Diverticulosis of sigmoid colon (352957800) Diverticulosis of sigmoid colon (K57.30) Active confirmed Problem 59863984 Esophageal dysphagia (R13.10) Active confirmed Problem Diverticulosis of colon (418916164) Diverticulosis of colon (K57.30) Active confirmed Problem Gastroesophageal reflux disease (026347026) Chronic GERD (K21.9) Active confirmed Vital Signs Blood pressure diastolic 00 mm Hg 01/19/2024 Height 67 in 01/19/2024 Blood pressure systolic 00 mm Hg 01/19/2024 Weight 201 lbs 01/19/2024 BMI 31.48 kg/m2 01/19/2024 Encounters Encounter Location Date Provider Diagnosis [facility] [address] [place] [phone] 01/19/2024 Constantine Cervantes Esophageal dysphagia R13.10 ; Esophageal stricture K22.2 ; Abnormal barium swallow R93.3 ; Encounter for screening for malignant neoplasm of colon Z12.11 and History of adenomatous polyp of colon Z86.010 [facility] [address] [place] [phone] 04/09/2024 Constantine Cervantes [facility] [address] [place] [phone] 05/22/2024 Constantine Cervantes Assessments Encounter Date Diagnosis (ICD Code) Assessment Notes Treatment Notes Treatment Clinical Notes Section Notes 01/19/2024 Esophageal stricture (ICD-10 - K22.2) Overall, [...] GI ENDOSCOPY BALLOOON DILATION OF ESOPH 01/19/2024 Next Appt Details Provider Name:Constantine Cervantes , 05/03/2025 01:00:00 PM, [address] [place] [address], [address], [place], [address], Insurance Providers Payer Name Payer Address Payer Phone Subscriber Number Group Number Insured Name Patient Relationship to Insured Coverage Start Date Coverage End Date [facility] [employer] [facility] [address] [address] [place], [place] [phone] [id number] HANK VELAZCO Self - patient is the insured [place] [address] [place] [address] [phone] [id number] MENARDHANK CAZARES Self - patient is the insured Medical (General) History Medical History History ICD Code Denies SD,DM,CVA,Lung disease,renal dise ase Cortisone injection in the [...]
== END 2025-01-02 10:57 | disposition home or self-care (01) ==
LOC: HO.HMCH 09:39
PROVIDERS: PCP Internal Medicine
DX: G47.33 Obstructive sleep apnea (adult) (pediatric) (principal); E78.00 Pure hypercholesterolemia, unspecified; E66.9 Obesity, unspecified; Z68.32 Body mass index [BMI] 32.0-32.9, adult; R73.01 Impaired fasting glucose; K76.0 Fatty (change of) liver, not elsewhere classified; N40.1 Benign prostatic hyperplasia with lower urinary tract symptoms; N13.8 Other obstructive and reflux uropathy; L98.9 Disorder of the skin and subcutaneous tissue, unspecified

== ENCOUNTER → 2025-01-02 09:38 | Outpatient (BNVA) | payer OTHER, SELFPAY | PROVIDERS: PCP Internal Medicine | DX: G47.33 Obstructive sleep apnea (adult) (pediatric) (principal); E78.1 Pure hyperglyceridemia; E66.9 Obesity, unspecified; N40.0 Benign prostatic hyperplasia without lower urinary tract symptoms; N52.9 Male erectile dysfunction, unspecified; C61 Malignant neoplasm of prostate; R73.01 Impaired fasting glucose; E78.00 Pure hypercholesterolemia, unspecified; K76.0 Fatty (change of) liver, not elsewhere classified; N40.1 Benign prostatic hyperplasia with lower urinary tract symptoms; N13.8 Other obstructive and reflux uropathy; L98.9 Disorder of the skin and subcutaneous tissue, unspecified; M72.2 Plantar fascial fibromatosis; Z68.32 Body mass index [BMI] 32.0-32.9, adult | CPT/HCPCS: 96127; 99212 ==

== ENCOUNTER 2025-01-03 07:44 | Outpatient (AMB) | payer OTHER, SELFPAY ==
--- OUTSIDE RECORDS SUMMARY | 2024-05-23 03:30 | XMS_ITS ---
Author Organization [facility] Address 10 [facility] [address] [place] [address] Care Team Providers Care Secretarial Teacher Name Role Phone Kaci Null MD Primary Care Provider Constantine Torres [phone] REASON FOR VISIT esophageal stricture, dysphagia, abn barium swallow Encounters Encounter Location Date Provider Diagnosis [facility] [place] [address] [place], [place] [phone] 05/23/2024 Constantine Cervantes Plan Of Treatment Next Appt Details Provider Name:Constantine Cervantes , 05/03/2025 01:00:00 PM, [address] [facility], Suite [facility], [place], [address], Progress Notes * MENARDSANDY REYNOSO DODOB:1960 (64 yo M)Acc No.[id number]:05/23/2024 EGD/MAC Patient: S ORLIN ABIDA SHEIKH Provider: Favian Cervantes MD :1960 A ge:63 Y S ex:Male Date:05/23/2024 Address:[address] [place] [address] Pcp:Kaci Null MD Subjective: * Chief Complaints: [...] 05/23/2024 Generated for Ortega fletcher/Laura/Kiana on: 0 01/03/2025 07:47 AM EDT
--- OUTSIDE RECORDS SUMMARY | 2025-01-03 07:47 | XMS_ITS | Patient Health Record ---
Author Organization [facility] Address [address] [place] [address] Care Team Providers Care Packager Or Packer And Weigher Name Role Phone Kaci Null MD Primary Care Provider Constantine Torres [phone] Allergies No Known Allergies Reason For Referral No Information Medications Medication SIG (Take, Route, Frequency, Duration) Notes Start Date End Date Status Omeprazole 20 MG 2 Orally Every morni ng and every evening for 30 day(s) 06/30/2022 Unknown Omeprazole 40 MG TAKE 1 CAPSULE BY [facility] TWICE A DAY for 90 Unknown Cyclobenzaprine [...] W/U Status Risk Notes Problem Esophageal reflux (555557823) Esophageal reflux (K21.9) Active confirmed Problem 628293148 Encounter for screening for malignant neoplasm of colon (Z12.11) Active confirmed Problem 277625951 History of adenomatous polyp of colon (Z86.010) Active confirmed Problem Stricture of esophagus (22115599) Esophageal obstruction (K22.2) Active confirmed Problem Dysphagia (35036643) Dysphagia (R13.10) Active confirmed Problem Esophageal stricture (88168268) Esophageal stricture (K22.2) Active confirmed Problem Erosive esophagitis (05051884) Erosive esophagitis (K22.10) Active confirmed Problem Esophageal ring (59669861) Esophageal ring (K22.2) Active confirmed Problem 293164300 Abnormal barium swallow (R93.3) Active confirmed Problem Diverticulosis of sigmoid colon (426937006) Diverticulosis of sigmoid colon (K57.30) Active confirmed Problem 88728295 Esophageal dysphagia (R13.10) Active confirmed Problem Diverticulosis of colon (068985775) Diverticulosis of colon (K57.30) Active confirmed Problem Gastroesophageal reflux disease (266930271) Chronic GERD (K21.9) Active confirmed Vital Signs Blood pressure diastolic 00 mm Hg 01/19/2024 Height 67 in 01/19/2024 Blood pressure systolic 00 mm Hg 01/19/2024 Weight 201 lbs 01/19/2024 BMI 31.48 kg/m2 01/19/2024 Encounters Encounter Location Date Provider Diagnosis [facility] [address] [place] [phone] 01/19/2024 Constantine Cervantes Esophageal dysphagia R13.10 ; Esophageal stricture K22.2 ; Abnormal barium swallow R93.3 ; Encounter for screening for malignant neoplasm of colon Z12.11 and History of adenomatous polyp of colon Z86.010 [facility] [address] [place] [phone] 04/09/2024 Constantine Cervantes [facility] [address] [place] [phone] 05/22/2024 Constantine Cervantes Assessments Encounter Date Diagnosis [...] Provider Name:Constantine Cervantes , 05/03/2025 01:00:00 PM, [address] [place] [address], [address], [place], [address], Insurance Providers Payer Name Payer Address Payer Phone Subscriber Number Group Number Insured Name Patient Relationship to Insured Coverage Start Date Coverage End Date [facility] [employer] [facility] [address] [address] [place], [place] [phone] [id number] HANK VELAZCO Self - patient is the insured [place] [address] [place] [address] [phone] [id number] MENARDHANK CAZARES Self - patient is the insured Medical (General) History Medical History History ICD Code Denies NE,DM,CVA,Lung disease,renal dise ase Cortisone injection in the [...]
--- NOTE | 2025-01-03 07:49 | A.OFFVIS_ITS ---
Vital Signs 01/03/25 07:51 Height 5 ft 7 in Weight 204 lb BMI 31.9 Handedness Right Intake Visit Reasons: Left shoulder pain and weakness Intake Note: Hank is a 64 year old male right hand dominant who presents with complaints of progressively worsening left shoulder pain and weakness. The patient states that he did undergo left shoulder surgery at [facility] approximately 5 years ago. He states that he got mild relief from the procedure. His symptoms have gotten worse over the last year in spite of continued non operative treatments. He has failed the last 6 weeks of conservative treatment which has included Tylenol, anti-inflammatory medicines, physical therapy exercises and a home exercise program. He has had cortisone in jections in the past. The most recent injection gave him minimal relief. He reports weakness when lifting his left hand above shoulder height. Allergies No Known Allergies Allergy (Verified 01/03/25 07:52) Medication List - Last Reconciled 01/03/25 by Sukhdev Oleary MD [AUTO PAP 6-20 cm H20 humidified AIR Sleep study done 05/31/2024 results showing obstructive sleep apnea moderately severe AHI of 16 borderline total hypoxemia consider starting CPAP auto PAP mode pressure setting 6-20 cm] cyclobenzaprine 10 mg PO TID PRN famotidine 40 mg PO BID fenofibrate 160 mg PO DAILY finasteride 5 mg PO DAILY 90 days omeprazole 40 mg PO BID [facility] Medical History Shoulder pain, left Swelling of left foot Cellulitis of left foot Penile pain, chronic Shoulder pain LFT elevation Colon cancer screening Vision changes Hx of hiatal hernia GERD (gastroesophageal reflux disease) Colonoscopy planned Dysphagia Neuropathy of left foot Tobacco abuse Alcohol abuse Obesity (BMI 30-39.9) No known health problems Surgical History History of prostate surgery History of endoscopy History of colonoscopy History of shoulder surgery Family History Mother Myocardial infarct CVA (cerebral vascular accident) Social History (Updated 01/03/25 @ 07:52 by JEEVAN Weller) Housing: Apartment Alcohol intake: current Alcohol intake frequency: former alcohol drinker Alcohol type: beer Comment: improving with flatus passing stopped 2022 Patient Tobacco Use Status: Former Tobacco user Tobacco use type: Cigarette Years Smoked: 20stopped 2022 e-Cigarette/Vaping Use: Never Used Second Hand Smoke Exposure: Yes service: No Current occupational status: retired Current occupation: right handed Cognitive needs: No Hearing needs: No Vision needs: No Physical Exam Vital Signs: BMI result Body Mass Index 31.9 Const Other: Well-nourished well-developed very friendly male awake alert and oriented x3 in no acute distress Extrem Other: Bilateral upper extremity examination shows good capillary refill, no skin lesions noted, normal sensation light touch Left shoulder examination shows decreased range of motion when compared to his right shoulder, 4+ out of 5 strength with supraspinatus testing, positive impingement signs, no instability Results Reviewed Results Reviewed: X-rays of the patient's left shoulder show severe acromioclavicular joint narrowing, a type 3 acromion, no acute bony abnormalities Assessment & Plan Assessment & Plan (1) Rotator cuff insufficiency of left shoulder: Code(s): M25.312 - Other instability, left shoulder Category: Medical Plan Mr. Brooke Arellano presents with progressively worsening left shoulder pain and weakness due to impingement syndrome and possible rotator cuff tearing. Thus, I will send the patient for an MRI of his left shoulder for further e valuation. I will see him back once the MRI is completed to discuss the findings and treatment options. Feel free to call me at any time should questions regarding his orthopedic management arise. Thank you very much for asking me to see this very friendly gentleman. I spent 21 minutes in reviewing the patient's records and imaging studies, seeing the patient and documenting in the medical record. Orders: Orders MR shoulder LT wo con 01/04/25 M25.312 - Other instability, left shoulder Coding Level of Care Code New Pt Level 3 (39934) Complex EM visit Add On G2211 Diagnoses Rotator cuff insufficiency of left shoulder M25.312
[2025-01-03 07:51] VITALS: BMI 31.9
== END 2025-01-03 08:06 | disposition home or self-care (01) ==
LOC: HO.HOS 07:45
PROVIDERS: PCP Internal Medicine; Visit Provider Orthopaedic Surgery
DX: M25.312 Other instability, left shoulder (principal)
CPT/HCPCS: 99203

== ENCOUNTER → 2025-01-03 07:44 | Outpatient (BNVA) | payer OTHER, SELFPAY | PROVIDERS: PCP Internal Medicine; Visit Provider Orthopaedic Surgery | DX: M25.312 Other instability, left shoulder (principal) | CPT/HCPCS: 99202 ==

== ENCOUNTER 2025-01-17 06:32 | Outpatient (REF) | payer OTHER, SELFPAY ==
--- OUTSIDE RECORDS SUMMARY | 2024-05-23 03:30 | XMS_ITS ---
Author Organization [facility] Address 10 [facility] [address] [place] [address] Care Team Providers Care Automatic Winder Operator Name Role Phone Kaci Null MD Primary Care Provider Constantine Torres [phone] REASON FOR VISIT esophageal stricture, dysphagia, abn barium swallow Encounters Encounter Location Date Provider Diagnosis [facility] Outpatient [address] [place], [place] [phone] 05/23/2024 Constantine Cervantes Plan Of Treatment Next Appt Details Provider Name:Constantine Cervantes , 05/03/2025 01:00:00 PM, 10 [facility], Suite [facility], [place], [address], Progress Notes * MENARDSANDY REYNOSO DODOB:1960 (64 yo M)Acc No.[id number]:05/23/2024 EGD/MAC Patient: S ORLIN ABIDA SHEIKH Provider: Favian Cervantes MD :1960 A ge:63 Y S ex:Male Date:05/23/2024 Address:[address] [place] [address] Pcp:Kaci Null MD Subjective: * Chief Complaints: [...] 05/23/2024 Generated for Ortega fletcher/Laura/Kiana on: 0 01/17/2025 06:36 AM EDT
--- NOTE | ~2025-01-17 | MR_ITS ---
CLINICAL HISTORY: M25.312 - Other instability, left shoulder MR left shoulder without gadolinium Comparison: None provided Findings: Normal alignment without acute fracture. Mild thinning of the superior humeral cartilage. Intra-articular long head of the biceps tendon is not seen (likely prior biceps tenodesis; correlation with past surgical history recommended. Thinning of the superior most aspect of the intra-articular long head of biceps tendon may be postsurgical or due to partial-thickness tear. There is mild tendinosis of the extra-articular long head of biceps tendon more distally. Mild subscapularis and supraspinatus tendinosis. A low-grade partial-thickness, partial width, articular sided subscapularis footprint tear cannot be excluded on series 11, image 14. Low-grade, partial-thickness, partial width, bursal sided supraspinatus musculotendinous junction tear with minimal focal distention of the neighboring subacromial/subdeltoid bursa Less than 50% fatty infiltration of the supraspinatus and infraspinatus. No significant AC osteoarthritis. Mildly inferiorly hooked acromion. No labral tear. IMPRESSION: Intra-articular long head of the biceps tendon is not seen (likely prior biceps tenodesis; correlation with past surgical history recommended. Thinning of the superior most aspect of the intra-articular long head of biceps tendon may be postsurgical or due to partial-thickness tear. There is mild tendinosis of the extra-articular long head of biceps tendon more distally. Mild subscapularis and supraspinatus tendinosis. A low-grade partial-thickness, partial width, articular sided subscapularis footprint tear cannot be excluded. Low-grade, partial-thickness, partial width, bursal sided supraspinatus musculotendinous junction tear. This document has been electronically signed by: Michelle Sawyer MD on 01/18/2025 13:11:59
--- OUTSIDE RECORDS SUMMARY | 2025-01-17 06:36 | XMS_ITS | Patient Health Record ---
Author Organization [facility] Address [address] [place] [address] Care Team Providers Care Controls Engineer Name Role Phone Kaci Null MD Primary Care Provider Constantine Torres [phone] Allergies No Known Allergies Reason For Referral No Information Medications Medication SIG (Take, Route, Frequency, Duration) Notes Start Date End Date Status Omeprazole 20 MG 2 Orally Every morni ng and every evening for 30 day(s) 06/30/2022 Unknown Omeprazole 40 MG TAKE 1 CAPSULE BY [facility] TWICE A DAY for 90 Unknown [...] W/U Status Risk Notes Problem Esophageal reflux (750565056) Esophageal reflux (K21.9) Active confirmed Problem 176383748 Encounter for screening for malignant neoplasm of colon (Z12.11) Active confirmed Problem 063463267 History of adenomatous polyp of colon (Z86.010) Active confirmed Problem Stricture of esophagus (35826599) Esophageal obstruction (K22.2) Active confirmed Problem Dysphagia (36010603) Dysphagia (R13.10) Active confirmed Problem Esophageal stricture (53065640) Esophageal stricture (K22.2) Active confirmed Problem Erosive esophagitis (95683642) Erosive esophagitis (K22.10) Active confirmed Problem Esophageal ring (39772493) Esophageal ring (K22.2) Active confirmed Problem 243161166 Abnormal barium swallow (R93.3) Active confirmed Problem Diverticulosis of sigmoid colon (112099776) Diverticulosis of sigmoid colon (K57.30) Active confirmed Problem 52103835 Esophageal dysphagia (R13.10) Active confirmed Problem Diverticulosis of colon (304601042) Diverticulosis of colon (K57.30) Active confirmed Problem Gastroesophageal reflux disease (703699647) Chronic GERD (K21.9) Active confirmed Vital Signs Blood pressure diastolic 00 mm Hg 01/19/2024 Height 67 in 01/19/2024 Blood pressure systolic 00 mm Hg 01/19/2024 Weight 201 lbs 01/19/2024 BMI 31.48 kg/m2 01/19/2024 Encounters Encounter Location Date Provider Diagnosis [facility] [address] [place] [address] 01/19/2024 Constantine Cervantes Esophageal dysphagia R13.10 ; Esophageal stricture K22.2 ; Abnormal barium swallow R93.3 ; Encounter for screening for malignant neoplasm of colon Z12.11 and History of adenomatous polyp of colon Z86.010 [facility] [address] [place] [address] 04/09/2024 Constantine Cervantes [facility] [address] [place] [address] 05/22/2024 Constantine Cervantes Assessments Encounter Date Diagnosis [...] Provider Name:Constantine Cervantes , 05/03/2025 01:00:00 PM, [address] [place] [address], [address], [place], [address], Insurance Providers Payer Name Payer Address Payer Phone Subscriber Number Group Number Insured Name Patient Relationship to Insured Coverage Start Date Coverage End Date [facility] [employer] [facility] [address] [address] [place], [place] [id number] [phone] [id number] HANK VELAZCO Self - patient is the insured [place] [address] [place] [address] [phone] [id number] MENARDHANK CAZARES Self - patient is the insured Medical (General) History Medical History History ICD Code Denies [place],DM,CVA,Lung disease,renal dise ase Cortisone injection in the [...]
[2025-01-17 08:51] LABS: Blood Urea Nitrogen 17 mg/dL (9-16); Cholesterol 291 mg/dL (<200); HDL Cholesterol 39 mg/dL (>40); Triglycerides 325 mg/dL (<150); Uric Acid 8.8 mg/dL (3.4-7.0)
[2025-01-17 09:00] LABS: Prostate Specific Antigen 4.51 ng/mL (<0.05-4.0)
[2025-01-17 09:23] LABS: Hemoglobin A1C 150.8186 umol/L; Total Hemoglobin (HGBA1C) 4349.9177 umol/L
== END 2025-01-17 06:33 | disposition home or self-care (01) ==
LOC: HO.MRI 06:32
PROVIDERS: PCP Internal Medicine; Referring Provider Urology; Visit Provider Orthopaedic Surgery
DX: Z12.5 Encounter for screening for malignant neoplasm of prostate (principal); C61 Malignant neoplasm of prostate; R73.01 Impaired fasting glucose; M72.2 Plantar fascial fibromatosis; E78.00 Pure hypercholesterolemia, unspecified; M25.312 Other instability, left shoulder
CPT/HCPCS: 36415; 73221; 80061; 83036; 84153; 84520; 84550

== ENCOUNTER → 2025-01-17 07:14 | Outpatient (BNV) | payer OTHER, SELFPAY | PROVIDERS: PCP Internal Medicine; Referring Provider Urology; Visit Provider Radiology Diagnostic Radiology | DX: M75.22 Bicipital tendinitis, left shoulder (principal); M75.112 Incomplete rotator cuff tear or rupture of left shoulder, not specified as traumatic | CPT/HCPCS: 73221 ==

== ENCOUNTER 2025-02-05 09:11 | Outpatient (AMB) | payer OTHER, SELFPAY ==
--- OUTSIDE RECORDS SUMMARY | 2024-05-23 03:30 | XMS_ITS ---
Author Organization [facility] Address 10 [facility] [address] [place] [address] Care Team Providers Care Web Development Director Name Role Phone Kaci Null MD Primary Care Provider Constantine Torres [phone] REASON FOR VISIT esophageal stricture, dysphagia, abn barium swallow Encounters Encounter Location Date Provider Diagnosis [facility] [place] [address] [place], [place] [phone] 05/23/2024 Constantine Cervantes Plan Of Treatment Next Appt Details Provider Name:Constantine Cervantes , 05/03/2025 01:00:00 PM, 10 [facility], Suite [facility], [place], [address], Progress Notes * MENARDSANDY REYNOSO DODOB:1960 (64 yo M)Acc No.[id number]:05/23/2024 EGD/MAC Patient: S ORLIN ABIDA SHEIKH Provider: Favian Cervantes MD :1960 A ge:63 Y S ex:Male Date:05/23/2024 Address:[address] [place] [address] Pcp:Kaci Null MD Subjective: * Chief Complaints: [...] MD Date: 0 05/23/2024 Generated for Ortega fletcher/Laura/Kaina on: 1 10:10 AM EDT
--- NOTE | 2025-02-05 09:22 | MHC.OFFVIS ---
Vital Signs 02/05/25 09:23 Height 5 ft 7 in Intake Visit Reasons: OV-MRI Shoulder LT -review Intake Note: Hank is a 64 year old male right hand dominant who presents with complaints of progressively worsening left shoulder pain and stiffness. The patient states that he did undergo left shoulder surgery at [facility] approximately 5 years ago. He states that he got mild relief from the procedure. His symptoms have gotten worse over the last year in spite of continued non operative treatments. He has failed the last 6 weeks of conservative treatment which has included Tylenol, anti-inflammatory medicines, physical therapy exercises and a home exercise program. He has had cortisone injections in the past. The most recent injection gave him minimal relief. He reports increased pain when lifting his left hand above shoulder height. Allergies No Known Allergies Allergy (Verified 02/05/25 09:24) Medication List - Last Reconciled 02/05/25 by Sukhdev Oleary MD atorvastatin (Lipitor) 10 mg PO BEDTIME [AUTO PAP 6-20 cm H20 humidified AIR Sleep study done 05/31/2024 results showing obstructive sleep apnea moderately severe AHI of 16 borderline total hypoxemia consider starting CPAP auto PAP mode pressure setting 6-20 cm] cyclobenzaprine 10 mg PO TID PRN famotidine 40 mg PO BID fenofibrate 160 mg PO DAILY finasteride 5 mg PO DAILY 90 days omeprazole 40 mg PO BID [facility] Medical History Shoulder pain, left Swelling of left foot Cellulitis of left foot Penile pain, chronic Shoulder pain LFT elevation Colon cancer screening Vision changes Hx of hiatal hernia GERD (gastroesophageal reflux disease) Colonoscopy planned Dysphagia Neuropathy of left foot Tobacco abuse Alcohol abuse Obesity (BMI 30-39.9) No known health problems Surgical History History of prostate surgery History of endoscopy History of colonoscopy History of shoulder surgery Family History Mother Myocardial infarct CVA (cerebral vascular accident) Social History Housing: Apartment Alcohol intake: current Alcohol intake frequency: former alcohol drinker Alcohol type: beer Comment: improving with flatus passing stopped 2022 Patient Tobacco Use Status: Former Tobacco user Tobacco use type: Cigarette Years Smoked: 20stopped 2022 e-Cigarette/Vaping Use: Never Used Second Hand Smoke Exposure: Yes service: No Current occupational status: retired Current occupation: right handed Cognitive needs: No Hearing needs: No Vision needs: No Physical Exam Extrem Other: Left shoulder examination shows decreased range of motion when compared to his right shoulder, 4+ out of 5 strength with supraspinatus testing, positive impingement signs, tenderness over his acromioclavicular joint, no instability Results Reviewed Results Reviewed: MRI of the patient's left shoulder shows severe acromioclavicular joint narrowing, a type 2 acromion, signal change within the supraspinatus tendon most likely due to adhesive capsulitis Assessment & Plan Assessment & Plan (1) Impingement syndrome of left shoulder: Code(s): M75.42 - Impingement syndrome of left shoulder Category: Medical Plan Hank presents with left shoulder pain and stiffness due to impingement syndrome, acromioclavicular joint arthritis and adhesive capsulitis. I had a lengthy discussion with the patient regarding the treatment options. At this point he has failed continued non operative treatments. The risks and benefits of revision left shoulder surgery were discussed at length with the patient. The patient wishes to proceed. Surgery will most likely involve left shoulder arthroscopic distal clavicle excision, left shoulder arthroscopic acromioplasty, left shoulder arthroscopic capsular release and left shoulder manipulation under anesthesia. The patient will be scheduled for next available date. He will continue with his range of motion exercises in the meantime. He will follow up as instructed. Feel free to call me at any time should questions regarding his orthopedic management arise. I spent 20 minutes in reviewing the patient's records and imaging studies, seeing the patient and documenting in the medical record. Coding Level of Care Code Est Pt Level 3 (65607) Complex EM visit Add On G2211 Diagnoses Impingement syndrome of left shoulder M75.42
--- OUTSIDE RECORDS SUMMARY | 2025-02-05 10:10 | XMS_ITS | Patient Health Record ---
Author Organization [facility] Address [address] [place] [address] Care Team Providers Care Jet Inspector Name Role Phone Kaci Null MD Primary Care Provider Constantine Torres [phone] Allergies No Known Allergies Reason For Referral No Information Medications Medication SIG (Take, Route, Frequency, Duration) Notes Start Date End Date Status Omeprazole 20 MG 2 Orally Every morni ng and every evening for 30 day(s) 06/30/2022 Unknown Omeprazole 40 MG TAKE 1 CAPSULE BY [facility] TWICE A DAY for 90 [...] W/U Status Risk Notes Problem Esophageal reflux (596882024) Esophageal reflux (K21.9) Active confirmed Problem 336460957 Encounter for screening for malignant neoplasm of colon (Z12.11) Active confirmed Problem 497829286 History of adenomatous polyp of colon (Z86.010) Active confirmed Problem Stricture of esophagus (81699232) Esophageal obstruction (K22.2) Active confirmed Problem Dysphagia (86541158) Dysphagia (R13.10) Active confirmed Problem Esophageal stricture (35123365) Esophageal stricture (K22.2) Active confirmed Problem Erosive esophagitis (97989476) Erosive esophagitis (K22.10) Active confirmed Problem Esophageal ring (90632409) Esophageal ring (K22.2) Active confirmed Problem 828459273 Abnormal barium swallow (R93.3) Active confirmed Problem Diverticulosis of sigmoid colon (928710532) Diverticulosis of sigmoid colon (K57.30) Active confirmed Problem 42123638 Esophageal dysphagia (R13.10) Active confirmed Problem Diverticulosis of colon (923939984) Diverticulosis of colon (K57.30) Active confirmed Problem Gastroesophageal reflux disease (456055842) Chronic GERD (K21.9) Active confirmed Encounters Encounter Location Date Provider Diagnosis [facility] [address] [place] [address] 04/09/2024 Constantine Cervantes [facility] [address] [place] [address] 05/22/2024 Constantine Cervantes Plan Of Treatment Pending Test Test Name [...] Name:Constantine Cervantes , 05/03/2025 01:00:00 PM, [address], [address], [place], [address], Insurance Providers Payer Name Payer Address Payer Phone Subscriber Number Group Number Insured Name Patient Relationship to Insured Coverage Start Date Coverage End Date [employer] [facility] [address] [address] [place], [place] [id number] [phone] [id number] ABIDA VELAZCO Self - patient is the insured [place] [address] [place] [phone] [id number] ABIDA VELAZCO Self - patient is the insured Medical (General) History Medical History History ICD Code Denies [place],DM,CVA,Lung disease,renal dise ase Cortisone injection in the [...]
== END 2025-02-05 09:32 | disposition home or self-care (01) ==
LOC: HO.HOS 09:12
PROVIDERS: PCP Internal Medicine; Visit Provider Orthopaedic Surgery
DX: M75.42 Impingement syndrome of left shoulder (principal)
CPT/HCPCS: 99213

== ENCOUNTER → 2025-02-05 09:11 | Outpatient (BNVA) | payer OTHER, SELFPAY | PROVIDERS: PCP Internal Medicine; Visit Provider Orthopaedic Surgery | DX: Z71.2 Person consulting for explanation of examination or test findings (principal); M25.512 Pain in left shoulder; M75.42 Impingement syndrome of left shoulder | CPT/HCPCS: 99212 ==

== ENCOUNTER 2025-02-28 05:57 | Outpatient (REF) | payer OTHER, SELFPAY ==
--- OUTSIDE RECORDS SUMMARY | 2024-05-23 03:30 | XMS_ITS ---
Author Organization [facility] Address 10 [facility] [address] [place] [address] Care Team Providers Care Superintendent Landfill Operations Name Role Phone Kaci Null MD Primary Care Provider Constantine Torres [phone] REASON FOR VISIT esophageal stricture, dysphagia, abn barium swallow Encounters Encounter Location Date Provider Diagnosis [facility] [place] [address] [place], [place] [phone] 05/23/2024 Constantine Cervantes Plan Of Treatment Next Appt Details Provider Name:Constantine Cervantes , 05/03/2025 01:00:00 PM, 10 [facility], Suite [facility], [place], [address], Progress Notes * MENARDSANDY REYNOSO DODOB:1960 (64 yo M)Acc No.[id number]:05/23/2024 EGD/MAC Patient: S ORLIN ABIDA SHEIKH Provider: Favian Cervantes MD :1960 A ge:63 Y S ex:Male Date:05/23/2024 Address:[address] [place] [address] Pcp:Kaci Null MD Subjective: * Chief Complaints: [...] 0 05/23/2024 Generated for Ortega fletcher/Laura/Kiana on: 06:01 AM EDT
--- OUTSIDE RECORDS SUMMARY | 2025-02-28 06:01 | XMS_ITS | Patient Health Record ---
Author Organization [facility] Address [address] [place] [address] Care Team Providers Care Cigarette Paper Tester Name Role Phone Kaci Null MD Primary Care Provider Constantine Torres [phone] Allergies No Known Allergies Reason For Referral No Information Medications Medication SIG (Take, Route, Frequency, Duration) Notes Start Date End Date Status Omeprazole 20 MG 2 Orally Every morni ng and every evening; Duration: 30 day(s) 06/30/2022 Unknown Omeprazole 40 MG TAKE 1 CAPSULE BY [facility] TWICE A DAY; Duration: 90 Unknow n [...] W/U Status Risk Notes Problem Esophageal reflux (660393839) Esophageal reflux (K21.9) Active confirmed Problem Screening for malignant neoplasm of colon (966537471) Encounter for screening for malignant neoplasm of colon (Z12.11) Active confirmed Problem History of adenomatous polyp of colon (364184844) History of adenomatous polyp of colon (Z86.010) Active confirmed Problem Stricture of esophagus (25552316) Esophageal obstruction (K22.2) Active confirmed Problem Dysphagia (74809313) Dysphagia (R13.10) Active confirmed Problem Esophageal stricture (29083338) Esophageal stricture (K22.2) Active confirmed Problem Erosive esophagitis (36334064) Erosive esophagitis (K22.10) Active confirmed Problem Esophageal ring (27732972) Esophageal ring (K22.2) Active confirmed Problem Barium swallow abnormal (030289696) Abnormal barium swallow (R93.3) Active confirmed Problem Diverticulosis of sigmoid colon (009220254) Diverticulosis of sigmoid colon (K57.30) Active confirmed Problem Esophageal dysphagia (32768588) Esophageal dysphagia (R13.10) Active confirmed Problem Diverticulosis of colon (296213769) Diverticulosis of colon (K57.30) Active confirmed Problem Gastroesophageal reflux disease (disorder) (178075559) Chronic GERD (K21.9) Active confirmed Encounters Encounter Location Date Provider Diagnosis [facility] [address] [place] [address] 04/09/2024 Constantine Cervantes [facility] [address] [place] [address] 05/22/2024 Constantine Cervantes Plan Of Treatment Pending [...] Name:Constantine Cervantes , 05/03/2025 01:00:00 PM, [address], [address], [place], [address], Insurance Providers Payer Name Payer Address Payer Phone Subscriber Number Group Number Insured Name Patient Relationship to Insured Coverage Start Date Coverage End Date [employer] [address] [address] [place], [place] [id number] [phone] [id number] SAILAJA GUNTERKYARA WILSONABIDA Self - patient is the insured [place] [address] [place] [phone] [id number] ABIDA VELAZCO Self - patient is the insured Medical (General) History Medical History History ICD Code Denies [place],DM,CVA,Lung disease,renal dise ase Cortisone injection in the [...]
[2025-02-28 07:36] LABS: Cholesterol 228 mg/dL (<200); HDL Cholesterol 41 mg/dL (>40); Triglycerides 260 mg/dL (<150)
[2025-02-28 07:55] LABS: Prostate Specific Antigen 4.84 ng/mL (<0.05-4.0)
== END 2025-02-28 05:58 | disposition home or self-care (01) ==
LOC: HO.LAB 05:57
PROVIDERS: Urology; PCP Internal Medicine
DX: C61 Malignant neoplasm of prostate (principal); E78.00 Pure hypercholesterolemia, unspecified
CPT/HCPCS: 36415; 80061; 84153; 84403

== ENCOUNTER 2025-03-06 12:16 | Outpatient (AMB) | payer OTHER, SELFPAY ==
--- OUTSIDE RECORDS SUMMARY | 2024-05-23 02:30 | XMS_ITS ---
Author Organization [facility] Address 10 [facility] [address] [place] [address] Care Team Providers Care Ruffling Machine Operator Name Role Phone Kaci Null MD Primary Care Provider Constantine Torres [phone] REASON FOR VISIT esophageal stricture, dysphagia, abn barium swallow Encounters Encounter Location Date Provider Diagnosis [facility] Outpatient [address] [place], [place] [phone] 05/23/2024 Constantine Cervantes Plan Of Treatment Next Appt Details Provider Name:Constantine Cervantes , 05/03/2025 01:00:00 PM, 10 [facility], Suite [facility], [place], [address], Progress Notes * MENARDSANDY REYNOSO DODOB:1960 (64 yo M)Acc No.[id number]:05/23/2024 EGD/MAC Patient: S ORLIN ABIDA SHEIKH Provider: Favian Cervantes MD :1960 A ge:63 Y S ex:Male Date:05/23/2024 Address:[address] [place] [address] Pcp:Kaci Null MD Subjective: * Chief Complaints: [...] Sign off status: Pending * Provider: Favian Cevrantes MD Date: 0 05/23/2024 Generated for Ortega fletcher/Laura/Kiana on: 05/06/2024 02:56 PM EST
[2025-03-06 12:28] VITALS: BP 138/72; PULSE 75; O2SAT 98; BMI 31.6
--- NOTE | 2025-03-06 12:28 | MHC.PC.OV ---
Vital Signs 03/06/25 12:28 Height 5 ft 7 in Weight 202 lb BMI 31.6 BP 138/72 Blood Pressure Location Lt brachial Position Sitting Pulse 75 Pulse Source Pulse Oximeter Pulse Oximetry (%) 98 Oxygen Delivery Method Room Air Intake Visit Reasons: Pre-op Left shoulder arthroscopy 03/22/25 Allergies No Known Allergies Allergy (Verified 03/06/25 12:29) Medication List - Last Reconciled 03/06/25 by Kaci Null MD atorvastatin (Lipitor) 10 mg PO BEDTIME [AUTO PAP 6-20 cm H20 humidified AIR Sleep study done 05/31/2024 results showing obstructive sleep apnea moderately severe AHI of 16 borderline total hypoxemia consider starting CPAP auto PAP mode pressure setting 6-20 cm] cyclobenzaprine 10 mg PO TID PRN famotidine 40 mg PO BID fenofibrate 160 mg PO DAILY finasteride 5 mg PO DAILY 90 days omeprazole 40 mg PO BID Tobacco use date assessed: 08/02/24 Dental Screening Dental Screen Date: 01/02/25 [facility] Medical History Shoulder pain, left Swelling of left foot Cellulitis of left foot Penile pain, chronic Shoulder pain LFT elevation Colon cancer screening Vision changes Hx of hiatal hernia GERD (gastroesophageal reflux disease) Colonoscopy planned Dysphagia Neuropathy of left foot Tobacco abuse Alcohol abuse Obesity (BMI 30-39.9) No known health problems Surgical History History of prostate surgery History of endoscopy History of colonoscopy History of shoulder surgery Family History Mother Myocardial infarct CVA (cerebral vascular accident) Social History (Updated 03/06/25 @ 12:38 by Kaci Null MD) Housing: Apartment Alcohol intake: former Comment: improving with flatus passing stopped 2022 Patient Tobacco Use Status: Former Tobacco user Tobacco use type: Cigarette Years Smoked: 20stopped 2022 e-Cigarette/Vaping Use: Never Used Second Hand Smoke Exposure: Yes service: No Current occupational status: retired Current occupation: right handed Cognitive needs: No Hearing needs: No Vision needs: No Questionnaire Thrive Questionnaire Date Thrive assessed: 12/27/24 I am a: Patient What is your living situation today?: I have a steady place to live Within the past 12 months, did the food you bought not last and you didn't have the money to get more?: Never true Within the past 12 months, did you worry whether your food would run out before you got money to buy more?: Never true Do you have trouble paying for medicines?: I choose not to answer this question Do you have trouble getting transportation to medical appointments?: No Do you have trouble paying your heating and electricity bill?: I choose not to answer this question Do you have trouble taking care of your child, family member or friend?: No Do you have trouble with day-to-day activities such as bathing, preparing meals, shopping, managing finances, etc.?: I choose not to answer this question Are you currently unemployed and looking for a job?: I choose not to answer this question Are you interested in more education?: No Please select the resources that you would like help with: Housing/[facility] Currently or been in a relationship where the following occur: No concerns reported THRIVE Score: 0 BARRINGTON-7 AMB Questionnaire BARRINGTON-7 Date BARRINGTON - 7 assessed: 08/02/24 Source: Developed by Drs. Constantine Mello, Meredith Sheikh, Goyo Mendes and colleagues, with an educational pedro from [employer]. Review of Systems Const Denies poor appetite and Denies weakness Eyes Denies no additional complaints ENT Reports Normal hearing present, Denies dizziness, Denies nasal congestion, Denies tinnitus and Denies sore throat Card Denies chest pain, Denies syncope, Denies rapid heart rate and Denies dyspnea Resp Denies cough and Denies dyspnea GI Denies change in stool character, Reports constipation, Denies diarrhea, Denies nausea and Denies vomiting Denies dysuria and Denies urinary frequency Neuro Reports Normal hearing present, Denies confusion, Denies dizziness, Denies syncope and Denies weakness Psych Denies confusion Physical exam (Primary Care) Vital Signs: Last Vital Signs Pulse 75 03/06/25 12:28 BP 138/72 03/06/25 12:28 Pulse Ox 98 03/06/25 12:28 Oxygen Delivery Method Room Air 03/06/25 12:28 BMI result Body Mass Index 31.6 Tobacco/Smoking Status: Tobacco use Status Tobacco use date assessed 08/02/24 03/06/25 12:32 Patient Tobacco Use Status Former Tobacco user 03/06/25 12:38 Tobacco use type Cigarette 03/06/25 12:38 e-Cigarette/Vaping Use Never Used 03/06/25 12:38 Thrive Assessment: Date of Thrive Assessment Date Thrive assessed 12/27/24 03/06/25 12:32 Currently or been in a relationship where the following occur: No concerns reported Const General: No confusion Orientation/consciousness: No confusion HENMT Head: Yes normocephalic Ears: external ears normal and TM's normal bilaterally Face and sinus: Yes normal facial exam Mouth: moist mucous membranes Throat: Yes tonsils normal Eyes Conjunctivae: conjunctivae normal Pupils: Equal, round and reactive pupils present and Pupil accommodation reflex normal Direct Ophthalmoscopy: normal light reflex Neck Neck: No lymphadenopathy Thyroid: Thyroid normal Chest Chest palpation & inspection: normal inspection of the chest Resp Effort & Inspection: normal respiratory effort and no audible wheezes Auscultation: clear to auscultation bilaterally, no crackles, no wheezes and lung sounds not diminished Cardio Rate: regular rate Rhythm: regular rhythm Peripheral pulses: radial pulses present and dorsalis pedis present GI Palpation (GI): no masses Auscultation: normal bowel sounds and normoactive bowel sounds Rectal Exam - Male: Yes deferred Skin General skin exam: no rashes or lesions noted Rashes: no rashes Neuro General: No confusion Cranial nerves: Yes Equal, round and reactive pupils present and Yes Normal hearing present Cognition (Neuro): normal cognition Gait exam (Neuro): Normal gait present Motor exam (neuro): 5/5 motor strength present throughout Deep tendon reflexes (DTR's): Right brachioradialis reflex intensity grade: 2+, Left brachioradialis reflex intensity grade: 2+, Right patellar reflex intensity grade: 2+ and Left patellar reflex intensity grade: 2+ Extrem General: No edema Coding Level of Care Code Est Pt Level 4 (75600) Complex EM visit Add On G2211 Diagnoses Preop exam for internal medicine Z01.818 Impaired fasting blood sugar R73.01 Hypercholesterolemia E78.00 Obesity (BMI 30.0-34.9) E66.9 BPH w urinary obs/LUTS N40.1; N13.8 Prostate cancer C61 KEELY (obstructive sleep apnea) G47.33 Rotator cuff insufficiency of left shoulder M25.312 Assessment & Plan Assessment & Plan (1) Preop exam for internal medicine: Code(s): Z01.818 - Encounter for other preprocedural examination Category: Medical Plan: Blood work and EKG requested (2) Impaired fasting blood sugar: Code(s): R73.01 - Impaired fasting glucose Category: Medical Plan: Decrease the amount of carbohydrate intake, pasta, bread, rice and potatoes are all sugar and that is aside from all the sweet stuff, remember that fruits are good but they are Sweet also. (3) Hypercholesterolemia: Code(s): E78.00 - Pure hypercholesterolemia, unspecified Category: Medical Plan: Avoid fried foods, chicken skin, eggs, butter margarine, pastries and meat. Be it pork or beef they have a lot of cholesterol presently on fenofibrate and atorvastatin (4) Obesity (BMI 30.0-34.9): Code(s): E66.9 - Obesity, unspecified Category: Medical Plan: Diet and exercise (5) BPH w urinary obs/LUTS: Comment: Prostate biopsy January 2023 with MRI done May 2023 Code(s): N40.1 - Benign prostatic hyperplasia with lower urinary tract symptoms; N13.8 - Other obstructive and reflux uropathy Category: Medical Plan: Continue with finasteride (6) Prostate cancer: Comment: 01/[address] Gloria Code(s): C61 - Malignant neoplasm of prostate Category: Medical Plan: Continue to follow-up with urology (7) KEELY (obstructive sleep apnea): Comment: Sleep study done 05/31/2024 results showing obstructive sleep apnea moderately severe AHI of 16 borderline total hypoxemia consider starting CPAP auto PAP mode pressure setting 6-20 cm Code(s): G47.33 - Obstructive sleep apnea (adult) (pediatric) Category: Medical Plan: Discussed about using CPAP more than 4 hours a night and benefits from this. Patient needs to bring this to the scheduled surgery (8) Rotator cuff insufficiency of left shoulder: Code(s): M25.312 - Other instability, left shoulder Category: Medical Plan History of Present Illness The patient is a 64-year-old obese male presenting for a preoperative evaluation for a left shoulder surgery. He has a history of left shoulder impingement syndrome and underwent surgery on the left shoulder 5 years ago. The patient reports worsening left shoulder pain and was seen by an floral department specialist on February 05, 2025. A December MRI of the shoulder revealed the intraarticular long head of the biceps tendon was not seen, with thinning that may be postsurgical or from a partial tear, along with tendinosis. Additional findings included mild subscapularis and supraspinatus tendinosis, with a possible low-grade partial-thickness subscapularis footprint tear and a low-grade partial-thickness bursal-sided supraspinatus tear. Past medical history is significant for hypercholesterolemia, fatty liver, BPH, a history of tubular adenoma of the colon with the last colonoscopy in June 2022, a history of prostate cancer, impaired glucose tolerance, and obstructive sleep apnea. His LDL cholesterol improved from 187 in December 2024 to 135 in January, and his triglycerides decreased from 302 to 228. His PSA was 4.84 in January. The patient reports having leg pain and chronic back pain. He denies any nausea, vomiting, fevers, or chest pain. He experiences shortness of breath at times when climbing stairs while carrying items, but can ascend one flight without problems. Socially, the patient is retired but remains physically active, helping his grandson with work on cars. He quit drinking alcohol in 2022 and has also stopped smoking. His mother had a history of stroke and heart attack, but there is no other family history of heart attack or cancer. Health Maintenance - Colon cancer screening: Last colonoscopy was in June 2022 for a history of tubular adenoma. - Prostate cancer screening: PSA level is 4.84 and is being monitored by urology. - Cardiovascular health: Last stress test was in July. - Vaccinations: Influenza vaccine deferred until after surgery. - Substance use: The patient has quit smoking and drinking alcohol. Social History - Alcohol Use: Denies alcohol use; he quit in 2022. - Tobacco Use: Denies smoking; reports he quit. - Employment: The patient is retired. - Functional Status: He remains physically active by helping his grandson with physical work, such as working on cars. - Level of Activity: He can climb one flight of stairs without issue but experiences some shortness of breath if carrying a bag. - Family History: Mother with a history of stroke and heart attack. Review of Systems - General: Denies fevers, nausea, and vomiting. - Cardiovascular: Denies chest pain, heaviness, or discomfort. - Respiratory: Reports occasional dyspnea when climbing stairs while carrying something. Denies cough. - Musculoskeletal: Reports worsening pain in the left shoulder. Reports back pain as always and had pain inside his leg for two weeks in December without swelling. - Neurological: Reports a twitching habit that developed after his first shoulder surgery. Physical Exam General: Cooperative, healthy appearing, comfortable, no acute distress and well developed Orientation: Patient oriented x3 Limitations: No limitations Head: Normal to inspection Ears: Hearing grossly normal bilaterally Nose: Normal external nose present Face and sinus: Normal facial exam Eyes: Appearance normal, both eyes and all related structures Neck: Normal visual inspection and Yes full ROM Respiratory: Normal respiratory effort and able to speak in complete sentences. Clear to auscultation bilaterally Cardiovascular: Regular rate and rhythm. Normal S1 and S2 GI: Normal to inspection. Soft to palpation and nontender Skin: No rashes or lesions noted Neuro: Patient oriented x3 Extremities: Normal to inspection, but patient reports pain in the leg without swelling, and occasional shortness of breath when climbing stairs, especially when carrying a bag. Results - Labs: Blood work from July 2024 showed a normal blood count with no anemia. - Labs: Hemoglobin A1c was normal in December 2024. - Labs: In December 2024, LDL cholesterol was 187 and triglycerides were 302. - Labs: In January 2025, LDL cholesterol was 135 and triglycerides were 228. - Labs: PSA was 4.84 in January. - Imaging: An MRI of the left shoulder in December showed tendinosis of the biceps tendon long head, mild subscapularis and supraspinatus tendinosis, a possible low-grade partial-thickness subscapularis footprint tear, and a low-grade partial-thickness bursal-sided supraspinatus tear. - Tests: The patient's last stress test was in July. Plan Patient was informed and verbally consented to the use of an ambient scribe for clinic note documentation during this visit. 1. Preoperative Evaluation The patient is cleared for his upcoming left shoulder surgery pending further testing. While his history does not suggest significant cardiac issues, pre-operative blood work and an EKG are required within 30 days of the procedure to assess surgical risk. A request for these tests, which do not require fasting, has been submitted. 2. Hypercholesterolemia The patient's lipid panel has shown improvement, with LDL cholesterol decreasing from 187 to 135 and triglycerides from 302 to 228. Although the LDL goal is below 130 and the triglyceride goal is below 150, the trend is positive. A refill for atorvastatin was provided to continue management. 3. History Of Prostate Cancer The patient's PSA remains slightly elevated at 4.84. He will continue to be monitored by urology and has a follow-up appointment scheduled for April. A refill for finasteride was provided. 4. Musculoskeletal Pain For musculoskeletal pain, the patient may take Tylenol. A refill for the muscle relaxant baclofen has already been sent to his pharmacy. Discussion Notes I explained to the patient that the purpose of this preoperative evaluation is to assess his risk of experiencing heart problems before, during, or after his shoulder surgery. I noted that his history is reassuring, as he has no significant cardiac history and does not experience chest pain with exertion, which is a good sign. I informed him of the requirement for preoperative blood work and an EKG, to be done within 30 days of the procedure, to check his kidney function and cardiac status. We reviewed his recent lab results, highlighting the improvement in his cholesterol and triglyceride levels, though noting they have not yet reached the target goals. We discussed his medications, and I confirmed I would send refills for his atorvastatin and finasteride. I advised him to postpone any vaccinations, such as a flu shot, until after his surgery. Patient Instructions - You need to get blood work and an EKG done before your shoulder surgery. - These tests should be done within 30 days of your procedure. - You do not need to fast for the blood work. - You can take Tylenol if you have pain. - Continue taking your medications for cholesterol (atorvastatin) and prostate (finasteride). I have sent refills for these. - A refill for your muscle relaxer has already been sent to the pharmacy. - Please do not get a flu shot before your surgery. - Good luck with your procedure. Orders: Orders Basic Metabolic Panel Today Z01.818 - Encounter for other preprocedural examination ECG 12 lead EKG Today Z01.818 - Encounter for other preprocedural examination Medications: Refilled cyclobenzaprine 10 mg PO TID PRN 60 tabs 0RF muscle spasm M54.5 - Low back pain finasteride 5 mg PO DAILY 90 tabs 1RF 90 days C61 - Malignant neoplasm of prostate, N13.8 - Other obstructive and reflux uropathy, N40.1 - Benign prostatic hyperplasia with lower urinary tract symptoms
--- OUTSIDE RECORDS SUMMARY | 2025-03-06 14:56 | XMS_ITS | Patient Health Record ---
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 Name Role Phone Kaci Null MD Primary Care Provider Constantine Torres [phone] Allergies No Known Allergies Reason For Referral No Information Medications Medication SIG (Take, Route, Frequency, Duration) Notes Start Date End Date Status Omeprazole 20 MG 2 Orally Every morni ng and every evening; Duration: 30 day(s) 06/30/2022 Unknown Omeprazole 40 MG TAKE 1 CAPSULE BY [facility] TWICE A DAY; Duration: 90 Unknow [...] W/U Status Risk Notes Problem Esophageal reflux (499816967) Esophageal reflux (K21.9) Active confirmed Problem Screening for malignant neoplasm of colon (346667276) Encounter for screening for malignant neoplasm of colon (Z12.11) Active confirmed Problem History of adenomatous polyp of colon (507228840) History of adenomatous polyp of colon (Z86.010) Active confirmed Problem Stricture of esophagus (86579940) Esophageal obstruction (K22.2) Active confirmed Problem Dysphagia (48582625) Dysphagia (R13.10) Active confirmed Problem Esophageal stricture (31980495) Esophageal stricture (K22.2) Active confirmed Problem Erosive esophagitis (70470398) Erosive esophagitis (K22.10) Active confirmed Problem Esophageal ring (78386105) Esophageal ring (K22.2) Active confirmed Problem Barium swallow abnormal (296018400) Abnormal barium swallow (R93.3) Active confirmed Problem Diverticulosis of sigmoid colon (657101841) Diverticulosis of sigmoid colon (K57.30) Active confirmed Problem Esophageal dysphagia (92849126) Esophageal dysphagia (R13.10) Active confirmed Problem Diverticulosis of colon (644594868) Diverticulosis of colon (K57.30) Active confirmed Problem Gastroesophageal reflux disease (disorder) (993124513) Chronic GERD (K21.9) Active confirmed Encounters Encounter Location Date Provider Diagnosis [facility] [address] [place] [phone] 04/09/2024 Constantine Cervantes [facility] [address] [place] [phone] 05/22/2024 Constantine Cervantes Plan Of Treatment Pending [...] Name:Constantine Cervantes , 05/03/2025 01:00:00 PM, [address], [address], [place], [address], Insurance Providers Payer Name Payer Address Payer Phone Subscriber Number Group Number Insured Name Patient Relationship to Insured Coverage Start Date Coverage End Date [employer] [address] [address] [place], [place] [id number] [phone] [id number] SAILAJA GUNTERKYARA WILSONABIDA Self - patient is the insured [place] [address] [place] [phone] [id number] ABIDA VELAZCO Self - patient is the insured Medical (General) History Medical History History ICD Code Denies [place],DM,CVA,Lung disease,renal dise ase Cortisone injection in the [...]
== END 2025-03-06 13:48 | disposition home or self-care (01) ==
LOC: HO.HMCH 12:17
PROVIDERS: PCP Internal Medicine; Visit Provider Internal Medicine
DX: R73.01 Impaired fasting glucose (principal); C61 Malignant neoplasm of prostate; E66.9 Obesity, unspecified; Z68.31 Body mass index [BMI] 31.0-31.9, adult; Z01.818 Encounter for other preprocedural examination; E78.00 Pure hypercholesterolemia, unspecified; N40.1 Benign prostatic hyperplasia with lower urinary tract symptoms; N13.8 Other obstructive and reflux uropathy; G47.33 Obstructive sleep apnea (adult) (pediatric); M25.312 Other instability, left shoulder

== ENCOUNTER → 2025-03-06 12:16 | Outpatient (BNVA) | payer OTHER, SELFPAY | PROVIDERS: PCP Internal Medicine; Visit Provider Internal Medicine | DX: Z01.818 Encounter for other preprocedural examination (principal); R73.01 Impaired fasting glucose; E78.00 Pure hypercholesterolemia, unspecified; E66.9 Obesity, unspecified; N40.1 Benign prostatic hyperplasia with lower urinary tract symptoms; N13.8 Other obstructive and reflux uropathy; C61 Malignant neoplasm of prostate; G47.33 Obstructive sleep apnea (adult) (pediatric); M25.312 Other instability, left shoulder; Z68.31 Body mass index [BMI] 31.0-31.9, adult | CPT/HCPCS: 99212 ==

== ENCOUNTER 2025-03-08 09:54 | Outpatient (REF) | payer OTHER, SELFPAY ==
--- OUTSIDE RECORDS SUMMARY | 2024-05-23 02:30 | XMS_ITS ---
Author Organization [facility] Address [address] [facility] [address] [place] [address] Care Team Providers Care Conduit Cleaner Name Role Phone Kaci Null MD Primary Care Provider Constantine Torres [phone] REASON FOR VISIT esophageal stricture, dysphagia, abn barium swallow Encounters Encounter Location Date Provider Diagnosis [facility] Outpatient [address] [place], [place] [phone] 05/23/2024 Constantine Cervantes Plan Of Treatment Next Appt Details Provider Name:Constantine Cervantes , 05/03/2025 01:00:00 PM, [address] [facility], Suite [facility], [place], [address], Progress Notes * MENARDSANDY REYNOSO DODOB:1960 (64 yo M)Acc No.[id number]:05/23/2024 EGD/MAC Patient: S ORLIN ABIDA SHEIKH Provider: Favian Cervantes MD :1960 A ge:63 Y S ex:Male Date:05/23/2024 Address:[address] [place] [address] Pcp:Kaci Null MD Subjective: * Chief Complaints: * 1 . Esophageal stricture, dysphagia, abn barium swallow. * Medical History: Objective: * Vitals: Assessment: Plan: * Treatment: * * The named appointment provid er may or may not be the originator of this progress note, and it is not deemed complete until electronically signed by the appointment provider. Sign off status: Pending * Provider: Favian Cervantes MD Date: 0 05/23/2024 Generated for Ortega fletcher/Laura/Kiana on: 1 05/08/2024 11:37 AM EST
--- NOTE | 2025-03-08 10:52 | ECG_ITS ---
Test Reason : PREOP Blood Pressure : */* mmHG Vent. Rate : 71 BPM Atrial Rate : 71 BPM P-R Int : 158 ms QRS Dur : 82 ms QT Int : 398 ms P-R-T Axes : 61 -39 -16 degrees QTcB Int : 432 ms Sinus rhythm with marked sinus arrhythmia Left axis deviation Abnormal ECG No previous ECGs available Referred By: Kaci Null Electronically Signed By: Elvin Casey
--- OUTSIDE RECORDS SUMMARY | 2025-03-08 11:38 | XMS_ITS | Patient Health Record ---
Author Organization [facility] Address [address] [place] [address] Care Team Providers Care Varnish Supervisor Name Role Phone Kaci Null MD Primary Care Provider Constantine Torres [phone] Allergies No Known Allergies Reason For Referral No Information Medications Medication SIG (Take, Route, Frequency, Duration) Notes Start Date End Date Status Omeprazole 20 MG 2 Orally Every morni ng and every evening; Duration: 30 day(s) 06/30/2022 Unknown Omeprazole 40 MG TAKE 1 CAPSULE BY [facility] TWICE A DAY; Duration: 90 [...] W/U Status Risk Notes Problem Esophageal reflux (393421367) Esophageal reflux (K21.9) Active confirmed Problem Screening for malignant neoplasm of colon (553151192) Encounter for screening for malignant neoplasm of colon (Z12.11) Active confirmed Problem History of adenomatous polyp of colon (545850955) History of adenomatous polyp of colon (Z86.010) Active confirmed Problem Stricture of esophagus (92401690) Esophageal obstruction (K22.2) Active confirmed Problem Dysphagia (74972555) Dysphagia (R13.10) Active confirmed Problem Esophageal stricture (97755928) Esophageal stricture (K22.2) Active confirmed Problem Erosive esophagitis (15823701) Erosive esophagitis (K22.10) Active confirmed Problem Esophageal ring (87877179) Esophageal ring (K22.2) Active confirmed Problem Barium swallow abnormal (776804382) Abnormal barium swallow (R93.3) Active confirmed Problem Diverticulosis of sigmoid colon (971529636) Diverticulosis of sigmoid colon (K57.30) Active confirmed Problem Esophageal dysphagia (49473682) Esophageal dysphagia (R13.10) Active confirmed Problem Diverticulosis of colon (895293504) Diverticulosis of colon (K57.30) Active confirmed Problem Gastroesophageal reflux disease (disorder) (819935530) Chronic GERD (K21.9) Active confirmed Encounters Encounter Location Date Provider Diagnosis [facility] [address] [place] [phone] 04/09/2024 Constantine Cervantes [facility] [address] [place] [phone] 05/22/2024 Constantine Cervantes Plan Of Treatment Pending [...] Name:Constantine Cervantes , 05/03/2025 01:00:00 PM, [address], [address], [place], [address], Insurance Providers Payer Name Payer Address Payer Phone Subscriber Number Group Number Insured Name Patient Relationship to Insured Coverage Start Date Coverage End Date [employer] [address] [address] [place], [place] [id number] [phone] [id number] SAILAJA GUNTERKYARA WILSONABIDA Self - patient is the insured [place] [address] [place] [phone] [id number] ABIDA VELAZCO Self - patient is the insured Medical (General) History Medical History History ICD Code Denies [place],DM,CVA,Lung disease,renal dise ase Cortisone injection in the [...]
[2025-03-08 12:13] LABS: Anion Gap 14 (12-20); Blood Urea Nitrogen 15 mg/dL (9-16); Calcium 9.4 mg/dL (8.4-10.2); Carbon Dioxide 27 mmol/L (22-29); Chloride 104 mmol/L (96-108); Estimated Glomerular Filt Rate > 60; Potassium 4.1 mmol/L (3.3-5.1); Sodium 141 mmol/L (135-145)
== END 2025-03-08 09:55 | disposition home or self-care (01) ==
LOC: HO.LAB 09:54
PROVIDERS: PCP Internal Medicine; Visit Provider Internal Medicine
DX: Z01.818 Encounter for other preprocedural examination (principal)
CPT/HCPCS: 36415; 80048; 93005

== ENCOUNTER → 2025-03-08 10:52 | Outpatient (BNV) | payer OTHER, SELFPAY | PROVIDERS: PCP Internal Medicine; Visit Provider Internal Medicine Cardiovascular Disease | DX: I49.9 Cardiac arrhythmia, unspecified (principal) | CPT/HCPCS: 93010 ==

== ENCOUNTER 2025-03-13 13:46 | Outpatient (AMB) | payer OTHER, SELFPAY ==
--- OUTSIDE RECORDS SUMMARY | 2024-05-23 02:30 | XMS_ITS ---
Author Organization [facility] Address 10 [facility] [address] [place] [address] Care Team Providers Care Automobile Contract Clerk Name Role Phone Kaci Null MD Primary Care Provider Constantine Torres [phone] REASON FOR VISIT esophageal stricture, dysphagia, abn barium swallow Encounters Encounter Location Date Provider Diagnosis [facility] Out[place] [address] [place], [place] [phone] 05/23/2024 Constantine Cervantes Plan Of Treatment Next Appt Details Provider Name:Constantine Cervantes , 05/03/2025 01:00:00 PM, 10 [facility], Suite [facility], [place], [address], Progress Notes * MENARDSANDY REYNOSO DODOB:1960 (64 yo M)Acc No.[id number]:05/23/2024 EGD/MAC Patient: S ORLIN ABIDA SHEIKH Provider: Favian Cervantes MD :1960 A ge:63 Y S ex:Male Date:05/23/2024 Address:[address] [place] [address] Pcp:Kaci Null MD Subjective: * Chief Complaints: [...] 05/23/2024 Generated for Ortega fletcher/Laura/Kiana on: 1 05/13/2024 04:50 PM EST
[2025-03-13 13:50] VITALS: BP 138/80; PULSE 80; BMI 31.8
--- NOTE | 2025-03-13 13:50 | A.OFFVIS_ITS ---
Vital Signs 03/13/25 13:50 Height 5 ft 7 in Weight 202 lb 13.204 oz BMI 31.8 BP 138/80 Blood Pressure Location Lt brachial Position Sitting Pulse 80 Pulse Source Pulse Oximeter Intake Visit Reasons: Impingement syndrome of left shoulder Allergies No Known Allergies Allergy (Verified 03/06/25 12:29) Medication List - Last Reconciled 03/13/25 by Seth Aleman MD atorvastatin (Lipitor) 10 mg PO BEDTIME [AUTO PAP 6-20 cm H20 humidified AIR Sleep study done 05/31/2024 results showing obstructive sleep apnea moderately severe AHI of 16 borderline total hypoxemia consider starting CPAP auto PAP mode pressure setting 6-20 cm] cyclobenzaprine 10 mg PO TID PRN famotidine 40 mg PO BID fenofibrate 160 mg PO BEDTIME finasteride 5 mg PO QAM omeprazole 40 mg PO BID HPI Comments Details: Patient is here for consultation regarding cardiac risk stratification for shoulder surgery. He does not have any known cardiac history including coronary disease or myocardial infarction or cardiomyopathy. Within limits of his activity, it does not really have any clear-cut cardiac symptoms like exertional angina. He states he can go up 2 flights of stairs without any chest pains. Otherwise active without any major limitations. He reports multiple prior procedures like endoscopy, colonoscopy and others very apparently had no issues. Otherwise, he has got dyslipidemia on statin/fenofibrate. Apparently, he was also diagnosed with obstructive sleep apnea but not on any CPAP. [facility] Medical History (Updated 03/13/25 @ 14:17 by Seth Aleman MD) Former smoker History of alcohol abuse Arthritis Elevated PSA measurement Hiatal hernia Erectile dysfunction Elevated cholesterol Fatty liver Back pain Gout KEELY (obstructive sleep apnea) BPH (benign prostatic hyperplasia) Shoulder pain, left LFT elevation Vision changes GERD (gastroesophageal reflux disease) Dysphagia Neuropathy of left foot Obesity (BMI 30-39.9) Surgical History (Updated 03/08/25 @ 10:12 by Agustina Ruiz RN) History of prostate biopsy History of endoscopy History of colonoscopy History of shoulder surgery Family History (Updated 03/13/25 @ 13:55 by Fozia Merritt) Mother Myocardial infarct CVA (cerebral vascular accident) Father No problems noted. Social History (Updated 03/06/25 @ 12:38 by Kaci Null MD) Household Members Other:: step daughter Housing: Apartment Are you a primary resident care manager rn to a significant other at home: No Do you presently have visiting nurse or other home services: No Alcohol intake: former Comment: improving with flatus passing stopped 2022 Patient Tobacco Use Status: Former Tobacco user Tobacco use type: Cigarette Years Smoked: 15 e-Cigarette/Vaping Use: Never Used Second Hand Smoke Exposure: Yes service: No Current occupational status: retired Current occupation: right handed Cognitive needs: No Hearing needs: No Vision needs: No Review of Systems Const Reports body aches and Denies weakness ENT Denies dizziness Card Denies chest pain, Denies chest pain with activity, Denies syncope, Denies rapid heart rate, Denies pedal edema, Denies edema, Denies leg edema, Denies lightheadedness, Denies palpitations, Reports dyspnea, Reports dyspnea on exertion and Denies orthopnea Resp Denies cough, Reports dyspnea and Reports dyspnea on exertion GI Denies hematochezia and Denies change in stool character Musc Denies abnormal gait, Reports arthralgias, Denies muscle cramps, Denies muscle weakness, Denies numbness, Denies radiating pain into limb and Reports tingling Neuro Denies abnormal gait, Denies dizziness, Denies syncope, Denies numbness, Reports tingling and Denies weakness Endo Denies palpitations Physical Exam Vital Signs: Last Vital Signs Pulse 80 03/13/25 13:50 BP 138/80 03/13/25 13:50 BMI result Body Mass Index 31.8 Const General: comfortable and no acute distress Orientation/consciousness: patient oriented x3 HEENT Other: Unremarkable Head: Yes normal to inspection Neck Neck: Yes normal visual inspection Chest Chest palpation & inspection: normal inspection of the chest Resp Auscultation: clear to auscultation bilaterally Cardio Palpation: normal PMI Heart sounds: S1 normal heart sound present, S2 normal heart sound present, no gallops, no murmurs and no rubs GI Palpation (GI): Soft to palpation Back/Spine/Pelvis Other: unremarkable Skin General skin exam: no rashes or lesions noted Neuro General: patient oriented x3 Extrem General: Yes normal to inspection Psych Mental Status: mental status grossly normal Assessment & Plan Assessment & Plan (1) Preoperative cardiovascular examination: Code(s): Z01.810 - Encounter for preprocedural cardiovascular examination Category: Medical Plan In the recent EKG, underlying rhythm is sinus at 71/Min; sinus arrhythmias; leftward axis; no ischemic changes; normal AK and corrected QT. In the exercise stress test from July, he was able to do 7.7 METS on Juni protocol and reported chest pain, but without any EKG evidence of ischemia. Probably normal perfusion in the nuclear component. Gated LVEF was 57% during stress. Overall, patient with no active cardiac symptoms and normal perfusion in the stress test. May proceed with the shoulder surgery as planned. Low cardiac risk. Coding Level of Care Code New Pt Level 3 (67906) Diagnoses Preoperative cardiovascular examination Z01.810
--- OUTSIDE RECORDS SUMMARY | 2025-03-13 16:50 | XMS_ITS | Patient Health Record ---
Author Organization [facility] Address [address] [place] [address] Care Team Providers Care Outside Contractor Sales Name Role Phone Kaci Null MD Primary Care Provider Constantine Torres [phone] Allergies No Known Allergies Reason For Referral No Information Medications Medication SIG (Take, Route, Frequency, Duration) Notes Start Date End Date Status Omeprazole 20 MG 2 Orally Every morni ng and every evening; Duration: 30 day(s) 06/30/2022 Unknown Omeprazole 40 MG TAKE 1 CAPSULE BY [facility] TWICE A DAY; Duration: 90 [...] W/U Status Risk Notes Problem Esophageal reflux (537473880) Esophageal reflux (K21.9) Active confirmed Problem Screening for malignant neoplasm of colon (931286890) Encounter for screening for malignant neoplasm of colon (Z12.11) Active confirmed Problem History of adenomatous polyp of colon (128499100) History of adenomatous polyp of colon (Z86.010) Active confirmed Problem Stricture of esophagus (37843292) Esophageal obstruction (K22.2) Active confirmed Problem Dysphagia (55691141) Dysphagia (R13.10) Active confirmed Problem Esophageal stricture (74589486) Esophageal stricture (K22.2) Active confirmed Problem Erosive esophagitis (91757823) Erosive esophagitis (K22.10) Active confirmed Problem Esophageal ring (46217972) Esophageal ring (K22.2) Active confirmed Problem Barium swallow abnormal (127070866) Abnormal barium swallow (R93.3) Active confirmed Problem Diverticulosis of sigmoid colon (465376870) Diverticulosis of sigmoid colon (K57.30) Active confirmed Problem Esophageal dysphagia (17164483) Esophageal dysphagia (R13.10) Active confirmed Problem Diverticulosis of colon (849052649) Diverticulosis of colon (K57.30) Active confirmed Problem Gastroesophageal reflux disease (disorder) (150027919) Chronic GERD (K21.9) Active confirmed Encounters Encounter Location Date Provider Diagnosis [facility] [address] [place] [id number] 04/09/2024 Constantine Cervantes [facility] [address] [place] [phone] 05/22/2024 Constantine Cervantes Plan Of Treatment Pending [...] Name:Constantine Cervantes , 05/03/2025 01:00:00 PM, [address], [address], [place], [address], Insurance Providers Payer Name Payer Address Payer Phone Subscriber Number Group Number Insured Name Patient Relationship to Insured Coverage Start Date Coverage End Date [employer] [address] [address] [place], [place] [id number] [phone] [id number] SAILAJA GUNTERKYARA WILSONABIDA Self - patient is the insured [place] [address] [place] [phone] [id number] ABIDA VELAZCO Self - patient is the insured Medical (General) History Medical History History ICD Code Denies [place],DM,CVA,Lung disease,renal dise ase Cortisone injection in the [...]
== END 2025-03-13 14:30 | disposition home or self-care (01) ==
LOC: HO.HCS 13:47
PROVIDERS: PCP Internal Medicine; Visit Provider Internal Medicine
DX: Z01.810 Encounter for preprocedural cardiovascular examination (principal)
CPT/HCPCS: 99213

== ENCOUNTER → 2025-03-13 13:46 | Outpatient (BNVA) | payer OTHER, SELFPAY | PROVIDERS: PCP Internal Medicine; Visit Provider Internal Medicine | DX: Z01.810 Encounter for preprocedural cardiovascular examination (principal) | CPT/HCPCS: 99212 ==

== ENCOUNTER 2025-03-14 09:49 | Outpatient (AMB) | payer OTHER, SELFPAY ==
--- OUTSIDE RECORDS SUMMARY | 2024-05-23 02:30 | XMS_ITS ---
Author Organization [facility] Address 10 [facility] [address] [place] [address] Care Team Providers Care Ip Technology Transactions Attorney Name Role Phone Kaci Null MD Primary Care Provider Constantine Torres [phone] REASON FOR VISIT esophageal stricture, dysphagia, abn barium swallow Encounters Encounter Location Date Provider Diagnosis [facility] Outpatient [address] [place], [place] [phone] 05/23/2024 Constantine Cervantes Plan Of Treatment Next Appt Details Provider Name:Constantine Cervantes , 05/03/2025 01:00:00 PM, 10 [facility], Suite [facility], [place], [address], Progress Notes * MENARDSANDY REYNOSO DODOB:1960 (64 yo M)Acc No.[id number]:05/23/2024 EGD/MAC Patient: S ORLIN ABIDA SHEIKH Provider: Favian Cervantes MD :1960 A ge:63 Y S ex:Male Date:05/23/2024 Address:[address] [place] [address] Pcp:Kaci Null MD Subjective: * Chief Complaints: [...] 05/23/2024 Generated for Ortega fletcher/Laura/Kiana on: 1 05/14/2024 11:34 AM EST
--- NOTE | 2025-03-14 09:56 | A.OFFVIS_ITS ---
Vital Signs 03/14/25 10:05 Height 5 ft 7 in Weight 202 lb BMI 31.6 Handedness Right Intake Visit Reasons: Pre-Lt Shld 03/22/25 Intake Note: Hank is a 64 year old male right hand dominant who presents with complaints of progressively worsening left shoulder pain and stiffness. The patient states that he did undergo left shoulder surgery at [facility] approximately 5 years ago. He states that he got mild relief from the procedure. His symptoms have gotten worse over the last year in spite of continued non operative treatments. He has failed the last 6 weeks of conservative treatment which has included Tylenol, anti-inflammatory medicines, physical therapy exercises and a home exercise program. He has had cortisone injections in the past. The most recent injection gave him minimal relief. He reports increased pain when lifting his left hand above shoulder height. Allergies No Known Allergies Allergy (Verified 03/14/25 10:04) Medication List - Last Reconciled 03/14/25 by Sukhdev Oleary MD atorvastatin (Lipitor) 10 mg PO BEDTIME [AUTO PAP 6-20 cm H20 humidified AIR Sleep study done 05/31/2024 results showing obstructive sleep apnea moderately severe AHI of 16 borderline total hypoxemia consider starting CPAP auto PAP mode pressure setting 6-20 cm] cyclobenzaprine 10 mg PO TID PRN famotidine 40 mg PO BID fenofibrate 160 mg PO BEDTIME finasteride 5 mg PO QAM omeprazole 40 mg PO BID PFSH Medical History Former smoker History of alcohol abuse Arthritis Elevated PSA measurement Hiatal hernia Erectile dysfunction Elevated cholesterol Fatty liver Back pain Gout KEELY (obstructive sleep apnea) BPH (benign prostatic hyperplasia) Shoulder pain, left LFT elevation Vision changes GERD (gastroesophageal reflux disease) Dysphagia Neuropathy of left foot Obesity (BMI 30-39.9) Surgical History History of prostate biopsy History of endoscopy History of colonoscopy History of shoulder surgery Family History Mother Myocardial infarct CVA (cerebral vascular accident) Father No problems noted. Social History Household Members Other:: step daughter Housing: Apartment Are you a primary healthcare educator to a significant other at home: No Do you presently have visiting nurse or other home services: No Alcohol intake: former Comment: improving with flatus passing stopped 2022 Patient Tobacco Use Status: Former Tobacco user Tobacco use type: Cigarette Years Smoked: 15 e-Cigarette/Vaping Use: Never Used Second Hand Smoke Exposure: Yes service: No Current occupational status: retired Current occupation: right handed Cognitive needs: No Hearing needs: No Vision needs: No Physical Exam Vital Signs: BMI result Body Mass Index 31.6 Const Other: Well-nourished well-developed very friendly male awake alert and oriented x3 in no acute distress Extrem Other: Left shoulder examination shows decreased active and passive range of motion when compared to his right shoulder, 4+ out of 5 strength with supraspinatus testing, positive impingement signs, tenderness over his acromioclavicular joint, no instability Results Reviewed Results Reviewed: MRI of the patient's left shoulder show severe acromioclavicular joint narrowing, a type 3 acromion, signal change within the supraspinatus tendon most likely due to adhesive capsulitis Assessment & Plan Assessment & Plan (1) Impingement syndrome of left shoulder: Code(s): M75.42 - Impingement syndrome of left shoulder Category: Medical Plan Mr. Brooke Arellano presents with progressively worsening left shoulder pain and stiffness due to impingement syndrome, acromioclavicular joint arthritis and adhesive capsulitis. I had a lengthy discussion with the patient regarding the treatment options. At this point he has failed continued non operative treatments. The risks and benefits of left shoulder surgery were discussed at length with the patient. The patient wishes to proceed with surgery. Surgery will involve left shoulder arthroscopic distal clavicle excision, left shoulder arthroscopic acromioplasty, left shoulder arthroscopic capsular release and left shoulder manipulation under anesthesia. The patient will be given a prescription for pain medicine at the time of his surgery. He will follow up as instructed. Feel free to call me at any time should questions regarding his orthopedic management arise. I spent 21 minutes in reviewing the patient's records and imaging studies, seeing the patient and documenting in the medical record. Coding Level of Care Code Est Pt Level 3 (74522) Complex EM visit Add On G2211 Diagnoses Impingement syndrome of left shoulder M75.42
[2025-03-14 10:05] VITALS: BMI 31.6
--- OUTSIDE RECORDS SUMMARY | 2025-03-14 11:36 | XMS_ITS | Patient Health Record ---
Author Organization [facility] Address [address] [place] [address] Care Team Providers Care Emergency Response Coordinator Name Role Phone Kaci Null MD Primary Care Provider Constantine Torres [phone] Allergies No Known Allergies Reason For Referral No Information Medications Medication SIG (Take, Route, Frequency, Duration) Notes Start Date End Date Status Omeprazole 20 MG 2 Orally Every morni ng and every evening; Duration: 30 day(s) 06/30/2022 Unknown Omeprazole 40 MG TAKE 1 CAPSULE BY [facility] TWICE A DAY; Duration: 90 Unknow n [...] W/U Status Risk Notes Problem Esophageal reflux (358946839) Esophageal reflux (K21.9) Active confirmed Problem Screening for malignant neoplasm of colon (881558602) Encounter for screening for malignant neoplasm of colon (Z12.11) Active confirmed Problem History of adenomatous polyp of colon (819759551) History of adenomatous polyp of colon (Z86.010) Active confirmed Problem Stricture of esophagus (96692430) Esophageal obstruction (K22.2) Active confirmed Problem Dysphagia (79487949) Dysphagia (R13.10) Active confirmed Problem Esophageal stricture (14947221) Esophageal stricture (K22.2) Active confirmed Problem Erosive esophagitis (77791585) Erosive esophagitis (K22.10) Active confirmed Problem Esophageal ring (71713248) Esophageal ring (K22.2) Active confirmed Problem Barium swallow abnormal (258452163) Abnormal barium swallow (R93.3) Active confirmed Problem Diverticulosis of sigmoid colon (030084499) Diverticulosis of sigmoid colon (K57.30) Active confirmed Problem Esophageal dysphagia (76441444) Esophageal dysphagia (R13.10) Active confirmed Problem Diverticulosis of colon (285743892) Diverticulosis of colon (K57.30) Active confirmed Problem Gastroesophageal reflux disease (disorder) (527770110) Chronic GERD (K21.9) Active confirmed Encounters Encounter Location Date Provider Diagnosis [facility] [address] [place] [phone] 04/09/2024 Constantine Cervantes [facility] [address] [place] [phone] 05/22/2024 Constantine Cervantes Plan Of Treatment Pending [...] Name:Constantine Cervantes , 05/03/2025 01:00:00 PM, [address], [address], [place], [address], Insurance Providers Payer Name Payer Address Payer Phone Subscriber Number Group Number Insured Name Patient Relationship to Insured Coverage Start Date Coverage End Date [employer] [address] [address] [place], [place] [id number] [phone] [id number] SAILAJA GUNTERKYARA WILSONABIDA Self - patient is the insured [place] [address] [place] [phone] [id number] ABIDA VELAZCO Self - patient is the insured Medical (General) History Medical History History ICD Code Denies [place],DM,CVA,Lung disease,renal dise ase Cortisone injection in the [...]
== END 2025-03-14 10:12 | disposition home or self-care (01) ==
LOC: HO.HOS 09:49
PROVIDERS: PCP Internal Medicine; Visit Provider Orthopaedic Surgery
DX: M75.42 Impingement syndrome of left shoulder (principal)
CPT/HCPCS: 99213

== ENCOUNTER → 2025-03-14 09:49 | Outpatient (BNVA) | payer OTHER, SELFPAY | PROVIDERS: PCP Internal Medicine; Visit Provider Orthopaedic Surgery | DX: M75.42 Impingement syndrome of left shoulder (principal) | CPT/HCPCS: 99212 ==

== ENCOUNTER 2025-03-22 10:40 | Day surgery (SDC) | payer OTHER, SELFPAY ==
--- OUTSIDE RECORDS SUMMARY | 2024-05-23 03:30 | XMS_ITS ---
Author Organization [facility] Address 10 [facility] [address] [place] [address] Care Team Providers Care Superintendent Warehouse Name Role Phone Kaci Null MD Primary Care Provider Constantine Torres [phone] REASON FOR VISIT esophageal stricture, dysphagia, abn barium swallow Encounters Encounter Location Date Provider Diagnosis [facility] [place] [address] [place], [place] [phone] 05/23/2024 Constantine Cervantes Plan Of Treatment Next Appt Details Provider Name:Constantine Cervantes , 05/03/2025 01:00:00 PM, 10 [facility], Suite [facility], [place], [address], Progress Notes * MENARDSANDY REYNOSO DODOB:1960 (64 yo M)Acc No.[id number]:05/23/2024 EGD/MAC Patient: S ORLIN ABIDA SHEIKH Provider: Favian Cervantes MD :1960 A ge:63 Y S ex:Male Date:05/23/2024 Address:[address] [place] [address] Pcp:Kaci Null MD Subjective: * Chief Complaints: [...] 05/23/2024 Generated for Ortega fletcher/Laura/Kiana on: 1 11:54 AM EDT
--- OUTSIDE RECORDS SUMMARY | 2025-02-14 11:55 | XMS_ITS | Patient Health Record ---
Author Organization [facility] Address [address] [place] [address] Care Team Providers Care Protection Manager Name Role Phone Kaci Null MD Primary Care Provider Constantine Torres [phone] Allergies No Known Allergies Reason For Referral No Information Medications Medication SIG (Take, Route, Frequency, Duration) Notes Start Date End Date Status Omeprazole 20 MG 2 Orally Every morni ng and every evening; Duration: 30 day(s) 06/30/2022 Unknown Omeprazole 40 MG TAKE 1 CAPSULE BY [facility] TWICE A DAY; Duration: 90 Unknow n Cyclobenzaprine HCl 10 MG Oral; Duration: 20 Unknown Fenofibrate 160 MG Oral; Duration: 90 Unknown Famotidine 40 MG 1 Orally Twice a day with your Omeprazole twice a day; Duration: 30 days Unknown Immunizations Vaccine Route Administration [...] W/U Status Risk Notes Problem Esophageal reflux (808936074) Esophageal reflux (K21.9) Active confirmed Problem Screening for malignant neoplasm of colon (115499701) Encounter for screening for malignant neoplasm of colon (Z12.11) Active confirmed Problem History of adenomatous polyp of colon (276579131) History of adenomatous polyp of colon (Z86.010) Active confirmed Problem Stricture of esophagus (18931641) Esophageal obstruction (K22.2) Active confirmed Problem Dysphagia (57408057) Dysphagia (R13.10) Active confirmed Problem Esophageal stricture (40815625) Esophageal stricture (K22.2) Active confirmed Problem Erosive esophagitis (32181997) Erosive esophagitis (K22.10) Active confirmed Problem Esophageal ring (77193983) Esophageal ring (K22.2) Active confirmed Problem Barium swallow abnormal (443465499) Abnormal barium swallow (R93.3) Active confirmed Problem Diverticulosis of sigmoid colon (297562567) Diverticulosis of sigmoid colon (K57.30) Active confirmed Problem Esophageal dysphagia (59680301) Esophageal dysphagia (R13.10) Active confirmed Problem Diverticulosis of colon (190887931) Diverticulosis of colon (K57.30) Active confirmed Problem Gastroesophageal reflux disease (disorder) (750177615) Chronic GERD (K21.9) Active confirmed Encounters Encounter Location Date Provider Diagnosis [facility] [address] [place] [address] 04/09/2024 Constantine Cervantes [facility] [address] [place] [address] 05/22/2024 Constantine Cervantes Plan Of Treatment Pending [...] Name:Constantine Cervantes , 05/03/2025 01:00:00 PM, [address], [address], [place], [address], Insurance Providers Payer Name Payer Address Payer Phone Subscriber Number Group Number Insured Name Patient Relationship to Insured Coverage Start Date Coverage End Date [employer] [facility] [address] [address] [place], [place] [id number] [phone] [id number] SAILAJA GUNTERKYARA WILSONABIDA Self - patient is the insured [place] [address] [place] [phone] [id number] ABIDA VELAZCO Self - patient is the insured Medical (General) History Medical History History ICD Code Denies [place],DM,CVA,Lung [...] balloon with good effect Colonoscopy in June 023 and removal of 3 tubular adenomas. [...]
[2025-03-08 10:15] VITALS: BP 148/87; PULSE 60; RESP 18; O2SAT 99; BMI 31.7
[2025-03-22] VITALS (12 sets, daily range): BP systolic 105–147; BP diastolic 57–93; PULSE 78–101; RESP 14–20; TEMP 36.1–36.8; O2SAT 94–98; BMI 31.4
[2025-03-22] MEDS: Lactated Ringers 1,000 ML 100 ML IVCONT (10:55)
--- NOTE | 2025-03-22 11:35 | P.CONAN_ITS ---
Documented by User: Rosie Hernandes NP 03/15/25 08:40 HPI - Anesthesia Eval Consult details Narrative: 64yo M Left Shoulder Arthroscopy,distal clavicle excision,acromioplasty,capsular release, manipulation, 03/22/25 Cardiac optimized. Preop risk stratify by [facility] cardiology at request of PCP for abnmornal EKG No recent illness No CP/SOB with walking ~ 0.5 mile - limited by leg and back pain Very small mouth opening - Left TMJ injured as teen during oral surgery. Chronic pain and popping. KEELY: No CPAP - issue getting from [employer]. Encouraged f/u with ordering provider GERD: H2 rodrigo and ppi BID, controlled 07/2024 Nuc stress ordered by PCP for MENENDEZ - WNL PMFSH Active Problems Active Problems: All Active Problems Preop exam for internal medicine (Acute) Impingement syndrome of left shoulder (Acute) Rotator cuff insufficiency of left shoulder (Acute) Facial lesion (Acute) KEELY (obstructive sleep apnea) (Acute) SOB (shortness of breath) on exertion (Acute) Hypersomnia (Acute) Impaired fasting blood sugar (Acute) Lumbar radiculopathy (Acute) Annual physical exam (Acute) Plantar fasciitis of left foot (Acute) Elevated PSA (Acute) Erectile dysfunction (Acute) Tubular adenoma of colon (Acute) BPH w urinary obs/LUTS (Acute) Tinea corporis (Acute) Obesity (BMI 30.0-34.9) (Acute) Fatty liver (Acute) Hypercholesterolemia (Acute) S/P dilatation of esophageal stricture (Acute) Impingement syndrome, shoulder, left (Acute) Scapular dysfunction (Acute) Peyronie disease (Acute) Low back pain (Acute) Easy fatigability (Acute) Shoulder pain, left (Acute) Dysphagia (Acute) Past Medical History Medical History Former smoker History of alcohol abuse Arthritis Elevated PSA measurement Hiatal hernia Erectile dysfunction Elevated cholesterol Fatty liver Back pain Gout KEELY (obstructive sleep apnea) BPH (benign prostatic hyperplasia) Shoulder pain, left LFT elevation Vision changes GERD (gastroesophageal reflux disease) Dysphagia Neuropathy of left foot Obesity (BMI 30-39.9) Family History Family History Mother Myocardial infarct CVA (cerebral vascular accident) Father No problems noted. Family history of problems with anesthesia: No Surgical History Surgical History History of prostate biopsy History of endoscopy History of colonoscopy History of shoulder surgery History of Problems with Anesthesia: No Social History Social History Household Members Other:: step daughter Housing: Apartment Are you a primary healthcare interpreter to a significant other at home: No Do you presently have visiting nurse or other home services: No Alcohol intake: former Comment: improving with flatus passing stopped 2022 Patient Tobacco Use Status: Former Tobacco user Tobacco use type: Cigarette Years Smoked: 15 e-Cigarette/Vaping Use: Never Used Second Hand Smoke Exposure: Yes Use of substances other than those prescribed or required for medical reasons: No Have you been hit, kicked, punched, or otherwise hurt by someone within the past year? If so, by whom?: No Spiritual Healthcare Practices: no Jehovah'S Witness Healthcare Practices: no Cultural Healthcare Practices: no Are you DNR?: No Advance Directives: No Advance Directives Information Provided: Yes Advance Directives on File: No service: No Current occupational status: retired Current occupation: right handed Cognitive needs: No Hearing needs: No Vision needs: No Meds Allergies Allergy/AdvReac Type Severity Reaction Status Date / Time No Known Allergies Allergy Verified 03/22/25 11:41 Home Medications ?Medication ?Instructions ?Recorded ?Confirmed ?Last Taken ?Type omeprazole 40 mg capsule,delayed 40 mg PO BID 09/10/22 03/14/25 05/04/23 History release famotidine 40 mg tablet 40 mg PO BID 05/21/24 Unknown History fenofibrate 160 mg tablet 160 mg PO BEDTIME 03/08/25 1 05/14/24 Unknown History finasteride 5 mg tablet 5 mg PO QAM 03/08/25 5 Unknown History Exam Height,Weight and Vital Signs: Height 5 ft 7 in Weight 91.8 kg Last Vital Signs Pulse 60 03/08/25 10:15 Resp 18 03/08/25 10:15 BP 148/87 H 03/08/25 10:15 Pulse Ox 99 03/08/25 10:15 O2 Del Method Room Air 03/08/25 10:15 Pertinent Lab Results Pertinent Lab Results: Laboratory Tests 03/08/25 11:05 Sodium 141 Potassium 4.1 Chloride 104 Carbon Dioxide 27 BUN 15 Creatinine 0.98 Narrative Narrative: EKG 03/2025 Vent. Rate : 71 BPM Atrial Rate : 71 BPM P-R Int : 158 ms QRS Dur : 82 ms QT Int : 398 ms P-R-T Axes : 61 -39 -16 degrees QTcB Int : 432 ms Sinus rhythm with marked sinus arrhythmia Left axis deviation Abnormal ECG No previous ECGs available NM cardiolite stress test 07/2024 IMPRESSION: 1. Myocardial perfusion imaging study shows probably normal myocardial perfusion. 2. Gated LVEF is 57% during stress and 54% during rest. 3. Transient ischemic dilatation not present. Airway Mallampati Class: IV (Poor mouth opening d/t TMJ injury with dental work as teen) TM Dist: >3cm Neck ROM: Limited (OA) Loose/Missing/Broken Teeth: No Heart: RRR Lungs: CTAB Assessment and Plan Assessment Anesthesia Assessment: Anesthesia Plan Discussed and PAT Visit Final Anesthetic Review Family History of Problems with Anesthesia: No History of Problems with Anesthesia: No Documented by User: Yokasta Wagoner DO 03/22/25 12:31 [facility] Past Medical History Medical History Former smoker History of alcohol abuse Arthritis Elevated PSA measurement Hiatal hernia Erectile dysfunction Elevated cholesterol Fatty liver Back pain Gout KEELY (obstructive sleep apnea) BPH (benign prostatic hyperplasia) Shoulder pain, left LFT elevation Vision changes GERD (gastroesophageal reflux disease) Dysphagia Neuropathy of left foot Obesity (BMI 30-39.9) Family History Family History Mother Myocardial infarct CVA (cerebral vascular accident) Father No problems noted. Family history of problems with anesthesia: No Surgical History Surgical History History of prostate biopsy History of endoscopy History of colonoscopy History of shoulder surgery History of Problems with Anesthesia: No Social History Social History Household Members Other:: step daughter Housing: Apartment Are you a primary healthcare interpreter to a significant other at home: No Do you presently have visiting nurse or other home services: No Alcohol intake: former Comment: improving with flatus passing stopped 2022 Patient Tobacco Use Status: Former Tobacco user Tobacco use type: Cigarette Years Smoked: 15 e-Cigarette/Vaping Use: Never Used Second Hand Smoke Exposure: Yes Use of substances other than those prescribed or required for medical reasons: No Have you been hit, kicked, punched, or otherwise hurt by someone within the past year? If so, by whom?: No Spiritual Healthcare Practices: no Jehovah'S Witness Healthcare Practices: no Cultural Healthcare Practices: no Are you DNR?: No Advance Directives: No Advance Directives Information Provided: Yes Advance Directives on File: No service: No Current occupational status: retired Current occupation: right handed Cognitive needs: No Hearing needs: No Vision needs: No Meds Allergies Allergy/AdvReac Type Severity Reaction Status Date / Time No Known Allergies Allergy Verified 03/22/25 11:41 Home Medications ?Medication ?Instructions ?Recorded ?Confirmed ?Last Taken ?Type omeprazole 40 mg capsule,delayed 40 mg PO BID 09/10/22 03/14/25 05/04/23 History release famotidine 40 mg tablet 40 mg PO BID 05/21/24 Unknown History fenofibrate 160 mg tablet 160 mg PO BEDTIME 03/08/25 1 05/14/24 Unknown History finasteride 5 mg tablet 5 mg PO QAM 03/08/25 5 Unknown History Exam Exam Date and Time: 03/22/25 1135 Height,Weight and Vital Signs: Vital Signs Pulse Rate 60 03/08/25 10:15 Respiratory Rate 18 03/08/25 10:15 Blood Pressure 148/87 H 03/08/25 10:15 Pulse Oximetry 99 03/08/25 10:15 Oxygen Delivery Method Room Air 03/08/25 10:15 Temperature 98.2 F 03/22/25 11:30 Pulse Rate 82 03/22/25 11:30 Respiratory Rate 18 03/22/25 11:30 Blood Pressure 129/79 03/22/25 11:30 Pulse Oximetry 97 03/22/25 11:30 Oxygen Delivery Method Room Air 03/22/25 11:30 Height 5 ft 7 in Weight 91.8 kg Last Vital Signs Pulse 60 03/08/25 10:15 Resp 18 03/08/25 10:15 BP 148/87 H 03/08/25 10:15 Pulse Ox 99 03/08/25 10:15 O2 Del Method Room Air 03/08/25 10:15 Airway Mallampati Class: III (Poor mouth opening d/t TMJ injury with dental work as teen) TM Dist: <=3cm Neck ROM: Limited (extremely limited neck rotation to the left) Loose/Missing/Broken Teeth: No (patient denies any loose or broken teeth) Heart: S1S2 Assessment and Plan Assessment Anesthesia Assessment: Anesthesia Plan Discussed and Chart Reviewed Final Anesthetic Review Family History of Problems with Anesthesia: No History of Problems with Anesthesia: No NPO: Yes ASA Class: II Final Preanesthetic Review: No Changes in Pt Med Stat, Meds/Allgs Chart Reviewed, Consent Obtained/Reviewed and Anes Risks/Benef Reviewed Patient Risk: Low Procedure Risk: Intermediate Anesthetic Plan Anesthetic Plan: GA, Regional Block (left brachial plexus block) and Agree w/ Assess. and Plan Disposition: Standard PACU
--- NOTE | 2025-03-22 13:31 | P.BOP_ITS ---
Brief Operative Note Date of Service: 03/22/25 Pre-op diagnosis: Left shoulder impingement syndrome, left shoulder acromioclavicular joint arthritis, left shoulder adhesive capsulitis Post-op diagnosis: same Procedure: Left shoulder arthroscopic distal clavicle excision, left shoulder arthroscopic acromioplasty, left shoulder arthroscopic anterior capsular release, left shoulder manipulation under anesthesia Implants: None Surgeon: Sukhdev Oleary MD Anesthesia: GETA and regional Was an Associate Art Director used for this Procedure?: No Estimated blood loss (mL): 10 Pathology: none sent Condition: stable Disposition: PACU
--- NOTE | 2025-03-22 13:32 | P.OP_ITS ---
Operative Note Operative Note Date of Service: 03/22/25 Narrative: After the patient was identified as Hank Arellano and his left shoulder was initialed by myself the patient was brought to the holding area where a left shoulder interscalene regional block was performed by the anesthesiologist in routine fashion. The patient was then brought to the operating room where general anesthesia was induced by the anesthesiologist in routine fashion. The patient was given 2 g of IV Ancef preoperatively for infection prophylaxis. Examination under anesthesia of the patient's left shoulder showed decreased range of motion when compared to the right shoulder. The patient's left shoulder had forward flexion to 140 degrees compared to 170 degrees, external rotation to 30 degrees compared to 70 degrees, and internal rotation to 40 degrees compared to 50 degrees. The patient was gently positioned in the beach chair position with all bony prominences well padded. The patient's left shoulder region and upper extremity were prepped and draped in sterile fashion. A formal time-out was completed. A #11 scalpel blade was used to make a posterior portal 2 cm inferior and 1 cm medial to the posterolateral corner of the acromion. Blunt trocar technique was used to enter the glenohumeral joint in routine fashion. An anterior portal was made just lateral to the coracoid process after proper positioning was confirmed using a spinal needle. Diagnostic arthroscopy showed minimal degenerative changes of the glenoid and humeral head articular surfaces. There was no evidence of rotator cuff tearing. There was no evidence of injury to the biceps tendon or its insertion onto the glenoid. There was inflammation of the anterior joint capsule consistent with adhesive capsulitis. The ArthroCare Wand was then used to perform an anterior capsular release between the inferior border of the biceps tendon and the superior border of the subscapularis tendon. The arthroscope was then placed from the posterior portal into the subacromial space. A lateral portal was made 2 fingerbreadths lateral to the anterior lateral corner of the acromion. The ArthroCare Wand was used to ablate soft tissues along the undersurface of the acromion as well as to excise the corac oacromial ligament. There was a sharp spur along the undersurface of the acromion which was removed using the hooded bur. The arthroscope was then placed into the lateral portal and the acromioplasty was completed with the bur in the posterior portal using the posterior aspect of the acromion as a cutting block. The ArthroCare Wand was then brought in through the anterior portal and was used to ablate soft tissues along the acromioclavicular joint and distal clavicle. The posterior and superior ligamentous structures were left intact. A distal clavicle excision of 8 mm was performed using the hooded bur. Any remaining bursal tissue was removed using the arthroscopic shaver. The subacromial space was irrigated and then drained. All arthroscopic instruments were removed. A gentle manipulation under anesthesia was then performed. Full passive range of motion was easily attained. The 3 portals were closed with 3-0 nylon interrupted suture. The subacromial space was injected with Marcaine. Dry sterile dressing was placed over all incisions. The patient's left upper extremity was placed into a sling. The patient was awoken and extubated in the operating room. The patient was transferred to the recovery room in stable condition.
== END 2025-03-22 15:16 | disposition home or self-care (01) ==
PROVIDERS: PCP Internal Medicine; Visit Provider Orthopaedic Surgery
PROC: (CPT 29805; principal; 2025-03-22 11:30)
DX: M75.42 Impingement syndrome of left shoulder (principal); M75.02 Adhesive capsulitis of left shoulder; M25.512 Pain in left shoulder; M25.612 Stiffness of left shoulder, not elsewhere classified; M25.312 Other instability, left shoulder; M19.012 Primary osteoarthritis, left shoulder; G62.9 Polyneuropathy, unspecified; E66.9 Obesity, unspecified; Z68.31 Body mass index [BMI] 31.0-31.9, adult; R73.01 Impaired fasting glucose; E78.00 Pure hypercholesterolemia, unspecified; C61 Malignant neoplasm of prostate; G47.33 Obstructive sleep apnea (adult) (pediatric); R79.89 Other specified abnormal findings of blood chemistry; Z79.899 Other long term (current) drug therapy; Z98.890 Other specified postprocedural states; Z87.891 Personal history of nicotine dependence
CPT/HCPCS: 29824; 29825; 29826; J0131; J0690; J0696; J1630; J2003; J2250; J2371; J2704; J3010

== ENCOUNTER → 2025-03-22 10:40 | Outpatient (BNV) | payer OTHER, SELFPAY | PROVIDERS: PCP Internal Medicine; Visit Provider Orthopaedic Surgery | DX: M75.42 Impingement syndrome of left shoulder (principal); M19.012 Primary osteoarthritis, left shoulder; M75.02 Adhesive capsulitis of left shoulder | CPT/HCPCS: 29824; 29826 ==

== ENCOUNTER 2025-04-04 14:35 | Outpatient (AMB) | payer OTHER, SELFPAY ==
--- NOTE | 2025-04-04 14:51 | A.OFFVIS_ITS ---
Intake Visit Reasons: PO-Lt Shld 03/22/25 DR Intake Note: Miguelina is a 64 year old male who presents today post operatively after undergoing a left shoulder , performed by Dr. Oleary on 03/22/25. Today patient reports he is doing well, his pain has been tolerable. Allergies No Known Allergies Allergy (Verified 04/04/25 14:53) Medication List - Last Reconciled 04/04/25 by Jeannine Cormier PA-C atorvastatin (Lipitor) 10 mg PO BEDTIME [AUTO PAP 6-20 cm H20 humidified AIR Sleep study done 05/31/2024 results showing obstructive sleep apnea moderately severe AHI of 16 borderline total hypoxemia consider starting CPAP auto PAP mode pressure setting 6-20 cm] cyclobenzaprine 10 mg PO TID PRN famotidine 40 mg PO BID fenofibrate 160 mg PO BEDTIME finasteride 5 mg PO QAM omeprazole 40 mg PO BID oxycodone 10 mg (2 x 5 mg) PO Q4H PRN HPI HPI PO-Lt Shld 03/22/25 DR: Details: 64-year-old gentleman returns to the office today status post left shoulder arthroscopy with Dr. Oleary on 03/22/2025. The patient is doing well today with no significant concerns. [facility] Medical History Former smoker History of alcohol abuse Arthritis Elevated PSA measurement Hiatal hernia Erectile dysfunction Elevated cholesterol Fatty liver Back pain Gout KEELY (obstructive sleep apnea) BPH (benign prostatic hyperplasia) Shoulder pain, left LFT elevation Vision changes GERD (gastroesophageal reflux disease) Dysphagia Neuropathy of left foot Obesity (BMI 30-39.9) Surgical History History of prostate biopsy History of endoscopy History of colonoscopy History of shoulder surgery Family History Mother Myocardial infarct CVA (cerebral vascular accident) Father No problems noted. Social History Household Members Other:: step daughter Housing: Apartment Are you a primary caretaker resort to a significant other at home: No Do you presently have visiting nurse or other home services: No Alcohol intake: former Comment: improving with flatus passing stopped 2022 Patient Tobacco Use Status: Former Tobacco user Tobacco use type: Cigarette Years Smoked: 15 e-Cigarette/Vaping Use: Never Used Second Hand Smoke Exposure: Yes service: No Current occupational status: retired Current occupation: right handed Cognitive needs: No Hearing needs: No Vision needs: No Review of Systems Const All systems reviewed & are unremarkable except as noted in HPI and below Physical Exam Extrem Other: Left shoulder incisions are clean dry and intact. No erythema or ecchymosis. He has full range of motion in all planes. Neurovascularly intact. Results Reviewed Results Reviewed: Brief Operative Note Date of Service: 03/22/25 Pre-op diagnosis: Left shoulder impingement syndrome, left shoulder acromioclavicular joint arthritis, left shoulder adhesive capsulitis Post-op diagnosis: same Procedure: Left shoulder arthroscopic distal clavicle excision, left shoulder arthroscopic acromioplasty, left shoulder arthroscopic anterior capsular release, left shoulder manipulation under anesthesia Implants: None Surgeon: Sukhdev Oleary MD Assessment & Plan Assessment & Plan (1) Impingement syndrome, shoulder, left: Code(s): M75.42 - Impingement syndrome of left shoulder Category: Medical Plan: Sutures removed today Steri-Strips applied. I offered a course of physical therapy to work on motion, strength and conditioning exercises, but he did decline at this time. The patient will refrain from repetitive for the next 4- 6 weeks, at which point they will return to see Dr. Oleary, sooner if needed. Coding Level of Care Code Global (71563) Diagnoses Impingement syndrome, shoulder, left M75.42
--- OUTSIDE RECORDS SUMMARY | 2025-04-04 20:44 | XMS_ITS | Patient Health Record ---
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 Name Role Phone Kaci Null MD Primary Care Provider Constantine Torres [phone] Allergies No Known Allergies Reason For Referral No Information Medications Medication SIG (Take, Route, Frequency, Duration) Notes Start Date End Date Status Omeprazole 20 MG Capsule Delayed Release 2 Orally Every morning and every evening; Duration: 30 day(s) 06/30/2022 Unknown Omeprazole 40 MG Capsule Delayed Release TAKE 1 CAPSULE BY MOUTH TWICE A DAY; Duration: 90 Unknown Cyclobenzaprine HCl 10 MG Tablet Oral; Duration: 20 Unknown Fenofibrate 160 MG Tablet Oral; Duration: 90 Unknown Famotidine 40 MG Tablet 1 Orally Twice a day with your Omeprazole twice a day; Duration: 30 days Unknown Immunizations Vaccine Route Administration Date Status Comme nts Influenza Unknown 10/14/2020 Refused Social History Tobacco Use: Social History Observation Description Date Details (start date - stop date) Former Smoker NA - NA Social History Drugs/Alcohol: Social Info Question Answer Notes Alcohol Screen Did you have a drink containing alcohol in the past year? No Points 0 Interpretation Negative Tobacco Use: Social Info Question Answer Notes Tobacco Use/Smoking Patient is a former smoker How long has it been since you last smoked? 1-5 years Additional Details Category Social Info Options Details Miscellaneous: Marital status: single Occupation: unemployed Section Notes: Occasional smoker; occasiona l alcohol Occasional smoker; occasiona l alcohol Nonsmoker since 2020; occasi onal alcohol Nonsmoker since 2020; occasi onal alcohol Nonsmoker since 2020; occasi onal alcohol Nonsmoker since 2020; Problems Problem Type SNOMED Code ICD Code Onset Dates Problem Status W/U Status Risk Notes Problem Esophageal reflux (833810119) Esophageal reflux (K21.9) Active confirmed Problem Screening for malignant neoplasm of colon (090387149) Encounter for screening for malignant neoplasm of colon (Z12.11) Active confirmed Problem History of adenomatous polyp of colon (466693904) History of adenomatous polyp of colon (Z86.010) Active confirmed Problem Stricture of esophagus (56338178) Esophageal obstruction (K22.2) Active confirmed Problem Dysphagia (40583798) Dysphagia (R13.10) Active confirmed Problem Esophageal stricture (70964504) Esophageal stricture (K22.2) Active confirmed Problem Erosive esophagitis (48323525) Erosive esophagitis (K22.10) Active confirmed Problem Esophageal ring (80042685) Esophageal ring (K22.2) Active confirmed Problem Barium swallow abnormal (036037700) Abnormal barium swallow (R93.3) Active confirmed Problem Diverticulosis of sigmoid colon (863835401) Diverticulosis of sigmoid colon (K57.30) Active confirmed Problem Esophageal dysphagia (07613889) Esophageal dysphagia (R13.10) Active confirmed Problem Diverticulosis of colon (073799867) Diverticulosis of colon (K57.30) Active confirmed Problem Gastroesophageal reflux disease (disorder) (285532080) Chronic GERD (K21.9) Active confirmed Encounters Encounter Location Date Provider Diagnosis [facility] [address] [place] [phone] 04/09/2024 Constantine Cervantes [facility] [address] [place] [phone] 05/22/2024 Constantine Cervantes Plan Of Treatment Pending [...] Name:Constantine Cervantes , 05/03/2025 01:00:00 PM, [address], [address], [place], [address], Insurance Providers Payer Name Payer Address Payer Phone Subscriber Number Group Number Insured Name Patient Relationship to Insured Coverage Start Date Coverage End Date [employer] [facility] [address] [address] [place], [place] [phone] [phone] [id number] SAILAJA SHEIKH ABIDA Self - patient is the insured [place] [address] [place] [address] [phone] [id number] ABIDA VELAZCO Self - patient is the insured Medical (General) History Medical History History ICD Code Denies [place],DM,CVA,Lung disease,renal dise ase Cortisone injection in the [...]
== END 2025-04-04 16:50 | disposition home or self-care (01) ==
LOC: HO.HOS 14:36
PROVIDERS: PCP Internal Medicine; Visit Provider Physician Assistant
DX: M75.42 Impingement syndrome of left shoulder (principal)
CPT/HCPCS: 99024

== ENCOUNTER → 2025-04-04 14:35 | Outpatient (BNVA) | payer OTHER, SELFPAY | PROVIDERS: PCP Internal Medicine; Visit Provider Physician Assistant | DX: M75.42 Impingement syndrome of left shoulder (principal) | CPT/HCPCS: 99212 ==

== ENCOUNTER → 2025-04-16 09:10 | Outpatient (BNVA) | payer OTHER, SELFPAY | PROVIDERS: PCP Internal Medicine; Visit Provider Urology | DX: N48.6 Induration penis plastica (principal); N40.1 Benign prostatic hyperplasia with lower urinary tract symptoms; C61 Malignant neoplasm of prostate; N13.8 Other obstructive and reflux uropathy | CPT/HCPCS: 51798; 81003; 99212 ==

== ENCOUNTER 2025-04-16 12:49 | Outpatient (AMB) | payer OTHER, SELFPAY ==
--- NOTE | 2025-04-16 09:38 | A.OFFVIS_ITS ---
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 He is a patient of Dr. Null. He seen for the following urologic conditions - Peyronie's disease - lower urinary tract symptoms - Prostate Cancer Six-month surveillance visit Maintaining stability 02/23 4.8 T 444 Imaging MRI 05/25 no suspicious areas 05/25 2.8 on finasteride, 10/23 2.6, 12/23 4.3 15%, 08/24 3.8, 02/23 4.8 T 444 Finasteride slight PSA rise after cutting back to Tuesday, Tuesday, Tuesday Continue Q six-month surveillance Prostate Cancer - Grade Group 1, Low Volume PSA 5.1 on finasteride 90gm at TRUS Single core 5% left base Imaging 05/25 prostate MRI, 70 g, no suspicious area Lower urinary tract symptoms Progressive weak strength Current therapy finasteride PSA 02/20 5.2, 06/24 4.2/3.6 F31%, 12/22 5.1 JUMA 3+ prostate Peyronie's disease Primary complaint is - penile curvature - right-sided The problem has been present - since 2019 after subclinical penile fracture On exam he has palpable area right distal portion At this time he experiences - partial erections which are not adequate for penetrative intercourse, Despard has - is possible but painful Associated symptoms include penile pain No penile discharge No Prior management includes - continue with oral medications PFSH Medical History Former smoker History of alcohol abuse Arthritis Elevated PSA measurement Hiatal hernia Erectile dysfunction Elevated cholesterol Fatty liver Back pain Gout KEELY (obstructive sleep apnea) BPH (benign prostatic hyperplasia) Shoulder pain, left LFT elevation Vision changes GERD (gastroesophageal reflux disease) Dysphagia Neuropathy of left foot Obesity (BMI 30-39.9) Surgical History History of prostate biopsy History of endoscopy History of colonoscopy History of shoulder surgery Family History Mother Myocardial infarct CVA (cerebral vascular accident) Father No problems noted. Social History Household Members Other:: step daughter Housing: Apartment Are you a primary managed care director to a significant other at home: No Do you presently have visiting nurse or other home services: No Alcohol intake: former Comment: improving with flatus passing stopped 2022 Patient Tobacco Use Status: Former Tobacco user Tobacco use type: Cigarette Years Smoked: 15 e-Cigarette/Vaping Use: Never Used Second Hand Smoke Exposure: Yes service: No Current occupational status: retired Current occupation: right handed Cognitive needs: No Hearing needs: No Vision needs: No Review of Systems Const Denies chills and Denies fever(s) Card Reports no additional complaints and Denies syncope Resp Denies cough GI Denies abdominal pain and Denies heartburn Reports as per HPI and Denies change in libido Neuro Denies syncope Psych Denies change in libido Endo Denies change in libido Physical Exam Const General: cooperative, healthy appearing, comfortable and no acute distress Orientation/consciousness: patient oriented x3 HEENT Face and sinus: Yes normal facial exam Mouth: moist mucous membranes Neck Neck: Yes normal visual inspection, Yes full ROM and Yes trachea midline Chest Chest palpation & inspection: normal inspection of the chest Resp Effort & Inspection: normal respiratory effort, able to speak in complete sentences and no respiratory distress GI Inspection: Yes normal to inspection Back/Spine/Pelvis Cervical Spine: normal cervical lordosis Thoracic/Lumbar Spine: thoracic and lumbar spine normal to inspection Skin General skin exam: no rashes or lesions noted Neuro General: patient oriented x3, gait normal, tone normal and moves all extremities Extrem General: Yes normal to inspection and Yes capillary refill normal Office Procedures Post Void Residual Post Residual Void Post Void Residual (PVR): 53 [id number]-Kpoh Void Residual by ultrasound Results AMB Urinalysis, Automated UA Leukoctes 0 Mikhail/uL Last Edit by JEEVAN Medina on 04/16/25 09:57 UA Nitrite Negative Last Edit by JEEVAN Medina on 04/16/25 09:57 UA Urobilinogen 0.2 mg/dL Last Edit by Karin Colon, CCMA on 04/16/25 09:57 UA Protein 15 mg/dL Last Edit by Karin Colon, CCMA on 04/16/25 09:57 UA pH 6.0 Last Edit by Karin Colon, CCMA on 04/16/25 09:57 UA Blood 10 Marino/uL Last Edit by Karin Colon, CCMA on 04/16/25 09:57 UA Specific Gorham 1.020 Last Edit by Karin Colon, CCMA on 04/16/25 09:5 7 UA Ketone Negative Last Edit by Karin Colon, CCMA on 04/16/25 09:57 UA Bilirubin 0 mg/dL Last Edit by Karin Colon, CCMA on 04/16/25 09:57 UA Glucose 0 mg/dL Last Edit by Karin Colon, CCMA on 04/16/25 09:57 Results Reviewed Results Reviewed: Laboratory Last Values Urine pH (Auto) 6.0 04/16/25 09:56 Specific Gorham (Auto) 1.020 04/16/25 09:56 Urine Protein (Auto) 15 mg/dL 04/16/25 09:56 Glucose (UA)(Auto) 0 mg/dL 04/16/25 09:56 Urine Ketones (Auto) Negative 04/16/25 09:56 Urine Blood (Auto) 10 Marino/uL 04/16/25 09:56 Urine Nitrite (Auto) Negative 04/16/25 09:56 Urine Bilirubin (Auto) 0 mg/dL 04/16/25 09:56 Urine Urobilinogen (Auto) 0.2 mg/dL 04/16/25 09:56 Leukocyte Esterase (Auto) 0 Mikhail/uL 04/16/25 09:56 Assessment & Plan Assessment & Plan (1) Peyronie disease: Code(s): N48.6 - Induration penis plastica Category: Medical (2) BPH w urinary obs/LUTS: Comment: Prostate biopsy January 2023 with MRI done May 2023 Code(s): N40.1 - Benign prostatic hyperplasia with lower urinary tract symptoms; N13.8 - Other obstructive and reflux uropathy Category: Medical (3) Prostate cancer: Comment: 01/[address] Gloria Code(s): C61 - Malignant neoplasm of prostate Category: Medical Plan Six-month follow-up PSA Orders: Orders AMB Urinalysis Automated 04/16/25 N13.8 - Other obstructive and reflux uropathy, N40.1 - Benign prostatic hyperplasia with lower urinary tract symptoms AMB Post Void Residual by ultrasound 04/16/25 N40.1 - Benign prostatic hyperplasia with lower urinary tract symptoms Patient Instructions: This note is constructed using voice recognition software. While every effort has been made to ensure accuracy lead radiologic technologist errors may have been included. Imaging studies, laboratory and physical exam results were discussed and reviewed in detail. No major barriers to patient understanding were identified. An opportunity to ask questions regarding the treatment plan was provided. All questions were answered. The patient expressed understanding and agreement with the above treatment plan. The patient is aware they should contact our office by phone for worsening of their current condition or the appearance of new urologic symptoms. Compliance is encouraged with any medications and followup testing that is ordered. It is a privilege to participate in the urologic care of your patient. If you have any questions or concerns regarding treatment for the above conditions, or other urologic issues, please do not hesitate to contact me. The office telephone contact is [phone]. Sincerely, Dr Stevo Gloria MD, NATALIIA [facility] - Urology Compassionate Specialist Care for the Genitourinary System Coding Level of Care Code Est Pt Level 3 (03703) Add On Problem Visit Only Diagnoses Peyronie disease N48.6 BPH w urinary obs/LUTS N40.1; N13.8 Prostate cancer C61 CPT Codes Post Residual Void - PVR CPT Code: 42047-Povh Void Residual by ultrasound ([id number])
--- OUTSIDE RECORDS SUMMARY | 2025-04-16 10:29 | XMS_ITS | Patient Health Record ---
Author Organization [facility] Address [address] [place] [address] Care Team Providers Care Contact Person Name Role Phone Kaci Null MD Primary Care Provider Constantine Torres [phone] Allergies No Known Allergies Reason For Referral [...] W/U Status Risk Notes Problem Esophageal reflux (598131408) Esophageal reflux (K21.9) Active confirmed Problem Screening for malignant neoplasm of colon (295284012) Encounter for screening for malignant neoplasm of colon (Z12.11) Active confirmed Problem History of adenomatous polyp of colon (159630033) History of adenomatous polyp of colon (Z86.010) Active confirmed Problem Stricture of esophagus (03943856) Esophageal obstruction (K22.2) Active confirmed Problem Dysphagia (47885019) Dysphagia (R13.10) Active confirmed Problem Esophageal stricture (22628096) Esophageal stricture (K22.2) Active confirmed Problem Erosive esophagitis (96813732) Erosive esophagitis (K22.10) Active confirmed Problem Esophageal ring (07427022) Esophageal ring (K22.2) Active confirmed Problem Barium swallow abnormal (581326718) Abnormal barium swallow (R93.3) Active confirmed Problem Diverticulosis of sigmoid colon (947891726) Diverticulosis of sigmoid colon (K57.30) Active confirmed Problem Esophageal dysphagia (70259605) Esophageal dysphagia (R13.10) Active confirmed Problem Diverticulosis of colon (486482236) Diverticulosis of colon (K57.30) Active confirmed Problem Gastroesophageal reflux disease (disorder) (963828489) Chronic GERD (K21.9) Active confirmed Encounters Encounter Location Date Provider Diagnosis [facility] [address] [facility] [address] [place] [id number] 05/22/2024 Constantine Cervantes Plan Of Treatment Pending [...] Name:Constantine Cervantes , 05/03/2025 01:00:00 PM, [address], [address], [place], [address], Insurance Providers Payer Name Payer Address Payer Phone Subscriber Number Group Number Insured Name Patient Relationship to Insured Coverage Start Date Coverage End Date [employer] [facility] [address] [address] [place], [place] [id number] [phone] [id number] MENARD BAIDA SHEIKH Self - patient is the insured [place] [address] [place] [address] [phone] [id number] SAILAJA KYARA SHEIKHENVENIDO Self - patient is the insured Medical [...]
== END 2025-04-16 16:33 | disposition home or self-care (01) ==
PROVIDERS: PCP Internal Medicine; Visit Provider Urology
DX: N48.6 Induration penis plastica (principal); N40.1 Benign prostatic hyperplasia with lower urinary tract symptoms; N13.8 Other obstructive and reflux uropathy; C61 Malignant neoplasm of prostate
CPT/HCPCS: 99213

== ENCOUNTER 2025-04-18 11:44 | Emergency (ER) | payer OTHER, SELFPAY ==
--- NOTE | ~2025-04-18 | XR_ITS ---
EXAMINATION: XR FOOT 3 OR MORE VIEWS LEFT HISTORY: swelling, pain COMPARISON: There are no prior studies available for comparison. FINDINGS: Three views of the left foot are submitted. Osseous mineralization is normal. There is no fracture or dislocation. The joint spaces are preserved. Again seen is a calcaneal spur at the insertion of the Achilles tendon. The soft tissues are unremarkable. XR/XR foot LT min 3V IMPRESSION: No acute abnormality. Electronically signed by: Constantine Monroe MD 04/18/2025 12:53 PM EST
[2025-04-18 12:08] VITALS: BP 166/91; PULSE 100; RESP 14; TEMP 36.6; O2SAT 98; BMI 31.9
--- NOTE | 2025-04-18 12:10 | ED_ITS ---
HPI - Extremity Injury (Lower) General Chief Complaint: Extremity Problem Stated Complaint: L foot swelling/pain Time Seen by Provider: 04/18/25 14:20 Source: patient and RN notes reviewed Mode of arrival: ambulatory Limitations: no limitations History of Present Illness ED Provider: Zeynep Hernandez PA-C HPI Narrative: This is a 42-lxgc-qau-male who presents to the ER with concerns of acute on chronic left foot pain. No known trauma or injury. Reports has had this intermittently for years. Patient reports that he has had this for several years on and off, and states that he is unsure what exactly causes this. He states that he has no history of gout however this is listed in his medical record. Denies any fevers or chills. No other complaints or concerns at this time. Other symptoms: none Related Data Home Medications ?Medication ?Instructions ?Recorded ?Confirmed omeprazole 40 mg capsule,delayed 40 mg PO BID 09/10/22 04/04/25 release famotidine 40 mg tablet 40 mg PO BID 05/21/24 fenofibrate 160 mg tablet 160 mg PO BEDTIME 03/08/25 1 06/05/24 finasteride 5 mg tablet 5 mg PO QAM 03/08/25 5 Previous Rx's ?Medication ?Instructions ?Recorded AUTO PAP 6-20 cm H20 humidified AIR #1 ea 01/02/25 atorvastatin 10 mg tablet (Lipitor) 10 mg PO BEDTIME # 90 tabs 01/22/25 cyclobenzaprine 10 mg tablet 10 mg PO TID PRN muscle s pasm #60 03/06/25 tabs oxycodone 5 mg tablet 10 mg (2 x 5 mg) PO Q4H PRN pain 03/22/25 #40 tabs finasteride 5 mg tablet 5 mg PO DAILY 90 days #90 ta bs 04/08/25 naproxen 500 mg tablet 500 mg PO BID 7 days #14 tab s 04/18/25 prednisone 20 mg tablet 40 mg (2 x 20 mg) PO DAILY 4 days 04/18/25 #8 tabs Allergies Allergy/AdvReac Type Severity Reaction Status Date / Time No Known Allergies Allergy Verified 04/18/25 12:10 Review of Systems 2 Review of Systems: Constitutional : No Fever, No Chills ENT/Mouth : No sore throat, No Rhinorrhea Eyes: No Eye Pain, No Swelling, No Redness Cardiovascular : No Chest Pain, No SOB Respiratory : No Cough, No Sputum Gastrointestinal : No Nausea, No Vomiting, No Diarrhea, No abdominal Pain Genitourinary : No Dysuria, No Hematuria Musculoskeletal : No joint pain, No Myalgias, No Joint Swelling Skin : No Skin Lesions Neuro : No Weakness, No Numbness, No Headache All other systems reviewed and are negative Yes all other systems are reviewed and are negative Constitutional: Constitutional: Reports as per [facility] Past Medical History Medical History Former smoker History of alcohol abuse Arthritis Elevated PSA measurement Hiatal hernia Erectile dysfunction Elevated cholesterol Fatty liver Back pain Gout KEELY (obstructive sleep apnea) BPH (benign prostatic hyperplasia) Shoulder pain, left LFT elevation Vision changes GERD (gastroesophageal reflux disease) Dysphagia Neuropathy of left foot Obesity (BMI 30-39.9) Surgical History History of prostate biopsy History of endoscopy History of colonoscopy History of shoulder surgery Family History Family History Mother Myocardial infarct CVA (cerebral vascular accident) Father No problems noted. Social History Social History Household Members Other:: step daughter Housing: Apartment Are you a primary health care liaison to a significant other at home: No Do you presently have visiting nurse or other home services: No Alcohol intake: former Comment: improving with flatus passing stopped 2022 Patient Tobacco Use Status: Former Tobacco user Tobacco use type: Cigarette Years Smoked: 15 e-Cigarette/Vaping Use: Never Used Second Hand Smoke Exposure: Yes Advance Directives: No Advance Directives Information Provided: No service: No Current occupational status: retired Current occupation: right handed Cognitive needs: No Hearing needs: No Vision needs: No Physical Exam 2 Exam: Exam: General: Awake, alert, and oriented X3. No acute distress. HEENT: Normal inspection CVS: Normal heart rate and rhythm. Pulses normal. Respiratory: No respiratory distress Skin: Warm, dry, no rashes noted to exposed skin. Normal skin color. Normal skin turgor. Extremities: Left foot dorsal aspect, there is moderate erythema and edema extending across the 2nd 3rd and 4th metatarsal bone. No open wounds or lacerations. Full ROM of the ankle and tarsals without difficulty. Exquisitely tender even with light touch. Strong DP PT pulses. No calf tenderness. Neuro: Oriented X 3. No motor deficit. No sensory deficit. Vital Signs: Vital Signs: Last Vital Signs Temp 97.9 F 04/18/25 14:41 Pulse 100 04/18/25 14:41 Resp 14 04/18/25 14:41 BP 166/91 H 04/18/25 14:41 Pulse Ox 98 04/18/25 14:41 O2 Del Method Room Air 04/18/25 14:41 BMI result Body Mass Index 31.9 Medications Administered Discontinued Medications Generic Name Dose Route Start Last Admin Trade Name Freshaji PRN Reason Stop Dose Admin Ketorolac Tromethamine 30 mg 04/18/25 14:33 04/18/25 14:37 Ketorolac Tromethamine 30 Mg/Ml Vial IM 04/18/25 14:34 30 mg ONCE ONE Administration Medical Decision Making Medical Decision Making [facility] Narrative: This is a 64-year-old male who presents emergency department with complaints of left foot pain and swelling x5 days. No injury or trauma. States that he has these flare-ups on and off. He is unsure what causes them. He has a history of gout although he is unaware of this. Left foot dorsal aspect there is erythema, and warmth with exquisite tenderness palpation. Differential diagnoses include gout, sprain, strain, cellulitis. Labs were obtained, patient has no leukocytosis, stable H&H, chemistry revealing elevated uric acid at 7.9, and CRP elevated at 0.67. Foot x-ray revealing no acute findings. Discussed findings with patient. Symptoms are consistent with gout, he was treated with prednisone and naproxen. Given Toradol in the department. Differential Diagnosis Differential Diagnoses: The differential diagnosis associated with the presentation includes Gout, cellulitis, sprain, strain Lab Data [facility] Lab Attestation statement: I reviewed the patient's lab results. See [facility] 04/18/25 12:27 04/18/25 12:27 Labs: Lab Results 04/18/25 Range/Units 12: WBC 8.1 (4.8-10.8) X10*3/uL RBC 5.41 (4.60-5.80) X10*6/uL Hgb 16.7 (14.0-18.0) g/dl Hct 47.0 (42.0-52.0) % MCV 86.9 (80.0-98.0) fL MCH 30.9 (27.0-33.0) pg MCHC 35.5 (31.0-36.0) g/dl RDW 12.1 (11.0-16.0) % Plt Count 177 (160-400) X10*3/uL MPV 9.4 (9.4-12.4) fL Immature Gran % (Auto) 0.9 H (0.0-0.4) % Neut % (Auto) 67.4 (45-73) % Lymph % (Auto) 22.1 (20-40) % Jack % (Auto) 6.2 (2-11) % Eos % (Auto) 3.0 (0-4) % Baso % (Auto) 0.4 (0-2) % Lymph # (Auto) 1.8 (1.2-4.9) X10*3/uL Jack # (Auto) 0.5 (0.1-1.2) X10*3/uL Eos # (Auto) 0.2 (0.0-0.4) X10*3/uL Baso # (Auto) 0.0 (0.0-0.2) X10*3/uL Abs Immat Gran (auto) 0.07 H (0.00-0.03) X10*3/uL Absolute Neuts (auto) 5.4 (2.0-8.3) x10*3/uL Absolute Nucleated RBC 0.000 (0.0-0.012) X10*3/uL Nucleated RBC % (auto) 0.0 (0.0-0.2) /100WBC ESR 18 (1-20) MM/HR Sodium 140 (135-145) mmol/L Potassium 4.1 (3.3-5.1) mmol/L Chloride 103 (96-108) mmol/L Carbon Dioxide 30 H (22-29) mmol/L Anion Gap 11 L (12-20) BUN 15 (9-16) mg/dL Creatinine 1.17 (0.5-1.4) mg/dL Estim Creat Clear Calc 70.9 Estimated GFR > 60 Random Glucose 94 (60-115) mg/dL Uric Acid 7.9 H (3.4-7.0) mg/dL Calcium 9.3 (8.4-10.2) mg/dL Total Bilirubin 0.6 (0.0-1.0) mg/dL Direct Bilirubin 0.2 (0.0-0.5) mg/dL AST 33 (5-37) U/L ALT 45 H (0-40) U/L Alkaline Phosphatase 122 H (39-117) U/L C-Reactive Protein 0.67 H (< or = 0.50) mg/dL Total Protein 7.8 (6.5-8.0) g/dL Albumin 4.5 (3.5-5.0) g/dL Radiology Impression Discussion of test interpretation with radiology: I have reviewed the radiologist's reading. Radiologist Impression: EXAMINATION: XR FOOT 3 OR MORE VIEWS LEFT HISTORY: swelling, pain COMPARISON: There are no prior studies available for comparison. FINDINGS: Three views of the left foot are submitted. Osseous mineralization is normal. There is no fracture or dislocation. The joint spaces are preserved. Again seen is a calcaneal spur at the insertion of the Achilles tendon. The soft tissues are unremarkable. XR/XR foot LT min 3V IMPRESSION: No acute abnormality. Electronically signed by: Constantine Monroe MD 04/18/2025 12:53 PM [facility] Dictated By: Constantine Monroe MD Discharge Plan Discharge Clinical Impression: Gout Patient Disposition: Home, Self-Care Instructions: Low Purine Diet (ED), Gout (ED) Additional Instructions: You were seen in the emergency department for left foot pain. Your blood work today was reassuring however does show evidence of elevated inflammatory markers as well as an elevated uric acid level which is concerning for gout. Gout is a type of arthritis that is caused by a buildup of uric acid crystals in her joints. This can cause sudden, severe pain and swelling. Gout is a chronic (long-term) condition but can be well controlled with treatment and lifestyle modifications. Given that you currently have a flare-up, we are treating you with oral steroids. Please take full course even if your symptoms improve. NSAIDs like naproxen or ibuprofen can be beneficial. Take naproxen once in the morning and once at bedtime. Watch for any new or worsening symptoms including but not limited to increased redness, pain, fevers or chills. To prevent future gout attacks, avoid or limit alcoholic beverages, sugary drinks or foods, red meat, shellfish. Stay well hydrated. Follow-up with your primary care physician, there are some medications that can help prevent these flare-ups from occurring. Please discuss with your primary care physician. Prescriptions: New prednisone 20 mg tablet 40 mg PO DAILY 4 Days Qty: 8 0RF naproxen 500 mg tablet 500 mg PO BID 7 Days Qty: 14 0RF No Action atorvastatin [Lipitor] 10 mg tablet 10 mg PO BEDTIME Qty: 90 0RF oxycodone 5 mg tablet 10 mg PO Q4H PRN (Reason: pain) Qty: 40 0RF Rx Instructions: Partial Fill upon patient request. Take 1-2 tabs every 4 hours as needed for pain following your left shoulder surgery finasteride 5 mg tablet 5 mg PO DAILY 90 Days Qty: 90 1RF omeprazole 40 mg capsule,delayed release(DR/EC) 40 mg PO BID finasteride 5 mg tablet 5 mg PO QAM fenofibrate 160 mg tablet 160 mg PO BEDTIME famotidine 40 mg tablet 40 mg PO BID (DME) AUTO PAP 6-20 cm H20 humidified AIR See Rx Instructions .Route .MEDSUPPLY Qty: 1 0RF Rx Instructions: Sleep study done 05/31/2024 results showing obstructive sleep apnea moderately severe AHI of 16 borderline total hypoxemia consider starting CPAP auto PAP mode pressure setting 6-20 cm cyclobenzaprine 10 mg tablet 10 mg PO TID PRN (Reason: muscle spasm) Qty: 60 0RF Interventions: ED Discharge Assessment Last Done: 04/18/25 14:41 Discharge Date/Time: 04/18/25 14:53 Print Language: Greenlandic
[2025-04-18 12:30] LABS: MANUAL DIFF FLAG NO
[2025-04-18 12:35] LABS: Hematocrit 47.0 % (42.0-52.0); Hemoglobin 16.7 g/dl (14.0-18.0); Imm Gran Abs Auto 0.07 X10*3/uL (0.00-0.03); Imm Gran Pct Auto 0.9 % (0.0-0.4); Lymphocytes Absolute Auto 1.8 X10*3/uL (1.2-4.9); Mean Corpuscular HGB Conc 35.5 g/dl (31.0-36.0); Mean Corpuscular Hemoglobin 30.9 pg (27.0-33.0); Mean Corpuscular Volume 86.9 fL (80.0-98.0); NRBC Abs Auto 0.000 X10*3/uL (0.0-0.012); NRBC Pct Auto 0.0 /100WBC (0.0-0.2); Platelet Count 177 X10*3/uL (160-400); Red Blood Count 5.41 X10*6/uL (4.60-5.80); White Blood Count 8.1 X10*3/uL (4.8-10.8)
[2025-04-18 12:47] LABS: Alanine Aminotransferase 45 U/L (0-40); Albumin Level 4.5 g/dL (3.5-5.0); Alkaline Phosphatase 122 U/L (39-117); Anion Gap 11 (12-20); Aspartate Amino Transferase 33 U/L (5-37); Blood Urea Nitrogen 15 mg/dL (9-16); Calcium 9.3 mg/dL (8.4-10.2); Carbon Dioxide 30 mmol/L (22-29); Chloride 103 mmol/L (96-108); Creatinine Clr Calc Pharmacy 70.9; Estimated Glomerular Filt Rate > 60; Potassium 4.1 mmol/L (3.3-5.1); Sodium 140 mmol/L (135-145); Total Protein 7.8 g/dL (6.5-8.0); Uric Acid 7.9 mg/dL (3.4-7.0)
[2025-04-18 14:41] VITALS: BP 166/91; PULSE 100; RESP 14; TEMP 36.6; O2SAT 98
--- OUTSIDE RECORDS SUMMARY | 2025-04-18 16:14 | XMS_ITS | Patient Health Record ---
Author Organization [facility] Address [address] [place] [id number] Care Team Providers Care Police [employer] Instructor Name Role Phone Kaci Null MD Primary Care Provider Constantine Torres [phone] Allergies No Known Allergies Reason For Referral [...] W/U Status Risk Notes Problem Esophageal reflux (805358277) Esophageal reflux (K21.9) Active confirmed Problem Screening for malignant neoplasm of colon (633676113) Encounter for screening for malignant neoplasm of colon (Z12.11) Active confirmed Problem History of adenomatous polyp of colon (300395800) History of adenomatous polyp of colon (Z86.010) Active confirmed Problem Stricture of esophagus (13481073) Esophageal obstruction (K22.2) Active confirmed Problem Dysphagia (71197005) Dysphagia (R13.10) Active confirmed Problem Esophageal stricture (31995175) Esophageal stricture (K22.2) Active confirmed Problem Erosive esophagitis (93635059) Erosive esophagitis (K22.10) Active confirmed Problem Esophageal ring (51111134) Esophageal ring (K22.2) Active confirmed Problem Barium swallow abnormal (295008933) Abnormal barium swallow (R93.3) Active confirmed Problem Diverticulosis of sigmoid colon (906371178) Diverticulosis of sigmoid colon (K57.30) Active confirmed Problem Esophageal dysphagia (35868039) Esophageal dysphagia (R13.10) Active confirmed Problem Diverticulosis of colon (543241561) Diverticulosis of colon (K57.30) Active confirmed Problem Gastroesophageal reflux disease (disorder) (702972871) Chronic GERD (K21.9) Active confirmed Encounters Encounter Location Date Provider Diagnosis [facility] [address] [facility] [address] [place] [phone] 05/22/2024 Constantine Cervantes Plan Of Treatment Pending [...] Name:Constantine Cervantes , 05/03/2025 01:00:00 PM, [address], [address], [place], [address], Insurance Providers Payer Name Payer Address Payer Phone Subscriber Number Group Number Insured Name Patient Relationship to Insured Coverage Start Date Coverage End Date [employer] [facility] [address] [address] [place], [place] [id number] [phone] [id number] MENARD ABIDA SHEIKH Self - patient is the insured [place] [address] [place] [address] [phone] [id number] SAILAJA KYARA SHEIKHENVENIDO Self - patient is the insured Medical (General) History Medical History History ICD Code Denies DE,DM,CVA,Lung disease,renal dise ase Cortisone injection in the [...]
== END 2025-04-18 14:53 | disposition home or self-care (01) ==
PROVIDERS: Physician Assistant Medical; Emergency Provider Emergency Medicine Emergency Medical Services; PCP Internal Medicine
DX: M10.9 Gout, unspecified (principal); M79.672 Pain in left foot; Z79.899 Other long term (current) drug therapy
CPT/HCPCS: 36415; 73630; 80048; 80076; 84550; 85025; 85652; 86140; 96372; 99283; 99284; J1885

== ENCOUNTER → 2025-04-18 12:17 | Outpatient (BNV) | payer OTHER, SELFPAY | PROVIDERS: PCP Internal Medicine; Visit Provider Radiology Diagnostic Radiology | DX: R22.42 Localized swelling, mass and lump, left lower limb (principal); M79.672 Pain in left foot | CPT/HCPCS: 73630 ==

== ENCOUNTER 2025-04-29 09:49 | Outpatient (REF) | payer OTHER, SELFPAY ==
--- NOTE | ~2025-04-29 | XR_ITS ---
EXAMINATION: XR LUMBOSACRAL SPINE CLINICAL INFORMATION: M54.16 - Radiculopathy, lumbar region COMPARISON: None. TECHNIQUE: Three views of the lumbosacral spine. FINDINGS: There is maintained lumbar lordosis. Loss of L5-S1 disc height is seen. Rest of the disc heights are normal. No visible acute fracture, dislocation or subluxation seen. There is mild ventral spondylosis L1-2 and L2-3 disc levels. No visible acute fracture, dislocation or subluxation seen. SI joints are symmetrical and normal XR/XR lumbar spine 2-3V IMPRESSION: Mild ventral spondylosis L1-2 and L2-3 disc levels- Electronically signed by: Jorge Garcia MD 04/29/2025 11:52 AM EST
== END 2025-04-29 09:50 | disposition home or self-care (01) ==
LOC: HO.XRAY 09:49
PROVIDERS: PCP Internal Medicine; Visit Provider Internal Medicine
DX: Z00.00 Encounter for general adult medical examination without abnormal findings (principal); M54.16 Radiculopathy, lumbar region; N40.0 Benign prostatic hyperplasia without lower urinary tract symptoms; E66.9 Obesity, unspecified; E78.00 Pure hypercholesterolemia, unspecified; K76.0 Fatty (change of) liver, not elsewhere classified; C61 Malignant neoplasm of prostate; N40.1 Benign prostatic hyperplasia with lower urinary tract symptoms; N13.8 Other obstructive and reflux uropathy; M75.42 Impingement syndrome of left shoulder; G47.33 Obstructive sleep apnea (adult) (pediatric); M10.9 Gout, unspecified; N18.9 Chronic kidney disease, unspecified
CPT/HCPCS: 72100; 99396

== ENCOUNTER 2025-04-29 09:49 | Outpatient (AMB) | payer OTHER, SELFPAY ==
[2025-04-29 09:55] VITALS: BP 128/68; PULSE 76; O2SAT 98; BMI 31.8
--- NOTE | 2025-04-29 09:55 | A.OFFPC_ITS ---
Vital Signs 04/29/25 09:55 Height 5 ft 7 in Weight 203 lb BMI 31.8 BP 128/68 Blood Pressure Location Lt brachial Position Sitting Pulse 76 Pulse Source Pulse Oximeter Pulse Oximetry (%) 98 Oxygen Delivery Method Room Air Intake Visit Reasons: pe Allergies No Known Allergies Allergy (Verified 04/29/25 09:55) Medication List - Last Reconciled 04/29/25 by Kaci Null MD atorvastatin (Lipitor) 10 mg PO BEDTIME [AUTO PAP 6-20 cm H20 humidified AIR Sleep study done 05/31/2024 results showing obstructive sleep apnea moderately severe AHI of 16 borderline total hypoxemia consider starting CPAP auto PAP mode pressure setting 6-20 cm] cyclobenzaprine 10 mg PO TID PRN famotidine 40 mg PO BID fenofibrate 160 mg PO BEDTIME finasteride 5 mg PO DAILY 90 days naproxen 500 mg PO BID 7 days omeprazole 40 mg PO BID Tobacco use date assessed: 08/02/24 Dental Screening Dental Screen Date: 01/02/25 HPI HPI Comments History of Present Illness Details History of Present Illness The patient is a 64-year-old obese male presenting for a physical exam and ma nagement of chronic conditions. He has a history of hypercholesterolemia, hepatic steatosis, impaired glucose tolerance, and obstructive sleep apnea. His cholesterol panel from January 2025 showed an LDL of 135 mg/dL and triglycerides of 260 mg/dL. Labs from April 2025 were notable for a creatinine of 1.7, an elevated uric acid of 7.9, and elevated liver function tests with an AST of 45. In terms of genitourinary history, he has benign prostatic hyperplasia and a history of prostate cancer diagnosed in January 2023, for which he is under surveillance with urology and takes finasteride 5 mg daily. His PSA level in January 2025 was 4.84. He also has a history of Peyronie's disease. His gastrointestinal history is significant for a tubular adenoma of the colon found on his last colonoscopy in June 2022, as well as a hiatal hernia and mild narrowing of the gastroesophageal junction. He takes omeprazole and reports intermittent issues with choking. For his musculoskeletal health, he underwent left shoulder arthroscopic surgery on March 22, 2025, for rotator cuff insufficiency and reports that it is feeling better but still healing. He also has a recurrent issue of left foot swelling and pain, which has been occurring for 7-8 years. He had an emergency room visit on April 18 for this issue, where he was diagnosed with gout and treated with naproxen and a steroid. A foot x-ray at that time was negative. His mother has a history of a stroke and a heart attack. He denies any history of recreational drug use and states he no longer drinks alcohol or smokes cigarettes. Health Maintenance We discussed the importance of continued diet and exercise, as well as adequate water intake. A referral for treatment was provided. Social History - Alcohol use: Denies current alcohol us e. - Tobacco use: Denies current cigarette use. - Illicit drug use: Denies recreational drug use. - Exercise: Reports that he exercises. Results - Labs (April 2025): Complete blood c ount was normal with no anemia, electrolytes were normal, creatinine was 1.7, blood sugar was normal, uric acid was 7.9, and AST was 45. - Labs (January 2025): LDL was 135 mg/dL , triglycerides were 260 mg/dL, and PSA was 4.84. - Urology testing (date unspecified): Po st-void residual volume was 53 cc. - Imaging (April 18): X-ray of the le ft foot was negative. - Procedures: A previous colonoscopy (2022) showed a tubular adenoma. An EGD (date unspecified) showed a mild narrowing of the GE junction and a hiatal hernia. [facility] Medical History Former smoker History of alcohol abuse Arthritis Elevated PSA measurement Hiatal hernia Erectile dysfunction Elevated cholesterol Fatty liver Back pain Gout KEELY (obstructive sleep apnea) BPH (benign prostatic hyperplasia) Shoulder pain, left LFT elevation Vision changes GERD (gastroesophageal reflux disease) Dysphagia Neuropathy of left foot Obesity (BMI 30-39.9) Surgical History History of prostate biopsy History of endoscopy History of colonoscopy History of shoulder surgery Family History Mother Myocardial infarct CVA (cerebral vascular accident) Father No problems noted. Social History Household Members Other:: step daughter Housing: Apartment Are you a primary home care nurse to a significant other at home: No Do you presently have visiting nurse or other home services: No Alcohol intake: former Comment: improving with flatus passing stopped 2022 Patient Tobacco Use Status: Former Tobacco user Tobacco use type: Cigarette Years Smoked: 15 e-Cigarette/Vaping Use: Never Used Second Hand Smoke Exposure: Yes service: No Current occupational status: retired Current occupation: right handed Cognitive needs: No Hearing needs: No Vision needs: No Questionnaire PHQ-9 Over the last 2 weeks, how often have you been bothered by any of the following problems? 1. Little interest or pleasure in doing things: not at all 2. Feeling down, depressed, or hopeless: not at all 3. Trouble falling or staying asleep, or sleeping too much: not at all 4. Feeling tired or having little energy: not at all 5. Poor appetite or overeating: not at all 6. Feeling bad about yourself - or that you are a failure or have let yourself or your family down: not at all 7. Trouble concentrating on things, such as reading the newspaper or watching television: not at all 8. Moving or speaking so slowly that other people could have noticed. Or the opposite - being so fidgety or restless that you have been moving around a lot more than usual: not at all 9. Thoughts that you would be better off or of hurting yourself in some way: not at all Total score: 0 Depression Screening Interpretation: Negative Depression Screening Done: Yes Source: Developed by Drs. Constantine Mello, Meredith Sheikh, Goyo Mendes and colleagues, with an educational pedro from [email or web address]. Thrive Questionnaire Date Thrive assessed: 12/27/24 I am a: Patient What is your living situation today?: I have a steady place to live Within the past 12 months, did the food you bought not last and you didn't have the money to get more?: Never true Within the past 12 months, did you worry whether your food would run out before you got money to buy more?: Never true Do you have trouble paying for medicines?: I choose not to answer this question Do you have trouble getting transportation to medical appointments?: No Do you have trouble paying your heating and electricity bill?: I choose not to answer this question Do you have trouble taking care of your child, family member or friend?: No Do you have trouble with day-to-day activities such as bathing, preparing meals, shopping, managing finances, etc.?: I choose not to answer this question Are you currently unemployed and looking for a job?: I choose not to answer this question Are you interested in more education?: No Currently or been in a relationship where the following occur: No concerns reported THRIVE Score: 0 AUDIT C Alcohol Use Questionnaire (AUDIT-C) 1. How often do you have a drink containing alcohol?: Never 3. How often do you have six or more drinks on one occasion?: Never Total Score: 0 BARRINGTON-7 AMB Questionnaire BARRINGTON-7 Date BARRINGTON - 7 assessed: 08/02/24 Source: Developed by Drs. Constantine Mello, Meredith Sheikh, Goyo Mendes and colleagues, with an educational pedro from [email or web address]. Review of Systems Narrative Review of Systems - Constitutional: Denies dizziness, fever, and syncope. - Gastrointestinal: Reports intermittent dysphagia and choking. Denies nausea and vomiting. - Musculoskeletal: Reports his left shoulder is feeling better post-surgery but is still healing. Reports recurrent left foot pain and swelling, currently affecting the top of his foot. - Neurological: Denies dizziness. - Allergic/Immunologic: Denies any known medication allergies. Const Denies poor appetite and Denies weakness Eyes Denies no additional complaints ENT Reports Normal hearing present, Denies dizziness, Denies nasal congestion, Denies tinnitus and Denies sore throat Card Denies chest pain, Denies syncope, Denies rapid heart rate and Denies dyspnea Resp Denies cough and Denies dyspnea GI Denies change in stool character, Reports constipation, Denies diarrhea, Denies nausea and Denies vomiting Denies dysuria and Denies urinary frequency Neuro Reports Normal hearing present, Denies confusion, Denies dizziness, Denies syncope and Denies weakness Psych Denies confusion Physical exam (Primary Care) Vital Signs: Last Vital Signs Pulse 76 04/29/25 09:55 BP 128/68 04/29/25 09:55 Pulse Ox 98 04/29/25 09:55 Oxygen Delivery Method Room Air 04/29/25 09:55 BMI result Body Mass Index 31.8 Tobacco/Smoking Status: Tobacco use Status Tobacco use date assessed 08/02/24 04/29/25 10:02 Patient Tobacco Use Status Former Tobacco user 04/29/25 10:02 Tobacco use type Cigarette 04/29/25 10:02 e-Cigarette/Vaping Use Never Used 04/29/25 10:02 PHQ-9: PHQ-9 Score PHQ-9: Total score 0 04/29/25 10:13 Depression Screening Interpretation: Negative Thrive Assessment: Date of Thrive Assessment Date Thrive assessed 12/27/24 04/29/25 10:02 Currently or been in a relationship where the following occur: No concerns reported Narrative Physical Exam General: Cooperative, healthy appearing, comfortable, no acute distress and well developed Orientation: Patient oriented x3 Limitations: Insufficiency on the left shoulder Head: Normal to inspection Ears: Hearing grossly normal bilaterally Nose: Normal external nose present Face and sinus: Normal facial exam Eyes: Appearance normal, both eyes and all related structures Neck: Normal visual inspection and Yes full ROM Respiratory: Normal respiratory effort and able to speak in complete sentences. Clear to auscultation bilaterally Cardiovascular: Regular rate and rhythm. Normal S1 and S2 GI: Normal to inspection. Soft to palpation and nontender Skin: No rashes or lesions noted Neuro: Patient oriented x3 Extremities: Normal to inspection, except for left foot swelling due to gout Const General: No confusion Orientation/consciousness: No confusion HENMT Head: Yes normocephalic Ears: external ears normal and TM's normal bilaterally Face and sinus: Yes normal facial exam Mouth: moist mucous membranes Throat: Yes tonsils normal Eyes Conjunctivae: conjunctivae normal Pupils: Equal, round and reactive pupils present and Pupil accommodation reflex normal Direct Ophthalmoscopy: normal light reflex Neck Neck: No lymphadenopathy Thyroid: Thyroid normal Chest Chest palpation & inspection: normal inspection of the chest Resp Effort & Inspection: normal respiratory effort and no audible wheezes Auscultation: clear to auscultation bilaterally, no crackles, no wheezes and lung sounds not diminished Cardio Rate: regular rate Rhythm: regular rhythm Peripheral pulses: radial pulses present and dorsalis pedis present GI Palpation (GI): no masses Auscultation: normal bowel sounds and normoactive bowel sounds Rectal Exam - Male: Yes deferred Skin General skin exam: no rashes or lesions noted Rashes: no rashes Neuro General: No confusion Cranial nerves: Yes Equal, round and reactive pupils present and Yes Normal hearing present Cognition (Neuro): normal cognition Gait exam (Neuro): Normal gait present Motor exam (neuro): 5/5 motor strength present throughout Deep tendon reflexes (DTR's): Right brachioradialis reflex intensity grade: 2+, Left brachioradialis reflex intensity grade: 2+, Right patellar reflex intensity grade: 2+ and Left patellar reflex intensity grade: 2+ Extrem General: No edema Coding Level of Care Code Est Pt Prev Care 40-64y(68712) Diagnoses Annual physical exam Z00.00 Obesity (BMI 30.0-34.9) E66.9 Hypercholesterolemia E78.00 Fatty liver K76.0 Prostate cancer C61 BPH w urinary obs/LUTS N40.1; N13.8 Impingement syndrome of left shoulder M75.42 KEELY (obstructive sleep apnea) G47.33 Low back pain M54.5 Assessment & Plan Assessment & Plan (1) Annual physical exam: Code(s): Z00.00 - Encounter for general adult medical examination without abnormal findings Category: Medical Plan: Patient is advised to eat healthy, keep well hydrated, keep active and have adequate sleep. (2) Obesity (BMI 30.0-34.9): Code(s): E66.9 - Obesity, unspecified Category: Medical Plan: Diet and exercise (3) Hypercholesterolemia: Code(s): E78.00 - Pure hypercholesterolemia, unspecified Category: Medical Plan: Avoid fried foods, chicken skin, eggs, butter margarine, pastries and meat. Be it pork or beef they have a lot of cholesterol LDL goal of less than 130 and triglyceride of less than 150 on atorvastatin 10 mg at bedtime and fenofibrate 160 mg once a day (4) Fatty liver: Code(s): K76.0 - Fatty (change of) liver, not elsewhere classified Category: Medical Plan: Low-fat diet and exercise (5) Prostate cancer: Comment: 01/[address] Gloria Code(s): C61 - Malignant neoplasm of prostate Category: Medical Plan: Continue to follow-up with urology under surveillance (6) BPH w urinary obs/LUTS: Comment: Prostate biopsy January 2023 with MRI done May 2023 Code(s): N40.1 - Benign prostatic hyperplasia with lower urinary tract symptoms; N13.8 - Other obstructive and reflux uropathy Category: Medical Plan: Patient on finasteride 5 mg once a day (7) Impingement syndrome of left shoulder: Code(s): M75.42 - Impingement syndrome of left shoulder Category: Medical Plan: Patient follows up with ortho had arthroscopic surgery March 2025 (8) KEELY (obstructive sleep apnea): Comment: Sleep study done 05/31/2024 results showing obstructive sleep apnea moderately severe AHI of 16 borderline total hypoxemia consider starting CPAP auto PAP mode pressure setting 6-20 cm Code(s): G47.33 - Obstructive sleep apnea (adult) (pediatric) Category: Medical Plan: Discussed about CPAP and sleep apnea. (9) Low back pain: Code(s): M54.5 - Low back pain Category: Medical Plan Plan Patient was informed and verbally consented to the use of an ambient scribe for clinic note documentation during this visit. 1. Hypercholesterolemia The patient will continue taking atorvastatin 10 mg at bedtime and fenofibrate. We discussed diet and exercise, including a low-fat diet, with a goal LDL of less than 130 and triglycerides of less than 115. 2. Benign Prostatic Hyperplasia / History Of Prostate Cancer The patient will continue finasteride 5 mg once daily. He will continue follow-u p with urology for surveillance. 3. Left Shoulder Pain (Status Post-Arthroscopy) The patient will continue follow-up with orthopedics for his left shoulder, which is recovering from surgery in March 2025. The importance of performing his physical therapy exercises was emphasized to aid in healing. 4. Obstructive Sleep Apnea We discussed the use of CPAP for his sleep apnea. 5. Gout And Left Foot Pain The patient's recent ER visit for left foot swelling resulted in a diagnosis of gout, which is supported by an elevated uric acid level of 7.9. However, the clinical presentation of whole-foot swelling is atypical for an initial gout flare. A request for an x-ray was placed to further evaluate. The patient was counseled on dietary modifications. 6. Chronic Kidney Disease Given his creatinine of 1.7, I advised him to be cautious with NSAID medications such as naproxen, Advil, and Motrin due to the risk of affecting kidney function. Discussion Notes I reviewed the patient's extensive medical history and recent lab results. We discussed his management plan for hypercholesterolemia, including medication adherence and lifestyle modifications, with a stated goal for his LDL and triglyceride levels. I reinforced the plan for continued urological surveillance for his BPH and history of prostate cancer. Regarding his recent emergency room visit for left foot swelling, I noted the diagnosis of gout. I explained that while his elevated uric acid supports this, the symptoms affecting his entire foot are somewhat atypical for a classic gout presentation, which usually affects a single joint like the big toe. I expressed concern about the use of NSAIDs like naproxen and Motrin given his creatinine of 1.7, explaining that these medications can negatively affect kidney function. I informed him that an x-ray request for his foot has been placed. I also emphasized the need to continue his physical therapy exercises for his left shoulder to ensure a good recovery from his recent surgery. We briefly touched on his obstructive sleep apnea and CPAP. Finally, I provided general guidance on exercise, stretching, and hydration for his overall health. Patient Instructions - Continue taking your medications as prescribed, including atorvastatin for cholesterol and finasteride for your prostate. - Follow a low-fat diet and continue to exercise regularly. - Be careful when using pain relievers like Aleve (naproxen), Motrin, or Advil as they can harm your kidneys. Discuss with your doctor before using them for an extended time. - Continue to do the exercises for your left shoulder as recommended by your physical therapist. - An X-ray of your foot has been ordered. Please complete this test. - Make sure you are drinking enough water each day. - Continue to follow up with urology for prostate monitoring. - You will be able to schedule your next appointment when you check out today. Orders: Orders Lipid Panel 3 Months E78.00 - Pure hypercholesterolemia, unspecified Hemoglobin A1c 3 Months E78.00 - Pure hypercholesterolemia, unspecified Free T4 (Free Thyroxine) 3 Months E78.00 - Pure hypercholesterolemia, unspecified XR lumbar spine 2-3V Today M54.16 - Radiculopathy, lumbar region Comprehensive Met. Panel 3 Months E78.00 - Pure hypercholesterolemia, unspecified Thyroid Stimulating Hormone 3 Months E78.00 - Pure hypercholesterolemia, unspecified PSA,Total (Free>4and<10) 3 Months C61 - Malignant neoplasm of prostate Referrals Pain Management Referral M54.16 - Radiculopathy, lumbar region Medications: Changed From atorvastatin (Lipitor) 10 mg PO BEDTIME 90 tabs 0RF E78.00 - Pure hypercholesterolemia, unspecified To atorvastatin 20 mg PO BEDTIME 30 tabs 4RF E78.00 - Pure hypercholesterolemia, unspecified Refilled [AUTO PAP 6-20 cm H20 humidified AIR] Sleep study done 05/31/2024 results showing obstructive sleep apnea moderately severe AHI of 16 borderline total hypoxemia consider starting CPAP auto PAP mode pressure setting 6-20 cm 1 ea 0RF G47.33 - Obstructive sleep apnea (adult) (pediatric)
--- OUTSIDE RECORDS SUMMARY | 2025-04-29 10:32 | XMS_ITS | Patient Health Record ---
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 Name Role Phone Kaci Null MD Primary Care Provider Constantine Torres [phone] Allergies No Known Allergies Reason For Referral [...] W/U Status Risk Notes Problem Esophageal reflux (541602290) Esophageal reflux (K21.9) Active confirmed Problem Screening for malignant neoplasm of colon (799191208) Encounter for screening for malignant neoplasm of colon (Z12.11) Active confirmed Problem History of adenomatous polyp of colon (491698511) History of adenomatous polyp of colon (Z86.010) Active confirmed Problem Stricture of esophagus (90108660) Esophageal obstruction (K22.2) Active confirmed Problem Dysphagia (89479007) Dysphagia (R13.10) Active confirmed Problem Esophageal stricture (11226125) Esophageal stricture (K22.2) Active confirmed Problem Erosive esophagitis (29034584) Erosive esophagitis (K22.10) Active confirmed Problem Esophageal ring (92229440) Esophageal ring (K22.2) Active confirmed Problem Barium swallow abnormal (130629428) Abnormal barium swallow (R93.3) Active confirmed Problem Diverticulosis of sigmoid colon (650156584) Diverticulosis of sigmoid colon (K57.30) Active confirmed Problem Esophageal dysphagia (94141143) Esophageal dysphagia (R13.10) Active confirmed Problem Diverticulosis of colon (167925075) Diverticulosis of colon (K57.30) Active confirmed Problem Gastroesophageal reflux disease (disorder) (531581009) Chronic GERD (K21.9) Active confirmed Encounters Encounter Location Date Provider Diagnosis [facility] [address] [facility] [address] [place] [id number] 05/22/2024 Constantine Cervantes Plan Of Treatment Pending [...] [facility] [address], [address], [place], [address], Insurance Providers Payer Name Payer Address Payer Phone Subscriber Number Group Number Insured Name Patient Relationship to Insured Coverage Start Date Coverage End Date Good Photo [facility] [address] [address] [place], [place] [id number] [phone] [id number] MENARD ABIDA SHEIKH Self - patient is the insured [place] [address] [place] [address] [phone] [id number] SAILAJA KYARA SHEIKHENVENIDO Self - patient is the insured Medical (General) History Medical History History ICD Code Denies [place],DM,CVA,Lung disease,renal dise ase Cortisone injection in the [...]
== END 2025-04-29 10:41 | disposition home or self-care (01) ==
LOC: HO.HMCH 09:50
PROVIDERS: PCP Internal Medicine; Visit Provider Internal Medicine
DX: Z00.00 Encounter for general adult medical examination without abnormal findings (principal); C61 Malignant neoplasm of prostate; E66.811 Obesity, class 1; E78.00 Pure hypercholesterolemia, unspecified; K76.0 Fatty (change of) liver, not elsewhere classified; N40.1 Benign prostatic hyperplasia with lower urinary tract symptoms; N13.8 Other obstructive and reflux uropathy; M75.42 Impingement syndrome of left shoulder; G47.33 Obstructive sleep apnea (adult) (pediatric); M54.50 Low back pain, unspecified; Z68.31 Body mass index [BMI] 31.0-31.9, adult

== ENCOUNTER → 2025-04-29 10:54 | Outpatient (BNV) | payer OTHER, SELFPAY | PROVIDERS: PCP Internal Medicine; Visit Provider Radiology Diagnostic Radiology | DX: M47.26 Other spondylosis with radiculopathy, lumbar region (principal) | CPT/HCPCS: 72100 ==